=== PATIENT | female | born 1950 | race Caucasian/White ===

== ENCOUNTER 2018-08-22 08:05 | Day surgery (SDC) | payer OTHER, BC ==
--- OUTSIDE RECORDS SUMMARY | 2018-08-22 08:09 | XMS REPORT ---
:1950 Author Organization [facility] Address [address] [place] [address] [address] [place] [address] Care Team Providers Name Role Phone REAL BEJARANO ARMANDOCINTHIAEUGENE Unavailable Unavailable JOHNIE CLARK Unavailable Unavailable Problems This patient has no known problems. Allergies, Adverse Reactions, Alerts This patient has no known allergies or adverse reactions. Medications This patient has no known medications. Results Test Description Test Time Test Comments Text Results Atomic Results Result Comments BASIC METABOLIC PANEL 2017-07-30 05:01:00 Test Item Value Reference Range Comments SODIUM (BEAKER) (test 143 meq/L 135-148 zhrl=725) POTASSIUM (BEAKER) (test 3.2 meq/L 3.6-5.5 lroz=466) CHLORIDE (BEAKER) (test 103 meq/L 98-106 lwwv=888) CO2 (BEAKER) (test jabt=965) 28 meq/L 20-29 BLOOD UREA NITROGEN (BEAKER) 26 mg/dL 10-26 (test dfmn=292) CREATININE (BEAKER) (test 1.30 mg/dL 0.50-1.20 omqy=558) GLUCOSE RANDOM (BEAKER) 80 mg/dL 70-110 (test abie=085) CALCIUM (BEAKER) (test 8.1 mg/dL 8.5-10.5 dyso=613) EGFR (BEAKER) (test 41 mL/min/1.73 sq m ESTIMATED GFR IS NOT iegj=7674) ACCURATE CREATININE CLEARANCE IN PREDICTING GLOMERULAR FILTRATION RATE. ESTIMATED GFR IS NOT APPLICABLE FOR DIALYSIS PATIENTS. CBC W/PLT COUNT & AUTO [id number] 04:46:00 Test Item Value Reference Range Comments WHITE BLOOD CELL COUNT (BEAKER) (test hiuy=285) 12.8 K/ L 4.0-10.0 RED BLOOD CELL COUNT (BEAKER) (test kqhu=063) 3.07 M/ L 4.00-5.00 HEMOGLOBIN (BEAKER) (test rczg=328) 9.5 GM/DL 12.0-15.0 HEMATOCRIT (BEAKER) (test spdw=571) 28.7 % 36.0-45.0 MEAN CORPUSCULAR VOLUME (BEAKER) (test arce=288) 93.5 fL 82.0-99.0 MEAN CORPUSCULAR HEMOGLOBIN (BEAKER) (test 30.9 pg 27.0-33.0 hunj=077) MEAN CORPUSCULAR HEMOGLOBIN CONC (BEAKER) (test 33.1 GM/DL 32.0-36.0 viql=732) RED CELL DISTRIBUTION WIDTH (BEAKER) (test 14.6 % 10.3-14.2 ckpp=403) PLATELET COUNT (BEAKER) (test nvdm=533) 305 K/CU MM 150-430 MEAN PLATELET VOLUME (BEAKER) (test epko=530) 8.4 fL 6.5-10.5 NUCLEATED RED BLOOD CELLS (BEAKER) (test 0 /100 WBC 0-0 ybmt=625) NEUTROPHILS RELATIVE PERCENT (BEAKER) (test 79 % tvsd=589) LYMPHOCYTES RELATIVE PERCENT (BEAKER) (test 13 % ayky=172) MONOCYTES RELATIVE PERCENT (BEAKER) (test 7 % hlij=684) EOSINOPHILS RELATIVE PERCENT (BEAKER) (test 1 % kiqe=649) BASOPHILS RELATIVE PERCENT (BEAKER) (test 0 % ejdk=215) NEUTROPHILS ABSOLUTE COUNT (BEAKER) (test 10.10 K/ L 1.80-8.00 jgjt=288) LYMPHOCYTES ABSOLUTE COUNT (BEAKER) (test 1.60 K/ L 1.48-4.50 hlpe=154) MONOCYTES ABSOLUTE COUNT (BEAKER) (test 0.90 K/ L 0.00-1.30 vzoe=313) EOSINOPHILS ABSOLUTE COUNT (BEAKER) (test 0.10 K/ L 0.00-0.50 kjks=599) BASOPHILS ABSOLUTE COUNT (BEAKER) (test 0.00 K/ L 0.00-0.20 yqpc=277) TISSUE [id number] 10:51:00Surgical Pathology Report Case: [id number] Authorizing Provider: Real Bejarano, Collected: 07/27/2017 Jitendra GUZMAN OrderingLocation: [facility] PERIOPERATIVE Received: 2016 1207 SERVICES Pathologist: Priyanka Lynne MD Specimens: A) - Disc L3-4, L3-L4 B) - Disc L4-5, L4-L5 A. LUMBAR DISC, L3-L4, DISCECTOMY: - FIBROCARTILAGENOUS TISSUE WITH CALCIFICATION, CRYSTAL DEPOSITION AND DEGENERATIVE CHANGESB. LUMBAR DISC, L4-L5, DISCECTOMY: - FIBROCARTILAGENOUS TISSUE WITH CALCIFICATION AND DEGENERATIVECHANGESElectronically signed by Priyanka Lynne MD on at 10:51 [id number] A. Lumbar L3-L4; B. Lumbar L4- [id number] A is received in fixative and designated as "L3-4" consists of multiple white-ace tissue fragments measuring 2.5 x 1.5 x 0.5 cm in aggregate. The specimen is entirely submitted into A1. Specimen B is received in fixative and designated as "L4-5" consists of multiple pink-ace tissue fragments measuring 3.0 x 2.5 x 0.5 cm in aggregate. The specimen isentirely submitted into B1. MG/pl A-B: Performed [facility], Department of Pathology, [address] [place] [address], Tel [facility], Department of Pathology, [address] [place] [address], [facility], [address] [place] [address], EDA W/PLT COUNT & AUTO [id number] 05:42:00 Test Item Value Reference Range Comments WHITE BLOOD CELL COUNT (BEAKER) (test brcx=597) 14.2 K/ L 4.0-10.0 RED BLOOD CELL COUNT (BEAKER) (test ikhe=688) 3.16 M/ L 4.00-5.00 HEMOGLOBIN (BEAKER) (test njmh=274) 9.7 GM/DL 12.0-15.0 HEMATOCRIT (BEAKER) (test uyfb=370) 29.5 % 36.0-45.0 MEAN CORPUSCULAR VOLUME (BEAKER) (test oubz=317) 93.2 fL 82.0-99.0 MEAN CORPUSCULAR HEMOGLOBIN (BEAKER) (test 30.7 pg 27.0-33.0 ultz=337) MEAN CORPUSCULAR HEMOGLOBIN CONC (BEAKER) (test 32.9 GM/DL 32.0-36.0 hbbq=452) RED CELL DISTRIBUTION WIDTH (BEAKER) (test 14.9 % 10.3-14.2 qivp=107) PLATELET COUNT (BEAKER) (test cfhd=995) 280 K/CU MM 150-430 MEAN PLATELET VOLUME (BEAKER) (test jkcj=143) 8.0 fL 6.5-10.5 NUCLEATED RED BLOOD CELLS (BEAKER) (test 0 /100 WBC 0-0 ccto=187) NEUTROPHILS RELATIVE PERCENT (BEAKER) (test 86 % okyi=916) LYMPHOCYTES RELATIVE PERCENT (BEAKER) (test 9 % wmmn=619) MONOCYTES RELATIVE PERCENT (BEAKER) (test 5 % fsqw=519) EOSINOPHILS RELATIVE PERCENT (BEAKER) (test 0 % jnvh=156) BASOPHILS RELATIVE PERCENT (BEAKER) (test 0 % uexr=810) NEUTROPHILS ABSOLUTE COUNT (BEAKER) (test 12.20 K/ L 1.80-8.00 bmdx=806) LYMPHOCYTES ABSOLUTE COUNT (BEAKER) (test 1.20 K/ L 1.48-4.50 sxdh=787) MONOCYTES ABSOLUTE COUNT (BEAKER) (test 0.70 K/ L 0.00-1.30 pjwo=735) EOSINOPHILS ABSOLUTE COUNT (BEAKER) (test 0.10 K/ L 0.00-0.50 ubix=781) BASOPHILS ABSOLUTE COUNT (BEAKER) (test 0.00 K/ L 0.00-0.20 bcsw=797) BASIC METABOLIC [id number] 05:40:00 Test Item Value Reference Range Comments SODIUM (BEAKER) (test 143 meq/L 135-148 iifo=142) POTASSIUM (BEAKER) (test 3.8 meq/L 3.6-5.5 pjba=361) CHLORIDE (BEAKER) (test 107 meq/L 98-106 cxcb=977) CO2 (BEAKER) (test 26 meq/L 20-29 zpgx=043) BLOOD UREA NITROGEN 22 mg/dL 10-26 (BEAKER) (test mpyp=198) CREATININE (BEAKER) (test 1.20 mg/dL 0.50-1.20 uhgo=814) GLUCOSE RANDOM (BEAKER) 96 mg/dL 70-110 (test gpcy=954) CALCIUM (BEAKER) (test 8.3 mg/dL 8.5-10.5 uips=500) EGFR (BEAKER) (test 45 mL/min/1.73 sq m ESTIMATED GFR IS NOT hkns=8481) ACCURATE CREATININE CLEARANCE IN PREDICTING GLOMERULAR FILTRATION RATE. ESTIMATED GFR IS NOT APPLICABLE FOR DIALYSIS PATIENTS. CBC W/PLT COUNT & AUTO [id number] 05:15:00 Test Item Value Reference Range Comments WHITE BLOOD CELL COUNT (BEAKER) (test kasz=129) 9.4 K/ L 4.0-10.0 RED BLOOD CELL COUNT (BEAKER) (test wfzu=000) 3.64 M/ L 4.00-5.00 HEMOGLOBIN (BEAKER) (test kjuj=613) 11.3 GM/DL 12.0-15.0 HEMATOCRIT (BEAKER) (test nywp=061) 33.9 % 36.0-45.0 MEAN CORPUSCULAR VOLUME (BEAKER) (test yizy=011) 93.2 fL 82.0-99.0 MEAN CORPUSCULAR HEMOGLOBIN (BEAKER) (test 31.1 pg 27.0-33.0 dshh=944) MEAN CORPUSCULAR HEMOGLOBIN CONC (BEAKER) (test 33.3 GM/DL 32.0-36.0 igir=171) RED CELL DISTRIBUTION WIDTH (BEAKER) (test 14.5 % 10.3-14.2 cuxm=999) PLATELET COUNT (BEAKER) (test orjt=060) 265 K/CU MM 150-430 MEAN PLATELET VOLUME (BEAKER) (test zgdx=312) 8.4 fL 6.5-10.5 NUCLEATED RED BLOOD CELLS (BEAKER) (test 0 /100 WBC 0-0 feil=006) NEUTROPHILS RELATIVE PERCENT (BEAKER) (test 97 % ykgr=938) LYMPHOCYTES RELATIVE PERCENT (BEAKER) (test 3 % dirp=333) MONOCYTES RELATIVE PERCENT (BEAKER) (test 1 % ytme=037) EOSINOPHILS RELATIVE PERCENT (BEAKER) (test 0 % lenw=467) BASOPHILS RELATIVE PERCENT (BEAKER) (test 0 % rxkw=160) NEUTROPHILS ABSOLUTE COUNT (BEAKER) (test 9.10 K/ L 1.80-8.00 mfss=944) LYMPHOCYTES ABSOLUTE COUNT (BEAKER) (test 0.20 K/ L 1.48-4.50 gwzj=553) MONOCYTES ABSOLUTE COUNT (BEAKER) (test 0.10 K/ L 0.00-1.30 dgzj=002) EOSINOPHILS ABSOLUTE COUNT (BEAKER) (test 0.00 K/ L 0.00-0.50 iejh=658) BASOPHILS ABSOLUTE COUNT (BEAKER) (test 0.00 K/ L 0.00-0.20 rqne=052) BASIC METABOLIC [id number] 05:05:00 Test Item Value Reference Range Comments SODIUM (BEAKER) (test 142 meq/L 135-148 tpfl=351) POTASSIUM (BEAKER) (test 4.2 meq/L 3.6-5.5 hrzx=591) CHLORIDE (BEAKER) (test 111 meq/L 98-106 jllg=153) CO2 (BEAKER) (test 17 meq/L 20-29 mzlh=091) BLOOD UREA NITROGEN 15 mg/dL 10-26 (BEAKER) (test ojro=506) CREATININE (BEAKER) (test 0.80 mg/dL 0.50-1.20 huag=234) GLUCOSE RANDOM (BEAKER) 211 mg/dL 70-110 (test zzmv=466) CALCIUM (BEAKER) (test 8.3 mg/dL 8.5-10.5 hkbx=940) EGFR (BEAKER) (test 71 mL/min/1.73 sq m ESTIMATED GFR IS NOT msts=0924) ACCURATE CREATININE CLEARANCE IN PREDICTING GLOMERULAR FILTRATION RATE. ESTIMATED GFR IS NOT APPLICABLE FOR DIALYSIS PATIENTS. [place], [facility] IN OR/30 MINUTE [id number] 20:23:00Reason for exam:-> intra opFINAL REPORT Examination: Intraoperative evaluation 9 fluoroscopic spot views were obtained during the procedure by the ordering service. Images are nondiagnostic as no radiologist was present at the time of imaging. Fluoroscopic time was 145.5 seconds. Please see the procedure report for details. Signed: Mg Aranda MDReport Verified Date/Time : 07/27/2017 20:23:41 Reading Location: [address] Reading Room Electronically signed by: MG ARANDA M.D.on 07/27/2017 08:23 PMHEMOGLOBIN AND [id number] 17:50:00 Test Item Value Reference Range Comments HEMOGLOBIN (BEAKER) (test gkkr=686) 12.6 GM/DL 12.0-15.0 HEMATOCRIT (BEAKER) (test btgt=716) 38.4 % 36.0-45.0 RAD, CHEST, 2 [id number] 13:59:00Reason for exam:->preopFINAL REPORT INDICATION: preop COMPARISON: None. TECHNIQUE: Chest radiograph,two views, PA and lateral. FINDINGS / IMPRESSION:There is no evidence of pneumonia or pulmonary edema. 1 cm calcified granuloma in the right lower lobe represents prior granulomatous infection. Cardiacand mediastinal contours are normal. There is no pneumothorax or pleural effusion. Osseous structures are unremarkable. In summary, no acute pulmonary or cardiac abnormality. Signed: Arabella Ballard MDReport Verified Date/Time: 07/12/2017 13:59:12 Reading Location: [facility] Diagnostic Imaging Reading Room - [place] [address] COMPREHENSIVE METABOLIC [id number] 13:14:00 Test Item Value Reference Range Comments TOTAL PROTEIN (BEAKER) 6.6 gm/dL 6.0-8.5 (test bphr=183) ALBUMIN (BEAKER) (test 4.1 g/dL 3.5-5.0 vjel=6770) ALKALINE PHOSPHATASE 122 U/L 30-115 (BEAKER) (test qfiy=915) BILIRUBIN TOTAL (BEAKER) 0.5 mg/dL 0.1-1.2 (test kofd=903) SODIUM (BEAKER) (test 145 meq/L 135-148 gdgm=506) POTASSIUM (BEAKER) (test 4.1 meq/L 3.6-5.5 dmbw=209) CHLORIDE (BEAKER) (test 109 meq/L 98-106 sela=769) CO2 (BEAKER) (test 25 meq/L 20-29 vkpp=534) BLOOD UREA NITROGEN 21 mg/dL 10-26 (BEAKER) (test tcmi=977) CREATININE (BEAKER) (test 0.80 mg/dL 0.50-1.20 jcdt=614) GLUCOSE RANDOM (BEAKER) 95 mg/dL 70-110 (test qgow=756) CALCIUM (BEAKER) (test 9.4 mg/dL 8.5-10.5 cskf=776) AST (SGOT) (BEAKER) (test 32 U/L 5-40 qino=400) ALT (SGPT) (BEAKER) (test 40 U/L 5-50 lmzy=399) EGFR (BEAKER) (test 71 mL/min/1.73 sq m ESTIMATED GFR IS NOT tsyt=3214) ACCURATE CREATININE CLEARANCE IN PREDICTING GLOMERULAR FILTRATION RATE. ESTIMATED GFR IS NOT APPLICABLE FOR DIALYSIS PATIENTS. [id number] 13:01:00 Test Item Value Reference Range Comments PROTIME (BEAKER) (test exok=719) 10.7 seconds 9.3-12.0 INR (BEAKER) (test ulsf=368) 1.0 <=5.9 PARTIAL THROMBOPLASTIN TIME (BEAKER) (test 23.5 seconds 23.0-35.0 lppd=278) RECOMMENDED COUMADIN/WARFARIN INR THERAPY RANGESSTANDARD DOSE: 2.0 - 3.0 Includes: PROPHYLAXIS forvenous thrombosis, systemic embolization; TREATMENT for venous thrombosis and/or pulmonary embolus.HIGH RISK: Target INR is 2.5-3.5 for patients with mechanical heart valves.CBC W/PLT COUNT & AUTO [id number] 12:51:00 Test Item Value Reference Range Comments WHITE BLOOD CELL COUNT (BEAKER) (test jkpb=432) 15.5 K/ L 4.0-10.0 RED BLOOD CELL COUNT (BEAKER) (test lose=127) 4.25 M/ L 4.00-5.00 HEMOGLOBIN (BEAKER) (test zamh=693) 13.3 GM/DL 12.0-15.0 HEMATOCRIT (BEAKER) (test lvwr=566) 40.3 % 36.0-45.0 MEAN CORPUSCULAR VOLUME (BEAKER) (test ksvl=839) 94.9 fL 82.0-99.0 MEAN CORPUSCULAR HEMOGLOBIN (BEAKER) (test 31.2 pg 27.0-33.0 rxlh=691) MEAN CORPUSCULAR HEMOGLOBIN CONC (BEAKER) (test 32.9 GM/DL 32.0-36.0 wzjm=253) RED CELL DISTRIBUTION WIDTH (BEAKER) (test 15.5 % 10.3-14.2 cywj=763) PLATELET COUNT (BEAKER) (test gbmt=072) 294 K/CU MM 150-430 MEAN PLATELET VOLUME (BEAKER) (test siko=123) 8.9 fL 6.5-10.5 NUCLEATED RED BLOOD CELLS (BEAKER) (test 0 /100 WBC 0-0 inhd=358) NEUTROPHILS RELATIVE PERCENT (BEAKER) (test 93 % bbmb=705) LYMPHOCYTES RELATIVE PERCENT (BEAKER) (test 4 % wvra=590) MONOCYTES RELATIVE PERCENT (BEAKER) (test 3 % whhl=703) EOSINOPHILS RELATIVE PERCENT (BEAKER) (test 0 % auwq=411) BASOPHILS RELATIVE PERCENT (BEAKER) (test 0 % bsxd=915) NEUTROPHILS ABSOLUTE COUNT (BEAKER) (test 14.40 K/ L 1.80-8.00 zhwi=727) LYMPHOCYTES ABSOLUTE COUNT (BEAKER) (test 0.60 K/ L 1.48-4.50 kyet=117) MONOCYTES ABSOLUTE COUNT (BEAKER) (test 0.50 K/ L 0.00-1.30 ixdq=624) EOSINOPHILS ABSOLUTE COUNT (BEAKER) (test 0.00 K/ L 0.00-0.50 qyzd=556) BASOPHILS ABSOLUTE COUNT (BEAKER) (test 0.00 K/ L 0.00-0.20 ubvn=650) URINALYSIS W/ [id number] 12:12:00 Test Item Value Reference Range Comments COLOR (BEAKER) (test gmsf=386) Yellow CLARITY (BEAKER) (test zxdy=231) Slightly Cloudy SPECIFIC GRAVITY UA (BEAKER) (test vcpu=935) 1.020 1.001-1.035 PH UA (BEAKER) (test yqrm=098) 6.5 5.0-8.0 PROTEIN UA (BEAKER) (test aqow=283) Negative Negative GLUCOSE UA (BEAKER) (test iono=968) Negative Negative KETONES UA (BEAKER) (test fvix=694) Trace Negative BILIRUBIN UA (BEAKER) (test vfjv=969) Negative Negative BLOOD UA (BEAKER) (test sccg=172) Negative Negative NITRITE UA (BEAKER) (test gmbl=473) Negative Negative LEUKOCYTE ESTERASE UA (BEAKER) (test Small Negative lbll=008) UROBILINOGEN UA (BEAKER) (test tzsv=934) 4.0 mg/dL 0.2-1.0 BACTERIA (BEAKER) (test zxib=404) Moderate RBC UA-MANUAL (BEAKER) (test dcvb=7776) 5-10 /HPF WBC UA-MANUAL (BEAKER) (test tckj=1590) 10-20 /HPF SQUAMOUS EPITHELIAL MANUAL (BEAKER) (test 10-20 /HPF kgdq=3317) SOURCE(BEAKER) (test hubo=6223) BASIC METABOLIC [id number] 00:55:00 Test Item Value Reference Range Comments SODIUM (BEAKER) (test 145 meq/L 135-148 pxxf=663) POTASSIUM (BEAKER) (test 3.3 meq/L 3.6-5.5 ngpe=926) CHLORIDE (BEAKER) (test 112 meq/L 98-106 vdqm=298) CO2 (BEAKER) (test 18 meq/L 20-29 vrei=334) BLOOD UREA NITROGEN 21 mg/dL 10-26 (BEAKER) (test hawx=961) CREATININE (BEAKER) (test 1.10 mg/dL 0.50-1.20 ukss=553) GLUCOSE RANDOM (BEAKER) 80 mg/dL 70-110 (test sgau=365) CALCIUM (BEAKER) (test 9.2 mg/dL 8.5-10.5 mtix=073) EGFR (BEAKER) (test 50 mL/min/1.73 sq m ESTIMATED GFR IS NOT myqa=1793) ACCURATE CREATININE CLEARANCE IN PREDICTING GLOMERULAR FILTRATION RATE. ESTIMATED GFR IS NOT APPLICABLE FOR DIALYSIS PATIENTS. [id number] 00:49:00 Test Item Value Reference Range Comments PHOSPHORUS (BEAKER) (test ymek=126) 3.6 mg/dL 2.5-4.5 CBC W/PLT COUNT & AUTO [id number] 00:46:00 Test Item Value Reference Range Comments WHITE BLOOD CELL COUNT (BEAKER) (test pzdo=561) 8.5 K/ L 4.0-10.0 RED BLOOD CELL COUNT (BEAKER) (test tuzb=765) 3.97 M/ L 4.00-5.00 HEMOGLOBIN (BEAKER) (test onhe=786) 11.2 GM/DL 12.0-15.0 HEMATOCRIT (BEAKER) (test ipgi=646) 35.6 % 36.0-45.0 MEAN CORPUSCULAR VOLUME (BEAKER) (test eihx=621) 89.5 fL 82.0-99.0 MEAN CORPUSCULAR HEMOGLOBIN (BEAKER) (test 28.3 pg 27.0-33.0 jscm=505) MEAN CORPUSCULAR HEMOGLOBIN CONC (BEAKER) (test 31.6 GM/DL 32.0-36.0 gpem=478) RED CELL DISTRIBUTION WIDTH (BEAKER) (test 16.0 % 10.3-14.2 gyyf=795) PLATELET COUNT (BEAKER) (test cfjc=637) 258 K/CU MM 150-430 MEAN PLATELET VOLUME (BEAKER) (test sjvp=937) 9.4 fL 6.5-10.5 NUCLEATED RED BLOOD CELLS (BEAKER) (test 0 /100 WBC 0-0 qres=864) NEUTROPHILS RELATIVE PERCENT (BEAKER) (test 84 % lzvm=717) LYMPHOCYTES RELATIVE PERCENT (BEAKER) (test 10 % mmbr=634) MONOCYTES RELATIVE PERCENT (BEAKER) (test 5 % nvuq=254) EOSINOPHILS RELATIVE PERCENT (BEAKER) (test 1 % wslo=491) BASOPHILS RELATIVE PERCENT (BEAKER) (test 0 % gvlz=446) NEUTROPHILS ABSOLUTE COUNT (BEAKER) (test 7.10 K/ L 1.80-8.00 qkke=169) LYMPHOCYTES ABSOLUTE COUNT (BEAKER) (test 0.80 K/ L 1.48-4.50 uloe=460) MONOCYTES ABSOLUTE COUNT (BEAKER) (test 0.40 K/ L 0.00-1.30 zlqc=628) EOSINOPHILS ABSOLUTE COUNT (BEAKER) (test 0.10 K/ L 0.00-0.50 sbuh=254) BASOPHILS ABSOLUTE COUNT (BEAKER) (test 0.00 K/ L 0.00-0.20 fdrq=258) [id number] 00:44:00 Test Item Value Reference Range Comments MAGNESIUM (BEAKER) (test aflo=374) 2.0 mg/dL 1.5-3.0 PROTHROMBIN [id number] 00:44:00 Test Item Value Reference Range Comments PROTIME (BEAKER) (test cazu=638) 10.6 seconds 9.3-12.0 INR (BEAKER) (test zpmu=989) 1.0 <=5.9 RECOMMENDED COUMADIN/WARFARIN INR THERAPY RANGESSTANDARD DOSE: 2.0 - 3.0 Includes: PROPHYLAXIS forvenous thrombosis, systemic embolization; TREATMENT for venous thrombosis and/or pulmonary embolus.HIGH RISK: Target INR is 2.5-3.5 for patients with mechanical heart valves.
--- OUTSIDE RECORDS SUMMARY | 2018-08-22 08:09 | XMS REPORT | Clinical Summary ---
:1950 Author Organization [facility] Address [address] [place] [address] Care Team Providers Name Role Phone Unavailable Primary Care Provider Unavailable Allergies Active Allergy Reactions Severity Noted Date Comments Torres Swelling 11/18/2016 Warfarin Rash High 11/18/2016 Morphine Sulfate 11/18/2016 Makes me vomit Medications Medication Sig Dispensed Refills Start Date End Date Status omeprazole (PRILOSEC) Take 20 mg by 0 Active 20 MG capsule mouth 3 (three) times daily. hydrocortisone (CORTEF) Take 30 mg by 0 Active 20 MG tablet mouth daily . famciclovir (FAMVIR) Take 500 mg 0 Active 500 MG tablet by mouth as needed . hydroxychloroquine Take 200 mg 0 Active (PLAQUENIL) 200 mg by mouth 2 tablet (two) times daily. pregabalin (LYRICA) 150 Take 150 mg 0 Active MG capsule by mouth 2 (two) times daily . topiramate (TOPAMAX) Take 100 mg 0 Active 100 MG tablet by mouth once at bedtime. zolpidem (AMBIEN) 10 mg Take 5 mg by 0 Active tablet mouth every night as needed for Insomnia . cycloSPORINE (RESTASIS) Place 1 drop 0 Active 0.05 % ophthalmic into the emulsion right eye 2 (two) times daily. calcium carbonate Take 600 mg 0 Active (OS-LUIS CARLOS) 600 mg (1,500 by mouth mg) Tab daily. ibuprofen Take 800 mg 0 Active (ADVIL,MOTRIN) 800 MG by mouth 4 tablet (four) times daily as needed for Pain. triamterene-hydroCHLORO Take 1 tablet 0 Active thiazide (MAXZIDE-25) by mouth 37.5-25 mg per tablet daily. fludrocortisone Take 0.1 mg 0 Active (FLORINEF) 0.1 mg by mouth tablet every other day . B-complex with vitamin Take 1 tablet 0 Active C tablet by mouth daily. linaclotide (LINZESS) Take 145 mcg 0 Active 145 mcg Cap by mouth every other day as needed. GLUCOSAMINE/D3/BOSWELLI Take by mouth 0 Active A CLEMENTINA (OSTEO BI-FLEX, daily. 5-LOXIN, ORAL) azaTHIOprine (IMURAN) Take 150 mg 0 Active 50 mg tablet by mouth daily. torsemide (DEMADEX) 20 Take 40 mg by 0 Active MG tablet mouth daily. potassium chloride Take 10 mEq 0 Active (KLOR-CON) 10 MEQ CR by mouth tablet daily. bromfenac 0.07 % Drop Apply 1 drop 0 Active to eye(s) daily On both eyes . amLODIPine (NORVASC) 5 Take 5 mg by 0 07/19/20 Discontinued MG tablet mouth daily. 18 olmesartan (BENICAR) 20 Take 20 mg by 0 07/19/20 Discontinued MG tablet mouth daily. 18 ferrous sulfate 325 (65 Take 1 tablet 90 tablet 0 07/30/2017 08/29/19 FE) MG tablet (325 mg 18 total) by mouth 3 (three) times daily with meals for 30 days. polyethylene glycol Take 17 g by 510 g 0 07/30/2017 08/29/19 (GLYCOLAX) 17 gram mouth daily 18 packet for 30 days. senna-docusate (SENOKOT Take 1 tablet 60 tablet 0 07/30/2017 08/29/19 S) 8.6-50 mg per tablet by mouth 2 18 (two) times daily for 30 days. Active Problems Problem Noted Date Lumbago 07/27/2017 Lumbar spinal stenosis 07/27/2017 Radiculopathy of lumbar region 07/27/2017 Closed left hip fracture 11/18/2016 Family History Medical History Relation Name Comments Cancer Father Vision loss Father Heart disease Maternal Grandfather Alcohol abuse Maternal Uncle Asthma Mother Vision loss Mother Diabetes Paternal Grandmother Depression Son Relation Name Status Comments Father Maternal Grandfather Maternal Uncle Mother Paternal Grandmother Son Social History Tobacco Use Types Packs/Day Years Used Date Never Smoker Smokeless Tobacco: Never Used Alcohol Use Drinks/Week oz/Week Comments No Sex Assigned at Date Recorded Not on file Job Start Date Occupation Industry Not on file Not on file Not on file Travel History Travel Start Travel End No recent travel history available. Last Filed Vital Signs Not on file Plan of Treatment Not on file Implants Implanted Type [employer] Testing Device Shelf Model / Serial Identifier Expiration / Lot Date Amniofix 4x4cm Aps-5440 - [id number] Cement/F N/A: [employer] 05/01/2022 APS-5440 / Implanted: Qty: 1 on 07/27/2017 by Real Bejarano MD iller/[employer] [id number] / hesive Scr Set X6 - [id number] Spine N/A: ORTHOFIX / Implanted: Qty: 6 on 07/27/2017 by Real Bejarano MD Back INTL: ORTHOFIX / Elpidio Pre Lordosed Ti 5.5x60mm 52-6060 - [id number] Spine N/A: ORTHOFIX 52-6060 / Implanted: Qty: 2 on 07/27/2017 by Real Bejarano MD Back INTL: ORTHOFIX / Scr Multi-Axial St 5.5x45mm - [id number] Spine N/A: ORTHOFIX 44-3545 / Implanted: Qty: 4 on 07/27/2017 by Real Bejarano MD Back INTL: ORTHOFIX / Scr Multi-Axial St 5.5x40mm - [id number] Spine N/A: ORTHOFIX 44-3540 / Implanted: Qty: 2 on 07/27/2017 by Real Bejarano MD Back INTL: ORTHOFIX / Forza Spacer System 9mm W X 23mm L X 8mm H, 8degree Straight Implant N/A: [employer] 05/24/2021 [id number] / Implanted: Qty: 2 on 07/27/2017 by Real Bejarano MD Back / R01C Actifuse Shape Bone Graft Substitute 15.8ml N/A: [employer] 09/28/2021 [id number] / Implanted: Qty: 1 on 07/27/2017 by Real Bejarano MD Back / [id number] Results Not on fileafter 08/21/2017 Insurance Payer Benefit Plan / Subscriber ID Type Phone Address Group MEDICARE MEDICARE A B xxxxxxxxxx Medicare BLUE CROSS/BLUE [place]MN[place] x[place]xxx PPO [phone] [address] [facility] [place] [address] Advance Directives For more information, please contact:[address] [phone] Code Status Date Activated Date Inactivated Comments Full Code 07/27/2017 7:12 PM 07/30/2017 7:19 PM This code status was determined by: Patient
--- OUTSIDE RECORDS SUMMARY | 2018-08-22 08:09 | XMS REPORT | Clinical Summary ---
:1950 Author Organization [facility] Address [address] [place] [address] Care Team Providers Name Role Phone Rainer Malhotra MD Primary Care Provider Allergies Active Allergy Reactions Severity Noted Date Comments Warfarin 05/05/2016 Morphine (Pf) Anaphylaxis High 05/05/2016 Medications Medication Sig Dispensed Refills Start End Status Date Date famciclovir (FAMVIR) 0 Active 500 MG tablet 6 fludrocortisone 0.1 mg Take 0.1 mg by 0 Active tablet mouth daily. 6 hydrocortisone Take 30 mg by 0 Active (CORTEF) 10 MG tablet mouth daily. 6 lidocaine (LIDODERM) 5 0 Active % 6 omeprazole (PriLOSEC) Take 40 mg by 0 Active 20 MG capsule mouth daily. 6 topiramate (TOPAMAX) Take 100 mg by 0 Active 100 MG tablet mouth daily. 6 zolpidem (AMBIEN) 10 Take 5 mg by 0 Active mg tablet mouth nightly 6 as needed. cycloSPORINE Administer 1 0 Active (RESTASIS) 0.05 % drop to both ophthalmic emulsion eyes 2 (two) times a day. multivitamin with Take 1 tablet 0 Active minerals tablet by mouth daily. mv [id number] Take 162 mg by 0 Active fum-iron ps-FA (TANDEM mouth daily. PLUS) 162-115.2-1 mg capsule Ca carb-D3-mag Take by mouth 0 Active [id number] daily. (CALTRATE + D3 PLUS MINERALS) 300 mg-800 unit -25 mg-0.5 mg tablet torsemide (DEMADEX) 20 Take 20 mg by 0 Active MG tablet mouth daily. PAZEO 0.7 % drops 0 Active 7 tiZANidine (ZANAFLEX) Take 2 mg by 0 Active 2 MG tablet mouth every 6 7 (six) hours as needed. potassium chloride 0 Active (K-DUR,KLOR-CON) 10 8 MEQ CR tablet folic acid (FOLVITE) 1 TAKE 1 TABLET 90 tablet 3 Active MG tablet DAILY 8 cholecalciferol, Take 10,000 0 Active vitamin D3, 10,000 Units by mouth unit tablet every 7 days. methotrexate 2.5 MG Take 8 tablets 96 tablet 1 Active tablet (20 mg total) 8 019 by mouth once a week. predniSONE (DELTASONE) Take 1 tablet 90 tablet 0 Active 5 mg tablet (5 mg total) 8 019 by mouth daily. traMADol (ULTRAM) 50 Take 2 tablets 240 tablet 3 Active mg tablet (100 mg total) 8 019 by mouth every 6 (six) hours as needed for moderate pain for up to 180 days. cyanocobalamin 1,000 Inject 1,000 0 Active mcg/mL injection mcg into the shoulder, thigh, or buttocks every 30 (thirty) days. traMADol (ULTRAM) 50 Take 1 tablet 180 tablet 1 Active mg tablet (50 mg total) 8 019 by mouth every 6 (six) hours as needed for moderate pain. pregabalin (LYRICA) Take 1 capsule 270 capsule 1 Active 150 MG capsule (150 mg total) 8 019 by mouth 3 (three) times a day. predniSONE (DELTASONE) TAKE 1 TABLET 90 tablet 0 Active 5 mg tablet DAILY 8 019 hydroxychloroquine TAKE 1 TABLET 180 tablet 1 Active (PLAQUENIL) 200 mg TWICE A DAY 9 020 tablet cholecalciferol, Take 5,000 0 Discontinued vitamin D3, (VITAMIN Units by mouth 018 D3) 5,000 unit capsule daily. cyanocobalamin 1000 Take 1,000 mcg 0 Discontinued MCG tablet by mouth 018 daily. ketoconazole (NIZORAL) ARMANDO AA ON FEET 1 Discontinued 2 % cream BID 6 018 triamterene-hydrochlor Take 1 tablet 0 Discontinued othiazid (MAXZIDE-25) by mouth 018 37.5-25 mg per tablet daily. amLODIPine (NORVASC) 5 Take 5 mg by 0 Discontinued mg tablet mouth daily. 7 018 olmesartan (BENICAR) TK 1 T PO QD 0 Discontinued 20 MG tablet 7 018 hydroxychloroquine Take 1 tablet 180 tablet 1 Discontinued (PLAQUENIL) 200 mg (200 mg total) 7 018 tablet by mouth 2 (two) times a day. spironolactone TK ONE T PO 11 Discontinued (ALDACTONE) 50 MG QAM. 7 018 tablet folic acid (FOLVITE) 1 Take 1 tablet 90 tablet 3 Discontinued MG tablet (1 mg total) 7 018 by mouth daily. methotrexate 2.5 MG Take 6 tablets 24 tablet 0 Discontinued tablet (15 mg total) 7 018 by mouth once a week. pregabalin (LYRICA) Take 1 capsule 270 capsule 1 Discontinued 150 MG capsule (150 mg total) 7 018 by mouth 3 (three) times a day. ibuprofen TAKE 1 TABLET 180 tablet 0 Discontinued (ADVIL,MOTRIN) 800 MG EVERY 6 HOURS 7 018 tablet NEEDED FOR MILD PAIN FOR UP TO 30 DAYS traMADol (ULTRAM) 50 1-2 tablets 60 tablet 3 Discontinued mg tablet every six 7 018 hours as needed for pain hydroxychloroquine Take 1 tablet 180 tablet 1 Discontinued (PLAQUENIL) 200 mg (200 mg total) 8 018 tablet by mouth 2 (two) times a day. ibuprofen TAKE 1 TABLET 180 tablet 1 01/29/201 05/21/2 Discontinued (ADVIL,MOTRIN) 800 MG EVERY 6 HOURS 8 018 tablet NEEDED FOR MILD PAIN FOR UP TO 30 DAYS methotrexate 2.5 MG TAKE 6 TABLETS 72 tablet 0 Discontinued tablet ONCE A WEEK 8 018 predniSONE (DELTASONE) TK 2 TS PO D 1 Discontinued 20 mg tablet FOR ARTHRITIS 8 018 traMADol (ULTRAM) 50 Take 1 tablet 120 tablet 3 Discontinued mg tablet (50 mg total) 8 018 by mouth every 6 (six) hours as needed for moderate pain. 1-2 tablets every six hours as needed for pain traMADol (ULTRAM) 50 Take 1 tablet 120 tablet 3 Discontinued mg tablet (50 mg total) 8 018 by mouth every 6 (six) hours as needed for moderate pain. IBU 800 mg tablet TAKE 1 TABLET 180 tablet 1 Discontinued EVERY 6 HOURS 8 018 NEEDED FOR MILD PAIN methotrexate 2.5 MG TAKE 6 TABLETS 72 tablet 0 Discontinued tablet ONCE A WEEK 8 018 methotrexate 2.5 MG TAKE 6 TABLETS 72 tablet 0 Discontinued tablet ONCE A WEEK 8 018 pregabalin (LYRICA) Take 1 capsule 270 capsule 1 Discontinued 150 MG capsule (150 mg total) 8 018 by mouth 3 (three) times a day. hydroxychloroquine TAKE 1 TABLET 180 tablet 1 Discontinued (PLAQUENIL) 200 mg TWICE A DAY 8 019 tablet IBU 800 mg tablet TAKE 1 TABLET 180 tablet 0 Discontinued EVERY 6 HOURS 8 018 NEEDED FOR MILD PAIN traMADol (ULTRAM) 50 Take 1 tablet 120 tablet 1 Discontinued mg tablet (50 mg total) 8 018 by mouth every 6 (six) hours as needed for moderate pain. traMADol (ULTRAM) 50 Take 1 tablet 180 tablet 3 Discontinued mg tablet (50 mg total) 8 018 by mouth every 6 (six) hours as needed for moderate pain. predniSONE (DELTASONE) Take 1 tablet 30 tablet 1 Discontinued 5 mg tablet (5 mg total) 8 018 by mouth daily. predniSONE (DELTASONE) Take 1 tablet 30 tablet 1 Discontinued 5 mg tablet (5 mg total) 8 018 by mouth daily. methotrexate 2.5 MG Take 8 tablets 96 tablet 1 Discontinued tablet (20 mg total) 8 018 by mouth once a week. traMADol (ULTRAM) 50 Take 1 tablet 180 tablet 1 Discontinued mg tablet (50 mg total) 8 018 by mouth every 6 (six) hours as needed for moderate pain. methotrexate 2.5 MG Take 8 tablets 96 tablet 1 Discontinued tablet (20 mg total) 8 018 by mouth once a week. predniSONE (DELTASONE) Take 1 tablet 90 tablet 0 Discontinued 5 mg tablet (5 mg total) 8 018 by mouth daily. traMADol (ULTRAM) 50 Take 2 tablets 240 tablet 3 Discontinued mg tablet (100 mg total) 8 018 by mouth every 6 (six) hours as needed for moderate pain for up to 180 days. Active Problems Problem Noted Date Chronic midline low back pain without sciatica 05/04/2018 Chronic pain of right knee 11/02/2017 Chronic midline thoracic back pain 02/16/2017 Cervicalgia 02/16/2017 Arthritis 05/05/2016 Autoimmune disease 05/05/2016 Blistering rash 05/05/2016 Essential hypertension 05/04/2016 Fuchs' corneal dystrophy 05/04/2016 Vigo disease 05/04/2016 Glaucoma 05/04/2016 GERD (gastroesophageal reflux disease) 05/04/2016 Fibromyalgia syndrome 05/04/2016 Oral herpes 05/04/2016 Resolved Problems Problem Noted Date Resolved Date Lumbar radicular pain 07/05/2017 11/02/2017 Encounters Date Type Specialty Care Team Description 08/01/2018 Refill Rheumatology Amanda Suero MD 07/31/2018 Refill Rheumatology Amanda Suero MD 07/11/2018 Transcribe Orders Radiology Real Bejarano Spondylolisthesis, MD unspecified spinal region (Primary Dx) 07/11/2018 Transcribe Orders Radiology Real Bejarano Spondylolisthesis, MD unspecified spinal region (Primary Dx) 07/03/2018 Refill Rheumatology Patricia Hawk MA 05/30/2018 Hospital Encounter Radiology Real Jesus Spondylolisthesis, MD unspecified spinal region 05/30/2018 Hospital Encounter Radiology Real Jesus Spondylolisthesis, MD unspecified spinal region 05/23/2018 Transcribe Orders Radiology Real Bejarano, MD Ancelmo unspecified spinal region (Primary Dx) 05/23/2018 Transcribe Orders Radiology Real Bejarano, MD Ancelmo unspecified spinal region (Primary Dx) 05/11/2018 Refill Rheumatology Amanda Suero MD 05/09/2018 Orders Only Rheumatology Amanda Suero MD MGUS (monoclonal gammopathy of unknown significance) (Primary Dx) 05/08/2018 Orders Only Rheumatology Amanda Suero MD 05/08/2018 Refill Rheumatology Amanda Suero MD 05/08/2018 Refill Rheumatology Amanda Suero MD 05/08/2018 Refill Rheumatology Amanda Suero MD 05/04/2018 Office Visit Rheumatology Amanda Suero MD Arthritis (Primary Dx); Chronic midline low back pain without sciatica; High risk medication use; Weight loss, abnormal 04/12/2018 Refill Rheumatology Amanda Suero MD 03/06/2018 Orders Only Rheumatology Amanda Suero MD 03/06/2018 Orders Only Amanda Lugo MD 03/01/2018 Refill Rheumatology Shivam Hernandez MA 02/28/2018 Refill Rheumatology Amanda Suero MD 02/19/2018 Refill Rheumatology Amanda Suero MD 01/17/2018 Orders Only Rheumatology Amanda Suero MD 12/26/2017 Refill Rheumatology Amanda Suero MD 12/19/2017 Refill Rheumatology Amanda Suero MD 11/10/2017 Refill Rheumatology Chelle Amador MA 11/07/2017 Refill Rheumatology Chelle Amador MA 11/04/2017 Orders Only Rheumatology Amanda Suero MD Pyuria (Primary Dx) 11/02/2017 Office Visit Rheumatology Amanda Suero MD Autoimmune disease (Primary Dx); Arthritis; Chronic pain of right knee; High risk medication use 11/02/2017 Refill Rheumatology Chelle Amador MA 10/24/2017 Refill Rheumatology Amanda Suero MD 08/29/2017 Refill Rheumatology Patricia Hawk MA 08/27/2017 Refill Rheumatology Amanda Suero MD after 08/21/2017 Family History Relation Name Status Comments Father bladder cancer Mother RA, OA Other Multiuple Alive Lupus Social History Tobacco Use Types Packs/Day Years Used Date Never Smoker Smokeless Tobacco: Never Used Alcohol Use Drinks/Week oz/Week Comments No Sex Assigned at Date Recorded Not on file Job Start Date Occupation Industry Not on file Not on file Not on file Travel History Travel Start Travel End No recent travel history available. Last Filed Vital Signs Vital Sign Reading Time Taken Blood Pressure 130/71 05/30/2018 11:30 AM CDT Pulse 69 05/30/2018 11:30 AM CDT Temperature 36.6 C (97.9 F) 05/30/2018 9:00 AM CDT Respiratory Rate - - Oxygen Saturation 98% 05/30/2018 11:30 AM CDT Inhaled Oxygen Concentration - - Weight 65.8 kg (145 lb) 05/30/2018 9:11 AM CDT Height 162.6 cm (5' 4") 05/30/2018 9:11 AM CDT Body Mass Index 24.89 05/30/2018 9:11 AM CDT Plan of Treatment Date Type Specialty Care Team Description 11/02/2018 [place] [address] [address] [phone] Health Maintenance Due Date Last Done Comments BREAST CANCER SCREENING 1999 COLON CANCER SCREENING 1999 SHINGLES VACCINES (1 of 2) 1999 PNEUMOCOCCAL POLYSACCHARIDE VACCINE AGE 65 AND OVER 2014 PNEUMOCOCCAL-13 2014 INFLUENZA VACCINE 03/01/2018 Procedures Procedure Name Priority Date/Time Associated Comments Diagnosis CT POST MYELOGRAM Routine 05/30/2018 10:31 Spondylolisthesis, Results for this LUMBAR AM CDT unspecified spinal procedure are in region the results section. IR MYELOGRAM LUMB INCL Routine 05/30/2018 10:19 Spondylolisthesis, Results for this INJ W S&I AM CDT unspecified spinal procedure are in region the results section. IGG SUBCLASSES Routine 05/22/2018 11:09 MGUS (monoclonal Results for this AM CDT gammopathy of procedure are in unknown the results significance) section. BETA-2 MICROGLOBULIN Routine 05/22/2018 11:09 MGUS (monoclonal Results for this AM CDT gammopathy of procedure are in unknown the results significance) section. KAPPA LAMBDA FREE Routine 05/22/2018 11:09 MGUS (monoclonal Results for this LIGHT CHAIN WITH RATIO AM CDT gammopathy of procedure are in unknown the results significance) section. IMMUNOFIXATION, SERUM Routine 05/04/2018 12:13 Chronic midline low Results for this PM CDT back pain without procedure are in sciatica the results High risk section. medication use C-REACTIVE PROTEIN Routine 05/04/2018 12:13 Arthritis Results for this PM CDT procedure are in the results section. SEDIMENTATION RATE Routine 05/04/2018 12:13 Arthritis Results for this PM CDT procedure are in the results section. COMPREHENSIVE Routine 05/04/2018 12:13 Arthritis Results for this METABOLIC PANEL PM CDT procedure are in the results section. CBC WITH PLATELET AND Routine 05/04/2018 12:13 Arthritis Results for this DIFFERENTIAL PM CDT procedure are in the results section. MICROSCOPIC Routine 11/02/2017 11:14 Results for this EXAMINATION AM CDT procedure are in the results section. URINALYSIS, AUTOMATED Routine 11/02/2017 11:14 Autoimmune disease Results for this WITH MICROSCOPY AM CDT procedure are in the results section. C-REACTIVE PROTEIN Routine 11/02/2017 11:14 Autoimmune disease Results for this AM CDT procedure are in the results section. SEDIMENTATION RATE Routine 11/02/2017 11:14 Autoimmune disease Results for this AM CDT procedure are in the results section. COMPREHENSIVE Routine 11/02/2017 11:14 Autoimmune disease Results for this METABOLIC PANEL AM CDT procedure are in the results section. CBC WITH PLATELET AND Routine 11/02/2017 11:14 Autoimmune disease Results for this DIFFERENTIAL AM CDT procedure are in the results section. after 08/21/[address] Post Myelogram Lumbar (05/30/2018 10:31 AM CDT) Narrative Performed At EXAMINATION: CT POST MYELOGRAM LUMBAR [facility] CLINICAL HISTORY: M43.10 Spondylolisthesissite unspecified, m43.10 COMPARISON:MRI lumbar spine dated February 28, 2017 TECHNIQUE: Axial postintrathecal contrast enhanced images of the spine were obtained with coronal and sagittal MIP reconstructed imaging. CT imaging was performed with iterative reconstruction technique and/or automated exposure control to reduce radiation dose. FINDINGS: The patient has variant anatomy. T12 is lumbarized. L5 is partially sacralized on the left. This is in keeping with prior lumbar spine MRI numbering. New from the prior MRI, the patient has laminectomy changes at L3-L5 with anterior posterior fusion changes at these levels. There is no acute fracture. There is some fixed anterolisthesis of L3 and L4 at the level of the fusions. There are some rightward scoliosis centered at L3. The left L3 pedicle screw is slightly superior in location and extends to the endplate/disc space with some lucency around the screw suggesting mild loosening. The right-sided pedicle screw is unremarkable. The other pedicle screws at L4 and L5 are unremarkable. The aorta shows calcification and some ectasia. There are some mild fat stranding around the kidneys. There is no acute soft tissue abnormality. At L1-L2 there is mild disc bulge and facet disease. There is minimal effacement of the canal without significant stenosis. Disc osteophyte complex and facet hypertrophy results in mild to moderate right and minimal inferior left foraminal narrowing. Findings appear less prominent than prior preoperative MRI. There is vacuum disc changes at this level with anterior osteophytes. At L2-L3 there is vacuum phenomenon with disc bulge and facet hypertrophy. There is interval development of disc bulge with a posterior protrusion and facet hypertrophy which has progressed. There is now moderate left and mild right lateral recess narrowing. There is mild narrowing of the canal. There is some posterior central disc protrusion with mild superior extrusion which is new. Disc osteophyte complex with foraminal protrusions and facet disease are present with new left-sided foraminal narrowing which appears moderate severe correlate for a left L2 radiculopathy. There is mild to moderate right foraminal narrowing. At L3-L4 there is posterior laminectomy changes noted with no significant canal or lateral recess narrowing. The previous visualize canal narrowing and lateral recess narrowing is resolved. Disc osteophyte complex with foraminal protrusion and facet disease are present with moderate left and mild right foraminal narrowing. At L4-L5 decompressive changes are noted with a now widely patent canal and lateral recesses. Disc osteophyte complex and facet spurring is present with mild right and minimal left foraminal narrowing. At L5-S1 there is a stable rudimentary disc at this level with sacralization of L5 on the left. There is no canal or lateral recess narrowing. There are stable mild right foraminal narrowing. Left foramen is patent. IMPRESSION: 1.Overall findings show laminectomy decompression changes from L3 to L5. There is progressive disc disease above the fusion at L2-3 with at least moderate left lateral recess narrowing and more prominent moderate severe left foraminal narrowing at L2-3. Correlate for a left L2 and left L3 radiculopathy to determine significance. 2.The heart appears in good position without loosening except for the left L3 pedicle screw which is slightly superiorly directed entering into the superior endplate with some lucency around the distal screw. 3.There is decompression of the lower lumbar spine with resolution of the canal and lateral recess narrowing. [id number] Performing Organization Address City/State/Zipcode Phone Number [facility] [address] [place] [address] IR Myelogram Lumb Incl Inj W S&I (05/30/2018 10:19 AM CDT) Narrative Performed At EXAMINATION:IR MYELOGRAM LUMB INCL INJ W S&I [facility] CLINICAL HISTORY:M43.10 Spondylolisthesissite unspecified, m43.10 COMPARISON:CT myelogram dated May 30, 2018 TECHNIQUE: After informed consent was obtained, the patient was placed prone on the fluoroscopy table. The back was prepped and draped in sterile manner.1% buffered lidocaine was used for local anesthesia. Under fluoroscopic guidance, a 27-gauge needle was advanced percutaneously into the spinal subarachnoid space via interlaminar approach at L3 until free-flowing CSF returned from the hub. Subsequently, 10-mL of iohexol 240was instilled into the thecal sac. The needle was removed. Multiple myelographic projections of the lumbarspine were obtained. The patient tolerated procedure well with no immediate complication. Total fluoroscopy time was 0.3 minutes.Total radiation dose is 58 mGy=Ka,r FINDINGS: The patient was noted to have fusion changes in the lumbar spine just below the level of contrast injection. There is multifactorial thecal sac narrowing above the fusion at L2-3 is also effacement of ventral thecal sac at L3-L4. The exact amount canal, lateral recess and foraminal narrowing as discussed on CT myelogram. Please see that report for full details. The hardware appears without loosening other than the slight superior location of the left L3 pedicle screw discussed on CT. IMPRESSION: Uncomplicated fluoroscopic myelogram exam with multilevel spondylosis. The exact amount of stenosis is better assessed on corresponding mammogram [facility]-[id number] Procedure Note Hm Interface, Radiology Results Incoming - 06/01/2018 5:12 PM CDT EXAMINATION: IR MYELOGRAM LUMB INCL INJ W S&I CLINICAL HISTORY: M43.10 Spondylolisthesis site unspecified, m43.10 COMPARISON: CT myelogram dated May 30, 2018 TECHNIQUE: After informed consent was obtained, the patient was placed prone on the fluoroscopy table. The back was prepped and draped in sterile manner. 1% buffered lidocaine was used for local anesthesia. Under fluoroscopic guidance, a 27 -gauge needle was advanced percutaneously into the spinal subarachnoid space via interlaminar approach at L3 until free-flowing CSF returned from the hub. Subsequently, 10 - mL of iohexol 240 was instilled into the thecal sac. The needle was removed. Multiple myelographic projections of the lumbar spine were obtained. The patient tolerated procedure well with no immediate complication. Total fluoroscopy time was 0.3 minutes. Total radiation dose is 58 mGy=Ka,r FINDINGS: The patient was noted to have fusion changes in the lumbar spine just below the level of contrast injection. There is multifactorial thecal sac narrowing above the fusion at L2-3 is also effacement of ventral thecal sac at L3-L4. The exact amount canal, lateral recess and foraminal narrowing as discussed on CT myelogram. Please see that report for full details. The hardware appears without loosening other than the slight superior location of the left L3 pedicle screw discussed on CT. IMPRESSION: Uncomplicated fluoroscopic myelogram exam with multilevel spondylosis. The exact amount of stenosis is better assessed on corresponding mammogram [facility]. [facility]-[id number] Performing Organization Address City/State/Zipcode Phone Number [facility] [address] [place] [address] [place] lambda free light chain with ratio (05/22/2018 11:09 AM CDT) Ig [place] Free Light Chain 19.4 3.3 - 19.4 mg/L [facility] Lambda light chain 20.6 5.7 - 26.3 mg/L [facility] [place] lambda ratio 0.94 0.26 - 1.65 [facility] Specimen Blood Narrative Performed At Performed at: [facility] [address] [facility] [address], [place], [id number] Marketing Operations Coordinator: KEHINDE Frank MD, Phone:[phone] Performing Organization Address [facility] [place] Phone Number [facility] IgG subclasses (05/22/2018 11:09 AM CDT) IgG 413 (L) 700 - 1,600 mg/dL [facility] Immunoglobulin G subclass 1 247 (L) 248 - 810 mg/dL [facility] 02 Immunoglobulin G subclass 2 113 (L) 130 - 555 mg/dL [facility] 02 Immunoglobulin G subclass 3 22 15 - 102 mg/dL [facility] 02 Immunoglobulin G subclass 4 18 2 - 96 mg/dL [facility] 02 Specimen Blood Narrative Performed At Performed at: [facility] [address] [place], [id number] Marketing Operations Coordinator: Anson Land MD, Phone:[phone] Performed at: [place] [id number] Marketing Operations Coordinator: Santana Read MD, Phone:[phone] Performing Organization Address [facility] [place] Phone Number [facility] 02 Beta-2 microglobulin (05/22/2018 11:09 AM CDT) Beta-2 microglobulin 2.7 (H)Comment: Siemens Immulite 0.6 - 2.4 mg/L [facility] 2000 Immunochemiluminometric assay (ICMA) Specimen Blood Narrative Performed At Performed at: [place] [id number] Marketing Operations Coordinator: Santana Read MD, Phone:[phone] Performing Organization Address [facility] [place] Phone Number [facility] Sedimentation rate (05/04/2018 12:13 PM CDT)Only the most recent of2 resultswithin the time period is included. Sedimentation rate 2 0 - 40 mm/hr [facility] Specimen Blood Narrative Performed At [facility]formed at: [facility] [address] [place], [id number] Marketing Operations Coordinator: Anson Ladn MD, Phone:[phone] Performing Organization Address [facility] [place] Phone Number [facility] CBC with platelet and differential (05/04/2018 12:13 PM CDT)Only the most recent of2 resultswithin the time period is included. WBC 7.4 3.4 - 10.8 x10E3/uL [facility] RBC 3.87 3.77 - 5.28 x10E6/uL [facility] HGB 12.0 11.1 - 15.9 g/dL [facility] HCT 37.2 34.0 - 46.6 % [facility] MCV 96 79 - 97 fL [facility] MCH 31.0 26.6 - 33.0 pg [facility] MCHC 32.3 31.5 - 35.7 g/dL [facility] RDW 13.7 12.3 - 15.4 % [facility] Platelet count 241 150 - 379 x10E3/uL [facility] Neutrophils 88 Not Estab. % [facility] Lymphocytes 8 Not Estab. % [facility] Monocytes 3 Not Estab. % [facility] Eosinophils 1 Not Estab. % [facility] Basophils 0 Not Estab. % [facility] Neutrophils, absolute 6.5 1.4 - 7.0 x10E3/uL [facility] Lymphocytes, absolute 0.6 (L) 0.7 - 3.1 x10E3/uL [facility] Monocytes, absolute 0.2 0.1 - 0.9 x10E3/uL [facility] Eosinophils, absolute 0.0 0.0 - 0.4 x10E3/uL [facility] Basophils, absolute 0.0 0.0 - 0.2 x10E3/uL [facility] Immature granulocytes 0 Not Estab. % [facility] Immature grans (abs) 0.0 0.0 - 0.1 x10E3/uL [facility] Specimen Blood Narrative Performed At Performed at:01 - [facility] [place], [id number] Marketing Operations Coordinator: Anson Land MD, Phone:[phone] Performing Organization Address [facility] [facility] [place] Phone Number [facility] Immunofixation, serum (05/04/2018 12:13 PM CDT) Immunofixation, serum Comment [facility] Comment: Immunofixation shows IgG monoclonal protein with kappa light chain specificity. IgG 384 (L) 700 - 1,600 mg/dL [facility] 02 IgA 132 87 - 352 mg/dL [facility] 02 IgM 78 26 - 217 mg/dL [facility] 02 Specimen Blood Narrative Performed At Performed at:01 - [facility] [address], [place], [id number] Marketing Operations Coordinator: KEHINDE Frank MD, Phone:[phone] Performed at:02 - Lab[id number] Marketing Operations Coordinator: Anson Land MD, Phone:[phone] Performing Organization Address [facility] [place] Phone Number [facility] 02 C-reactive protein (05/04/2018 12:13 PM CDT)Only the most recent of2 resultswithin the time period is included. CRP 0.4 0.0 - 4.9 mg/L [facility] Specimen Blood Narrative Performed At Performed at: - [facility] LAB[id number] Marketing Operations Coordinator: Anson Land MD, Phone:[phone] Performing Organization Address [facility] [place] Phone Number [facility] Comprehensive metabolic panel (05/04/2018 12:13 PM CDT)Only the most recent of2 resultswithin the time period is included. Glucose 193 (H) 65 - 99 mg/dL [facility] BUN, whole blood 19 8 - 27 mg/dL [facility] Creatinine 0.95 0.57 - 1.00 mg/dL [facility] EGFR Non-Afr. Finnish 61 >59 mL/min/1.73 [facility] EGFR 71 >59 mL/min/1.73 [facility] BUN/creatinine ratio 20 12 - 28 [facility] Sodium 145 (H) 134 - 144 mmol/L [facility] Potassium 4.2 3.5 - 5.2 mmol/L [facility] Chloride 106 96 - 106 mmol/L [facility] CO2 23 20 - 29 mmol/L [facility] Calcium 9.0 8.7 - 10.3 mg/dL [facility] Protein 5.9 (L) 6.0 - 8.5 g/dL [facility] Albumin, S 4.1 3.6 - 4.8 g/dL [facility] Globulin, total 1.8 1.5 - 4.5 g/dL [facility] Albumin/globulin ratio 2.3 (H) 1.2 - 2.2 [facility] Total bilirubin 0.2 0.0 - 1.2 mg/dL [facility] Alkaline phosphatase 109 39 - 117 IU/L [facility] AST 27 0 - 40 IU/L [facility] ALT 21 0 - 32 IU/L [facility] Specimen Blood Narrative Performed At Performed at:01 [facility] [address] [place], [place] [id number] Marketing Operations Coordinator: Anson Land MD, Phone:[phone] Performing Organization Address [facility] [place] Phone Number [facility] Microscopic Examination (11/02/2017 11:14 AM CDT) WBC, UA 6-10 (A) 0 - 5 /hpf [facility] RBC, UA 0-2 0 - 2 /hpf [facility] Epithelial cells (non renal) 0-10 0 - 10 /hpf [facility] Casts Present (A) None seen /lpf [facility] Cast type Hyaline casts N/A [facility] Mucus, UA Present Not Estab. [facility] Bacteria, UA Few None seen/Few [facility] Fasting status N [facility] Narrative Performed At Performed at: - [facility] [address] [place], [place] [id number] Marketing Operations Coordinator: Anson Land MD, Phone:[phone] Performing Organization Address [facility] [place] Phone Number [facility] Urinalysis, automated with microscopy (11/02/2017 11:14 AM CDT) Specific gravity, urine 1.021 1.005 - 1.030 [facility] pH, urine 5.5 5.0 - 7.5 [facility] Color, UA Yellow Yellow [facility] Appearance Clear Clear [facility] WBC esterase, urine 2+ (A) Negative [facility] Protein, UA 1+ (A) Negative/Trace [facility] Glucose, urine Negative Negative [facility] Ketones, UA Negative Negative [facility] Occult blood, urine Negative Negative [facility] Bilirubin, UA Negative Negative [facility] Urobilinogen, UA 0.2 0.2 - 1.0 mg/dL [facility] Nitrite, UA Positive (A) Negative [facility] Microscopic examination See below:Comment: Microscopic [facility] was indicated and was performed. Fasting status N [facility] Specimen Urine Narrative Performed At Performed at: - [facility] [address] [place], [id number] Marketing Operations Coordinator: Anson Land MD, Phone:[phone] Performing Organization Address City/State/[facility] Phone Number [facility] after 08/21/2017 Insurance Payer Benefit Plan / Group Subscriber ID Type Phone Address MEDICARE MEDICARE PART A AND B xxxxxxxxxxx Medicare [place], [place] BCBS BCBS OUT OF STATE xxxxxxxxxxxx PPO (Home) [address] [place] [id number] Advance Directives Patient has advance care planning documents on file. For more information, please contact:Leonard Escamilla[address] [place] [address]
[2018-08-22 09:07] LABS: MPV 10.3 fL (7.6-11.3)
[2018-08-22 09:13] LABS: Platelet Estimate ADEQ
[2018-08-22 09:15] LABS: Protime INR 1.13
--- NOTE | 2018-08-22 11:20 | RAD REPORT ---
EXAM DESCRIPTION: CT - Spine Lumbar Wo Con - 08/22/2018 11:01 am CLINICAL HISTORY: Radiculopathy. LUMBAR MYELOGRAM COMPARISON: No comparisons TECHNIQUE: Axial noncontrast CT imaging of the lumbar spine was performed with coronal and sagittal re-formatted images. All CT scans are performed using dose optimization technique as appropriate and may include automated exposure control or mA/KV adjustment according to patient size. FINDINGS: Intrathecal contrast injection is separately reported. Posterior fusion hardware is present spanning L1-L5. There is no evidence of hardware loosening or in fection. Laminectomy changes are present at L2, L3, L4. T12- L1: No significant canal or foraminal stenosis. L1-L2: Mild posterior disc bulge is present asymmetric to the left. Mild central canal narrowing is s een. Mild narrowing of both exit foramina. L2-3: Posterior disc bulge is present asymmetric to the left foraminal region. No significant central canal stenosis. Disc material is seen to moderately narrowing the anterior inferior aspects of both exit foramina. L3-4: Posterior disc bulge is present with small endplate osteophytes. Mild central canal narrowing i s seen. Moderate narrowing of the left exit foramina is seen a result of disc material and endplate o steophytes. L4-5: Mild posterior disc bulge without significant canal or foraminal stenosis. L5-S1: No significant abnormality. No nerve root clumping or other finding to suggest arachnoiditis. IMPRESSION: Extensive postsurgical hardware is in place spanning L1-5 with multilevel laminectomy. Multilevel posterior disc bulges are present with small endplate osteophyte. No high-grade canal sten osis seen at any level. Disc material and facet osteophytes narrow the exit foramina moderately at mu ltiple levels as described above.
--- NOTE | 2018-08-22 11:23 | RAD REPORT ---
EXAM DESCRIPTION: RAD - Myelography Lumbar - 08/22/2018 11:09 am CLINICAL HISTORY: M43.10,M51.26, M48.062,M48.07,M54.16,M54.5 COMPARISON: No comparisons TECHNIQUE: The procedure, risks and alternatives to the procedure were discussed with the patient in detail. After answering all questions, both oral and written consent were obtained. Time-out procedu re was performed. The patient was placed in an oblique prone position on the fluoroscopic table. The skin of the lower back was prepped and draped in the usual sterile fashion. After anesthetizing the skin and deeper sof t tissues with 1% lidocaine, a 22 gauge needle was advanced into the thecal sac at the L3 level. After confirmation of intrathecal placement of the needle, 10 cc Isovue 200 was injected into the the deb space. At the conclusion of the procedure the needle was withdrawn and a sterile bandage placed over the pun cture site. The patient tolerated the procedure well without immediate complications and was transfer red to the CT scanner for further imaging. Total fluoro time: 1.1 minutes Images obtained: 4 IMPRESSION: Successful fluoroscopic guided lumbar puncture for CT lumbar myelogram. CT lumbar myelog reshma findings are separately reported.
[2018-08-22] MEDS ORDERED: HYDROCODONE/APAP 7.5/325 MG TAB ONE (11:41)
== END 2018-08-22 14:00 | disposition home or self-care (01) ==
LOC: DS 08:05
PROVIDERS: ATTEND Orthopaedic Surgery Orthopaedic Surgery of the Spine
DX: M54.17 Radiculopathy, lumbosacral region (principal); M54.5 Low back pain; M43.10 Spondylolisthesis, site unspecified; M51.26 Other intervertebral disc displacement, lumbar region; M48.062 Spinal stenosis, lumbar region with neurogenic claudication; M48.07 Spinal stenosis, lumbosacral region; M41.9 Scoliosis, unspecified
CPT/HCPCS: 36415; 62304; 72131; 85049; 85610; 85730

== ENCOUNTER 2018-11-28 16:54 | Emergency (ER) | payer OTHER, BC ==
--- OUTSIDE RECORDS SUMMARY | 2018-11-28 16:57 | XMS REPORT | Clinical Summary ---
:1950 Author Organization [facility] Address [address] [place] [address] Care Team Providers Name Role Phone Rainer Malhotra MD Primary Care Provider Allergies Active Allergy Reactions Severity Noted Date Comments Warfarin 05/05/2016 Morphine (Pf) Anaphylaxis High 05/05/2016 Medications Medication Sig Dispensed Refills Start End Status Date Date famciclovir (FAMVIR) 0 Active 500 MG tablet 6 fludrocortisone 0.1 mg Take 0.1 mg by 0 Active tablet mouth every 6 other day. hydrocortisone Take 30 mg by 0 Active [...] Active minerals tablet by mouth daily. mv [id number] Take 162 mg by 0 Active fum-iron ps-FA (TANDEM mouth daily. PLUS) 162-115.2-1 mg capsule Ca carb-D3-mag Take by mouth 0 Active bi-kmc-lerg-Zn daily. (CALTRATE + D3 PLUS MINERALS) 300 mg-800 unit -25 mg-0.5 mg tablet torsemide (DEMADEX) 20 Take 20 mg by 0 Active MG tablet mouth daily. PAZEO 0.7 % drops 0 Active 7 tiZANidine (ZANAFLEX) Take 4 mg by 0 Active 2 MG tablet mouth 3 7 (three) times a day. potassium chloride 0 Active (K-DUR,KLOR-CON) 10 8 MEQ CR tablet folic acid (FOLVITE) 1 TAKE 1 TABLET 90 tablet 3 Active MG tablet DAILY 8 cholecalciferol, Take 10,000 0 Active vitamin D3, 10,000 Units by mouth unit tablet every 7 days. cyanocobalamin 1,000 Inject 1,000 0 Active mcg/mL injection mcg into the shoulder, thigh, or buttocks every 30 (thirty) days. pregabalin (LYRICA) Take 1 capsule 270 capsule 1 Active 150 MG capsule (150 mg total) 8 019 by mouth 3 (three) times a day. predniSONE (DELTASONE) TAKE 1 TABLET 90 tablet 0 Active 5 mg tablet DAILY 8 019 hydroxychloroquine TAKE 1 TABLET 180 tablet 1 Active (PLAQUENIL) 200 mg TWICE A DAY 9 020 tablet predniSONE (DELTASONE) TAKE 1 90 tablet 1 Active 5 mg tablet TABLET(5 MG) 9 020 BY MOUTH DAILY traMADol (ULTRAM) 50 Take 1 tablet 180 tablet 1 Active mg tablet (50 mg total) 9 020 by mouth every 6 (six) hours as needed for moderate pain. methotrexate 2.5 MG Take 8 tablets 16 tablet 0 Active tablet (20 mg total) 9 020 by mouth once a week. traMADol (ULTRAM) 50 Take 2 tablets 240 tablet 0 Active mg tablet (100 mg total) 9 019 by mouth every 6 (six) hours as needed for moderate pain for up to 180 days. cyanocobalamin 1000 Take 1,000 mcg 0 Discontinued MCG tablet by mouth 018 daily. folic acid (FOLVITE) 1 Take 1 tablet 90 tablet 3 08/07/201 09/12/2 Discontinued MG tablet (1 mg total) 7 018 by mouth daily. pregabalin (LYRICA) Take 1 capsule 270 capsule 1 Discontinued 150 MG capsule (150 mg total) 7 018 by mouth 3 (three) times a day. hydroxychloroquine Take 1 tablet 180 tablet 1 Discontinued (PLAQUENIL) 200 mg (200 mg total) 8 018 tablet by mouth 2 (two) times a day. ibuprofen TAKE 1 TABLET 180 tablet 1 Discontinued (ADVIL,MOTRIN) 800 MG EVERY 6 HOURS [...] moderate pain for up to 180 days. methotrexate 2.5 MG Take 8 tablets 96 tablet 1 Discontinued tablet (20 mg total) 8 019 by mouth once a week. predniSONE (DELTASONE) Take 1 tablet 90 tablet 0 Discontinued 5 mg tablet (5 mg total) 8 019 by mouth daily. traMADol (ULTRAM) 50 Take 2 tablets 240 tablet 3 Discontinued mg tablet (100 mg total) 8 019 by mouth every 6 (six) hours as needed for moderate pain for up to 180 days. traMADol (ULTRAM) 50 Take 1 tablet 180 tablet 1 Discontinued mg tablet (50 mg total) 8 019 by mouth every 6 (six) hours as needed for moderate pain. IBU 800 mg tablet TAKE 1 TABLET 180 tablet 0 Discontinued EVERY 6 HOURS 9 019 NEEDED FOR MILD PAIN methotrexate 2.5 MG Take 8 tablets 96 tablet 1 Discontinued tablet (20 mg total) 9 019 by mouth once a week. 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 Glaucoma 05/04/2016 GERD (gastroesophageal reflux disease) 05/04/2016 Fibromyalgia syndrome 05/04/2016 Oral herpes 05/04/2016 Encounters Date Type Specialty Care Team Description 11/15/2018 Refill Rheumatology Amanda Suero MD 11/02/2018 Office Visit Rheumatology Amanda Suero MD Arthritis (Primary Dx); Autoimmune disease (HCC); Chronic midline thoracic back pain; High risk medication use; Osteopenia of multiple sites 10/06/2018 Telephone Rheumatology Santana Herron MA 10/05/2018 Refill Rheumatology Chelle Amador MA 10/05/2018 Refill Rheumatology Shivam Hernandez MA 10/05/2018 Refill Rheumatology Amanda Suero MD 08/25/2018 Refill Rheumatology Amanda Suero MD 08/01/2018 Refill Rheumatology Amanda Suero MD 07/31/2018 [...] spinal region 05/23/2018 Transcribe Orders Radiology Real Bejarano Spondylolisthesis, MD unspecified spinal region (Primary Dx) 05/23/2018 Transcribe Orders Radiology Real Bejarano Spondylolisthesis, MD unspecified spinal region (Primary Dx) 05/11/2018 Refill [...] 03/06/2018 Orders Only Rheumatology Amanda Suero MD 03/01/2018 Refill Rheumatology Shivam Hernandez MA 02/28/2018 Refill Rheumatology Amanda Suero MD 02/19/2018 Refill Rheumatology Amanda Suero MD 01/17/2018 Orders Only Amanda Lugo MD 12/26/2017 Refill Rheumatology Amanda Suero MD 12/19/2017 Refill Rheumatology Amanda Suero MD after 11/27/2017 Family History Relation Name Status Comments Father [...] Vital Sign Reading Time Taken Blood Pressure 144/81 11/02/2018 10:36 AM CDT Pulse 69 05/30/2018 11:30 AM CDT Temperature 36.6 C (97.9 F) 05/30/2018 9:00 AM CDT Respiratory Rate - - Oxygen Saturation 98% 05/30/2018 11:30 AM CDT Inhaled Oxygen Concentration - - Weight 63 kg (139 lb) 11/02/2018 10:36 AM CDT Height 154.9 cm (5' 1") 11/02/2018 10:36 AM CDT Body Mass Index 26.26 11/02/2018 10:36 AM CDT Plan of Treatment Date Type Specialty Care Team Description 12/27/2018 Office Visit Orthopedic Surgery Charan Acuña MD [address] [facility] [address] [place] [address] 03/08/2019 [place] [address] [facility] [address] [place] [address] Health Maintenance Due Date Last Done Comments BREAST CANCER SCREENING 1999 COLON CANCER SCREENING 1999 SHINGLES VACCINES (#1) 1999 65+ PNEUMOCOCCAL VACCINE (1 of 2 - PCV13) 2014 PNEUMOCOCCAL POLYSACCHARIDE VACCINE AGE 65 AND OVER 2014 INFLUENZA VACCINE 03/01/2019 Procedures Procedure Name Priority Date/Time Associated Comments [...] procedure are in the results section. after 11/27/[address] Post Myelogram Lumbar (05/30/2018 10:31 [...] of the canal and lateral recess narrowing. [id number] Performing Organization Address City/State/Zipcode Phone Number [facility] [address] [place] [address] IR Myelogram Lumb Incl Inj W S&I [...] is better assessed on corresponding mammogram [facility]. [facility]-[id number] Procedure Note Hm Interface, Radiology Results Incoming [...] is better assessed on corresponding [id number] Performing Organization Address City/[facility] Phone Number [facility] [address] [place] [address] Lutsen lambda free light chain with ratio (05/22/2018 11:09 AM CDT) Ig [place] Free Light Chain 19.4 3.3 - 19.4 mg/L [facility] Lambda light chain 20.6 5.7 - 26.3 mg/L [facility] L[place]sen lambda ratio 0.94 0.26 - 1.65 [facility] Specimen Blood Narrative Performed At Performed at: - [facility] [place] [facility] [address] [facility] [address] [place], [place] [id number] Emergency Technician: KEHINDE Frank MD, Phone:[phone] Performing Organization Address [facility] Phone Number [facility] IgG subclasses (05/22/2018 11:09 AM CDT) IgG 413 (L) 700 - 1,600 mg/dL [facility] Immunoglobulin G subclass 1 247 (L) 248 - 810 mg/dL [facility] 02 Immunoglobulin G subclass 2 113 (L) 130 - 555 mg/dL [facility] 02 Immunoglobulin G subclass 3 22 15 - 102 mg/dL [facility] 02 Immunoglobulin G subclass 4 18 2 - 96 mg/dL [facility] 02 Specimen Blood Narrative Performed At Performed at: - [facility] [address] [place], [id number] Emergency Technician: Anson Land MD, Phone:[phone] Performed at: - [facility] [address] [place], [id number] Emergency Technician: Santana Read MD, Phone:[phone] Performing Organization Address [facility] Phone Number [facility] 02 Beta-2 microglobulin (05/22/2018 11:09 AM CDT) Beta-2 microglobulin 2.7 (H)Comment: Siemens Immulite 0.6 - 2.4 mg/L [facility] 2000 Immunochemiluminometric assay (ICMA) Specimen Blood Narrative Performed At Performed at:01 - [facility] [address] [place], [id number] Emergency Technician: Santana Read MD, Phone:[phone] Performing Organization Address City/[facility] Phone Number [facility] Sedimentation rate (05/04/2018 12:13 PM CDT) Sedimentation rate 2 0 - 40 mm/hr [facility] Specimen Blood Narrative Performed At Performed at: - [facility] [address] [place], [id number] Emergency Technician: Anson Land MD, Phone:[phone] Performing Organization Address [facility] Phone Number [facility] CBC with platelet and differential (05/04/2018 12:13 PM CDT) WBC 7.4 3.4 - 10.8 x10E3/uL [facility] [...] Blood Narrative Performed At Performed at: - [id number] Emergency Technician: Anson Land MD, Phone:[phone] Performing Organization Address [facility] Phone Number [facility] Immunofixation, serum (05/04/2018 12:13 PM CDT) Immunofixation, serum Comment [facility] Comment: Immunofixation shows IgG monoclonal protein with kappa light chain specificity. IgG 384 (L) 700 - 1,600 mg/dL [facility] 02 IgA 132 87 - 352 mg/dL [facility] 02 IgM 78 26 - 217 mg/dL [facility] 02 Specimen Blood Narrative Performed At Performed at: [facility] [address] [place] [address] [address], [place], [id number] Emergency Technician: KEHINDE Frank MD, Phone:[phone] Performed at: [id number] Emergency Technician: Anson Land MD, Phone:[phone] Performing Organization Address [facility] Phone Number [facility] 02 C-reactive protein (05/04/2018 12:13 PM CDT) CRP 0.4 0.0 - 4.9 mg/L [facility] Specimen Blood Narrative Performed At Performed at: [id number] Emergency Technician: Anson Land MD, Phone:[phone] Performing Organization Address [facility] Phone Number [facility] Comprehensive metabolic panel (05/04/2018 12:13 PM CDT) Glucose 193 (H) 65 - 99 mg/dL [facility] BUN, whole blood 19 8 - 27 mg/dL [facility] Creatinine 0.95 0.57 - 1.00 mg/dL [facility] EGFR Non-Afr. Moldovan 61 >59 mL/min/1.73 [facility] EGFR 71 >59 [...] Narrative Performed At Performed at:01 - [facility] [address] [place], [id number] Emergency Technician: Anson Land MD, Phone:[phone] Performing Organization Address City/State/[facility] Phone Number [facility] after 11/27/2017 Insurance Payer Benefit Plan / Group Subscriber ID Type Phone Address MEDICARE MEDICARE PART A AND B xxxxxxxxxxx Medicare [place], [place] BCBS BCBS OUT OF STATE xxxxxxxxxxxx PPO (Home) [address] [place] [address] Advance Directives Patient has advance care planning documents on file. For more information, please contact:[place] [address]
--- OUTSIDE RECORDS SUMMARY | 2018-11-28 16:58 | XMS REPORT ---
:1950 [facility] Address [address] [place] [address] [address] [place] [address] Care Team Providers Name Role Phone REAL [...] Comments SODIUM (BEAKER) (test 143 meq/L 135-148 ovgu=929) POTASSIUM (BEAKER) (test 3.2 meq/L 3.6-5.5 urrz=749) CHLORIDE (BEAKER) (test 103 meq/L 98-106 iesh=676) CO2 (BEAKER) (test dbyc=851) 28 meq/L 20-29 BLOOD UREA NITROGEN (BEAKER) 26 mg/dL 10-26 (test zznf=610) CREATININE (BEAKER) (test 1.30 mg/dL 0.50-1.20 pmlq=371) GLUCOSE RANDOM (BEAKER) 80 mg/dL 70-110 (test vode=553) CALCIUM (BEAKER) (test 8.1 mg/dL 8.5-10.5 lnqc=882) EGFR (BEAKER) (test 41 mL/min/1.73 sq m ESTIMATED GFR IS NOT uosn=2277) ACCURATE CREATININE CLEARANCE IN PREDICTING GLOMERULAR FILTRATION RATE. ESTIMATED GFR IS NOT APPLICABLE FOR DIALYSIS PATIENTS. CBC W/PLT COUNT & AUTO [id number] 04:46:00 Test Item Value Reference Range Comments WHITE BLOOD CELL COUNT (BEAKER) (test gqhs=635) 12.8 K/ L 4.0-10.0 RED BLOOD CELL COUNT (BEAKER) (test euuv=751) 3.07 M/ L 4.00-5.00 HEMOGLOBIN (BEAKER) (test oega=703) 9.5 GM/DL 12.0-15.0 HEMATOCRIT (BEAKER) (test cimc=653) 28.7 % 36.0-45.0 MEAN CORPUSCULAR VOLUME (BEAKER) (test nhog=967) 93.5 fL 82.0-99.0 MEAN CORPUSCULAR HEMOGLOBIN (BEAKER) (test 30.9 pg 27.0-33.0 hczi=325) MEAN CORPUSCULAR HEMOGLOBIN CONC (BEAKER) (test 33.1 GM/DL 32.0-36.0 ctbi=260) RED CELL DISTRIBUTION WIDTH (BEAKER) (test 14.6 % 10.3-14.2 ldvm=798) PLATELET COUNT (BEAKER) (test zgny=036) 305 K/CU MM 150-430 MEAN PLATELET VOLUME (BEAKER) (test nnwh=558) 8.4 fL 6.5-10.5 NUCLEATED RED BLOOD CELLS (BEAKER) (test 0 /100 WBC 0-0 hngn=597) NEUTROPHILS RELATIVE PERCENT (BEAKER) (test 79 % gzas=319) LYMPHOCYTES RELATIVE PERCENT (BEAKER) (test 13 % ybdo=881) MONOCYTES RELATIVE PERCENT (BEAKER) (test 7 % mduv=140) EOSINOPHILS RELATIVE PERCENT (BEAKER) (test 1 % euzk=739) BASOPHILS RELATIVE PERCENT (BEAKER) (test 0 % epzg=780) NEUTROPHILS ABSOLUTE COUNT (BEAKER) (test 10.10 K/ L 1.80-8.00 xsji=434) LYMPHOCYTES ABSOLUTE COUNT (BEAKER) (test 1.60 K/ L 1.48-4.50 wfgq=234) MONOCYTES ABSOLUTE COUNT (BEAKER) (test 0.90 K/ L 0.00-1.30 vwru=429) EOSINOPHILS ABSOLUTE COUNT (BEAKER) (test 0.10 K/ L 0.00-0.50 elqp=861) BASOPHILS ABSOLUTE COUNT (BEAKER) (test 0.00 K/ L 0.00-0.20 twrs=546) TISSUE [id number] 10:51:00Surgical Pathology Report Case: [id number] Authorizing Provider: Real Bejarano, Collected: 07/27/2017 Jitendra [...] by Priyanka Lynne MD on at 10:51 [id number] A. Lumbar L3-L4; B. Lumbar L4- X1Zsblrwrj A is received in fixative and designated [...] isentirely submitted into B1. MG/pl A-B: Performed [facility], Department of Pathology, [address] [place] [address], Tel [facility], Department of Pathology, [address] [place] [address], [facility], [address] [place] [address], BVP W/PLT COUNT & AUTO [id number] 05:42:00 Test Item Value Reference Range Comments WHITE BLOOD CELL COUNT (BEAKER) (test asiy=979) 14.2 K/ L 4.0-10.0 RED BLOOD CELL COUNT (BEAKER) (test ssmk=742) 3.16 M/ L 4.00-5.00 HEMOGLOBIN (BEAKER) (test riyh=554) 9.7 GM/DL 12.0-15.0 HEMATOCRIT (BEAKER) (test dxzb=431) 29.5 % 36.0-45.0 MEAN CORPUSCULAR VOLUME (BEAKER) (test ffeo=712) 93.2 fL 82.0-99.0 MEAN CORPUSCULAR HEMOGLOBIN (BEAKER) (test 30.7 pg 27.0-33.0 dgyu=958) MEAN CORPUSCULAR HEMOGLOBIN CONC (BEAKER) (test 32.9 GM/DL 32.0-36.0 azqq=429) RED CELL DISTRIBUTION WIDTH (BEAKER) (test 14.9 % 10.3-14.2 kkuk=387) PLATELET COUNT (BEAKER) (test omcv=612) 280 K/CU MM 150-430 MEAN PLATELET VOLUME (BEAKER) (test iuug=679) 8.0 fL 6.5-10.5 NUCLEATED RED BLOOD CELLS (BEAKER) (test 0 /100 WBC 0-0 hxen=160) NEUTROPHILS RELATIVE PERCENT (BEAKER) (test 86 % pdus=199) LYMPHOCYTES RELATIVE PERCENT (BEAKER) (test 9 % cuof=584) MONOCYTES RELATIVE PERCENT (BEAKER) (test 5 % nfhl=323) EOSINOPHILS RELATIVE PERCENT (BEAKER) (test 0 % pcaf=874) BASOPHILS RELATIVE PERCENT (BEAKER) (test 0 % xiwh=554) NEUTROPHILS ABSOLUTE COUNT (BEAKER) (test 12.20 K/ L 1.80-8.00 iltv=468) LYMPHOCYTES ABSOLUTE COUNT (BEAKER) (test 1.20 K/ L 1.48-4.50 eelh=800) MONOCYTES ABSOLUTE COUNT (BEAKER) (test 0.70 K/ L 0.00-1.30 tbaj=476) EOSINOPHILS ABSOLUTE COUNT (BEAKER) (test 0.10 K/ L 0.00-0.50 dwxq=972) BASOPHILS ABSOLUTE COUNT (BEAKER) (test 0.00 K/ L 0.00-0.20 qfym=166) BASIC METABOLIC [id number] 05:40:00 Test Item Value Reference Range Comments SODIUM (BEAKER) (test 143 meq/L 135-148 wlmw=239) POTASSIUM (BEAKER) (test 3.8 meq/L 3.6-5.5 dosz=663) CHLORIDE (BEAKER) (test 107 meq/L 98-106 enkz=473) CO2 (BEAKER) (test 26 meq/L 20-29 ehub=484) BLOOD UREA NITROGEN 22 mg/dL 10-26 (BEAKER) (test carr=117) CREATININE (BEAKER) (test 1.20 mg/dL 0.50-1.20 vkmo=206) GLUCOSE RANDOM (BEAKER) 96 mg/dL 70-110 (test loru=038) CALCIUM (BEAKER) (test 8.3 mg/dL 8.5-10.5 rfeb=715) EGFR (BEAKER) (test 45 mL/min/1.73 sq m ESTIMATED GFR IS NOT aqhe=0777) ACCURATE CREATININE CLEARANCE IN PREDICTING GLOMERULAR FILTRATION RATE. ESTIMATED GFR IS NOT APPLICABLE FOR DIALYSIS PATIENTS. CBC W/PLT COUNT & AUTO [id number] 05:15:00 Test Item Value Reference Range Comments WHITE BLOOD CELL COUNT (BEAKER) (test ssxu=377) 9.4 K/ L 4.0-10.0 RED BLOOD CELL COUNT (BEAKER) (test tqac=789) 3.64 M/ L 4.00-5.00 HEMOGLOBIN (BEAKER) (test enfh=113) 11.3 GM/DL 12.0-15.0 HEMATOCRIT (BEAKER) (test fchf=472) 33.9 % 36.0-45.0 MEAN CORPUSCULAR VOLUME (BEAKER) (test uoqa=113) 93.2 fL 82.0-99.0 MEAN CORPUSCULAR HEMOGLOBIN (BEAKER) (test 31.1 pg 27.0-33.0 fepw=360) MEAN CORPUSCULAR HEMOGLOBIN CONC (BEAKER) (test 33.3 GM/DL 32.0-36.0 tovz=109) RED CELL DISTRIBUTION WIDTH (BEAKER) (test 14.5 % 10.3-14.2 woqo=536) PLATELET COUNT (BEAKER) (test sifz=446) 265 K/CU MM 150-430 MEAN PLATELET VOLUME (BEAKER) (test exfo=215) 8.4 fL 6.5-10.5 NUCLEATED RED BLOOD CELLS (BEAKER) (test 0 /100 WBC 0-0 ieer=022) NEUTROPHILS RELATIVE PERCENT (BEAKER) (test 97 % afhf=939) LYMPHOCYTES RELATIVE PERCENT (BEAKER) (test 3 % bsmo=127) MONOCYTES RELATIVE PERCENT (BEAKER) (test 1 % txdh=874) EOSINOPHILS RELATIVE PERCENT (BEAKER) (test 0 % vafr=149) BASOPHILS RELATIVE PERCENT (BEAKER) (test 0 % zmep=987) NEUTROPHILS ABSOLUTE COUNT (BEAKER) (test 9.10 K/ L 1.80-8.00 oepr=427) LYMPHOCYTES ABSOLUTE COUNT (BEAKER) (test 0.20 K/ L 1.48-4.50 dsxf=960) MONOCYTES ABSOLUTE COUNT (BEAKER) (test 0.10 K/ L 0.00-1.30 czzg=585) EOSINOPHILS ABSOLUTE COUNT (BEAKER) (test 0.00 K/ L 0.00-0.50 loeu=898) BASOPHILS ABSOLUTE COUNT (BEAKER) (test 0.00 K/ L 0.00-0.20 yppv=264) BASIC METABOLIC [id number] 05:05:00 Test Item Value Reference Range Comments SODIUM (BEAKER) (test 142 meq/L 135-148 wcjh=514) POTASSIUM (BEAKER) (test 4.2 meq/L 3.6-5.5 kxpe=547) CHLORIDE (BEAKER) (test 111 meq/L 98-106 sqie=253) CO2 (BEAKER) (test 17 meq/L 20-29 gels=631) BLOOD UREA NITROGEN 15 mg/dL 10-26 (BEAKER) (test shfo=027) CREATININE (BEAKER) (test 0.80 mg/dL 0.50-1.20 tcqc=428) GLUCOSE RANDOM (BEAKER) 211 mg/dL 70-110 (test nkzx=998) CALCIUM (BEAKER) (test 8.3 mg/dL 8.5-10.5 hodx=235) EGFR (BEAKER) (test 71 mL/min/1.73 sq m ESTIMATED GFR IS NOT yrpg=2149) ACCURATE CREATININE CLEARANCE IN PREDICTING GLOMERULAR FILTRATION RATE. ESTIMATED GFR IS NOT APPLICABLE FOR DIALYSIS PATIENTS. MO, Deenty IN OR/30 MINUTE [id number] 20:23:00Reason for exam:-> intra opFINAL REPORT Examination: Intraoperative evaluation 9 fluoroscopic spot views were obtained during the procedure by the ordering service. Images are nondiagnostic as no radiologist was present at the time of imaging. Fluoroscopic time was 145.5 seconds. Please see the procedure report for details. Signed: Mg Aranda MDReport Verified Date/Time : 07/27/2017 20:23:41 Reading Location: [address] Reading Room Electronically signed by: MG ARANDA M.D.on 07/27/2017 08:23 PMHEMOGLOBIN AND [id number] 17:50:00 Test Item Value Reference Range Comments HEMOGLOBIN (BEAKER) (test cseh=779) 12.6 GM/DL 12.0-15.0 HEMATOCRIT (BEAKER) (test vyaf=449) 38.4 % 36.0-45.0 RAD, CHEST, 2 [id number] 13:59:00Reason for exam:->preopFINAL REPORT INDICATION: preop COMPARISON: [...] MDReport Verified Date/Time: 07/12/2017 13:59:12 Reading Location: [facility] Diagnostic Imaging Reading Room - [place] [address] COMPREHENSIVE METABOLIC [id number] 13:14:00 Test Item Value Reference Range Comments TOTAL PROTEIN (BEAKER) 6.6 gm/dL 6.0-8.5 (test mpzv=837) ALBUMIN (BEAKER) (test 4.1 g/dL 3.5-5.0 ydpl=6958) ALKALINE PHOSPHATASE 122 U/L 30-115 (BEAKER) (test tlcg=816) BILIRUBIN TOTAL (BEAKER) 0.5 mg/dL 0.1-1.2 (test eboz=269) SODIUM (BEAKER) (test 145 meq/L 135-148 pnsj=981) POTASSIUM (BEAKER) (test 4.1 meq/L 3.6-5.5 zqbr=963) CHLORIDE (BEAKER) (test 109 meq/L 98-106 ppfi=346) CO2 (BEAKER) (test 25 meq/L 20-29 qywk=196) BLOOD UREA NITROGEN 21 mg/dL 10-26 (BEAKER) (test rifs=382) CREATININE (BEAKER) (test 0.80 mg/dL 0.50-1.20 tvqa=657) GLUCOSE RANDOM (BEAKER) 95 mg/dL 70-110 (test mrur=135) CALCIUM (BEAKER) (test 9.4 mg/dL 8.5-10.5 ophe=931) AST (SGOT) (BEAKER) (test 32 U/L 5-40 otea=050) ALT (SGPT) (BEAKER) (test 40 U/L 5-50 kgfc=820) EGFR (BEAKER) (test 71 mL/min/1.73 sq m ESTIMATED GFR IS NOT qbke=3035) ACCURATE CREATININE CLEARANCE IN PREDICTING GLOMERULAR FILTRATION RATE. ESTIMATED GFR IS NOT APPLICABLE FOR DIALYSIS PATIENTS. [id number] 13:01:00 Test Item Value Reference Range Comments PROTIME (BEAKER) (test inbx=313) 10.7 seconds 9.3-12.0 INR (BEAKER) (test ytsp=826) 1.0 <=5.9 PARTIAL THROMBOPLASTIN TIME (BEAKER) (test 23.5 seconds 23.0-35.0 hgoj=359) RECOMMENDED COUMADIN/WARFARIN INR THERAPY RANGESSTANDARD DOSE: 2.0 - 3.0 Includes: PROPHYLAXIS forvenous thrombosis, systemic embolization; TREATMENT for venous thrombosis and/or pulmonary embolus.HIGH RISK: Target INR is 2.5-3.5 for patients with mechanical heart valves.CBC W/PLT COUNT & AUTO [id number] 12:51:00 Test Item Value Reference Range Comments WHITE BLOOD CELL COUNT (BEAKER) (test ktws=499) 15.5 K/ L 4.0-10.0 RED BLOOD CELL COUNT (BEAKER) (test neei=968) 4.25 M/ L 4.00-5.00 HEMOGLOBIN (BEAKER) (test csgt=911) 13.3 GM/DL 12.0-15.0 HEMATOCRIT (BEAKER) (test eogd=166) 40.3 % 36.0-45.0 MEAN CORPUSCULAR VOLUME (BEAKER) (test rxpk=023) 94.9 fL 82.0-99.0 MEAN CORPUSCULAR HEMOGLOBIN (BEAKER) (test 31.2 pg 27.0-33.0 jhjt=112) MEAN CORPUSCULAR HEMOGLOBIN CONC (BEAKER) (test 32.9 GM/DL 32.0-36.0 nehv=324) RED CELL DISTRIBUTION WIDTH (BEAKER) (test 15.5 % 10.3-14.2 limr=546) PLATELET COUNT (BEAKER) (test ccwx=656) 294 K/CU MM 150-430 MEAN PLATELET VOLUME (BEAKER) (test ivxs=468) 8.9 fL 6.5-10.5 NUCLEATED RED BLOOD CELLS (BEAKER) (test 0 /100 WBC 0-0 jxcv=614) NEUTROPHILS RELATIVE PERCENT (BEAKER) (test 93 % opsv=240) LYMPHOCYTES RELATIVE PERCENT (BEAKER) (test 4 % xhye=756) MONOCYTES RELATIVE PERCENT (BEAKER) (test 3 % ylxd=490) EOSINOPHILS RELATIVE PERCENT (BEAKER) (test 0 % flox=732) BASOPHILS RELATIVE PERCENT (BEAKER) (test 0 % vakn=709) NEUTROPHILS ABSOLUTE COUNT (BEAKER) (test 14.40 K/ L 1.80-8.00 mxsb=971) LYMPHOCYTES ABSOLUTE COUNT (BEAKER) (test 0.60 K/ L 1.48-4.50 dmmb=374) MONOCYTES ABSOLUTE COUNT (BEAKER) (test 0.50 K/ L 0.00-1.30 dnvg=550) EOSINOPHILS ABSOLUTE COUNT (BEAKER) (test 0.00 K/ L 0.00-0.50 bjfo=294) BASOPHILS ABSOLUTE COUNT (BEAKER) (test 0.00 K/ L 0.00-0.20 noui=028) URINALYSIS W/ [id number] 12:12:00 Test Item Value Reference Range Comments COLOR (BEAKER) (test kqjt=181) Yellow CLARITY (BEAKER) (test deym=150) Slightly Cloudy SPECIFIC GRAVITY UA (BEAKER) (test ggwx=449) 1.020 1.001-1.035 PH UA (BEAKER) (test ovpa=838) 6.5 5.0-8.0 PROTEIN UA (BEAKER) (test ujsb=964) Negative Negative GLUCOSE UA (BEAKER) (test vgnn=490) Negative Negative KETONES UA (BEAKER) (test qscg=188) Trace Negative BILIRUBIN UA (BEAKER) (test yfqy=188) Negative Negative BLOOD UA (BEAKER) (test qnux=527) Negative Negative NITRITE UA (BEAKER) (test cdvv=574) Negative Negative LEUKOCYTE ESTERASE UA (BEAKER) (test Small Negative ewrz=858) UROBILINOGEN UA (BEAKER) (test roup=310) 4.0 mg/dL 0.2-1.0 BACTERIA (BEAKER) (test vyxq=704) Moderate RBC UA-MANUAL (BEAKER) (test ewca=4660) 5-10 /HPF WBC UA-MANUAL (BEAKER) (test ofau=3658) 10-20 /HPF SQUAMOUS EPITHELIAL MANUAL (BEAKER) (test 10-20 /HPF hwtd=1289) SOURCE(BEAKER) (test mbxb=0831) BASIC METABOLIC [id number] 00:55:00 Test Item Value Reference Range Comments SODIUM (BEAKER) (test 145 meq/L 135-148 qzis=169) POTASSIUM (BEAKER) (test 3.3 meq/L 3.6-5.5 wiuz=419) CHLORIDE (BEAKER) (test 112 meq/L 98-106 gtow=589) CO2 (BEAKER) (test 18 meq/L 20-29 plcl=196) BLOOD UREA NITROGEN 21 mg/dL 10-26 (BEAKER) (test ngce=828) CREATININE (BEAKER) (test 1.10 mg/dL 0.50-1.20 njzv=720) GLUCOSE RANDOM (BEAKER) 80 mg/dL 70-110 (test geon=816) CALCIUM (BEAKER) (test 9.2 mg/dL 8.5-10.5 hnpq=991) EGFR (BEAKER) (test 50 mL/min/1.73 sq m ESTIMATED GFR IS NOT fqyg=5978) ACCURATE CREATININE CLEARANCE IN PREDICTING GLOMERULAR FILTRATION RATE. ESTIMATED GFR IS NOT APPLICABLE FOR DIALYSIS PATIENTS. [id number] 00:49:00 Test Item Value Reference Range Comments PHOSPHORUS (BEAKER) (test mnjx=852) 3.6 mg/dL 2.5-4.5 CBC W/PLT COUNT & AUTO [id number] 00:46:00 Test Item Value Reference Range Comments WHITE BLOOD CELL COUNT (BEAKER) (test rkhm=378) 8.5 K/ L 4.0-10.0 RED BLOOD CELL COUNT (BEAKER) (test mcsg=233) 3.97 M/ L 4.00-5.00 HEMOGLOBIN (BEAKER) (test yshs=050) 11.2 GM/DL 12.0-15.0 HEMATOCRIT (BEAKER) (test ehwn=478) 35.6 % 36.0-45.0 MEAN CORPUSCULAR VOLUME (BEAKER) (test rhkz=498) 89.5 fL 82.0-99.0 MEAN CORPUSCULAR HEMOGLOBIN (BEAKER) (test 28.3 pg 27.0-33.0 kddl=441) MEAN CORPUSCULAR HEMOGLOBIN CONC (BEAKER) (test 31.6 GM/DL 32.0-36.0 bmys=947) RED CELL DISTRIBUTION WIDTH (BEAKER) (test 16.0 % 10.3-14.2 pmto=444) PLATELET COUNT (BEAKER) (test kpxa=857) 258 K/CU MM 150-430 MEAN PLATELET VOLUME (BEAKER) (test mafv=411) 9.4 fL 6.5-10.5 NUCLEATED RED BLOOD CELLS (BEAKER) (test 0 /100 WBC 0-0 dfjs=637) NEUTROPHILS RELATIVE PERCENT (BEAKER) (test 84 % pjbk=180) LYMPHOCYTES RELATIVE PERCENT (BEAKER) (test 10 % hpfz=636) MONOCYTES RELATIVE PERCENT (BEAKER) (test 5 % zuun=607) EOSINOPHILS RELATIVE PERCENT (BEAKER) (test 1 % vbge=815) BASOPHILS RELATIVE PERCENT (BEAKER) (test 0 % poqw=737) NEUTROPHILS ABSOLUTE COUNT (BEAKER) (test 7.10 K/ L 1.80-8.00 djia=903) LYMPHOCYTES ABSOLUTE COUNT (BEAKER) (test 0.80 K/ L 1.48-4.50 dgrp=597) MONOCYTES ABSOLUTE COUNT (BEAKER) (test 0.40 K/ L 0.00-1.30 qixf=990) EOSINOPHILS ABSOLUTE COUNT (BEAKER) (test 0.10 K/ L 0.00-0.50 wjgn=882) BASOPHILS ABSOLUTE COUNT (BEAKER) (test 0.00 K/ L 0.00-0.20 dbgv=178) [id number] 00:44:00 Test Item Value Reference Range Comments MAGNESIUM (BEAKER) (test zwwd=333) 2.0 mg/dL 1.5-3.0 PROTHROMBIN [id number] 00:44:00 Test Item Value Reference Range Comments PROTIME (BEAKER) (test fkpb=948) 10.6 seconds 9.3-12.0 INR (BEAKER) (test nvav=859) 1.0 <=5.9 RECOMMENDED COUMADIN/WARFARIN INR THERAPY RANGESSTANDARD DOSE: 2.0 - 3.0 Includes: PROPHYLAXIS forvenous thrombosis, systemic embolization; TREATMENT for venous thrombosis and/or pulmonary embolus.HIGH RISK: Target INR is 2.5-3.5 for patients with mechanical heart valves.
--- OUTSIDE RECORDS SUMMARY | 2018-11-28 16:58 | XMS REPORT | Clinical Summary ---
:1950 Author Organization [facility] Address [address] [place] [address] Care Team Providers Name Role Phone Unavailable [...] 07/19/20 Discontinued MG tablet mouth daily. 18 Active Problems Problem Noted Date Lumbago 07/27/2017 [...] Not on file Implants Implanted Type Area Manager Heavy Equipment Device Shelf Model / Serial Identifier Expiration / Lot Date Amniofix 4x4cm Aps-5440 - [id number] Cement/F N/A: [employer] 05/01/2022 APS-[id number] / Implanted: Qty: 1 on 07/27/2017 by Real Bejarano MD iller/[employer] [id number] / hesive Scr Set X6 - [id number] Spine N/A: ORTHOFIX / Implanted: Qty: 6 on 07/27/2017 by Real Bejarano MD Back INTL: ORTHOFIX / Elpidio Pre Lordosed Ti 5.5x60mm 52-6060 - [id number] Spine N/A: ORTHOFIX 52-6060 / Implanted: Qty: 2 on 07/27/2017 by Real Bejarano MD Back INTL: ORTHOFIX / Scr Multi-Axial St 5.5x45mm - [id number] Spine N/A: ORTHOFIX 44-3545 / Implanted: Qty: 4 on 07/27/2017 by Real Bejarano MD Back INTL: ORTHOFIX / Scr Multi-Axial St 5.5x40mm - [id number] Spine N/A: ORTHOFIX 44-3540 / Implanted: Qty: 2 on 07/27/2017 by Real Bejarano MD Back INTL: ORTHOFIX / Forza Spacer System 9mm W X 23mm L X 8mm H, 8degree Straight Implant N/A: ORTHOFIX INC 05/24/2021 [id number] / Implanted: Qty: 2 on 07/27/2017 by Real Bejarano MD Back / [id number] Actifuse Shape Bone Graft Substitute 15.8ml N/A: [employer] 09/28/2021 [id number] / Implanted: Qty: 1 on 07/27/2017 by Real Bejarano MD Back / [id number] Results Not on fileafter 11/27/2017 Insurance Payer Benefit Plan / Subscriber ID Type Phone Address Group MEDICARE MEDICARE A B xxxxxxxxxx Medicare BLUE CROSS/BLUE BCBS INDEMNITY [place] xxxxxxxxxxxx PPO [phone] [address] [place] [address] Advance Directives For more information, please contact:[address] [phone] Code Status Date Activated Date Inactivated Comments Full Code 07/27/2017 7:12 PM 07/30/2017 7:19 PM This code status was determined by: Patient
--- NOTE | 2018-11-28 19:01 | RAD REPORT ---
EXAM DESCRIPTION: MRI - C Spine Wo Cont - 11/28/2018 6:31 pm CLINICAL HISTORY: Right arm numbness COMPARISON: None TECHNIQUE: Magnetic resonance imaging of the cervical spine was obtained with coronal and sagittal r econstruction FINDINGS: Disc bulged C2-3 mildly encroach upon the thecal sac Disc bulge and osteophytes C3-4 narrow the thecal sac and 9 millimeters. Neural foramina are patent A tiny central disc protrusion C4-5. Thecal sac measures 9.5 millimeters. Neural foramina are patent Mild spondylosis C5-6 Small left paracentral disc herniation C6-7 C7-T1 unremarkable The spinal cord is normal signal. No abnormal signal within the bones is noted. IMPRESSION: Small left paracentral disc herniation C6-7 Spondylosis C3-4 and C4-5 resulting in mild central spinal stenosis
--- NOTE | 2018-11-28 19:14 | ER ---
Nurse's Notes [facility] Name: Deborah Garcia Age: 68 yrs Sex: Female : 1950 Arrival Date: 11/28/2018 Time: 16:56 Bed 20 Private MD: Diagnosis: Brachial plexus disorders Presentation: 11/28 16:59 Presenting complaint: Patient states: i woke up with pain and i was sitting up on the tw2 side of the bed holding my right arm, i had this sling at home so i put it on because it felt heavy adn this helps, i have chronic back pain. Transition of care: patient was not received from another setting of care. Onset of symptoms was November 28, 2018. Risk Assessment: Do you want to hurt yourself or someone else? Patient reports no desire to harm self or others. Initial Sepsis Screen: Does the patient meet any 2 criteria? No. Patient's initial sepsis screen is negative. Does the patient have a suspected source of infection? No. Patient's initial sepsis screen is negative. Care prior to arrival: None. 16:59 Method Of Arrival: Ambulatory tw2 16:59 Acuity: DANNY 3 tw2 Triage Assessment: 17:01 General: Appears in no apparent distress. Behavior is cooperative, appropriate for age. tw2 Pain: Complains of pain in back. Musculoskeletal: Reports weakness in right arm "my right arm just feels like weight". Historical: - Allergies: 17:02 Coumadin; tw2 - PMHx: 17:02 [place]'s; Lupus; tw2 - PSHx: 17:02 Knee surgery; shoulder sx; corneal transplant; tw2 - Immunization history:: Adult Immunizations. - Social history:: Smoking status: . - Ebola Screening: : Patient denies travel to an Ebola-affected area in the 21 days before illness onset. Screenin:05 Abuse screen: Denies threats or abuse. Denies injuries from another. Nutritional bp screening: No deficits noted. Tuberculosis screening: No symptoms or risk factors identified. Fall Risk None identified. Assessment: 17:05 General: SEE TRIAGE NOTE. bp 19:15 Reassessment: Patient appears in no apparent distress at this time. Patient is alert, lp1 oriented x 3, equal unlabored respirations, skin warm/dry/pink. Aware of waiting for imaging results; Right arm in sling. Vital Signs: 17:00 BP 161 / 90; Pulse 80; Resp 17; Temp 98(TE); Pulse Ox 100% on R/A; Weight 58.97 kg (R); tw2 Height 5 ft. 2 in. (157.48 cm) (R); Pain 7/10; 17:00 Body Mass Index 23.78 (58.97 kg, 157.48 cm) tw2 17:00 my back is a 7, my arm just feels numb tw2 ED Course: 16:56 Patient arrived in ED. mr 17:00 Triage completed. tw2 17:00 Arm band placed on. tw2 17:03 Reji Bedoya, RN is Primary Nurse. bp 17:05 Patient has correct armband on for positive identification. Bed in low position. Call bp light in reach. Side rails up X2. Adult w/ patient. 17:09 Johnnie Mcwilliams MD is Attending Physician. gs 18:31 C Spine Wo Cont In Process Unspecified. EDMS 19:13 Jeff Desouza MD is Referral Physician. gs 19:59 No provider procedures requiring assistance completed. Patient did not have IV access lp1 during this emergency room visit. Administered Medications: No medications were administered Outcome: 19:13 Discharge ordered by . 20:00 Discharged to home ambulatory, with significant other. lp1 20:00 Condition: good 20:00 Discharge instructions given to patient, Instructed on discharge instructions, follow up and referral plans. Demonstrated understanding of instructions, follow-up care. 20:01 Patient left the ED. lp1 Signatures: Dispatcher [employer] ABDIELNH Hailey Hopkins Ella Young RN RN lp1 Amelie Jenkins RN RN tw2 Johnnie Mcwilliams MD MD Reji Bedoya, RN RN bp Corrections: (The following items were deleted from the chart) 20:00 20:00 Reassessment: Patient appears in no apparent distress at this time. Patient is lp1 alert, oriented x 3, equal unlabored respirations, skin warm/dry/pink. Aware of waiting for imaging results; Right arm in sling lp1
--- NOTE | 2018-11-28 19:14 | EDPHYS ---
Physician Documentation [facility] Name: Deborah Garcia Age: 68 yrs Sex: Female : 1950 Arrival Date: 11/28/2018 Time: 16:56 Bed 20 Private MD: ED Physician Johnnie Mcwilliams HPI: 11/28 19:07 This 68 yrs old Female presents to ER via Ambulatory with complaints of Arm gs Problem. 19:07 The patient presents to the emergency department with weakness of the right upper gs extremity, that is severe. Onset: The symptoms/episode began/occurred this morning, at 07:30. Associated signs and symptoms: Pertinent positives: paresthesias, Pertinent negatives: altered mental status, syncope, double vision. Severity of symptoms: At their worst the symptoms were severe. Current symptoms: paralysis or paresis, that is severe. The patient has not experienced similar symptoms in the past. 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 - Social history:: Smoking status: . - Ebola Screening: : Patient denies travel to an Ebola-affected area in the 21 days before illness onset. ROS: 19:07 All other systems are negative. gs Exam: 19:07 Head/Face: Normocephalic, atraumatic. Eyes: Pupils equal round and reactive to light, gs extra-ocular motions intact. Lids and lashes normal. Conjunctiva and sclera are non-icteric and not injected. Cornea within normal limits. Periorbital areas with no swelling, redness, or edema. ENT: Nares patent. No nasal discharge, no septal abnormalities noted. Tympanic membranes are normal and external auditory canals are clear. Oropharynx with no redness, swelling, or masses, exudates, or evidence of obstruction, uvula midline. Mucous membranes moist. Neck: Trachea midline, no thyromegaly or masses palpated, and no cervical lymphadenopathy. Supple, full range of motion without nuchal rigidity, or vertebral point tenderness. No Meningismus. Chest/axilla: Normal chest wall appearance and motion. Nontender with no deformity. No lesions are appreciated. Cardiovascular: Regular rate and rhythm with a normal S1 and S2. No gallops, murmurs, or rubs. Normal PMI, no JVD. No pulse deficits. Respiratory: Lungs have equal breath sounds bilaterally, clear to auscultation and percussion. No rales, rhonchi or wheezes noted. No increased work of breathing, no retractions or nasal flaring. Abdomen/GI: Soft, non-tender, with normal bowel sounds. No distension or tympany. No guarding or rebound. No evidence of tenderness throughout. Back: No spinal tenderness. No costovertebral tenderness. Full range of motion. Skin: Warm, dry with normal turgor. Normal color with no rashes, no lesions, and no evidence of cellulitis. 19:07 Constitutional: The patient appears alert, awake. 19:07 Musculoskeletal/extremity: Pulses: are normal with no appreciated deficits, Edema, is not appreciated. 19:07 Neuro: Orientation: is normal, to person, place, time \T\ situation. Mentation: is normal, appropriate for stated age, no acute changes, Memory: no acute changes, Cranial nerves: CN II- XII are normal as tested, Cerebellar function: is grossly normal, Motor: Strength is 1/5 in the right arm, Sensation: pin prick is decreased in the right arm. Vital Signs: 17:00 BP 161 / 90; Pulse 80; Resp 17; Temp 98(TE); Pulse Ox 100% on R/A; Weight 58.97 kg (R); tw2 Height 5 ft. 2 in. (157.48 cm) (R); Pain 7/10; 17:00 Body Mass Index 23.78 (58.97 kg, 157.48 cm) tw2 17:00 my back is a 7, my arm just feels numb tw2 MDM: 17:46 Patient medically screened. gs 19:07 Data reviewed: vital signs, nurses notes. Response to treatment: the patient's symptoms gs have mildly improved after treatment, and as a result, I will discharge patient. Physician consultation: Jeff Desouza MD regarding patient's condition, and will see patient in office. ED course: CERVICAL RADICULOPATHY PLEXOPATHY. 11/28 17:54 Order name: C Spine Wo Cont; Complete Time: 19:14 EDMS Administered Medications: No medications were administered Disposition: 11/28/18 19:13 Discharged to Home. Impression: Brachial plexus disorders. - Condition is Stable. - Discharge Instructions: Neuropathic Pain. - Medication Reconciliation Form, Thank You Letter, Antibiotic Education, Prescription Opioid Use form. - Follow up: Jeff Desouza MD; When: 1 - 2 days; Reason: Re-evaluation by your physician. Signatures: Dispatcher [employer] EDMS Ella Young RN RN lp1 Amelie Jenkins RN RN tw2 Johnnie Mcwilliams MD MD gs Corrections: (The following items were deleted from the chart) 20:01 19:13 11/28/2018 19:13 Discharged to Home. Impression: Brachial plexus disorders. lp1 Condition is Stable. Forms are Medication Reconciliation Form, Thank You Letter, Antibiotic Education, Prescription Opioid Use. Follow up: Jeff Desouza; When: 1 - 2 days; Reason: Re-evaluation by your physician. gs
== END 2018-11-28 20:01 | disposition home or self-care (01) ==
LOC: ER 16:54
DX: G54.0 Brachial plexus disorders (principal); E27.1 Primary adrenocortical insufficiency; Z88.8 Allergy status to other drugs, medicaments and biological substances
CPT/HCPCS: 72141

== ENCOUNTER 2020-08-11 18:22 | Inpatient (IN) | payer OTHER, BC ==
--- OUTSIDE RECORDS SUMMARY | 2020-08-11 18:27 | XMS REPORT | Clinical Summary ---
:1950 Author Organization [facility] Address [address] [place] [address] Care Team Providers Name Role Phone Louie Malhotra MD Primary Care Provider Allergies Active Allergy Reactions Severity Noted Date Comments Torres Other (See Comments) High 08/03/2019 marachi no cherries- anaphylaxis Warfarin Other (See Comments) 05/05/2016 'look l gayle I have chicken pox' Medications Medication Sig Dispensed Refills Start End Date Status Date famciclovir Take 500 mg by 0 Act radha (FAMVIR) 500 MG mouth every 6 tablet morning. PRN for lupus blisters fludrocortisone 0.1 Take 0.1 mg by 0 Active mg tablet mouth every 6 other day. hydrocortisone Take 10 mg by 0 A ctive (CORTEF) 10 MG mouth 2 (two) 6 tablet times a day. 20mg in AM; 10 mg in afternoon lidocaine Place on the 0 Active (LIDODERM) 5 % skin as 6 needed. omeprazole Take 40 mg by 0 Activ e (PriLOSEC) 20 MG mouth nightly. 6 capsule cycloSPORINE Administer 1 0 Acti ve (RESTASIS) 0.05 % drop to both ophthalmic emulsion eyes as needed. multivitamin with Take 1 tablet 0 Active minerals tablet by mouth daily. cholecalciferol, Take 10,000 0 A ctive vitamin D3, 10,000 Units by mouth unit tablet every 7 days. cyanocobalamin Inject 1,000 0 Ac tive 1,000 mcg/mL mcg into the injection shoulder, thigh, or buttocks every 30 (thirty) days. triamterene-hydroch Take 1 tablet 0 Active lorothiazid by mouth every 9 (MAXZIDE-25) morning. 37.5-25 mg per tablet pen needle, Use new needle 100 each 1 Act radha diabetic (UNIFINE with Forteo 9 PENTIPS) 31 gauge x injection. 10/14" needle calcium Take 1 tablet 0 Active carbonate/vitamin by mouth D3 (CALCIUM 500 daily. MD WITH D ORAL) prescribed B complex-vitamin Take 1 tablet 0 Active C-folic acid by mouth (FOLBEE PLUS 5 MG) daily. MD 5 mg tablet per prescribed tablet iron fm,ps Take by mouth 0 Activ e no.1/folic/mv no.18 daily. (TANDEM PLUS ORAL) linaCLOtide Take 145 mcg 0 Activ e (LINZESS) 145 mcg by mouth as capsule needed. teriparatide Inject 0.08 mL 2.4 mL 11 01/28/20 Ac tive (FORTEO) 20 (20 mcg total) 0 21 mcg/dose - 600 under the skin mcg/2.4 mL daily. injectionIndication s: Senile osteoporosis eszopiclone Take 2 mg by 0 Activ e (LUNESTA) 2 MG mouth nightly tablet as needed for sleep. naloxone 4 1 spray into 2 each 0 Active mg/actuation each nostril 0 spray,non-aerosol once as needed (less than 8 breaths per minute or inability to arouse) for up to 2 doses. adalimumab 40 Inject 40 mg 2 kit 2 Act radha mg/0.4 mL pen under the skin 0 injector every 14 kitIndications: (fourteen) Ankylosing days. spondylitis of multiple sites in spine (HCC) topiramate Take 1 tablet 90 tablet 1 Activ e (TOPAMAX) 100 MG (100 mg total) 0 tablet by mouth nightly. methocarbamoL Take 1 tablet 40 tablet 0 Ac tive (ROBAXIN) 500 MG (500 mg total) 0 tablet by mouth 3 (three) times a day. traMADoL (ULTRAM) Take 2 tablets 240 tablet 1 11/23/202 11/23/ 20 Active 50 mg (100 mg total) 0 21 tabletIndications: by mouth every chronic pain 6 (six) hours as needed for moderate pain .chronic pain. azithromycin Take 1 tablet 6 tablet 0 Act radha (Zithromax Z-Aren) (250 mg total) 1 250 MG tablet by mouth daily. Take 2 tablets the first day, then 1 tablet daily for 4 days. albuterol (PROAIR Inhale 1-2 1 each 0 09/05/19 A ctive HFA) 90 puffs every 6 1 21 mcg/actuation (six) hours as inhaler needed for wheezing or shortness of breath for up to 30 days. topiramate Take 100 mg by 0 10/15/19 Disc ontinued (TOPAMAX) 100 MG mouth nightly. 6 20 (Reorder) tablet zolpidem (AMBIEN) Take 10 mg by 0 04/03/20 Discontinued 10 mg tablet mouth nightly 6 20 (Al ternate as needed. therapy) teriparatide Inject 0.08 mL 2.4 mL 11 01/15/20 Ex pired (FORTEO) 20 (20 mcg total) 9 20 mcg/dose - 600 under the skin mcg/2.4 mL daily. injection Additional Information Patient taking differently: 20 mcg subcutaneous nightly, Informant: Self, Reported on 10/17/2019 predniSONE (DELTASONE) TAKE 1 90 tablet 0 02/19/20192019 Discontinued 5 mg tablet TABLET DAILY tiZANidine (ZANAFLEX) 2 Take 2 90 tablet 2 02/28/201901/27 Discontinued MG tablet tablets (4 mg total) by mouth 3 (three) times a day. adalimumab (HUMIRA,CF, Inject 40 mg 2 kit 2 03/16/201910/2019 Discontinued PEN) 40 mg/0.4 mL pen under the injector skin every kitIndications: 14 Ankylosing spondylitis (fourteen) of multiple sites in days. spine (HCC) hydroxychloroquine Take 1.5 135 tablet 1 03/16/2019 0 Discontinued (PLAQUENIL) 200 mg tablets (300 (Reorder) tablet mg total) by mouth daily. traMADol (ULTRAM) 50 mg TAKE 2 TABS 240 tablet 0 07/03/2019 Discontinued tablet BY MOUTH (Reorder) EVERY 6 HOURS NEEDED FOR PAIN pregabalin (LYRICA) 150 Take by 0 2019 Discontinued MG capsule mouth 2 (Stop Adrian ing at (two) times Discharg e) a day. Per pt takes 1 tab AM; 2 tabs PM glucosamine/chondr lopez A Take by 0 2019 Discontinued sod (OSTEO BI-FLEX mouth daily. ORAL) traMADol (ULTRAM) 50 mg chronic 240 tablet 0 08/15/201901/2020 Discontinued tabletIndications: pain. TAKE 2 chronic pain TABS BY MOUTH EVERY 6 HOURS NEEDED FOR PAIN adalimumab 40 mg/0.4 mL INJECT 40 MG 2 kit 2 09/04/2019 Discontinued pen injector (0.4 ML) (Shara hook) kitIndications: UNDER THE Ankylosing spondylitis SKIN EVERY of multiple sites in 14 DAYS spine ([facility]) traMADol (ULTRAM) 50 mg chronic 240 tablet 0 09/07/201910/2019 Discontinued tabletIndications: pain. TAKE 2 (Reorder) chronic pain TABLETS BY MOUTH EVERY 6 HOURS NEEDED FOR PAIN traMADoL (ULTRAM) 50 mg chronic 240 tablet 5 10/03/201908/2019 Discontinued tabletIndications: pain. TAKE 2 (Reorder) chronic pain TABLETS BY MOUTH EVERY 6 HOURS NEEDED FOR PAIN hydroxychloroquine Take 2 180 tablet 1 10/15/2019 0 (PLAQUENIL) 200 mg tablets (400 tablet mg total) by mouth daily for 90 days. Additional Information Patient taking differently: 200 mg oral every morning, Informant: Self, Reported on 10/17/2019 topiramate Take 1 tablet 90 tablet 1 10/15/2019 04/27/2020 Dis continued (TOPAMAX) 100 MG (100 mg total) (Reorder) tablet by mouth nightly. TiZANidine Take 1 capsule 90 capsule 0 11/29/2019 04/14/2020 D iscontinued (Zanaflex) 2 MG (2 mg total) by (Stop Taking at capsule mouth 3 (three) Disc harge) times a day. traMADoL (ULTRAM) chronic pain. 240 tablet 5 04/01/20202019 Discontinued 50 mg TAKE 2 TABLETS (Reor li) tabletIndications: BY MOUTH EVERY 6 chronic pain HOURS NEEDED FOR PAIN traMADoL (ULTRAM) chronic pain. 240 tablet 0 04/01/20202019 Discontinued 50 mg TAKE 2 TABLETS (Reor li) tabletIndications: BY MOUTH EVERY 6 chronic pain HOURS NEEDED FOR PAIN bisacodyL Take 1 tablet (5 30 tablet 0 04/14/2020 05/14/2020 E xpired (DULCOLAX) 5 mg EC mg total) by tablet mouth daily as needed for constipation for up to 30 days. gabapentin Take 1 capsule 90 capsule 0 04/14/2020 05/14/2020 E xpired (NEURONTIN) 300 mg (300 mg total) capsule by mouth 3 (three) times a day for 30 days. methocarbamoL Take 1 tablet 90 tablet 0 04/14/2020 05/12/2020 Discontinued (ROBAXIN) 500 MG (500 mg total) (Reorder) tablet by mouth every 8 (eight) hours for 30 days. HYDROcodone-acetam Take 1 tablet by 12 tablet 0 04/14/2020 inophen ([place]) mouth 3 (three) 10-325 mg per times a day as tabletIndications: needed for acute pain severe pain for up to 4 days .acute pain. Max Daily Amount: 3 tablets acetaminophen-code Take 1 tablet by 40 tablet 0 04/21/202008/2019 ine (TYLENOL WITH mouth every 6 CODEINE #3) 300-30 (six) hours as mg per needed for tabletIndications: moderate pain acute pain, for up to 10 chronic pain days .acute pain, chronic pain. traMADoL (ULTRAM) chronic pain. 240 tablet 0 04/22/20202019 Discontinued 50 mg TAKE 2 TABLETS (Reor li) tabletIndications: BY MOUTH EVERY 6 chronic pain HOURS NEEDED FOR PAIN traMADoL (ULTRAM) chronic pain. 240 tablet 0 05/14/20202019 Discontinued 50 mg TAKE 2 TABLETS tabletIndications: BY MOUTH EVERY 6 chronic pain HOURS NEEDED FOR PAIN traMADoL (ULTRAM) TAKE 2 TABLETS 240 tablet 4 05/27/202006/23 Discontinued 50 mg tablet BY MOUTH EVERY 6 HOURS NEEDED FOR PAIN traMADoL (ULTRAM) TAKE 2 TABLETS 240 tablet 1 06/23/202006/23 Discontinued 50 mg tablet BY MOUTH EVERY 6 (Reorder) HOURS NEEDED FOR PAIN Active Problems Problem Noted Date Impaired gait and mobility 05/11/2020 Debility 05/11/2020 Neuropathic pain 05/11/2020 Acute pain 04/09/2020 Delirium 04/09/2020 Acute blood loss anemia 04/09/2020 Sagittal plane imbalance 09/07/2019 Overview: Added automatically from request for bob yohana [id number] Unspecified kyphosis, site unspecified 09/07/2019 Overview: Added automatically from request for bob yohana [id number] DISH (diffuse idiopathic skeletal hyperostosis) 2018 Osteopenia of multiple sites 11/02/2018 Chronic midline low back pain without sciatica 018 Chronic pain of right knee 11/02/2017 Chronic midline thoracic back pain 02/16/2017 Cervicalgia 02/16/2017 Arthritis 05/05/2016 Autoimmune disease 05/05/2016 Blistering rash 05/05/2016 Essential hypertension 05/04/2016 Fuchs' corneal dystrophy 05/04/2016 [place] disease 05/04/2016 Glaucoma 05/04/2016 GERD (gastroesophageal reflux disease) 05/04/2016 Fibromyalgia syndrome 05/04/2016 Oral herpes 05/04/2016 Encounters Date Type Specialty Care Team Description 08/07/2020 Documentation Medical Records Provider, Unknown 08/06/2020 Emergency Emergency Medicine Valeo, COVID-19 virus infection (Primary Dx); Rui Mccabe MD Pneumonia due t o infectious organism, unspecified laterality, unspecified part of lung 08/06/2020 Documentation Medical Records Provider, Unknown 08/06/2020 Documentation Medical Records Provider, Unknown 08/06/2020 Travel 08/06/2020 Documentation Medical Records Provider, Unknown 07/18/2020 Documentation Medical Records Provider, Unknown 07/15/2020 Refill Rheumatology Amanda Suero MD 06/23/2020 Refill Rheumatology Amanda Suero MD 06/19/2020 Refill Rheumatology Amanda Suero MD 06/09/2020 Office Visit Orthopedic Surgery Carolina Crawford plane Enrique Garcia imbalance (Prim mukesh Dx) 06/09/2020 Travel 06/06/2020 Travel 06/05/2020 Telemedicine Physical Medicine Kristan Alex Impaired gait and mobility (Primary Dx); and Helder Blackwell MD Debility; Neuropathic tico n 06/05/2020 Travel 06/03/2020 Documentation General Surgery Provider, Unknown 05/30/2020 Telephone Rheumatology Chelle Amador MA 05/27/2020 Refill Rheumatology Amanda Suero MD 05/21/2020 Office Visit Orthopedic Surgery [place]lysses, Senile os teoporosis Irasema (Primary Dx) EMILY Cody 05/21/2020 Hospital Encounter Radiology [place], Senile os teoporosis Irasema EMILY Cody 05/21/2020 Travel 05/15/2020 Travel 05/14/2020 Orders Only Rheumatology Amanda Suero MD 05/13/2020 Telemedicine Rheumatology Pio, Chronic midline low back pain without sciatica (Primary Dx); MD Amanda Chronic midline thoracic back pain; Fibromyalgia sy ndrome 05/12/2020 Orders Only Orthopedic Surgery Axel Fallon MA 05/12/2020 Orders Only Orthopedic Surgery Axel Fallon MA 05/12/2020 Travel 05/12/2020 Orders Only Orthopedic Surgery Clarke Artile os teopoaaron Do MA (Primary Dx) 05/12/2020 Refill Rheumatology Pio, Chronic pain sy ayesha Patel MD (Primary Dx) 05/08/2020 Office Visit Orthopedic Surgery Carolina Crawford imbalance (Prim mukesh Dx) 05/08/2020 Telemedicine Physical Medicine Kristan Alex Impaired gait and mobility (Primary Dx); and Helder Blackwell MD Debility; Neuropathic tico n 05/08/2020 Travel 05/07/2020 Telephone Rheumatology Amanda Suero MD 05/05/2020 Travel 05/01/2020 Travel 04/29/2020 Documentation General Surgery Provider, Unknown 04/28/2020 Office Visit Orthopedic Surgery Carolina Crawford imbalance (Prim mukesh Dx) 04/28/2020 Travel 04/28/2020 Documentation General Surgery Provider, Unknown 04/27/2020 Refill Orthopedic Surgery [place], Senile os teoporosis Irasemaedu Cody PA-C 04/27/2020 Refill Rheumatology Pio Ankylosing MD Amanda spondylitis of multiple sites in spine (HCC) 04/27/2020 Refill Orthopedic Surgery Enrique Crawford 04/27/2020 Documentation General Surgery Provider, Unknown 04/23/2020 Documentation General Surgery Provider, Unknown 04/22/2020 Refill Rheumatology Chelle Amador MA 04/21/2020 Orders Only Orthopedic Surgery Axel Fallon, BHAVESH 04/21/2020 Travel 04/19/2020 Documentation General Surgery Provider, Unknown 04/17/2020 Documentation General Surgery Provider, Unknown 04/16/2020 Documentation General Surgery Provider, Unknown 04/16/2020 Documentation General Surgery Provider, Unknown 04/16/2020 Documentation General Surgery Provider, Unknown 04/15/2020 Patient Outreach Quality Haley Lau RN 04/08/2020 Anesthesia Event General Surgery Lauren Abbasi MD Koshy, Nikhil 04/08/2020 Surgery General Surgery Ty, STAGE 2:COMP LETION OF Enrique S. T3-SACRUM W/ PE LVIS POSTERIOR SPINA L INSTRUMENTATION AND FUSION, POSSIB LE LUMBAR PEDICLE SUBTRACTION OST EOTOMY W/ SSEP W/ MIRIAN RS 04/05/2020 Documentation General Surgery Provider, Unknown 04/03/2020 Anesthesia Event General Surgery Joanne Harvey MD Robles Garcia, Elsa, NP 04/03/2020 Surgery General Surgery Ty, STAGE 1: REM OVAL OF Enrique S. EXISTING HAND CANDLE DIPPER IOR SPINAL INSTRUMENTAITON , L2-S1 04/03/2020 Hospital Encounter Orthopedic Surgery Ty, Oumar pecified kyphosis, - Enrique S. site unspecifie d 04/14/2020 04/01/2020 Refill Rheumatology Chelle Amador MA 04/01/2020 Refill Rheumatology Chelle Amador MA 03/31/2020 Pre-Admit Testing Pre-Admission Ty Preoperat radha testing Appointment Testing Enrique SFady (Primary Dx) 03/31/2020 Office Visit Orthopedic Surgery Ty, Sagittal plane imbalance (Primary Dx); Enrique SFady Fusion of lumbar spine; Alejandra, Other secondary kyphosis, thoracolumbar region Gloria, PA-C 03/31/2020 Orders Only Orthopedic Surgery Alejandra, Sagittal plane Gloria, PA-C imbalance (Prim mueksh Dx) 03/31/2020 Travel 03/06/2020 Travel 03/01/2020 Refill Orthopedic Surgery Irasema Arora PA-C 02/13/2020 Travel 02/06/2020 Pre-Admit Testing Pre-Admission Ca Crawford cameron ting (Primary Dx); Appointment Testing Enrique S. Sagittal plane imbalance 02/06/2020 Travel 01/28/2020 Pre-Admit Testing Pre-Admission Ty, Appointment Testing Enrique S. 01/28/2020 Office Visit Orthopedic Surgery Ty, Sagittal plane imbalance (Primary Dx); Enrique SFady Fusion of lumbar spine; Alejandra, Compression fra cture of T12 vertebra with delayed healing, subsequent encounter; EMILY Castro Other secondary kyphosis, thoracolumbar region 01/28/2020 Orders Only Orthopedic Surgery Rubens, Senile os teoporosis BHAVESH Do (Primary Dx) 01/28/2020 Orders Only Orthopedic Surgery Alejandra, Sagittal plane EMILY Castro imbalance (Prim mukesh Dx) 01/28/2020 Travel 01/26/2020 Refill Orthopedic Surgery Irasema Arora PA-C 01/16/2020 Refill Orthopedic Surgery Charan Acuña MD 01/02/2020 Travel 12/10/2019 Office Visit Orthopedic Surgery Ty Sagittal plane Enrique Garcia imbalance (Prim mukesh Dx) 12/10/2019 Travel 11/29/2019 Orders Only Orthopedic Surgery Axel Fallon MA 11/01/2019 Transcribe Orders Access McMenemy, Unspecifie d intracranial injury with loss of consciousness of unspecified duration, initial encounter ([facility]) (Primary Dx); Rainer Antonio, Unspecified vis danny maxwell MD 10/22/2019 Pre-Admit Testing Pre-Admission Crawford, No Show Appointment Testing Enrique Garcia 10/17/2019 Travel 10/15/2019 Refill Rheumatology Chelle Amador MA 10/08/2019 Documentation Medical Records Provider, Unknown 10/06/2019 Refill Rheumatology Amanda Suero MD 10/03/2019 Office Visit Rheumatology Pio, Arthritis (Prim mukesh Dx); MD Amanda Fibromyalgia sy ndrome; Controlled subs tance agreement signed 09/11/2019 Orders Only Orthopedic Surgery Andres, Sagittal plane Angeli, MA imbalance (Prim mukesh Dx) 09/11/2019 Orders Only Orthopedic Surgery Andres, Sagittal plane Angeli, MA imbalance (Prim mukesh Dx) 09/07/2019 Orders Only Orthopedic Surgery Nito Fallonro, Sagittal plane MA imbalance (Prim mukesh Dx) 09/07/2019 Orders Only Orthopedic Surgery Axel Fallon, Sagittal plane MA imbalance (Prim mukesh Dx) 09/07/2019 Refill Rheumatology Amanda Suero MD 09/04/2019 Refill Rheumatology Dana Suero MD spondylitis of multiple sites in spine ([facility]) 08/15/2019 Refill Rheumatology Shivam Hernandez MA after 08/11/2019 Surgical History Surgery Date Site/Laterality Comments GASTRIC BYPASS 08/01/2003 - 07/31/2004 REPLACEMENT TOTAL KNEE 08/01/2002 - Right 07/31/2003 CARPAL TUNNEL RELEASE 1990s Bilateral ARTHROSCOPY, SHOULDER Right 2011 WITH REPAIR, ROTATOR CUFF, OPEN CORNEAL TRANSPLANT ~2007;2013 Bilateral LUMBAR FUSION ~2015; 2017 x2- by Dr Real Bejarano APPENDECTOMY age 14 REDUCTION MAMMAPLASTY age 40 CHOLECYSTECTOMY 'dont remember' when' HERNIA REPAIR 2004;2005 bilateral inguin al, umbilical TOTAL ABDOMINAL age 24 HYSTERECTOMY REMOVAL POSTERIOR 04/03/2020 Spine Lumbar/Posterior Procedu re: STAGE 1: SEGMENTAL REMOVAL OF EXIST ING INSTRUMENTATION POSTERIOR SPINAL INSTRUMENTAITON, L2-S1; Surgeon: Enrique Crawford; Location: [facility] OR; Service: Orthopedics; Laterality: Post erior; Medical devices from this surgery are in the Implants section . FUSION, SPINE, THORACIC, 04/03/2020 Spine Thoracic/Posterio r Procedure: W/ REVISION USING POSTERIOR AND EXTENSION PO STERIOR TECHNIQUE SPINAL INSTRUMEN TATION AND FUSION , T3- SACRUM AND PELVIS W/ SS EP W/ MOTORS; Surgeon : Enrique Crawford; Location: [facility] OR; Service: Orthope dics; Laterality: Post erior; Medical devices from this surgery are in the Implants section . FUSION, SPINE, THORACIC, 04/08/2020 Spine Thoracic/Posterio r Procedure: STAGE USING POSTERIOR 2:COMPLETION OF TECHNIQUE T3-SACRUM W/ PEL VIS POSTERIOR SPINAL INSTRUMENTATION AND FUSION, POSSIBL E LUMBAR PEDICLE SUBTRACT ION OSTEOTOMY W/ SSE P W/ MOTORS; Surgeon : Enrique Crawford; Location: [facility] OR; Service: Orthope dics; Laterality: Post erior; Medical devices from this surgery are in the Implants section . Medical History Medical History Date Comments Rheumatic fever childhood Whooping cough age 6. severe. 4 w [facility]. Lungs scarring remaining. Lupus ([facility]) on hydrocortisone Mike disease ([facility]) sees Dr Mike george- sees annually- last seen 04/2019 Fibromyalgia Migraines very seldom Uses walker Chronic lower back pain Ankylosing spondylitis of site in spine (HCC) GERD (gastroesophageal reflux disease) r esolved since gastric bypass 14 yrs ago Polio 2-3 years of age. S hort leg. 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 Swelling of legs once in a wh ile Wears glasses Does not exercise Chronic, continuous use of opioids Family History Medical History Relation Name Comments Bone cancer Father Cancer Father Lung cancer Father Diabetes Mother Thyroid disease Mother Relation Name Status Comments Father Mother RA, OA Other Multiuple Alive Lupus Social History Tobacco Use Types Packs/Day Years Used Date Never Smoker Smokeless Tobacco: Never Used Alcohol Use Drinks/Week oz/Week Comments No Sex Assigned at Date Recorded Not on file Job Start Date Occupation Industry Not on file Not on file Not on file COVID-19 Exposure Response Date Recorded In the last month, have you been in contact with No / Unsure 08/06/2020 3:59 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 Last Filed Vital Signs Vital Sign Reading Time Taken Comments Blood Pressure 124/63 08/06/2020 6:32 PM OPERATOR ASSISTANT [employer] CEMENTING Pulse 69 08/06/2020 6:32 PM OPERATOR ASSISTANT [employer] CEMENTING Temperature 36.8 C (98.2 F) 08/06/2020 6:32 PM OPERATOR ASSISTANT I CEMENTING Respiratory Rate 18 08/06/2020 6:32 PM OPERATOR ASSISTANT I CEMENTING Oxygen Saturation 94% 08/06/2020 6:32 PM OPERATOR ASSISTANT I CEMENTING Inhaled Oxygen Concentration - - Weight 54.4 kg (120 lb) 08/06/2020 2:25 PM OPERATOR ASSISTANT [employer] CEMENTING Height 165.1 cm (5' 5") 08/06/2020 2:25 PM OPERATOR ASSISTANT I CEMENTING Body Mass Index 19.97 08/06/2020 2:25 PM OPERATOR ASSISTANT I CEMENTING Plan of Treatment Health Maintenance Due Date Last Done Comments COVID-19 VACCINE (#1) 1965 BREAST CANCER SCREENING 1999 COLONOSCOPY SCREENING 1999 SHINGLES VACCINES (#1) 1999 65+ PNEUMOCOCCAL VACCINE (1 of 1 - PPSV23) 2014 INFLUENZA VACCINE 03/01/2020 Implants Implanted Type Area Cyber Intel Planner Device Shelf Model / Identifier Expiration Serial / Lot Date Bone Cancellous Cube 6-10mm 30ml - [id number] - [id number] Torri n Tissue N/A: [employer] 11/20/2023 [id number] / Implanted: Qty: 1 on 04/08/2020 by Enrique Crawford at [facility] Implants N/A INC. [id number] / [id number] Bone Cancellous Cube 6-10mm 30ml - [id number] - [id number] Torri n Tissue N/A: [employer] 11/11/2023 [id number] / Implanted: Qty: 1 on 04/08/2020 by Enrique Crawford at [facility] Implants [employer] [id number] / [id number] Kit Bone Graft Infuse Large Ii - [id number] Human Tissue N/A: M EDTRONIC 03/01/2021 [id number] / Implanted: Qty: 1 on 04/08/2020 by Enrique Crawford at [facility] Implants N/A SPINAL AND / BIOLOGICS [id number] Screw [id number] Bs Cnmas 8.5x80 T/C - [id number] IPM IMPLANT N/A: MEDTRONIC [id number] / Implanted: 04/03/2020 at [facility] (Quantity not on file) DEV ICES N/A SOFAMOR DANEK / Elpidio [id number] - [id number] IPM IMPLAN T N/A: MEDTR[employer]IC [id number] / Implanted: 04/03/2020 at [facility] (Quantity not on file) DEV ICES N/A SOFAMOR DANEK / Screw [id number] 5.5 Mas 5.5x35 Cc - [id number] IPM IMPLANT N/A: MEDTR[employer]IC [id number] / Implanted: 04/03/2020 at [facility] (Quantity not on file) DEV ICES N/A SOFAMOR DANEK / Screw [id number] 5.5 Mas 5.5x40 Cc - [id number] IPM IMPLANT N/A: MEDTR[employer]IC [id number] / Implanted: 04/03/2020 at [facility] (Quantity not on file) DEV ICES N/A SOFAMOR DANEK / Screw [id number] 5.5 Mas 6.5x30 Cc - [id number] IPM IMPLANT N/A: MEDTRONIC [id number] / Implanted: 04/03/2020 at [facility] (Quantity not on file) DEV ICES N/A SOFAMOR DANEK / Screw [id number] 5.5 Mas 6.5x40 Cc - [id number] IPM IMPLANT N/A: MEDTR[employer]IC [id number] / Implanted: 04/03/2020 at [facility] (Quantity not on file) DEV ICES N/A SOFAMOR DANEK / Screw [id number] 5.5 Mas 7.5x40 Cc - [id number] IPM IMPLANT N/A: [employer]IC [id number] / Implanted: 04/03/2020 at [facility] (Quantity not on file) DEV ICES N/A SOFAMOR DANEK / Screw [id number] 5.5 Mas 7.5x45 Cc - [id number] IPM IMPLANT N/A: [employer]IC [id number] / Implanted: 04/03/2020 at [facility] (Quantity not on file) DEV ICES N/A SOFAMOR DANEK / Screw [id number] Bs Cnmas 8.5x70 T/C - [id number] IPM IMPLANT N/A: MEDTR[employer]IC 04/03/2021 [id number] / Implanted: 04/03/2020 at [facility] (Quantity not on file) DEV ICES N/A SOFAMOR DANEK / [id number] Elpidio [id number] 5.[address] 600mm - [id number] IPM IMPLAN T N/A: [employer]IC [id number] / Implanted: 04/08/2020 at [facility] (Quantity not on file) DEV ICES N/A SOFAMOR DANEK / Set Screw [id number] 5.5 Ti Ns Brk Off - [id number] Orthopedic N/A: [employer]IC [id number] / Implanted: 04/03/2020 at [facility] (Quantity not on file) Tra renetta N/A SPINAL AND / Implants BIOLOGICS Set Screw [id number] 5.5 Ti Ns Brk Off - [id number] Orthopedic N/A: [employer]IC [id number] / Implanted: 04/08/2020 at [facility] (Quantity not on file) Tra renetta N/A SPINAL AND / Implants BIOLOGICS Connector Elpidio Spinal Ti 5.5x5.5mm Strl - [id number] Spinal N/A: [employer] [id number] / Implanted: 04/08/2020 at [facility] (Quantity not on file) Imp lants N/A SPINAL AND / BIOLOGICS Screw Set Std Ti 1/4in 32mm - [id number] Spinal N/A: MEDTR[employer]IC [id number] / Implanted: 04/08/2020 at [facility] (Quantity not on file) Imp lants N/A SPINAL AND / BIOLOGICS Procedures Procedure Name Priority Date/Time Associated Diagnosis Comme nts XR CHEST 1 VW PORTABLE STAT 08/06/2020 4:44 R esults for this PM OPERATOR ASSISTANT I CEMENTING procedure are i n the results section. ESTIMATED GFR STAT 08/06/2020 4:17 Results fo r this PM OPERATOR ASSISTANT I CEMENTING procedure are i n the results section. B NATRIURETIC PEPTIDE STAT 08/06/2020 4:17 Re sults for this PM OPERATOR ASSISTANT I CEMENTING procedure are i n the results section. LIPASE LEVEL STAT 08/06/2020 4:17 Results for this PM OPERATOR ASSISTANT I CEMENTING procedure are i n the results section. TROPONIN STAT 08/06/2020 4:17 Results for this PM OPERATOR ASSISTANT I CEMENTING procedure are i n the results section. COMPREHENSIVE STAT 08/06/2020 4:17 Results fo r this METABOLIC PANEL PM OPERATOR ASSISTANT I CEMENTING procedure ar e in the results section. HC COMPLETE BLD COUNT STAT 08/06/2020 4:17 Re sults for this W/AUTO DIFF PM OPERATOR ASSISTANT I CEMENTING procedure are i n the results section. COVID-19 QUALITATIVE STAT 08/06/2020 4:17 Res ults for this PCR PM OPERATOR ASSISTANT I CEMENTING procedure are i n the results section. ECG 12-LEAD STAT 08/06/2020 3:45 Results for this PM OPERATOR ASSISTANT I CEMENTING procedure are i n the results section. ECG ED PRELIMINARY Routine 08/06/2020 3:05 Resul ts for this INTERPRETATION PM OPERATOR ASSISTANT I CEMENTING procedure are in the results section. XR SPINE SCOLIOSIS 2-3 Routine 06/09/2020 1:36 Sagittal plane Results for this VIEWS PM OPERATOR ASSISTANT I CEMENTING imbalance procedure are i n the results section. VITAMIN D 25 HYDROXY Routine 05/21/2020 1:25 Senile osteoporo sis Results for this LEVEL PM CDT procedure are i n the results section. PARATHYROID HORMONE Routine 05/21/2020 1:25 Senile osteoporos is Results for this PM CDT procedure are i n the results section. BONE DENSITY Routine 05/21/2020 11:06 Senile osteoporosis Resu lts for this PERIPHERAL AM CDT procedure are i n the results section. BONE DENSITY Routine 05/21/2020 11:06 Senile osteoporosis Resu lts for this AM CDT procedure are i n the results section. XR SPINE SCOLIOSIS 2-3 Routine 04/28/2020 12:47 Sagittal plane Results for this VIEWS PM CDT imbalance procedure are i n the results section. ESTIMATED GFR Routine 04/14/2020 4:32 Results fo r this AM CDT procedure are i n the results section. BASIC METABOLIC PANEL Routine 04/14/2020 4:32 Re sults for this AM CDT procedure are i n the results section. HC COMPLETE BLD COUNT Routine 04/14/2020 4:32 Re sults for this W/AUTO DIFF AM CDT procedure are i n the results section. XR ABDOMEN 1 VW Routine 04/13/2020 1:14 Results for this PORTABLE PM CDT procedure are i n the results section. ESTIMATED GFR Routine 04/13/2020 4:15 Results fo r this AM CDT procedure are i n the results section. MAGNESIUM LEVEL Routine 04/13/2020 4:15 Results for this AM CDT procedure are i n the results section. BASIC METABOLIC PANEL Routine 04/13/2020 4:15 Re sults for this AM CDT procedure are i n the results section. HC COMPLETE BLD COUNT Routine 04/13/2020 4:15 Re sults for this W/AUTO DIFF AM CDT procedure are i n the results section. HC COMPLETE BLD COUNT Routine 04/12/2020 6:30 Re sults for this W/AUTO DIFF AM CDT procedure are i n the results section. ESTIMATED GFR Routine 04/12/2020 4:00 Results fo r this AM CDT procedure are i n the results section. MAGNESIUM LEVEL Routine 04/12/2020 4:00 Results for this AM CDT procedure are i n the results section. BASIC METABOLIC PANEL Routine 04/12/2020 4:00 Re sults for this AM CDT procedure are i n the results section. B NATRIURETIC PEPTIDE Routine 04/11/2020 6:00 Re sults for this AM CDT procedure are i n the results section. HC COMPLETE BLD COUNT Routine 04/11/2020 6:00 Re sults for this W/AUTO DIFF AM CDT procedure are i n the results section. ESTIMATED GFR Routine 04/11/2020 4:00 Results fo r this AM CDT procedure are i n the results section. PHOSPHORUS LEVEL Routine 04/11/2020 4:00 Results for this AM CDT procedure are i n the results section. MAGNESIUM LEVEL Routine 04/11/2020 4:00 Results for this AM CDT procedure are i n the results section. BASIC METABOLIC PANEL Routine 04/11/2020 4:00 Re sults for this AM CDT procedure are i n the results section. CBC HEMOGRAM Routine 04/10/2020 4:45 Results for this AM CDT procedure are i n the results section. HEPATIC FUNCTION PANEL Routine 04/10/2020 4:00 R esults for this AM CDT procedure are i n the results section. POC GLUCOSE Routine 04/09/2020 1:15 Results for this PM CDT procedure are i n the results section. POC GLUCOSE Routine 04/09/2020 9:08 Results for this AM CDT procedure are i n the results section. POC GLUCOSE Routine 04/09/2020 4:49 Results for this AM CDT procedure are i n the results section. POC GLUCOSE Routine 04/09/2020 12:30 Results for this AM CDT procedure are i n the results section. TYPE AND SCREEN Routine 04/09/2020 12:00 Results for this AM CDT procedure are i n the results section. IONIZED CALCIUM, Routine 04/09/2020 12:00 Results for this ARTERIAL AM CDT procedure are i n the results section. ESTIMATED GFR Routine 04/09/2020 12:00 Results fo r this AM CDT procedure are i n the results section. LACTIC ACID LEVEL Routine 04/09/2020 12:00 Result s for this AM CDT procedure are i n the results section. BASIC METABOLIC PANEL Routine 04/09/2020 12:00 Re sults for this AM CDT procedure are i n the results section. PROTHROMBIN TIME WITH Routine 04/09/2020 12:00 Re sults for this INR AM CDT procedure are i n the results section. MAGNESIUM LEVEL Routine 04/09/2020 12:00 Results for this AM CDT procedure are i n the results section. PHOSPHORUS LEVEL Routine 04/09/2020 12:00 Results for this AM CDT procedure are i n the results section. PARTIAL THROMBOPLASTIN Routine 04/09/2020 12:00 R esults for this TIME (PTT) AM CDT procedure are i n the results section. ARTERIAL BLOOD GAS Routine 04/09/2020 12:00 Resul ts for this AM CDT procedure are i n the results section. CBC HEMOGRAM Routine 04/09/2020 12:00 Results for this AM CDT procedure are i n the results section. XR ABDOMEN 1 VW STAT 04/08/2020 9:42 Results for this PORTABLE PM CDT procedure are i n the results section. POC GLUCOSE Routine 04/08/2020 8:45 Results for this PM CDT procedure are i n the results section. HC COMPLETE BLD COUNT Routine 04/08/2020 5:41 Re sults for this W/AUTO DIFF PM CDT procedure are i n the results section. URINE CULTURE Routine 04/08/2020 5:39 Results fo r this PM CDT procedure are i n the results section. URINALYSIS SCREEN AND Routine 04/08/2020 4:50 Re sults for this MICROSCOPY, WITH PM CDT procedure a re in REFLEX TO CULTURE the result s section. POC GLUCOSE Routine 04/08/2020 4:25 Results for this PM CDT procedure are i n the results section. IONIZED CALCIUM, Routine 04/08/2020 4:20 Results for this ARTERIAL PM CDT procedure are i n the results section. ARTERIAL BLOOD GAS Routine 04/08/2020 4:20 Resul ts for this PM CDT procedure are i n the results section. PARTIAL THROMBOPLASTIN Routine 04/08/2020 4:20 R esults for this TIME (PTT) PM CDT procedure are i n the results section. PROTHROMBIN TIME WITH Routine 04/08/2020 4:20 Re sults for this INR PM CDT procedure are i n the results section. COVID-19 QUALITATIVE Routine 04/08/2020 2:00 Res ults for this PCR PM CDT procedure are i n the results section. INTRAOPERATIVE Routine 04/08/2020 12:50 Results f or this MONITORING PM CDT procedure are i n the results section. OR FL > 1 HOUR Routine 04/08/2020 12:00 Results f or this PM CDT procedure are i n the results section. XR LUMBAR SPINE 2 OR 3 Routine 04/08/2020 11:39 R esults for this VW AM CDT procedure are i n the results section. IONIZED CALCIUM, STAT 04/08/2020 11:10 Results for this ARTERIAL AM CDT procedure are i n the results section. GLUCOSE LEVEL, SYRINGE STAT 04/08/2020 11:10 R esults for this AM CDT procedure are i n the results section. HEMOGLOBIN, SYRINGE STAT 04/08/2020 11:10 Resu lts for this AM CDT procedure are i n the results section. POTASSIUM, SYRINGE STAT 04/08/2020 11:10 Resul ts for this AM CDT procedure are i n the results section. SODIUM LEVEL, SYRINGE STAT 04/08/2020 11:10 Re sults for this AM CDT procedure are i n the results section. ARTERIAL BLOOD GAS, STAT 04/08/2020 11:10 Resu lts for this CORRECTED AM CDT procedure are i n the results section. ARTERIAL LINE Routine 04/08/2020 10:08 Results fo r this AM CDT procedure are i n the results section. HEMATOCRIT STAT 04/08/2020 9:20 Results for this AM CDT procedure are i n the results section. LACTIC ACID, SYRINGE STAT 04/08/2020 9:20 Res ults for this AM CDT procedure are i n the results section. IONIZED CALCIUM, STAT 04/08/2020 9:20 Results for this ARTERIAL AM CDT procedure are i n the results section. GLUCOSE LEVEL, SYRINGE STAT 04/08/2020 9:20 R esults for this AM CDT procedure are i n the results section. PLATELET COUNT STAT 04/08/2020 9:20 Results f or this AM CDT procedure are i n the results section. HEMOGLOBIN, SYRINGE STAT 04/08/2020 9:20 Resu lts for this AM CDT procedure are i n the results section. POTASSIUM, SYRINGE STAT 04/08/2020 9:20 Resul ts for this AM CDT procedure are i n the results section. SODIUM LEVEL, SYRINGE STAT 04/08/2020 9:20 Re sults for this AM CDT procedure are i n the results section. ARTERIAL BLOOD GAS, STAT 04/08/2020 9:20 Resu lts for this CORRECTED AM CDT procedure are i n the results section. AR AN ELECTIVE Routine 04/08/2020 8:44 Results f or this ENDOTRACHEAL AIRWAY AM CDT procedur e are in the results section. FUSION, SPINE, 04/08/2020 7:34 Unspecified THORACIC, USING AM CDT kyphosis, site POSTERIOR TECHNIQUE unspecified Case Notes DR TRAVIS TO ASSIST, O-ARM, S7, NAVIGATED DRILL, SSEP W/ MOTORS, CELL SAVER, TRICIA, MED HEMOVAC, [place] PRO AXI S TABLE, 60CC ALLOGRAFT CANCELLOUS GRANULES, BMP, MEDTRONIC SOLERA 5.5 + SUGAR+ BONE SCALPEL, @ 112 VIA EMAIL/PACHECO R/S FROM 02/18 TO 04/08-02/12/20TW Special Needs EST 6 HRS, DR TRAVIS TO [facility] ST, O-ARM, S7, NAVIGATED DRILL, SSEP W/ MOTORS, CELL SAVER, TRICIA, MED HEMOVAC, YOLETTE PERLA PRO AXIS TABLE, 60CC ALLOGRAFT CANCELLOUS GRANULES, BMP, MEDTRONIC OLYA ERA 5.5 + SUGAR+ BONE SCALPEL ESTIMATED GFR Routine 04/08/2020 2:58 Results fo r this AM CDT procedure are i n the results section. PHOSPHORUS LEVEL Routine 04/08/2020 2:58 Results for this AM CDT procedure are i n the results section. MAGNESIUM LEVEL Routine 04/08/2020 2:58 Results for this AM CDT procedure are i n the results section. BASIC METABOLIC PANEL Routine 04/08/2020 2:58 Re sults for this AM CDT procedure are i n the results section. PARTIAL THROMBOPLASTIN Routine 04/08/2020 2:50 R esults for this TIME (PTT) AM CDT procedure are i n the results section. PROTHROMBIN TIME WITH Routine 04/08/2020 2:50 Re sults for this INR AM CDT procedure are i n the results section. HC COMPLETE BLD COUNT Routine 04/08/2020 2:50 Re sults for this W/AUTO DIFF AM CDT procedure are i n the results section. XR SPINE SCOLIOSIS 2-3 Routine 04/07/2020 12:34 R esults for this VIEWS PM CDT procedure are i n the results section. PARTIAL THROMBOPLASTIN STAT 04/07/2020 9:50 R esults for this TIME (PTT) AM CDT procedure are i n the results section. PROTHROMBIN TIME WITH STAT 04/07/2020 9:50 Re sults for this INR AM CDT procedure are i n the results section. ECG 12-LEAD Routine 04/07/2020 8:04 Results for this AM CDT procedure are i n the results section. CBC HEMOGRAM Routine 04/07/2020 4:35 Results for this AM CDT procedure are i n the results section. ESTIMATED GFR Routine 04/07/2020 12:00 Results fo r this AM CDT procedure are i n the results section. PHOSPHORUS LEVEL Routine 04/07/2020 12:00 Results for this AM CDT procedure are i n the results section. IONIZED CALCIUM Routine 04/07/2020 12:00 Results for this AM CDT procedure are i n the results section. MAGNESIUM LEVEL Routine 04/07/2020 12:00 Results for this AM CDT procedure are i n the results section. BASIC METABOLIC PANEL Routine 04/07/2020 12:00 Re sults for this AM CDT procedure are i n the results section. POC GLUCOSE Routine 04/06/2020 11:56 Results for this AM CDT procedure are i n the results section. POC GLUCOSE Routine 04/06/2020 7:53 Results for this AM CDT procedure are i n the results section. XR CHEST 1 VW PORTABLE Routine 04/06/2020 6:31 R esults for this AM CDT procedure are i n the results section. POC GLUCOSE Routine 04/06/2020 5:25 Results for this AM CDT procedure are i n the results section. POC GLUCOSE Routine 04/06/2020 4:13 Results for this AM CDT procedure are i n the results section. ECG 12-LEAD Routine 04/06/2020 3:07 Results for this AM CDT procedure are i n the results section. ESTIMATED GFR Routine 04/06/2020 1:15 Results fo r this AM CDT procedure are i n the results section. PHOSPHORUS LEVEL Routine 04/06/2020 1:15 Results for this AM CDT procedure are i n the results section. MAGNESIUM LEVEL Routine 04/06/2020 1:15 Results for this AM CDT procedure are i n the results section. IONIZED CALCIUM Routine 04/06/2020 1:15 Results for this AM CDT procedure are i n the results section. BASIC METABOLIC PANEL Routine 04/06/2020 1:15 Re sults for this AM CDT procedure are i n the results section. POC GLUCOSE Routine 04/06/2020 12:13 Results for this AM CDT procedure are i n the results section. HC COMPLETE BLD COUNT Routine 04/06/2020 12:10 Re sults for this W/AUTO DIFF AM CDT procedure are i n the results section. PARTIAL THROMBOPLASTIN Routine 04/06/2020 12:10 R esults for this TIME (PTT) AM CDT procedure are i n the results section. PROTHROMBIN TIME WITH Routine 04/06/2020 12:10 Re sults for this INR AM CDT procedure are i n the results section. POC GLUCOSE Routine 04/05/2020 8:01 Results for this PM CDT procedure are i n the results section. POC GLUCOSE Routine 04/05/2020 3:32 Results for this PM CDT procedure are i n the results section. TRANSFUSE RED BLOOD Routine 04/05/2020 1:05 CELLS PM CDT TRANSFUSE RED BLOOD Routine 04/05/2020 11:38 CELLS AM CDT POC GLUCOSE Routine 04/05/2020 11:18 Results for this AM CDT procedure are i n the results section. PARTIAL THROMBOPLASTIN STAT 04/05/2020 9:38 R esults for this TIME (PTT) AM CDT procedure are i n the results section. PROTHROMBIN TIME WITH STAT 04/05/2020 9:38 Re sults for this INR AM CDT procedure are i n the results section. POC GLUCOSE Routine 04/05/2020 7:24 Results for this AM CDT procedure are i n the results section. ECG 12-LEAD Routine 04/05/2020 4:16 Results for this AM CDT procedure are i n the results section. XR CHEST 1 VW PORTABLE Routine 04/05/2020 4:05 R esults for this AM CDT procedure are i n the results section. POC GLUCOSE Routine 04/05/2020 3:38 Results for this AM CDT procedure are i n the results section. PREPARE PLATELET STAT 04/05/2020 12:50 Results for this PHERESIS AM CDT procedure are i n the results section. PREPARE FRESH FROZEN STAT 04/05/2020 12:50 Res ults for this PLASMA AM CDT procedure are i n the results section. PREPARE RBC STAT 04/05/2020 12:50 Results for this AM CDT procedure are i n the results section. PREPARE FRESH FROZEN STAT 04/05/2020 12:50 Res ults for this PLASMA AM CDT procedure are i n the results section. PREPARE RBC STAT 04/05/2020 12:50 Results for this AM CDT procedure are i n the results section. PREPARE FRESH FROZEN STAT 04/05/2020 12:50 Res ults for this PLASMA AM CDT procedure are i n the results section. PREPARE RBC STAT 04/05/2020 12:50 Results for this AM CDT procedure are i n the results section. TYPE AND SCREEN Routine 04/05/2020 12:50 Results for this AM CDT procedure are i n the results section. HEPATIC FUNCTION PANEL Routine 04/05/2020 12:45 R esults for this AM CDT procedure are i n the results section. ESTIMATED GFR Routine 04/05/2020 12:45 Results fo r this AM CDT procedure are i n the results section. PHOSPHORUS LEVEL Routine 04/05/2020 12:45 Results for this AM CDT procedure are i n the results section. MAGNESIUM LEVEL Routine 04/05/2020 12:45 Results for this AM CDT procedure are i n the results section. IONIZED CALCIUM Routine 04/05/2020 12:45 Results for this AM CDT procedure are i n the results section. HC COMPLETE BLD COUNT Routine 04/05/2020 12:45 Re sults for this W/AUTO DIFF AM CDT procedure are i n the results section. BASIC METABOLIC PANEL Routine 04/05/2020 12:45 Re sults for this AM CDT procedure are i n the results section. VITAMIN D 25 HYDROXY Routine 04/05/2020 12:45 Res ults for this LEVEL AM CDT procedure are i n the results section. POC GLUCOSE Routine 04/04/2020 11:46 Results for this PM CDT procedure are i n the results section. POC GLUCOSE Routine 04/04/2020 7:34 Results for this PM CDT procedure are i n the results section. POC GLUCOSE Routine 04/04/2020 3:33 Results for this PM CDT procedure are i n the results section. ARTERIAL BLOOD GAS Routine 04/04/2020 12:30 Resul ts for this PM CDT procedure are i n the results section. POC GLUCOSE Routine 04/04/2020 11:25 Results for this AM CDT procedure are i n the results section. PHOSPHORUS LEVEL Routine 04/04/2020 10:15 Results for this AM CDT procedure are i n the results section. MAGNESIUM LEVEL Routine 04/04/2020 10:15 Results for this AM CDT procedure are i n the results section. IONIZED CALCIUM Routine 04/04/2020 10:15 Results for this AM CDT procedure are i n the results section. POTASSIUM LEVEL Routine 04/04/2020 10:15 Results for this AM CDT procedure are i n the results section. HEMOGLOBIN & HEMATOCRIT Routine 04/04/2020 10:15 Results for this AM CDT procedure are i n the results section. POC GLUCOSE Routine 04/04/2020 7:42 Results for this AM CDT procedure are i n the results section. POC GLUCOSE Routine 04/04/2020 4:02 Results for this AM CDT procedure are i n the results section. XR CHEST 1 VW PORTABLE Routine 04/04/2020 3:42 R esults for this AM CDT procedure are i n the results section. ECG 12-LEAD STAT 04/04/2020 2:47 Results for this AM CDT procedure are i n the results section. FIBRINOGEN Routine 04/04/2020 1:25 Results for this AM CDT procedure are i n the results section. PARTIAL THROMBOPLASTIN Routine 04/04/2020 1:25 R esults for this TIME (PTT) AM CDT procedure are i n the results section. PROTHROMBIN TIME WITH Routine 04/04/2020 1:25 Re sults for this INR AM CDT procedure are i n the results section. IONIZED CALCIUM Routine 04/04/2020 1:25 Results for this AM CDT procedure are i n the results section. PHOSPHORUS LEVEL Routine 04/04/2020 1:25 Results for this AM CDT procedure are i n the results section. MAGNESIUM LEVEL Routine 04/04/2020 1:25 Results for this AM CDT procedure are i n the results section. ESTIMATED GFR Routine 04/04/2020 12:05 Results fo r this AM CDT procedure are i n the results section. HC COMPLETE BLD COUNT Routine 04/04/2020 12:05 Re sults for this W/AUTO DIFF AM CDT procedure are i n the results section. BASIC METABOLIC PANEL Routine 04/04/2020 12:05 Re sults for this AM CDT procedure are i n the results section. POC GLUCOSE Routine 04/03/2020 11:47 Results for this PM CDT procedure are i n the results section. POC GLUCOSE Routine 04/03/2020 9:36 Results for this PM CDT procedure are i n the results section. XR CHEST 1 VW PORTABLE STAT 04/03/2020 3:46 R esults for this PM CDT procedure are i n the results section. OR FL > 1 HOUR Routine 04/03/2020 2:00 Results f or this PM CDT procedure are i n the results section. INTRAOPERATIVE Routine 04/03/2020 1:37 Results f or this MONITORING PM CDT procedure are i n the results section. LACTIC ACID, SYRINGE STAT 04/03/2020 12:40 Res ults for this PM CDT procedure are i n the results section. GLUCOSE LEVEL, SYRINGE STAT 04/03/2020 12:40 R esults for this PM CDT procedure are i n the results section. MAGNESIUM LEVEL STAT 04/03/2020 12:40 Results for this PM CDT procedure are i n the results section. IONIZED CALCIUM, STAT 04/03/2020 12:40 Results for this ARTERIAL PM CDT procedure are i n the results section. HEMOGLOBIN, SYRINGE STAT 04/03/2020 12:40 Resu lts for this PM CDT procedure are i n the results section. SODIUM LEVEL, SYRINGE STAT 04/03/2020 12:40 Re sults for this PM CDT procedure are i n the results section. POTASSIUM, SYRINGE STAT 04/03/2020 12:40 Resul ts for this PM CDT procedure are i n the results section. ARTERIAL BLOOD GAS, STAT 04/03/2020 12:40 Resu lts for this CORRECTED PM CDT procedure are i n the results section. AFB CULTURE Timed 04/03/2020 12:37 Unspecified Results for this PM CDT kyphosis, site procedure are in unspecified the results section. AEROBIC CULTURE Timed 04/03/2020 12:37 Unspecified Results for this PM CDT kyphosis, site procedure are in unspecified the results section. FUNGUS CULTURE Timed 04/03/2020 12:37 Unspecified Results f or this PM CDT kyphosis, site procedure are in unspecified the results section. ANAEROBIC CULTURE Timed 04/03/2020 12:37 Unspecified Result s for this PM CDT kyphosis, site procedure are in unspecified the results section. CENTRAL LINE Routine 04/03/2020 11:19 Results for this AM CDT procedure are i n the results section. ARTERIAL LINE Routine 04/03/2020 11:15 Results fo r this AM CDT procedure are i n the results section. AR AN ELECTIVE Routine 04/03/2020 11:12 Results f or this ENDOTRACHEAL AIRWAY AM CDT procedur e are in the results section. AFB CULTURE Timed 04/03/2020 10:30 Unspecified Results for this AM CDT kyphosis, site procedure are in unspecified the results section. AEROBIC CULTURE Timed 04/03/2020 10:30 Unspecified Results for this AM CDT kyphosis, site procedure are in unspecified the results section. FUNGUS CULTURE Timed 04/03/2020 10:30 Unspecified Results f or this AM CDT kyphosis, site procedure are in unspecified the results section. ANAEROBIC CULTURE Timed 04/03/2020 10:30 Unspecified Result s for this AM CDT kyphosis, site procedure are in unspecified the results section. SURGICAL PATHOLOGY Routine 04/03/2020 8:39 Resul ts for this REQUEST AM CDT procedure are i n the results section. FUSION, SPINE, 04/03/2020 7:42 Unspecified THORACIC, USING AM CDT kyphosis, site POSTERIOR TECHNIQUE unspecified Case Notes EST 7 HRS, PRONE POSITION, S ICU, O-ARM, S7, NAVIGATED DRILL, SSEP W/ MOTORS, CELL SAVER, TRICIA, MED HEMOVAC, JA CKSON PRO AXIS TABLE, NEW INSTRUMETATION: MEDTRONIC SOLERA 5.5 + SUGAR, @ 1127 VIA EMAIL/PACHECO R/S FROM 02/13 TO 04/03-02/12/20TW Special Needs EST 7 HRS, PRONE POSITION, S ICU, O-ARM, S7, NAVIGATED DRILL, SSEP W/ MOTORS, CELL SAVER, TRICIA, MED HEMOVAC, JA CKSON PRO AXIS TABLE, NEW INSTRUMENTATION: MEDTRONIC SOLERA 5.5 + SUGAR REMOVAL POSTERIOR SEGMENTAL 04/03/2020 7:42 AM CDT Un specified kyphosis, site INSTRUMENTATION unspecified Case Notes EST 7 HRS, PRONE POSITION, S ICU, O-ARM, S7, NAVIGATED DRILL, SSEP W/ MOTORS, CELL SAVER, TRICIA, MED HEMOVAC, JA CKSON PRO AXIS TABLE, NEW INSTRUMETATION: MEDTRONIC SOLERA 5.5 + SUGAR, @ 1127 VIA EMAIL/PACHECO R/S FROM 02/13 TO 04/03-02/12/20TW Special Needs EST 7 HRS, PRONE POSITION, S ICU, O-ARM, S7, NAVIGATED DRILL, SSEP W/ MOTORS, CELL SAVER, TRICIA, MED HEMOVAC, JA CKSON PRO AXIS TABLE, NEW INSTRUMENTATION: MEDTRONIC SOLERA 5.5 + SUGAR PREALBUMIN LEVEL Routine 03/31/2020 4:36 Preoperative testing Results for this PM CDT procedure are i n the results section. COVID-19 QUALITATIVE Routine 03/31/2020 3:35 Preoperative cameron ting Results for this PCR PM CDT procedure are i n the results section. ECG PRE/POST OP Routine 03/31/2020 3:06 Preoperative testing Results for this PM CDT procedure are i n the results section. CBC HEMOGRAM Routine 03/31/2020 3:00 Preoperative testing Res ults for this PM CDT procedure are i n the results section. PREPARE RBC Routine 03/31/2020 2:45 Results for this PM CDT procedure are i n the results section. ALBUMIN LEVEL Routine 03/31/2020 2:45 Preoperative testing Re sults for this PM CDT procedure are i n the results section. TYPE AND SCREEN Routine 03/31/2020 2:45 Preoperative testing Results for this PM CDT procedure are i n the results section. ESTIMATED GFR Routine 03/31/2020 2:42 Results fo r this PM CDT procedure are i n the results section. PROTHROMBIN TIME WITH Routine 03/31/2020 2:42 Preoperative te sting Results for this INR PM CDT procedure are i n the results section. PARTIAL THROMBOPLASTIN Routine 03/31/2020 2:42 Preoperative t esting Results for this TIME (PTT) PM CDT procedure are i n the results section. COMPREHENSIVE Routine 03/31/2020 2:42 Preoperative testing Re sults for this METABOLIC PANEL PM CDT procedure ar e in the results section. XR SPINE SCOLIOSIS 2-3 Routine 03/31/2020 12:52 Sagittal plane Results for this VIEWS PM CDT imbalance procedure are i n the results section. XR THORACOLUMBAR SPINE Routine 01/28/2020 12:51 Sagittal plane Results for this 2 VW PM CDT imbalance procedure are i n the results section. XR SPINE SCOLIOSIS 2-3 Routine 12/10/2019 1:04 Sagittal plane Results for this VIEWS PM CDT imbalance procedure are i n the results section. MONITOR SCREEN 13-DRUG Routine 10/03/2019 11:13 Controlled sub stance Results for this CLASS PROFILE ([facility] AM OPERATOR ASSISTANT I CEMENTING agreement signed p rocedure are in MEDWATCH) the results section. C-REACTIVE PROTEIN Routine 10/03/2019 11:13 Arthritis Resul ts for this AM OPERATOR ASSISTANT I CEMENTING procedure are i n the results section. SEDIMENTATION RATE Routine 10/03/2019 11:13 Arthritis Resul ts for this AM OPERATOR ASSISTANT I CEMENTING procedure are i n the results section. COMPREHENSIVE Routine 10/03/2019 11:13 Arthritis Results fo r this METABOLIC PANEL AM OPERATOR ASSISTANT I CEMENTING procedure ar e in the results section. CBC WITH PLATELET AND Routine 10/03/2019 11:13 Arthritis Re sults for this DIFFERENTIAL AM OPERATOR ASSISTANT I CEMENTING procedure are i n the results section. after 08/11/2019 Results XR Chest 1 Vw Portable (08/06/2020 4:44 PM OPERATOR ASSISTANT I CEMENTING)Only the most recent of5 results within the time period is included. Specimen Narrative Performed At EXAMINATION: XR CHEST 1 VW PORTABLE HM [facility] CLINICAL HISTORY: Acute shortness of lyndsey ath, COVID pneumonia COMPARISON: 04/06/2020 FINDINGS: There are mild/moderate bibasilar infiltrate s, consistent with acute pneumonia. These are somewhat worsened from prev ious, although only involve the bases. There is no appreciable effusi on. Mild background chronic lung disease may be p resent. Heart size is normal or borderline. Ther e is no acute failure. Extensive spinal hardware is again noted . IMPRESSION: Bibasilar pneumonia [facility]-[id number] Procedure Note Hm Interface, Radiology Results Incoming - 08/06/2020 4:50 PM OPERATOR ASSISTANT I CEMENTING EXAMINATION: XR CHEST 1 VW PORTABLE CLINICAL HISTORY: Acute shortness of lyndsey ath, COVID pneumonia COMPARISON: 04/06/2020 FINDINGS: There are mild/moderate bibasi lar infiltrates, consistent with acute pneumonia. These are somewhat worsened from previous, although only involve the bases. There is no appreciable effusion. Mild background chronic lung disease may be present. Heart size is normal or borderline. Ther e is no acute failure. Extensive spinal hardware is again noted . IMPRESSION: Bibasilar pneumonia [facility]-[id number] Performing Organization Address City/State/ZIP Code Phon e Number [facility] [address] [place] [address] Estimated GFR (08/06/2020 4:17 PM OPERATOR ASSISTANT I CEMENTING)Only the most recent of12 resultswithin the time period is included. Estimated GFR 66 mL/min/1.73 [place] CONFUCIANISM Comment: m2 [place] Catergory Units Interpretation HOS PITAL G1 >=90 Normal or high G2 60-89 Mildly decreased G3a 45-59 Mildly to moderately decreas ed G3b 30-44 Moderately to severely decre ased G4 15-29 Severely decreased G5 <15 Kidney failure The eGFR was calculated using the Chronic Kidney Disea se Epidemiology Collaboration (CKD-EPI) equation. Interpretation is based on recommendations of the National Kidney Foundation-Kidney Disease Outcomes [place] lity Initiative (NKF-KDOQI) published in 2014. Specimen Plasma Performing Organization Address City/State/ZIP Code Phon e Number [facility] DEPARTMENT OF PATHOLOGY [address] [place] [address] AND GENOMIC MEDICINE [facility] [address] [facility] [address] [facility] COVID-19 qualitative PCR (08/06/2020 4:17 PM OPERATOR ASSISTANT I CEMENTING)Only the most recent of3 resultswithin the time period is included. [facility] Interpretation Positive results [place] are indicative of CONFUCIANISM active infection HOSPITAL with 2019-nCoV but do not rule out bacterial infection or coinfection with other viruses. The agent detected may not be the definite cause of disease. COVID-19 qualitative Detected (A) Not-Detected [place] PCR result [facility] COVID-19 qualitative See link below for [place] PCR PDF Lab CONFUCIANISM ReportComment: HOSPITAL Specimen Nasopharyngeal swab Performing Organization Address City/State/ZIP Code Phon e Number [facility] DEPARTMENT OF PATHOLOGY AND [address] [place], [place] [address] [facility] [address] [place] [address] [facility] Troponin (08/06/2020 4:17 PM OPERATOR ASSISTANT I CEMENTING) [facility] Troponin 0.021 0.000 - 0.040 [facility] Comment: ng/mL [facility] In patients suspected of having a myocardial infarctio n, along with all other appropriate clinical measures and actions includ ing ECG and other diagnostics as appropriate, measure Ultra TnI at 0 hrs and at 3 hrs. Myocardial infarction VERY LIKELY The 0 hr TnI level is > 0.10 ng/mL Myocardial infarction LIKELY The 0 hr TnI level is > 0.04 ng/mL and 3 hr level is i ncreased or decreased by at least 0.020 ng/mL Myocardial infarction VERY UNLIKELY Both the 0 hr and 3 hr TnI levels <= 0.04 ng/mL(within normal limits) OR 0 hr is > 0.04 ng/mL and 3 hr is increased OR decreased by less than 0.020 ng/mL Specimen Plasma Performing Organization Address [facility] Phon e Number [facility] DEPARTMENT OF PATHOLOGY [address] [facility] [place] [address] AND GENOMIC MEDICINE [facility] [address] [facility] [place] [address] HOSPITAL CBC with platelet and differential (08/06/2020 4:17 PM OPERATOR ASSISTANT I CEMENTING)Only the most recent of11 resultswithin the time period is included. WBC 7.9 4.5 - 11.0 k/uL [facility] RBC 3.40 (L) 4.20 - 5.50 [facility] m/uL [facility] HGB 8.9 (L) 12.0 - 16.0 [facility] g/dL [facility] HCT 30.4 (L) 37.0 - 47.0 % [facility] MCV 89.4 82.0 - 100.0 fL [facility] MCH 26.2 (L) 27.0 - 34.0 pg [facility] MCHC 29.3 (L) 31.0 - 37.0 [facility] g/dL [facility] RDW - SD 48.2 37.0 - 55.0 fL [facility] MPV 11.1 (H) 6.9 - 11.0 fL [facility] Platelet count 201 150 - 400 K/uL [facility] Nucleated RBC 0.00 /100 WBC [facility] Neutrophils 95.6 (H) 39.0 - 69.0 % [facility] Lymphocytes 2.5 (L) 25.0 - 45.0 % [facility] Monocytes 1.4 0.0 - 10.0 % [facility] Eosinophils 0.0 0.0 - 5.0 % [facility] Basophils 0.1 0.0 - 1.0 % [facility] Immature granulocytes 0.4 0.0 - 1.0 % [facility] Specimen Plasma Performing Organization Address [facility] Phon e Number [facility] DEPARTMENT OF PATHOLOGY [address] [place] [address] B natriuretic peptide (08/06/2020 4:17 PM OPERATOR ASSISTANT I CEMENTING)Only the most recent of2 results within the time period is included. Pathologist Sig nature BNP 179 (H) 0 - 100 pg/mL [facility] Specimen Blood Performing Organization Address [facility] Phon e Number [facility] DEPARTMENT OF PATHOLOGY [address] [place] [address] Lipase level (08/06/2020 4:17 PM OPERATOR ASSISTANT I CEMENTING) Pathologist Sig nature Lipase 20 13 - 60 U/L [facility] Specimen Plasma Performing Organization Address [facility] Phon e Number [facility] DEPARTMENT OF PATHOLOGY [address] [place] [address] Comprehensive metabolic panel (08/06/2020 4:17 PM OPERATOR ASSISTANT I CEMENTING)Only the most recent of3 resultswithin the time period is included. Pathologist Sig nature Sodium 137 135 - 148 mEq/L [facility] Potassium 3.8 3.5 - 5.0 mEq/L [facility] Chloride 103 98 - 112 mEq/L [facility] CO2 25 24 - 31 mEq/L [facility] Anion gap 9@ANIO 7 - 15 mEq/L [facility] BUN 22 8 - 23 mg/dL [facility] Creatinine 0.88 0.50 - 0.90 [facility] mg/dL [facility] Glucose 177 (H) 65 - 99 mg/dL [facility] Calcium 8.4 (L) 8.8 - 10.2 mg/dL [facility] Protein 6.5 6.3 - 8.3 g/dL [facility] Albumin 3.5 3.5 - 5.0 g/dL [facility] A/G ratio 1.2 0.7 - 3.8 [facility] Alkaline phosphatase 85 35 - 104 U/L [facility] AST 63 (H) 10 - 35 U/L [facility] ALT 36 5 - 50 U/L [facility] Total bilirubin <0.2 0.2 - 1.2 mg/dL [facility] Specimen Plasma Performing Organization Address [facility] Phon e Number [facility] DEPARTMENT OF PATHOLOGY [address] [facility] [address] AND GENOMIC MEDICINE [facility] [address] [facility] [place] [address] HOSPITAL ECG 12 lead (08/06/2020 3:45 PM OPERATOR ASSISTANT I CEMENTING)Only the most recent of5 resultswithin the time period is included. Pathologist Sig nature Ventricular rate 69 [facility] Atrial rate 69 [facility] AR interval 154 [facility] QRSD interval 88 [facility] QT interval 400 [facility] QTC interval 428 [facility] P axis 1 64 [facility] QRS axis 1 58 [facility] T wave axis 52 [facility] EKG impression Normal sinus [facility] rhythm-Normal ECG-In automated comparison with ECG of 06-AUG-2020 15:39,-Sinus rhythm has replaced Junctional rhythm- Specimen Narrative Performed At This result has an attachment that is no t available. 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 Specimen Narrative Performed At This result has an attachment that is no t available. PA and lateral standing x-rays of the entire spine were done. It shows BRISA STUART that her instrumentation is in place from T4 to the sa mena and pelvis. PA x-ray shows good overall coronal balance. All of her instrumentation is in place. Her lateral x-ray shows that her sagittal balance is in vastly better position. She now has 50 degrees of lumbar lo rdosis and her sagittal plumbline is in much better position. Performing Organization Address City/[facility]/ZIP Code Phon e Number [facility] [address] [place] [address] Vitamin D 25 hydroxy level (05/21/2020 1:25 PM CDT)Only the most recent of2 resultswithin the time period is included. Vitamin D, 66.2 30.0 - 150.0 [facility] 25-hydroxy Comment: ng/mL HOSPITAL This assay reports the sum of 25-hydroxy vitamin D3 an d 25-hydroxy vitamin D2. Reference range: 0-17 years: Deficiency: less than 20ng/mL Optimum level: greater than or equal to 20 ng/mL. 18 years and older: Deficiency: less than 20ng/mL Insufficiency: 20-29 ng/mL Optimum Level: 30-80 ng/mL The assay reportable range is 3.4 155.9 ng/mL. Level s higher than 150 ng/mL may be associated with toxicity. If toxicity is clinically suspected and the reported r esult is >155.9 ng/mL,contact lab for alternative methods to obtain a definitive level. If separate quantitation of 25-hydroxy vitamin D3 and 25-hydroxy vitamin D2 is needed, please contact lab for alternative methods. Specimen Blood Performing Organization Address City/State/ZIP Code Phon e Number [facility] DEPARTMENT OF PATHOLOGY AND [address] [place], [place] [address] GENOMIC MEDICINE [facility] [address] [place] [address] Parathyroid hormone (05/21/2020 1:25 PM CDT) Pathologist Sig albina PTH 81 (H) 13 - 65 pg/mL [facility] Specimen Blood Performing Organization Address City/State/ZIP Code Phon e Number [facility] DEPARTMENT OF PATHOLOGY AND [address] [place], [place] [address] GENOMIC MEDICINE [facility] [address] [address] [place], [place] [address] Bone Density Peripheral (05/21/2020 11:06 AM CDT) Specimen Narrative Performed At EXAMINATION: BONE DENSITY PERIPHERAL [facility] CLINICAL HISTORY: M81.0 Age-related osteoporosis wit hout current pathological fracture, Osteoporosis COMPARISON: None. IMPRESSION: The results of this study expressed as bone mineral de nsity (BMD) were as follows: Dual Femur (Total Mean): BMD: 0.745 g/cm2 T-Score: -2.1 WHO Classification: Osteopenia Left Forearm (Radius 33%): BMD: 0.587 g/cm2 T-Score: -3.3 WHO Classification: Osteoporosis Dual femur FRAX: 10 year probability of fracture: 1. Major osteoporotic: 11.2% 2. Hip:2.7% A copy of this scans including a report detailing thes e results will follow. Note: The world health organization (WHO) has classifi ed the patient's T-score as follows: Above (-1) as normal (-1) to (-2.5) as low (osteopenia) Below (-2.5) as abnormally low (osteopor osis, increased fracture risk) [facility]-[id number] Procedure Note Hm Interface, Radiology Results Incoming - 05/21/2020 2:01 PM CDT EXAMINATION: BONE DENSITY PERIPHERAL CLINICAL HISTORY: M81.0 Age-related ost eoporosis without current pathological fracture, Osteoporosis COMPARISON: None. IMPRESSION: The results of this study expressed as b one mineral density (BMD) were as follows: Dual Femur (Total Mean): BMD: 0.745 g/cm2 T-Score: -2.1 WHO Classification: Osteopenia Left Forearm (Radius 33%): BMD: 0.587 g/cm2 T-Score: -3.3 WHO Classification: Osteoporosis Dual femur FRAX: 10 year probability of fracture: 1. Major osteoporotic: 11.2% 2. Hip:2.7% A copy of this scans including a report detailing these results will follow. Note: The world health organization (WHO ) has classified the patient's T-score as follows: Above (-1) as normal (-1) to (-2.5) as low (osteopenia) Below (-2.5) as abnormally low (osteopor osis, increased fracture risk) [facility]-[id number] Performing Organization Address City/State/ZIP Code Phon e Number [facility] [address] [place] [address] Bone Density (05/21/2020 11:06 AM CDT) Specimen Narrative Performed At EXAMINATION: BONE DENSITY [facility] CLINICAL HISTORY: M81.0 Age-related osteoporosis wit hout current pathological fracture, Osteoporosis COMPARISON: None. IMPRESSION: The results of this study expressed as bone mineral de nsity (BMD) were as follows: Dual Femur (Total Mean): BMD: 0.745 g/cm2 T-Score: -2.1 WHO Classification: Osteopenia Left Forearm (Radius 33%): BMD: 0.587 g/cm2 T-Score: -3.3 WHO Classification: Osteoporosis Dual femur FRAX: 10 year probability of fracture: 1. Major osteoporotic: 11.2% 2. Hip:2.7% A copy of this scans including a report detailing thes e results will follow. Note: The world health organization (WHO) has classifi ed the patient's T-score as follows: Above (-1) as normal (-1) to (-2.5) as low (osteopenia) Below (-2.5) as abnormally low (osteopor osis, increased fracture risk) [facility]-[id number] Procedure Note Hm Interface, Radiology Results Incoming - 05/21/2020 2:01 PM CDT EXAMINATION: BONE DENSITY CLINICAL HISTORY: M81.0 Age-related ost eoporosis without current pathological fracture, Osteoporosis COMPARISON: None. IMPRESSION: The results of this study expressed as b one mineral density (BMD) were as follows: Dual Femur (Total Mean): BMD: 0.745 g/cm2 T-Score: -2.1 WHO Classification: Osteopenia Left Forearm (Radius 33%): BMD: 0.587 g/cm2 T-Score: -3.3 WHO Classification: Osteoporosis Dual femur FRAX: 10 year probability of fracture: 1. Major osteoporotic: 11.2% 2. Hip:2.7% A copy of this scans including a report detailing these results will follow. Note: The world health organization (WHO ) has classified the patient's T-score as follows: Above (-1) as normal (-1) to (-2.5) as low (osteopenia) Below (-2.5) as abnormally low (osteopor osis, increased fracture risk) [facility]-[id number] Performing Organization Address City/[facility] Phon e Number [facility] [address] [place] [address] Basic metabolic panel (04/14/2020 4:32 AM CDT)Only the most recent of10 results within the time period is included. Pathologist Sig nature Sodium 141 135 - 148 mEq/L [facility] L Potassium 3.4 (L) 3.5 - 5.0 mEq/L [facility] Chloride 105 98 - 112 mEq/L [facility] CO2 25 24 - 31 mEq/L [facility] Anion gap 11@ANIO 7 - 15 mEq/L [facility] BUN 7 (L) 8 - 23 mg/dL [facility] Creatinine 0.65 0.50 - 0.90 mg/dL [facility] JOSE Glucose 79 65 - 99 mg/dL [facility] Calcium 8.0 (L) 8.8 - 10.2 mg/dL [facility] Specimen Blood Performing Organization Address [facility] Phon e Number [facility] DEPARTMENT OF PATHOLOGY AND [address] [place], [place] [address] GEN[address] [address] XR Abdomen 1 Vw Portable (04/13/2020 1:14 PM CDT)Only the most recent of2 resultswithin the time period is included. Specimen Narrative Performed At EXAMINATION: XR ABDOMEN 1 VW PORTABLE [facility] INDICATION: Abd pain unspecified COMPARISON: Most recent prior IMPRESSION: Mild gaseous distention small and large bowel without interval change compared to previous examination. No visible free air. Right upper quadrant surgical clips. Stable thoracolumbar spinal instrumentat ion hardware. Partially imaged small effusions in the lung bases are suspected. [id number] Procedure Note Interface, Radiology Results Incoming - 04/13/2020 1:29 PM CDT EXAMINATION: XR ABDOMEN 1 VW PORTABLE INDICATION: Abd pain unspecified COMPARISON: Most recent prior IMPRESSION: Mild gaseous distention small and large bowel without interval change compared to previous examination. No visible free air. Right upper quadrant surgical clips. Stable thoracolumbar spinal instrumentat ion hardware. Partially imaged small effusions in the lung bases are suspected. [id number] Performing Organization Address City/[facility] Phon e Number [facility] [address] [place] [address] Magnesium level (04/13/2020 4:15 AM CDT)Only the most recent of11 resultswithin the time period is included. Pathologist Sig [facility] Magnesium 1.6 1.6 - 2.4 mg/dL [facility] Specimen Blood Performing Organization Address [facility] Phon e Number [facility] DEPARTMENT OF PATHOLOGY AND [address] [place] [address] [phone] [address] Phosphorus level (04/11/2020 4:00 AM CDT)Only the most recent of8 resultswithin the time period is included. Pathologist Sig nature Phosphorus 2.5 2.4 - 4.5 mg/dL [facility] Specimen Blood Performing Organization Address [facility] Phon e Number [facility] DEPARTMENT OF PATHOLOGY AND [address] [place] [address] [phone] [address] CBC hemogram (04/10/2020 4:45 AM CDT)Only the most recent of4 resultswithin the time period is included. Pathologist Sig nature WBC 7.43 4.50 - 11.00 k/uL [facility] RBC 2.88 (L) 4.20 - 5.50 m/uL [facility] HGB 8.2 (L) 12.0 - 16.0 g/dL [facility] HCT 25.8 (L) 37.0 - 47.0 % [facility] MCV 89.6 82.0 - 100.0 fL [facility] MCH 28.5 27.0 - 34.0 pg [facility] MCHC 31.8 31.0 - 37.0 g/dL [facility] RDW - SD 51.4 37.0 - 55.0 fL [facility] MPV 11.1 8.8 - 13.2 fL [facility] Platelet count 180 150 - 400 k/uL [facility] Nucleated RBC 0.00 /100 WBC [facility] Specimen Blood Performing Organization Address City/[facility] Phon e Number [facility] DEPARTMENT OF PATHOLOGY AND [address] [place] [address] [place] [address] Hepatic function panel (04/10/2020 4:00 AM CDT)Only the most recent of2 results within the time period is included. Albumin 2.0 (L) 3.5 - 5.0 [facility] g/dL HOSPITAL Total bilirubin 0.3 0.0 - 1.2 [facility] mg/dL [facility] Bilirubin direct <0.2 0.0 - 0.3 [facility] mg/dL [facility] Alkaline phosphatase 162 (H) 35 - 104 U/L [facility] Protein 4.5 (L) 6.3 - 8.3 [facility] Comment: g/dL HOSPITAL - 4.6-7.0 g/dL 1 week 4.4-7.6 g/dL 7 months-1year 5.1-7.3 g/dL 1-2 years 5.6-7.5 g/dL >3 years 6.0-8.0 g/dL 18-150 6.3-8.3 g/dL ALT 16 5 - 50 U/L [facility] AST 28 10 - 35 U/L [facility] Specimen Blood Performing Organization Address City/[facility] Phon e Number [facility] DEPARTMENT OF PATHOLOGY AND [address] [place] [phone] POC glucose (04/09/2020 1:15 PM CDT)Only the most recent of24 resultswithin the time period is included. Pathologist Sig nature POC glucose 126 (H) 65 - 99 mg/dL [facility] Comment: HOSPITAL Radar Scientist Name: Keesha Dahle Device ID: [id number] Chartable: H Notified RN Specimen Blood Performing Organization Address City/[facility]/ZIP [facility] Phon e Number [facility] DEPARTMENT OF PATHOLOGY AND [address] [place] [address] Ionized calcium, arterial (04/09/2020 12:00 AM CDT)Only the most recent of5 resultswithin the time period is included. Pathologist Sig nature Ionized calcium, 1.01 (L) 1.11 - 1.32 [facility] arterial mmol/L [facility] Specimen Blood Performing Organization Address City/[facility] Phon e Number [facility] DEPARTMENT OF PATHOLOGY AND [address] [place] [address] [phone] [address] Partial thromboplastin time, activated (04/09/2020 12:00 AM CDT)Only the most recent of8 resultswithin the time period is included. PTT 31.6 23.0 - 36.0 [facility] Comment: [facility] PTT therapeutic range for unfractionated heparin is 61.0-112.0 seconds which corresponds to Anti-Xa 0.3-0.7 U/ml. Specimen Blood Performing Organization Address City/[facility] Phon e Number [facility] DEPARTMENT OF PATHOLOGY AND [address] [place] [address] [address] Prothrombin time with INR (04/09/2020 12:00 AM CDT)Only the most recent of8 resultswithin the time period is included. Prothrombin time 15.4 (H) 11.5 - 14.5 [facility] INR 1.2 [place] Comment: CONFUCIANISM The International Normalized Ratio (INR) is a therapeu [facility] monitoring tool for patients who are stable on oral anticoagulant therapy. An INR of 2.0-3.0 is suggested for deep vein thrombosis/pulmonary embolism. Specimen Blood Performing Organization Address City/[facility] Phon e Number [facility] DEPARTMENT OF PATHOLOGY AND [address] [place] [address] [phone] [address] Type and screen (04/09/2020 12:00 AM CDT)Only the most recent of3 resultswithin the time period is included. Pathologist Sig nature ABO grouping A [facility] Rh type POS [facility] Antibody screen (gel) NEG [facility] Specimen Blood Performing Organization Address City/[facility] Phon e Number [facility] DEPARTMENT OF PATHOLOGY AND [address] [place], [place] [phone] [address] [address] Lactic acid level (04/09/2020 12:00 AM CDT) Pathologist Sig nature Lactic acid 1.1 0.5 - 2.2 mmol/L [facility] [place] Specimen Blood Performing Organization Address City/[facility] Phon e Number [facility] DEPARTMENT OF PATHOLOGY AND [address] [place] [address] [phone] [address] Arterial blood gas (04/09/2020 12:00 AM CDT)Only the most recent of3 results within the time period is included. Pathologist Sig nature pH, arterial 7.43 7.35 - 7.45 [facility] pCO2, arterial 31 (L) 35 - 45 mmHg [facility] pO2, arterial 110 (H) 80 - 90 mmHg [facility] Bicarbonate, 20.3 (L) 21.0 - 28.0 [facility] mmol/L HOSPITAL Base excess, -3 (L) -2 - 2 mEq/L [facility] O2 saturation, 99 95 - 100 % [facility] Specimen Blood Performing Organization Address City/[facility] Phon e Number [facility] DEPARTMENT OF PATHOLOGY AND [address] [place] [address] [address] Urine culture (04/08/2020 5:39 PM CDT) Urine culture Proteus mirabilis [facility] isolate colony count undetermined, HOSPITAL probably due to inhibiting substance. The performance characteristics of this assay on this isolate were validated by the Microbiology Laboratory at [facility]. This source has not been approve d by the U.S. Food and Drug Administration. The results are n ot intended to be used as the sole means for clinical marisa gnosis or patient management. The Microbiology Laboratory i s authorized under the clinical Laboratory Improvement Amendments of 1988 (CLIA-88) to perform high complexit y testing. The performance characteristics of this assay on this isolate were validated by the Microbiology Laboratory at [facility]. This source has not been approve d by the U.S. Food and Drug Administration. The results are n ot intended to be used as the sole means for clinical marisa gnosis or patient management. The Microbiology Laboratory i s authorized under the clinical Laboratory Improvement Amendments of 1988 (CLIA-88) to perform high complexit y testing. (A) Comment: Specimen Information Specimen Source: Urine Specimen Site: [facility] Specimen Urine - [facility] Organism Antibiotic Method Susceptibility Proteus mirabilis Ampicillin JONATHON <=4 mcg/mL: Lopez sceptible Proteus mirabilis Amoxicillin/Clavulanate JONATHON <=4/2 mcg/mL: Susceptible Proteus [facility]is Amikacin JONATHON <=8 mcg/mL: Lopez sceptible Proteus mirabilis Aztreonam JONATHON <=2 mcg/mL: Lopez sceptible Proteus mirabilis Ceftazidime JONATHON <=2 mcg/mL: Lopez sceptible Proteus mirabilis Ciprofloxacin JONATHON <=0.25 mcg/mL: Susceptible [facility] Ceftriaxone JONATHON <=1 mcg/mL: Lopez sceptible Proteus mirabilis Cefuroxime Sodium JONATHON <=4 mcg/mL: Susceptible Prote[facility] Cefazolin JONATHON 4 mcg/mL: Resi stant Proteus mirabilis Cefepime JONATHON <=1 mcg/mL: Lopez sceptible Proteus mirabilis Nitrofurantoin JONATHON >64 mcg/mL: Re sistant Proteus mirabilis Cefoxitin JONATHON <=4 mcg/mL: Lopez sceptible Proteus mirabilis Gentamicin JONATHON 4 mcg/mL: Susc eptible Proteus mirabilis Levofloxacin JONATHON <=0.5 mcg/mL: Susceptible [facility] Tobramycin JONATHON <=2 mcg/mL: Lopez sceptible Proteus mirabilis Ampicillin/Sulbactam JONATHON <=1/0.5 m cg/mL: Susceptible Prote[facility]is Trimethoprim/Sulfamethoxazole JONATHON <=0.5/9.5 mcg/mL: Susceptible Proteus mirabilis Tetracycline JONATHON >8 mcg/mL: Res istant Proteus mirabilis Piperacillin/Tazobactam JONATHON <=2/4 mcg/mL: Susceptible Proteus [facility]is Ertapenem JONATHON <=0.25 mcg/mL: Susceptible Proteus mirabilis Tigecycline JONATHON mcg/mL: Resis tant Proteus mirabilis Minocycline JONATHON mcg/mL: Resis tant Performing Organization Address City/State/ZIP Code Phon e Number [facility] DEPARTMENT OF PATHOLOGY AND [address] [place], [place] [address] [facility] [address] [place] [address] Urinalysis screen and microscopy, with reflex to culture (04/08/2020 4:50 PM CDT) Specimen site [facility] Color, UA Dark Yellow [facility] Appearance, UA Hazy [facility] Specific gravity, UA 1.024 1.001 - 1.035 [facility] pH, UA 5.0 5.0 - 8.5 [facility] Protein, UA 1+ (A) Negative [facility] Glucose, UA Negative Negative [facility] Ketones, UA 1+ (A) Negative [facility] Bilirubin, UA Negative Negative [facility] Blood, UA Small (A) Negative [facility] Nitrite, UA Negative Negative [facility] Urobilinogen, UA 4.0 (A) <2.0 [facility] Leukocyte esterase, Large (A) Negative [facility] Epithelial cells, UA <1 /HPF [facility] WBC, UA >180 (H) 0 - 4 /HPF [facility] RBC, UA 21 (H) 0 - 5 /HPF [facility] Bacteria, UA Few None seen [facility] WBC clumps, UA Moderate (A) [facility] Yeast, UA None seen [facility] Yeast with None seen [facility] pseudohyphae, HOSPITAL Hyaline casts, UA 1 /LPF [facility] Specimen Urine Performing Organization Address City/State/ZIP Code Phon e Number [facility] DEPARTMENT OF PATHOLOGY AND [address] [place], [place] [address] [facility] [address] [place] [address] Intraoperative monitoring (04/08/2020 12:50 PM CDT) Narrative Performed At This result has an attachment that is no t available. INTRAOPERATIVE NEURO MONITORING Patient Name: eDborah Garcia Date of : 1950 Gender: female Surgical Procedure:completion of T3-sacrum fusion OR: (CHRIS) Room #: (19) Tech #1: (JS) Start Time: (0820) End Time: (1150) Total Time (in hours): (3) Date of Service: 04/08/2020 Physician IOM Time: 3 Hours Procedure(s) performed During IOM: 56166, 51470, 62065 ICD10: M419, M4716 Stimulation Parameters Ulnar nerves individually stimulated at the wrist. Rat e 4.7 Hz, Intensity 20-60 mA, Duration 0.3 ms, Filters 30-500 Hz, Notch Of f Posterior Tibial nerves individually stimulated at the ankle., Rate 4.7 Hz, Intensity 30 - 80 mA, Duration 0.3 ms, Filters 30- 500 Hz, Notch Off Motor strip stimulated anterior to C3 and C4 with alte rnating polarities, Intensity 500 V Train Rate 4-5 GELA 2-3 ms, Filter 30-2 KHz Notch off Technical Summary Intraoperative neurophysiological monitoring was perfo rmed using a combination of upper and lower extremity somatosensory evoked potentials (SEP), transcranial electrical motor potentials (TcMEP ) and running electromyography (EMG) of the innervated muscle groups . A real time connection was established by the monitoring technolog ist with the examining neurologist throughout the operative procedu re. Lower extremity somatosensory evoked potentials were recorded peripher ally at the popliteal fossa and centrally at the cervical and jean-pierre ical levels following posterior tibial nerve stimulation at the an kle. Upper extremity somatosensory evoked potentials were recorded centrall y at the cervical and cortical levels following ulnar nerve stimulation at the wrist. There were no significant surgically related changes in ampl itude or latency to the cervical and/or cortical SEP responses throughout the surgical procedure. TcMEPs were recorded peripherally from the upper and lower extremities following alternating polarity motor strip stimulation. Post-induction TcMEP responses to motor cortex stimula tion were clear and reproducible bilaterally. No significant surgically re lated changes in amplitude or latency of the TcMEPs were noted througho ut the surgical procedure. At closing responses were judged to be esse ntially unchanged from those of post positioning baselines. Free running EMG of the innervated muscle groups was monitored continuously th roughout the operative procedure with no sustained neurotonic disch arges noted. Conclusion These results suggest the absence of a significant del ay or reduction in amplitude of cervical and cortical SEP responses sugge st the absence of untoward, secondary changes to posterior spinal cord f unction as a result of this surgical procedure. The absence of sustained n eurotonic discharges on free-running EMG suggests that the monitored nerve roots remained undisturbed during this procedure. All values were rep orted to the surgeon in real time. . OR [place] > I Hour (04/08/2020 12:00 PM CDT)Only the most recent of2 results within the time period is included. Specimen Narrative Performed At EXAMINATION: OR [place] > 1 HOUR [facility] C-arm fluoroscopy was requested in OR. Location: [facility] 3 OR 19 Procedure: POSTERIOR SPINAL FUSION Start: 814 End: 1200pm Fluoro Time: 2secs mGy: 27.17 Tech: JV IMPRESSION: Intraoperative fluoroscopic images. Radiologist was no t present during the examination. Separate operative report will be issued by the physic todd performing the procedure. [id number] Procedure Note Interface, Radiology Results Incoming - 04/08/2020 2:40 PM CDT EXAMINATION: OR [place] > 1 HOUR C-arm fluoroscopy was requested in OR. Location: [facility] 3 OR 19 Procedure: POSTERIOR SPINAL FUSION Start: 814 End: 1200pm Fluoro Time: 2secs mGy: 27.17 Tech: JV IMPRESSION: Intraoperative fluoroscopic images. Radi ologist was not present during the examination. Separate operative report will be issued by the physician performing the procedure. [id number] Performing Organization Address City/State/[facility] Code Phon e Number [facility] [address] [place] [address] XR Lumbar Spine 2 Or 3 Vw (04/08/2020 11:39 AM CDT) Specimen Narrative Performed At EXAMINATION: XR LUMBAR SPINE 2 OR 3 VW [facility] CLINICAL HISTORY: Intraoperative COMPARISON: Scoliosis radiograph 020 IMPRESSION: Single lateral intraoperative radiograph of the lumbar spine was obtained. The most inferior fully form ed disc is presumed L5-S1. Retractors are present posteriorly at the levels of L3 -S1 and at the upper thoracic spine. Posterior spinal instrumentation with rods and screws from the upper thoracic spine through the iliac bones. Redemonstration of vertebral body height loss of L3. Lordosis centered at L3 measuring 59.3 d egrees. [facility]-[id number] Procedure Note Interface, Radiology Results Incoming - 04/08/2020 4:49 PM CDT EXAMINATION: XR LUMBAR SPINE 2 OR 3 VW CLINICAL HISTORY: Intraoperative COMPARISON: Scoliosis radiograph 04/07/20 20 IMPRESSION: Single lateral intraoperative radiograph of the lumbar spine was obtained. The most inferior fully formed disc is presumed L5-S1. Retractors are present posteriorly at th e levels of L3-S1 and at the upper thoracic spine. Posterior spinal instrumentation with rods and screws from the upper thoracic spine through the iliac bones. Redemonstration of vertebral body height loss of L3. Lordosis centered at L3 measuring 59.3 d egrees. [facility]-[id number] Performing Organization Address City/[facility] Phon e Number [address] [address] Sodium level, syringe (04/08/2020 11:10 AM CDT)Only the most recent of3 results within the time period is included. Pathologist Sig nature Sodium, syringe 142 135 - 148 mEq/L [facility] Specimen Blood Performing Organization Address City/[facility] Phon e Number [facility] DEPARTMENT OF PATHOLOGY AND [address] [place] [address] [phone] [address] Potassium, syringe (04/08/2020 11:10 AM CDT)Only the most recent of3 results within the time period is included. Pathologist Sig nature Potassium, syringe 3.5 3.5 - 5.0 mEq/L [facility] Specimen Blood Performing Organization Address [facility] Phon e Number [facility] DEPARTMENT OF PATHOLOGY AND [address] [place] [address] [phone] [address] Hemoglobin, syringe (04/08/2020 11:10 AM CDT)Only the most recent of3 results within the time period is included. Pathologist Sig nature Hemoglobin, syringe 9.7 (L) 12.0 - 16.0 g/dL [facility] Specimen Blood Performing Organization Address [facility] Phon e Number [facility] DEPARTMENT OF PATHOLOGY AND [address] [place] [address] [phone] [address] Glucose level, syringe (04/08/2020 11:10 AM CDT)Only the most recent of3 results within the time period is included. Pathologist Sig nature Glucose, syringe 103 (H) 65 - 99 mg/dL [facility] Specimen Blood Performing Organization Address City/[facility] Phon e Number [facility] DEPARTMENT OF PATHOLOGY AND [address] [place] [address] [phone] [address] Arterial blood gas, corrected (04/08/2020 11:10 AM CDT)Only the most recent of3 resultswithin the time period is included. Pathologist Sig nature pH, arterial 7.40 7.35 - 7.45 [facility] pCO2, arterial 38 35 - 45 mmHg [facility] pO2, arterial 101 (H) 80 - 90 mmHg [facility] Temperature, Celsius 37.0 Degrees C [facility] O2 saturation, 98 95 - 100 % [facility] arterial HOSPITAL pH, arterial 7.40 [facility] pCO2, arterial 38 mmHg [facility] pO2, arterial 101 mmHg [facility] Base excess, arterial -1 -2 - 2 mEq/L [facility] Specimen Blood Performing Organization Address City/State/[facility] Code Phon e Number [facility] DEPARTMENT OF PATHOLOGY AND [address] [place] [phone] GENOMIC MEDICINE [facility] [address] [place] [phone] Arterial line (04/08/2020 10:08 AM CDT) Narrative Performed At Lauren Abbasi MD 04/08/2020 10:09 AM Arterial line Performed by: Lauren Abbasi MD Authorized by: Lauren Abbasi MD Patient Location: OR Start Time: 04/08/2020 7:55 AM End Time: 04/08/2020 8:00 AM Staff: Anesthesiologist: Lauren Abbasi MD Performed by: Anesthesiologist Pre-procedure: patient identified, IV ch ecked, site and side verified, risks and benefits discussed, procedure verified, surgical consent complete, patient position confirmed, mo nitors and equipment checked, pre-op evaluation complete and timeout p erformed prior to procedure MSBT: antiseptic used, all elements of maximal sterile barrier technique followed, hand hygiene performed, cap/go wn used by other personnel and solutions labeled Indications: Indications: multiple ABGs and hemody namic monitoring Anesthesia: Anesthesia: General Procedure Details: Arterial Line placement: Placed pos t induction Line placement site: Radial Line placement side: Right Arterial line gauge: 20 G Number of attempts: 1 Ultrasound guidance used: No Post-procedure: Post-procedure: Sterile dressing ap plied Post procedure circulation, sensation , movement: Normal Patient tolerance: Patient tolerate d the procedure well with no immediate complications Lactic acid, syringe (04/08/2020 9:20 AM CDT)Only the most recent of2 results within the time period is included. Pathologist Sig nature Lactic acid, syringe 0.7 0.5 - 2.2 mmol/L [facility] Specimen Blood Performing Organization Address [facility] Phon e Number [facility] DEPARTMENT OF PATHOLOGY AND [address] [place] [address] [address] Platelet count (04/08/2020 9:20 AM CDT) Pathologist Sig nature Platelet count 104 (L) 150 - 400 k/uL [facility] Specimen Performing Organization Address [facility] Phon e Number [facility] DEPARTMENT OF PATHOLOGY AND [address] [place] [address] [address] Hematocrit (04/08/2020 9:20 AM CDT) Pathologist Sig nature HCT 28.3 (L) 37.0 - 47.0 % [facility] Specimen Performing Organization Address [facility] Phon e Number [facility] DEPARTMENT OF PATHOLOGY AND [address] [place] [address] [address] Airway (04/08/2020 8:44 AM CDT) Narrative Performed At Lauren Abbasi MD 04/08/2020 8:46 AM Airway Performed by: Lauren Abbasi MD Authorized by: Lauren Abbasi MD Location: OR Urgency: Elective Difficult Airway: No Anesthesiologist: Lauren Abbasi i, MD Performed by: anesthesiologist Preoxygenated with 100% O2: Yes C-spine Precautions Maintained Throughou t: Yes Mask Ventilation: Not attempted Final Airway Type: Endotracheal airway Final Endotracheal Airway: ETT Cuffed: Yes Technique Used: Direct laryngoscopy Blade Type: Arellano Laryngoscope Blade/Videolaryngoscope Lico de Size: 2 ETT Size (mm): 7.0 Cuff at minimum occlusion pressure: Yes Measured from: Lips ETT to Lips (cm): 21 Placement Verified by: CO2 detection Laryngoscopic view: Grade IIa - partia l view of glottis Rapid Sequence Induction (RSI): Yes Number of Attempts at Approach: 1 Ionized calcium (04/07/2020 12:00 AM CDT)Only the most recent of5 resultswithin the time period is included. Pathologist Sig nature pH 7.60 [facility] Ionized calcium 1.08 (L) 1.11 - 1.32 [facility] mmol/L HOSPITAL Specimen Blood Performing Organization Address [facility] Phon e Number [facility] DEPARTMENT OF PATHOLOGY AND [address] [place] [address] 0 [place] [address] Transfuse fresh frozen plasma (04/06/2020 7:25 PM CDT)Transfuse RBC (04/05/2020 1:05 PM CDT)Only the most recent of2 resultswithin the time period is included. Prepare platelet pheresis (04/05/2020 12:50 AM CDT) Product name Apheresis Platelet [place] [facility] LRIR[facility] #1 [facility] Unit number [id number] [facility] Product code [id number] [facility] Dispense status Returned to BB not [facility] Blood expiration date [facility] Blood type code 5100 [facility] Blood type O POSITIVE [facility] Compatibility Not required [facility] Specimen Performing Organization Address [facility] Phon e Number [facility] DEPARTMENT OF PATHOLOGY AND [address] [place] [address] 0 [place] [address] Prepare fresh frozen plasma (04/05/2020 12:50 AM CDT)Only the most recent of3 resultswithin the time period is included. Product name Thawed Plasma [facility] Unit number [id number] [facility] Product [facility] [id number] [facility] Dispense status Returned to BB not [facility] Blood expiration date [facility] Blood type code 0600 [facility] Blood type A NEGATIVE [facility] Compatibility Not required [facility] Product name Thawed Plasma [facility] Unit number [id number] [facility] Product code [id number] [facility] Dispense status Returned to BB not [facility] Blood expiration [facility] [facility] Blood type code 6200 [facility] Blood type A POSITIVE [facility] Compatibility Not required [facility] Specimen Performing Organization Address [facility] Phon e Number [facility] DEPARTMENT OF PATHOLOGY AND [address] [place] [address] [phone] [address] Prepare RBC (04/05/2020 12:50 AM CDT)Only the most recent of4 resultswithin the time period is included. Product name Red Cells [place]1 [place] Leukored [facility] Unit number [id number] [facility] Product code [id number] [facility] Dispense status Returned to BB not [facility] Blood expiration date [facility] Blood type code 6200 [facility] Blood type A POSITIVE [facility] Compatibility Compatible [facility] Product name Red Cells AS1 [place] Leukored [facility] Unit number [id number] [facility] Product code [id number] [facility] Dispense status Returned to BB not [facility] Blood expiration date [facility] Blood type code [facility]0 [facility] Blood [facility] A POSITIVE [facility] Compatibility Compatible [facility] Specimen Performing Organization Address [facility] Phon e Number [facility] DEPARTMENT OF PATHOLOGY AND [address] [place] [address] [phone] [address] Hemoglobin & hematocrit (04/04/2020 10:15 AM CDT) Pathologist Sig nature HGB 8.2 (L) 12.0 - 16.0 g/dL [facility] HCT 26.8 (L) 37.0 - 47.0 % [facility] Specimen Blood Performing Organization Address [facility] Phon e Number [facility] DEPARTMENT OF PATHOLOGY AND [address] [place] [address] [phone] [address] Potassium level (04/04/2020 10:15 AM CDT) Pathologist Sig nature Potassium 4.2 3.5 - 5.0 mEq/L [facility] Specimen Blood Performing Organization Address City/[facility] Phon e Number [facility] DEPARTMENT OF PATHOLOGY AND [address] [place] [address] [phone] [address] Fibrinogen (04/04/2020 1:25 AM CDT) Pathologist Sig nature Fibrinogen 245 200 - 450 mg/dL [facility] Specimen Blood Performing Organization Address City/[facility] Phon e Number [facility] DEPARTMENT OF PATHOLOGY AND [address] [place] [address] [address] Intraoperative monitoring (04/03/2020 1:37 PM CDT) Narrative Performed At This result has an attachment that is no t available. INTRAOPERATIVE NEURO MONITORING Patient Name: Deborah Garcia Date of : 1950 Gender: female Surgical Procedure: STAGE 2:COMPLETION OF T3-SACRUM W/ PELVIS POSTERIOR SPINAL INSTRUMENTATION AND FUSION, POSSIBLE LUMBAR P EDICLE SUBTRACTION OSTEOTOMY W/ SSEP W/ MOTORS (Posterior Spine Thoracic) OR:[facility] Room #: 12 Tech #1:YENY Isaacs Start Time:08:37 End Time: 13:29) Total Time (in hours): 5 hours Date of Service: 04/03/2020 Physician IOM Time: 5 Hours Procedure(s) performed During IOM: 75942, 13620, 16646 ICD10: M4716 Stimulation Parameters Ulnar nerves individually stimulated at the wrist. Rat e 4.7 Hz, Intensity 20-60 mA, Duration 0.3 ms, Filters 30-500 Hz, Notch Of f Posterior Tibial nerves individually stimulated at the ankle., Rate 4.7 Hz, Intensity 30 - 80 mA, Duration 0.3 ms, Filters 30- 500 Hz, Notch Off Motor strip stimulated anterior to C3 and C4 with alte rnating polarities, Intensity 500 V Train Rate 4-5 GELA 2-3 ms, Filter 30-2 KHz Notch off Technical Summary Intraoperative neurophysiological monitoring was perfo rmed using a combination of upper and lower extremity somatosensory evoked potentials (SEP), transcranial electrical motor potentials (TcMEP ) and running electromyography (EMG) of the innervated muscle groups . A real time connection was established by the monitoring technolog ist with the examining neurologist throughout the operative procedu re. Lower extremity somatosensory evoked potentials were recorded peripher ally at the popliteal fossa and centrally at the cervical and jean-pierre ical levels following posterior tibial nerve stimulation at the an kle. Upper extremity somatosensory evoked potentials were recorded centrall y at the cervical and cortical levels following ulnar nerve stimulation at the wrist. There were no significant surgically related changes in ampl itude or latency to the cervical and/or cortical SEP responses throughout the surgical procedure. TcMEPs were recorded peripherally from the upper and lower extremities following alternating polarity motor strip stimulation. Post-induction TcMEP responses to motor cortex stimula tion were clear and reproducible bilaterally. No significant surgically re lated changes in amplitude or latency of the TcMEPs were noted througho ut the surgical procedure. At closing responses were judged to be esse ntially unchanged from those of post positioning baselines. Free running EMG of the innervated muscle groups was monitored continuously th roughout the operative procedure with no sustained neurotonic disch arges noted. Conclusion These results suggest the absence of a significant del ay or reduction in amplitude of cervical and cortical SEP responses sugge st the absence of untoward, secondary changes to posterior spinal cord f unction as a result of this surgical procedure. The absence of sustained n eurotonic discharges on free-running EMG suggests that the monitored nerve roots remained undisturbed during this procedure. All values were rep orted to the surgeon in real time. . AFB culture (04/03/2020 12:37 PM CDT)Only the most recent of2 resultswithin the time period is included. AFB culture No growth after 6 weeks of incubation. [facility] CON[facility]AN[facility] isolate Comment: HOSPITAL Specimen Information Specimen Source: Bone Specimen Site: Spine, Thoracic: Swab from bone for chuy arora #2 Specimen Bone - Spine, Thoracic Performing Organization Address City/State/ZIP Code Phon e Number [facility] DEPARTMENT OF PATHOLOGY AND [address] [place], [place] [address] GENOM[address] [address] Aerobic culture (04/03/2020 12:37 PM CDT)Only the most recent of2 resultswithin the time period is included. Aerobic culture No growth after 3 days. [facility] IST isolate Comment: HOSPITAL Specimen Information Specimen Source: Bone Specimen Site: Spine, Thoracic: Swab from bone for ban ulysses #2 Specimen Bone - Spine, Thoracic Performing Organization Address City/[facility] Phon e Number [facility] DEPARTMENT OF PATHOLOGY AND [address] [place] [address] Fungus culture (04/03/2020 12:37 PM CDT)Only the most recent of2 resultswithin the time period is included. Fungus culture No growth after 4 weeks of incubation. VASQUEZ FOURNIER isolate Comment: HOSPITAL Specimen Information Specimen Source: Bone Specimen Site: Spine, Thoracic: Swab from bone for ban ulysses #2 Specimen Bone - Spine, Thoracic Performing Organization Address City/[facility] Phon e Number [facility] DEPARTMENT OF PATHOLOGY AND [address] [place] [address] Anaerobic culture (04/03/2020 12:37 PM CDT)Only the most recent of2 results within the time period is included. Anaerobic culture No anaerobic organisms isolated. FINESSE FOURNIER isolate Comment: HOSPITAL Specimen Information Specimen Source: Bone Specimen Site: Spine, Thoracic: Swab from bone for ban ulysses #2 Specimen Bone - Spine, Thoracic Performing Organization Address City/[facility] Phon e Number [facility] DEPARTMENT OF PATHOLOGY AND [address] [place] [address] [address] Central line (04/03/2020 11:19 AM CDT) Narrative Performed At Joanne Harvey MD 0 11:25 AM Central line Performed by: Joanne Harvey MD Authorized by: Joanne Harvey M D Patient Location: OR Start Time: 04/03/2020 7:55 AM End Time: 04/03/2020 8:01 AM Staff: Anesthesiologist: Joanne Harvey MD Performed by: Anesthesiologist Preprocedure:patient identified, IV checked, site and side verified, risks and benefits discussed, procedure verifi ed, surgical consent complete, patient position confirmed, monitors and equipment checked, pre-op evaluation complete and timeout performe d prior to procedure MSBT: antiseptic used during central hai ous catheter insertion, all elements of maximal sterile barrier tech nique followed, hand hygiene performed prior to central venous cathet er insertion, cap/gown used by other personnel during central venous ca theter insertion, solutions labeled and all ports not used during in sertion clamped Indications: Indications: Vascular access Anesthesia: Anesthesia: General Procedure details: Patient position: Trendelenburg Catheter Type: Double lumen Catheter Site: internal jugular vein Catheter site laterality: Right Pre-procedure: Landmarks identified Ultrasound guidance used: Yes Ultrasound image saved: No Pressure transduced: Pressure transdu roberto prior to dilator Number of attempts: 2 Successful placement: Yes Guidewire removal: Guidewire removal is confirmed Guidewire removal witnessed by: Pablo Merrill MD Post-procedure: Post-procedure: line sutured, sterile dressing appl ied per protocol and ports flushed with saline Post-procedure: Blood cleaned with CHG and sterile caps on all hubs Assessment: Blood return through al l ports and free fluid flow Patient tolerance: Patient tolerate d the procedure well with no immediate complications Arterial line (04/03/2020 11:15 AM CDT) Narrative Performed At Joanne Harvey MD 0 11:16 AM Arterial line Performed by: Joanne Harvey MD Authorized by: Joanne Harvey M D Patient Location: OR Start Time: 04/03/2020 7:50 AM End Time: 04/03/2020 7:52 AM Staff: Anesthesiologist: Pablo Yang MD Performed by: Anesthesiologist Pre-procedure: patient identified, IV ch ecked, site and side verified, risks and benefits discussed, procedure verified, surgical consent complete, patient position confirmed, mo nitors and equipment checked, pre-op evaluation complete and timeout p erformed prior to procedure MSBT: antiseptic used, all elements of maximal sterile barrier technique followed, hand hygiene performed and olya utions labeled Indications: Indications: multiple ABGs and hemody namic monitoring Anesthesia: Anesthesia: General Procedure Details: Arterial Line placement: Placed pos t induction Line placement site: Radial Line placement side: Right Arterial line gauge: 20 G Number of attempts: 1 Ultrasound guidance used: No Post-procedure: Post-procedure: Sterile dressing ap plied Post procedure circulation, sensation , movement: Normal Patient tolerance: Patient tolerate d the procedure well with no immediate complications Airway (04/03/2020 11:12 AM CDT) Narrative Performed At Joanne Harvey MD 0 11:14 AM Airway Date/Time: 04/03/2020 7:49 AM Performed by: Joanne Harvey MD Authorized by: Joanne Harvey M D Location: OR Urgency: Elective Difficult Airway: No Anesthesiologist: Joanne Harvey MD Performed by: anesthesiologist Preoxygenated with 100% O2: Yes C-spine Precautions Maintained Throughou t: Yes Mask Ventilation: Not attempted Final Airway Type: Endotracheal airway Final Endotracheal Airway: ETT Cuffed: Yes Technique Used: Video laryngoscopy (Gl idescope #3) Insertion Site: Oral Laryngoscope Blade/Videolaryngoscope Lico de Size: 3 ETT Size (mm): 7.0 Cuff at minimum occlusion pressure: Yes Measured from: Gums ETT to Gums (cm): 20 Placement Verified by: CO2 detection, di rect visualization and equal breath sounds Laryngoscopic view: Grade I - full vie w of glottis Rapid Sequence Induction (RSI): Yes Modified RSI: No Number of Attempts at Approach: 1 Patient has and cannot lie flat. She is bent over at the waist when she stands and sleeps sitting up. After induction, I w as able to lie her down enough for Glidescope intubation. Easy Glidescope with Grade 1 view. Atraumatic. BSEB. Surgical pathology request (04/03/2020 8:39 AM CDT) [facility] DEPARTMENT OF PATHOLOGY AND GENOMIC MEDICINE Surgical pathology See link below [facility] DEPARTMENT OF report for PDF Lab PATHOLOGY AND Report GENOMIC MEDICINE Result status This is Final [facility] DEPARTMENT OF Report for PATHOLOGY AND [id number] GENOMIC MEDICINE Specimen Performing Organization Address City/[facility] Phon e Number [facility] DEPARTMENT OF PATHOLOGY AND [address] [place] [phone] GENOMIC MEDICINE Prealbumin level (03/31/2020 4:36 PM CDT) Pathologist Sig nature Prealbumin 20 16 - 32 mg/dL [facility] Specimen Serum Performing Organization Address City/[facility] Phon e Number [facility] DEPARTMENT OF PATHOLOGY AND [address] [place] [phone] GENOMIC MEDICINE [address] [address] ECG Pre/Post Op (03/31/2020 3:06 PM CDT) Pathologist Sig nature Ventricular rate 66 [facility] Atrial rate 66 [facility] AR interval 184 [facility] QRSD interval 98 [facility] QT interval 430 [facility] QTC interval 450 [facility] P axis 1 -21 [facility] QRS axis 1 9 [facility] T wave axis 0 [facility] EKG impression Normal sinus [facility] MUSE rhythm-Normal ECG-In automated comparison with ECG of 03-AUG-2019 11:10,-T wave inversion now evident in Inferior leads- Specimen Narrative Performed At This result has an attachment that is no t available. Performing Organization Address City/[facility]/ZIP Code Phon e Number [facility] MUSE [address] [place] [address] Albumin level (03/31/2020 2:45 PM CDT) Pathologist Sig albina Albumin 3.7 3.5 - 5.0 g/dL [facility] Specimen Blood Performing Organization Address City/State/ZIP Code Phon e Number [facility] DEPARTMENT OF PATHOLOGY AND [address] [place] [phone] GENOMIC MEDICINE [address] [address] XR Thoracolumbar Spine 2 Vw (01/28/2020 12:51 PM CDT) Specimen Narrative Performed At This result has an attachment that is no t available. Supine crosstable lateral view of the thoracolumbar spine was reviewed SADE today. Her kyphosis decreases to 22 degrees with sup ine positioning. Marked compression deformity of the anterior aspect of the inferior vertebral body at T12. Performing Organization Address City/State/ZIP [facility] Phon e Number [facility] [address] [place] [address] Monitor Screen 13-Drug Class Profile (10/03/2019 11:13 AM OPERATOR ASSISTANT I CEMENTING) Amphetamines Negative Ommpzf=2104 [facility] ng/mL Barbiturates conf, Negative Npnype=259 [facility] urine ng/mL Benzodiazepines Negative Vlejky=597 [facility] ng/mL Cannabinoid screen, Negative Cutoff=20 [facility] urine ng/mL Cocaine (metab.) Negative Tagtdp=225 [facility] ng/mL Opiates screen, urine NegativeComment: Hgxuhi=398 [facility] Opiate test includes ng/mL Codeine, Morphine, Hydromorphone, Hydrocodone. Oxycodone/oxymorphone, NegativeComment: Test Ujtoqf=127 [facility] urine includes Oxycodone and ng/mL Oxymorphone Phencyclidine screen, Negative Cutoff=25 [facility] urine ng/mL Methadone screen, Negative Jyevxx=581 [facility] urine ng/mL Propoxyphene screen, Negative Dwdnhc=138 [facility] urine ng/mL Meperidine screen, Negative Wpwapv=346 [facility] urine Comment: ng/mL This test was developed and its performance characteri stics determined by [facility]. It has not been cleared or appr isela by the Food and Drug Administration. Fentanyl, urine Negative Tthbtd=6557 [facility] Comment: pg/mL Test includes Fentanyl and Norfentanyl This test was developed and its performance characteri stics determined by [facility]. It has not been cleared or appr isela by the Food and Drug Administration. TRAMADOL SCREEN, URINE Positive (A) Igkvfo=731 [facility] ng/mL Creatinine(Hedge Fund Principal),U 61.8 20.0 - [facility] 300.0 mg/dL pH, urine 7.0 4.5 - 8.9 [facility] Please note Comment [facility] Comment: This assay provides a preliminary unconfirmed analytic al test result that may be suitable for clinical management of patients in certain situations. Drug-test results should be int erpreted in the context of clinical information. Patient metabo lic variables, specific drug chemistry, and specimen characteristics can affect test outcome. Technical con sultation is available if a test result is inconsistent with an expected outcome. ([email or web address] or call [email or web address] [phone]) Specimen Urine Narrative Performed At Performed at: 01 - [facility] [address] [place] [address] [employer] Research Ecologist: Micaela Abad PhD, Phone: [phone] Performing Organization Address City/State/ZIP Code Phon e Number [facility] Sedimentation rate (10/03/2019 11:13 AM OPERATOR ASSISTANT I CEMENTING) Pathologist Sig nature Sedimentation rate 3 0 - 40 mm/hr [facility] Specimen Blood Narrative Performed At Performed at: 01 - [facility] [place] [facility] [address] [place], [place] [id number] [employer] Research Ecologist: Anson Land MD, Phone: [phone] Performing Organization Address City/[facility]/ZIP Code Phon e Number [facility] C-reactive protein (10/03/2019 11:13 AM OPERATOR ASSISTANT I CEMENTING) Pathologist Sig nature CRP <1 0 - 10 mg/L [facility] Specimen Blood Narrative Performed At Performed at: 01 - [facility] [place] [facility] [address] [place], [place] [id number] 143 [employer] Research Ecologist: Anson Land MD, Phone: [phone] Performing Organization Address [facility]/ZIP Code Phon e Number [facility] after 08/11/2019 Additional Health Concerns Infection Onset Date Last Indicated Resolved Time Coronavirus COVID-19 (Confirmed) 08/06/2020 08/06/2020 Insurance Payer Benefit Plan / Subscriber ID Effective Dates Phone Addre ss Type Group MEDICARE MEDICARE PART A [id number] 2013-Present [place], [place] Medicare AND B BCBS BCBS OUT OF STATE [id number] 2014-Present PPO (Work) [phone] Advance Directives For more information, please contact: [phone] Type Date Recorded 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
--- OUTSIDE RECORDS SUMMARY | 2020-08-11 18:27 | XMS REPORT | Clinical Summary ---
:1950 Author Organization [facility] Address [address] [place] [address] Care Team Providers Name Role Phone Unavailable Primary Care Provider Unavailable Allergies Active Allergy Reactions Severity Noted Date Comments Torres Swelling 11/18/2016 Warfarin Rash High 11/18/2016 Morphine Sulfate 11/18/2016 Makes me vo ne Medications Medication Sig Dispensed Refills Start Date End Date Status omeprazole (PRILOSEC) 20 Take 20 mg by 0 Active MG capsule mouth 3 (three) times daily. hydrocortisone (CORTEF) Take 30 mg by 0 Active 20 MG tablet mouth daily . famciclovir (FAMVIR) 500 Take 500 mg by 0 Active MG tablet mouth as needed . hydroxychloroquine Take 200 mg by 0 Active (PLAQUENIL) 200 mg tablet mouth 2 (two) times daily. pregabalin (LYRICA) 150 Take 150 mg by 0 Active MG capsule mouth 2 (two) times daily . topiramate (TOPAMAX) 100 Take 100 mg by 0 Active MG tablet mouth once at bedtime. zolpidem (AMBIEN) 10 mg Take 5 mg by 0 Active tablet mouth every night as needed for Insomnia . cycloSPORINE (RESTASIS) Place 1 drop 0 Active 0.05 % ophthalmic into the right emulsion eye 2 (two) times daily. calcium carbonate Take 600 mg by 0 Active (OS-LUIS CARLOS) 600 mg (1,500 mouth daily. mg) Tab ibuprofen (ADVIL,MOTRIN) Take 800 mg by 0 Active 800 MG tablet mouth 4 (four) times daily as needed for Pain. triamterene-hydroCHLOROth Take 1 tablet 0 Active iazide (MAXZIDE-25) by mouth daily. 37.5-25 mg per tablet fludrocortisone Take 0.1 mg by 0 Active (FLORINEF) 0.1 mg tablet mouth every other day . B-complex with vitamin C Take 1 tablet 0 Active tablet by mouth daily. linaclotide (LINZESS) 145 Take 145 mcg by 0 Active mcg Cap mouth every other day as needed. GLUCOSAMINE/D3/BOSWELLIA Take by mouth 0 Active CELMENTINA (OSTEO BI-FLEX, daily. 5-LOXIN, ORAL) azaTHIOprine (IMURAN) 50 Take 150 mg by 0 Active mg tablet mouth daily. torsemide (DEMADEX) 20 MG Take 40 mg by 0 Active tablet mouth daily. potassium chloride Take 10 mEq by 0 Active (KLOR-CON) 10 MEQ CR mouth daily. tablet bromfenac 0.07 % Drop Apply 1 drop to 0 Active eye(s) daily On both eyes . 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 Device Shelf Model / Serial Identifier Expiration / Lot Date Amniofix 4x4cm Aps-5440 - [id number] Cement/F N/A: [place] [employer] 05/01/2022 [id number] / Implanted: Qty: 1 on 07/27/2017 by Real Bejarano MD at [facility] iller/[employer] AS44- [id number] / hesive Scr Set X6 [id number] Spine N/A: ORTHOFIX / Implanted: Qty: 6 on 07/27/2017 by Real Bejarano MD at [facility] [employer] Back INTL:ORTHOFIX / Elpidio Pre Lordosed Ti 5.5x60mm 52-2460 - [id number] Spine N/A: ORTHOFIX [id number] / Implanted: Qty: 2 on 07/27/2017 by Real Bejarano MD at [facility] INTL:ORTHOFIX / Scr Multi-Axial St 5.5x45mm - [id number] Spine N/A: ORTHOFIX 44-3545 / Implanted: Qty: 4 on 07/27/2017 by Real Bejarano MD at [facility] INTL:ORTHOFIX / Scr Multi-Axial St 5.5x40mm - [id number] Spine N/A: ORTHOFIX 44-3540 / Implanted: Qty: 2 on 07/27/2017 by Real Bejarano MD at [facility] INTL:ORTHOFIX / Forza Spacer System 9mm W X 23mm L X 8mm H, 8degree Straight Imp lant N/A: ORTH[employer] INC 05/24/2021 [id number] / Implanted: Qty: 2 on 07/27/2017 by Real Bejarano MD at [facility] / R01C Actifuse Shape Bone Graft Substitute 15.8ml N/A: [employer] H 09/28/2021 [id number] / Implanted: Qty: 1 on 07/27/2017 by Real Bejarano MD at [facility] / [id number] S Description:SILICATE SUBSTITUTED CALCIUM PHOSPHATE Results Not on fileafter 08/11/2019 Insurance Payer Benefit Plan / Subscriber ID Effective Phone Address T ype Group Dates MEDICARE MEDICARE A B [id number] 2013-Jay LOPEZ [employer] INDEMNITY [id number] 2014-Pres [phone] [address] [place] [id number] [place] [phone] ([address]) [place] [id number] Advance Directives For more information, please contact: [phone] Code Status Date Activated Date Inactivated Comments Full Code 07/27/2017 7:12 PM 07/30/2017 7:19 PM This code status was determined by: Patient
--- OUTSIDE RECORDS SUMMARY | 2020-08-11 18:30 | XMS REPORT | Continuity of Care Document ---
:1950 Author Organization [facility] t Address [address] [place] [address] [address]. [address] [place] [address] Care Team Providers Name Role Phone Louie Malhotra MD Primary Care Physician Provider Attending Clinician Unavailable Carrington GUZMAN, Eliot Attending Clinician Pio GUZMAN Attending Clinician Radha Marinelli Attending Clinician Bebo DIAZ Attending Clinician Rosalva Alex MD Attending Clinician Marjorie OSPINA Attending Clinician Unavailable Glo Arora PA-C Attending Clinician ELENA Attending Clinician Unavailable Vasyl OSPINA Attending Clinician Unavailable Rubens OSPINA Attending Clinician Unavailable Sid DÍAZ Attending Clinician Unavailable Raymundo Abbasi MD Attending Clinician Jewel Attending Clinician Hayden Harvey MD Attending Clinician Dmitry Harman NP Attending Clinician Domenico GUZMAN, A. W. Attending Clinician Paco Seaman MD Attending Clinician Dmitry OSPINA Attending Clinician Unavailable David OSPINA Attending Clinician Unavailable CHAITANYA DRAKE Attending Clinician Unavailable DOMINGA CLARK Attending Clinician Unavailable ISIS Admitting Clinician Unavailable CHAITANYA DRAKE Admitting Clinician Unavailable DOMINGA CLARK Admitting Clinician Unavailable Payers Payer Name Policy Type Policy Effective Date Expiration Date Sour ce Number MEDICAREMEDICARE PART [id number] 2013 Sha becker A AND 00:00:00 Andi SappVuigxwkeRX25 2013- GRZEGORZ CuencaMedicare BCBSBCBS OUT OF [id number] 2014 [id number] Met blanka PPO Problems Condition Condition Condition Status Onset Resolution Last Treating Co mments Source Name Details Category Date Date Treatment Clinician Date Impaired Impaired Disease Active 2019-08 [place] gait and gait and 0-11 Method i mobility mobility 00:00: st 00 Debility Debility Disease Active 2019-08 [place] 0-11 Methodi 00:[facility]: st 00 Neuropathi Neuropathi Disease Active 2019-08 [place] c pain c pain 0-11 Methodi 00:[facility]: st 00 Acute pain Acute pain Disease Active [place] 9 Methodi 00:00: st 00 Delirium Delirium Disease Active [place] 04-09 [facility]i 00:00: st 00 Acute Acute Disease Active [place] blood loss blood loss 04-09 [facility] anemia anemia 00:00: st 00 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 2-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 Methodi imbalance imbalance 00:00: automatic s t 00 ally from request for surgery [id number] Unspecifie Unspecifie Disease Active Overview : [place] d d 2-07 Added Methodi kyphosis, kyphosis, 00:00: automatic s t site site 00 ally from unspecifie unspecifie request d d for surgery [id number] DISH DISH Disease Active [place] (diffuse (diffuse 8-08 Method i idiopathic idiopathic 00:00: st skeletal skeletal 00 hyperostos hyperostos is) is) Osteopenia Osteopenia Disease Active [place] of of 4-04 Methodi multiple multiple 00:00: st sites sites 00 Chronic Chronic Disease Active 2017-08 [place] midline midline 0-04 [facility] low back low back 00:00: st pain pain 00 without without sciatica sciatica Chronic Chronic Disease Active [place] pain of pain of 4-04 [facility] right knee right knee 00:00: st 00 Lumbago Lumbago Disease Active 2016-[address] [facility] 2[facility]27 [facility] Lumbar Lumbar Disease Active 2016-[address] [facility] [address] spinal spinal 09-27 [facility] stenosis stenosis 00:00: Medica l 00 Center Radiculopa Radiculopa Disease Active 2016-[address] thy of thy of 09-27 [facility] lumbar lumbar 00:00: Medical region region 00 Center Chronic Chronic Disease Active [place] midline midline 7-19 [facility] thoracic thoracic 00:00: st back pain back pain 00 Cervicalgi Cervicalgi Disease Active [place] a a 7-19 Methodi 00:00: st 00 Closed Closed Disease Active [facility] left hip left hip 4-20 [facility] fracture fracture 00:[facility]: Medica l 00 [place] Arthritis Arthritis Disease Active 2015-08 Stephanie ston 0-05 Methodi 00:00: st 00 Autoimmune Autoimmune Disease Active 2015-08 [place] disease disease 0-05 [facility]i 00:00: st 00 Blistering Blistering Disease Active 2015-08 H [facility] rash rash 0-05 Methodi 00:00: st 00 Essential Essential Disease Active 2015-08 Stephanie ston hypertensi hypertensi 0-04 Me thodi on on 00:00: st 00 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 00:00: st 00 Divide Mike Disease Active 2015-08 [place] disease disease 0-04 Methodi 00:00: st 00 Glaucoma Glaucoma Disease Active 2015-08 [place] 0-04 Methodi 00:[facility]: st 00 GERD GERD Disease Active 2015-08 [place] (gastroeso (gastroeso 0-04 Me thodi phageal phageal 00:00: st reflux reflux 00 disease) disease) Fibromyalg Fibromyalg Disease Active 2015-08 [place] ia ia 0-04 Methodi syndrome syndrome 00:00: st 00 Oral Oral Disease Active 2015-08 [place] herpes herpes 0-04 Methodi 00:00: st 00 Allergies, Adverse Reactions, Alerts Allergy Allergy Status Severity Reaction(s) Onset Inactive Treating Comm ents Source Name Type Date Date Clinician Melissa Cohen Active Other (See leisa Jaime gurwinderbrooke ty to Comments) 1- cherries- Meth tomasa adverse 00:00: anaphylax st reaction 00 is s to drug Torres Drug Active Swelling [facility] All[facility] Warfarin Drug Active Rash [facility] All[facility] Morphine Drug Active Makes me [facility] Sulfate Intolera 4-20 vomit [facility] nce [facility] Medical 00 Center Warfarin Propensi Active Other (See 2015-08 'look Ho eugenio ty to Comments) 0-05 like I Methodi adverse 00:00: have st reaction 00 chicken s to pox' drug Family History Family Member Diagnosis Comments Start Date Stop Date Source Natural father Cancer [facility] Natural father Vision loss [facility] Natural father Bone cancer [facility] ethodi Natural father Cancer [facility] Natural father Lung cancer [facility] Maternal grandfather Heart disease C [facility] Maternal uncle Alcohol abuse [facility] Natural mother Asthma [facility] Natural mother Vision loss [facility] Natural mother Diabetes [facility] Natural mother Thyroid disease [place] Paternal grandmother Diabetes [facility] Natural son Depression [facility] Social History Social Habit Start Date Stop Date Quantity Comments Source Sex Assigned At [facility] ethodist Exposure to Not sure [place] Metho dist SARS-CoV-2 (event) Tobacco use and 2020-05-21 2020-05-21 Never used [facility] ethodist exposure 00:00:00 00:00:00 Alcohol intake 2020-05-21 2020-05-[address] [facility] thodist 00:00:00 00:00:00 non-drinker of alcohol (finding) Smoking Status Start Date Stop Date Source Never smoker [place] Methodis t Medications Ordered Filled Start Stop Current Ordering Indication Dosage Frequency Signature Comments Components Source Medication Medication Date Date Medication? Clinician (SIG) Name Name barbara Yes 250mg QD Take 1 Stephanie ston n 1-06 tablet Methodi (Zithromax 00:00: ([address] Z-Aren) 250 00 total) by MG tablet mouth daily. Take 2 tablets the first day, then 1 tablet daily for 4 days. albuterol 2020- Yes 1{puff} Q6H Inhale 1-2 [place] (PROAIR 1-06 02-05 puffs Methodi HFA) 90 00:00: 23:[address] mcg/actuati 00 :00 (six) on inhaler hours as needed for wheezing or shortness of breath for up to 30 days. traMADoL 2019-08- Yes chronic 100mg Q6H Take 2 [place] (ULTRAM) 50 1-23 11-23 pain tablets Meth tomasa mg tablet 00:00: 23:59 ([address] 00 :00 total) by mouth every 6 (six) hours as needed for moderate pain .chronic pain. traMADoL 2019-08- No TAKE 2 [place] (ULTRAM) 50 1-23 11-23 TABLETS BY M ethodi mg tablet 00:00: 00:[address] 00 :00 EVERY 6 HOURS NEEDED FOR PAIN traMADoL 2019-08- No TAKE 2 [place] (ULTRAM) 50 0-27 11-23 TABLETS BY M ethodi mg tablet 00:00: 00:[address] 00 :00 EVERY 6 HOURS NEEDED FOR PAIN traMADoL 2019-08- No chronic chronic [place] (ULTRAM) 50 0-14 10-14 pain pain. TAKE M ethodi mg tablet 00:00: 00:[address] 00 :00 BY MOUTH EVERY 6 HOURS NEEDED FOR PAIN methocarbam 2019-08 Yes 500mg Q.[id number] Take 1 [place] oL 0-12 [id number] tablet Methodi (ROBAXIN) 00:00: 3D ([address] 500 MG 00 total) by tablet mouth 3 (three) times a day. adalimumab 2019- Yes Ankylosing 40mg Q14D Inject 40 [place] 40 mg/0.4 9-28 spondylitis mg under Methodi mL pen 00:00: of multiple the skin st injector 00 sites in every 14 kit spine (HCC) (fourteen) days. topiramate Yes 100mg QD Take 1 [place] (TOPAMAX) 9-28 tablet Methodi 100 MG 00:00: ([address] tablet 00 total) by mouth nightly. traMADoL 2020- No chronic chronic [place] (ULTRAM) 50 04-22 10-12 pain pain. TAKE M ethodi mg tablet 00:00: 00:[address] 00 :00 BY MOUTH EVERY 6 HOURS NEEDED FOR PAIN acetaminoph 2020-0 2020- No chronic 1{tbl} Q6H Take 1 [place] en-codeine 04-21 10-01 pain tablet by Met chacon (TYLENOL 00:00: 23:[address] WITH 00 :00 every 6 CODEINE #3) (six) 300-30 mg hours as per tablet needed for moderate pain for up to 10 days .acute pain, chronic pain. pregabalin 2020-0 2020- No Q.5D Take by Stephanie cox (LYRICA) 04-1414 mouth 2 Methodi 150 MG 13:29: 00:00 (two) st capsule 34 :00 times a day. Per pt takes 1 tab AM; 2 tabs PM eszopiclone 2020-0 Yes 2mg QD Take 2 mg [place] (LUNESTA) 2 04-14 by mouth Meth tomasa MG tablet 13:29: nightly as st 31 needed for sleep. cycloSPORIN 2020-0 Yes 1[drp] Administer [place] E 04-14 1 drop to Methodi (RESTASIS) 13:29: both eyes st 0.05 % 30 as needed. ophthalmic emulsion multivitami 2020-0 Yes 1{tbl} QD Take 1 Sha becker n with 04-14 tablet by Caty minerals 13:29: mouth st tablet 30 daily. cholecalcif 2020-0 Yes [id number] Q1W Take Angie ton gianfranco, 04-14 10,000 Methodi vitamin D3, 13:29: Units by st 10,000 unit 30 mouth tablet every 7 days. cyanocobala 2020-0 Yes 1000ug Q30D Inject Sha becker min 1,000 04-14 1,000 mcg Metho di mcg/mL 13:29: into the st injection 30 shoulder, thigh, or buttocks every 30 (thirty) days. calcium 2020-0 Yes 1{tbl} QD Take 1 [place] n carbonate/v 04-14 tablet by Met chacon itamin D3 13:29: mouth st (CALCIUM 30 daily. MD 500 WITH D prescribed ORAL) B 2020-0 Yes 1{tbl} QD Take 1 [place] complex-vit 04-14 tablet by Met carmeli ochoa 13:29: mouth st C-folic 30 daily. MD acid prescribed (FOLBEE PLUS 5 MG) 5 mg tablet per tablet iron fm,ps 2019-0 Yes QD Take by [place] no.1/folic/ 04-14 mouth Methodi mv no.18 13:29: daily. st (TANDEM 30 PLUS ORAL) linaCLOtide 2020-0 Yes 145ug Take 145 [place] (LINZESS) 9-14 mcg by Methodi 145 mcg 13:29: mouth as st capsule 30 needed. naloxone 4 2019-0 Yes 1{spray 1 spray [place] mg/actuatio 04-14 } into each Met hodi n 00:00: nostril st spray,non-a 00 once as erosol needed (less than 8 breaths per minute or inability to arouse) for up to 2 doses. bisacodyL 2019-0 2020- No 5mg Q24H Take 1 [place] (DULCOLAX) 04-14 tablet (5 Met hodi 5 mg EC 00:00: 23:59 mg total) st tablet 00 :00 by mouth daily as needed for constipati on for up to 30 days. gabapentin 2019-0 2020- No 300mg Q.[id number] Take 1 [place] (NEURONTIN) 04-14 [id number] capsule Methodi 300 mg 00:00: 23:59 3D ([address] capsule 00 :00 total) by mouth 3 (three) times a day for 30 days. methocarbam 2019-0 2020- No 500mg Q.[id number] Take 1 [place] oL 04-14 [id number] tablet Method i (ROBAXIN) 00:00: 00:00 3D ([address] 500 MG 00 :00 total) by tablet mouth every 8 (eight) hours for 30 days. HYDROcodone 2019-0 2020- No acute pain 1{tbl} Q.[id number] Take 1 [place] -acetaminop 04-14 [id number] tablet by Methodstefan velasquez ([place]) 00:00: 23:[address] 10-325 mg 00 :00 (three) per tablet times a day as needed for severe pain for up to 4 days .acute pain. Max Daily Amount: 3 tablets traMADoL 2019-0 2020- No chronic chronic [place] (ULTRAM) 50 04-01 pain pain. TAKE M ethodi mg tablet 00:00: 00:[address] 00 :00 BY MOUTH EVERY 6 HOURS NEEDED FOR PAIN traMADoL 2019- No chronic chronic Sha becker (ULTRAM) 50 04-01 pain pain. TAKE M ethodi mg tablet 00:00: 00:[address] 00 :00 BY MOUTH EVERY 6 HOURS NEEDED FOR PAIN teriparatid Senile 20ug QD Inject H angel[place] e (FORTEO) 01-27 osteoporosi 0.08 mL Methodi 20 mcg/dose 00:00: 23:59 s ([address] - 600 00 :00 total) mcg/2.4 mL under the injection skin daily. TiZANidine 2019- No 2mg Q.[id number] Take 1 [place] (Zanaflex) 11-28 [id number] capsule (2 Methodi 2 MG 00:00: 00:00 3D mg total) st capsule 00 :00 by mouth 3 (three) times a day. glucosamine 2019-2019- No QD Take by Sha becker /chondr blanco 10-16-18 mouth Methodi A sod 13:31: 00:[address] (OSTEO 57 :00 BI-FLEX ORAL) topiramate No 100mg QD Take 1 Stephanie grimesn (TOPAMAX) 10-14 tablet Methodi 100 MG 00:00: 00:00 ([address] tablet 00 :00 total) by mouth nightly. hydroxychlo 2019- No 400mg QD Take 2 Sha becker roquine 10-14 tablets Methodi (PLAQUENIL) 00:00: 23:59 ([address] 200 mg 00 :00 total) by tablet mouth daily for 90 days. traMADoL 2019-2019- No chronic chronic Sha becker (ULTRAM) 50 304-01 pain pain. TAKE M ethodi mg tablet 00:00: 00:[address] 00 :00 BY MOUTH EVERY 6 HOURS NEEDED FOR PAIN traMADol 2019-2019- No chronic chronic Sha becker (ULTRAM) 50 2-04 pain pain. TAKE M ethodi mg tablet 00:00: 00:[address] 00 :00 BY MOUTH EVERY 6 HOURS NEEDED FOR PAIN adalimumab Ankylosing INJECT 40 [place] 40 mg/0.4 2-04 09-27 spondylitis MG (0.4 Methodi mL pen 00:00: 00:00 of multiple ML) UNDER st injector 00 :00 sites in THE SKIN kit spine (HCC) EVERY 14 DAYS traMADol 2019- No chronic chronic [place] (ULTRAM) 50 1-15 02-07 pain pain. TAKE M ethodi mg tablet 00:00: 00:[address] 00 :00 MOUTH EVERY 6 HOURS NEEDED FOR PAIN traMADol 2018-08- No TAKE 2 [place] (ULTRAM) 50 2-03 01-15 TABS BY Meth tomasa mg tablet 00:00: 00:[address] 00 :00 EVERY 6 HOURS NEEDED FOR PAIN hydroxychlo 2019- No 300mg QD Take 1.5 [place] roquine 03-16 03-16 tablets Methodi (PLAQUENIL) 00:00: 00:00 ([address] 200 mg 00 :00 total) by tablet mouth daily. adalimumab Ankylosing 40mg Q14D Inject 40 [place] (HUMIRA,CF, 8 02- spondylitis mg under Methodi PEN) 40 00:00: 00:[address] of [address] skin [address] mg/0.4 mL 00 :00 sites in every 14 pen spine (HCC) (fourteen) injector days. kit tiZANidine 2019- No 4mg Q.[id number] Take 2 [place] (ZANAFLEX) 02-28 06-29 [id number] tablets (4 Methodi 2 MG tablet 00:00: 00:00 3D mg total) st 00 :00 by mouth 3 (three) times a day. predniSONE 2019- No TAKE 1 [place] (DELTASONE) 02-19 03-18 TABLET Metho di 5 mg tablet 00:00: 00:[address] 00 :00 pen needle, Yes Use new Stephanie ston diabetic 02-13 needle Methodi (UNIFINE 00:00: with st PENTIPS) 31 00 Forteo gauge x injection. /" needle teriparatid 2019- No 20ug QD Inject Stephanie ston e (FORTEO) 01-15 06-16 0.08 mL Metho di 20 mcg/dose 00:00: 23:59 ([address] - 600 00 :00 total) mcg/2.4 mL under the injection skin daily. triamterene Yes 1{tbl} QD Take 1 [place] -hydrochlor 6-12 tablet by Met ines lareshiazehsan 00:00: mouth st (MAXZIDE-25 00 every ) 37.5-25 morning. mg per tablet omeprazole 2016-08 Yes 20mg Q.[id number] Take [address] [facility] (PRILOSEC) 2-30 [id number] by mouth 3 [facility] - 20 MG 17:19: 3D (three) Medical capsule 07 times Center daily. hydrocortis 2016-08 Yes 30mg QD Take [address] one 2-30 by mouth [facility] - (CORTEF) 20 17:19: daily . Med ical MG tablet 07 Center famciclovir 2016-08 Yes 500mg Take [address] (FAMVIR) 2-30 mg by [facility] - 500 MG 17:19: mouth as Medical tablet 07 needed . [place] hydroxychlo 2016-08 Yes 200mg Q.5D Take [address] roquine 2-30 mg by [facility] - (PLAQUENIL) 17:19: mouth 2 Med ical 200 mg 07 (two) Center tablet times daily. pregabalin 2016-08 Yes 150mg Q.5D Take [address] (LYRICA) 2-30 mg by [facility] - 150 MG 17:19: mouth 2 Medical capsule 07 (two) Center times daily . topiramate 2016-08 Yes 100mg Take [address] (TOPAMAX) 2-30 mg by [facility] - 100 MG 17:19: mouth once Medic al tablet 07 at Center bedtime. zolpidem 2016-08 Yes 5mg Take [address] (AMBIEN) 10 2-30 by mouth Luke s - mg tablet 17:19: every Medical 07 night as Center needed for Insomnia . cycloSPORIN 2016-08 Yes 1[drp] Q.5D Place [address] E 2-30 drop into [facility] - (RESTASIS) 17:19: the right Me dical 0.05 % 07 eye 2 Center ophthalmic (two) emulsion times daily. calcium 2016-08 Yes 600mg QD Take 600 [facility] carbonate 2-30 mg by [facility] - (OS-LUIS CARLOS) 17:19: mouth Medical 600 mg 07 daily. Center (1,500 mg) Tab ibuprofen 2016-08 Yes 800mg Take [address] (ADVIL,MOTR 2-30 mg by [facility] - IN) 800 MG 17:19: mouth 4 Medi luis carlos tablet 07 (four) Center times daily as needed for Pain. triamterene 2016-08 Yes 1{tbl} QD Take [address] -hydroCHLOR 2-30 tablet by Sharon es - Othiazide 17:19: mouth Medical (MAXZIDE-25 07 daily. [place] ) 37.5-25 mg per tablet fludrocorti 2016-08 Yes .1mg Take 0.[address] sone 2-30 mg by Lugalina - (FLORINEF) 17:19: mouth Medica l 0.1 mg 07 every Center tablet other day . B-complex 2016-08 Yes 1{tbl} QD Take [address] with 2-30 tablet by Kurt - vitamin C 17:19: mouth Medical tablet 07 daily. [place] linaclotide 2016-08 Yes 145ug Take [address] (LINZESS) 2-30 mcg by [facility] - 145 mcg Cap 17:19: mouth Medic al 07 every Center other day as needed. GLUCOSAMINE 2016-08 Yes QD Take by [facility] /D3/NETTA 2-30 mouth [facility] - IA CLEMENTINA 17:19: daily. Medical (OSTEO 07 Center BI-FLEX, 5-LOXIN, ORAL) azaTHIOprin 2016-08 Yes 150mg QD Take [address] e (IMURAN) 2-30 mg by [facility] - 50 mg 17:19: mouth Medical tablet 07 daily. [place] torsemide 2016-08 Yes 40mg QD Take [address] (DEMADEX) 2-30 by mouth [facility] - 20 MG 17:19: daily. Medical tablet 07 [place] potassium 2016-08 Yes 10meq QD Take [address] chloride 2-30 mEq by [facility] - (KLOR-CON) 17:19: mouth Medica l 10 MEQ CR 07 daily. Center tablet bromfenac 2016-08 Yes 1[drp] QD Apply [address] 0.07 % Drop 2-30 drop to [facility] - 17:19: eye(s) Medical 07 daily On Center both eyes . fludrocorti Yes .1mg Q2D Take 0.1 Ho eugenio sone 0.1 mg 9-22 mg by Methodi tablet 00:00: mouth st 00 every other day. famciclovir Yes 500mg QD Take 500 [place] (FAMVIR) 9-05 mg by Methodi 500 MG 00:00: mouth st tablet 00 every morning. PRN for lupus blisters hydrocortis Yes 10mg Q.5D Take 10 mg [place] one 9-05 by mouth 2 Methodi (CORTEF) 10 00:00: (two) st MG tablet 00 times a day. 20mg in AM; 10 mg in afternoon lidocaine Yes Place on Angie de leon (LIDODERM) 905 the skin Metho di 5 % 00:00: as needed. st 00 omeprazole Yes 40mg QD Take 40 mg [place] (PriLOSEC) 7-20 by mouth Metho di 20 MG 00:00: nightly. st capsule 00 zolpidem 2020- No 10mg QD Take 10 mg Ho eugenio (AMBIEN) 10 7-20 09-03 by mouth Met hodi mg tablet 00:00: 00:00 nightly as s t 00 :00 needed. topiramate 2020- No 100mg QD Take 100 [place] (TOPAMAX) 7-20 03-16 mg by Methodi 100 MG 00:00: 00:[address] tablet 00 :00 nightly. Vital Signs Vital Name Observation Time Observation Value Comments Source Systolic blood 2020-08-06 18:32:00 124 mm[Hg] Kurtis n Christian pressure Diastolic blood 2020-08-06 18:32:00 63 mm[Hg] Hayde on Christian pressure Heart rate 2020-08-06 18:32:00 69 /min Leonard Escamilla Body temperature 2020-08-06 18:32:00 36.78 Ellie Angie Escamilla Respiratory rate 2020-08-06 18:32:00 18 /min Angie Escamilla Oxygen saturation in 2020-08-06 18:32:00 94 /min Leonard Escamilla Arterial blood by Pulse oximetry Body height 2020-08-06 14:25:00 165.1 cm Leonard Escamilla Body weight 2020-08-06 14:25:00 54.432 kg Leonard Escamilla BMI 2020-08-06 14:25:00 19.97 kg/m2 Leonard Escamilla Procedures Procedure Date / Time Performing Clinician Source Performed XR CHEST 1 VW PORTABLE 2020-08-06 16:44:22 Nick Dominguez COVID-19 QUALITATIVE PCR 2020-08-06 16:17:00 Nick Dominguez HC COMPLETE BLD COUNT 2020-08-06 16:17:00 Nick Dominguez W/AUTO DIFF COMPREHENSIVE METABOLIC 2020-08-06 16:17:00 Nick Dominguez PANEL TROPONIN 2020-08-06 16:17:00 Nick Dominguez LIPASE LEVEL 2020-08-06 16:17:00 Nick Dominguez B NATRIURETIC PEPTIDE 2020-08-06 16:17:00 Nick Dominguez ESTIMATED GFR 2020-08-06 16:17:00 Nick Dominguez ECG 12-LEAD 2020-08-06 15:45:56 Nick Dominguez ECG ED PRELIMINARY 2020-08-06 15:05:01 Nick Dominguez INTERPRETATION XR SPINE SCOLIOSIS 2-3 2020-06-09 13:36:06 Enrique Marinelli VIEWS PARATHYROID HORMONE 2020-05-21 13:25:00 Irasema Arora VITAMIN D 25 HYDROXY LEVEL 2020-05-21 13:25:00 Irasema Arorane BONE DENSITY 2020-05-21 11:06:45 Irasema Arora Glo BONE DENSITY PERIPHERAL 2020-05-21 11:06:45 Irasema Arora Glo XR SPINE SCOLIOSIS 2-3 2020-04-28 12:47:33 Enrique Marinelli VIEWS HC COMPLETE BLD COUNT 2020-04-14 04:32:00 Kurtis Booth W/AUTO DIFF Yusef BASIC METABOLIC PANEL 2020-04-14 04:32:00 Kurtis Booth ESTIMATED GFR 2020-04-14 04:32:00 Leonard Booth odrush [place] XR ABDOMEN 1 VW PORTABLE 2020-04-13 13:14:24 EmmyStephanie Christian Yusef HC COMPLETE BLD COUNT 2020-04-13 04:15:00 James Oneill Christian W/AUTO DIFF BASIC METABOLIC PANEL 2020-04-13 04:15:00 James Oneill Christian MAGNESIUM LEVEL 2020-04-13 04:15:00 James Oneill n Christian ESTIMATED GFR 2020-04-13 04:15:00 James Oenill n Christian HC COMPLETE BLD COUNT 2020-04-12 06:30:00 James Oneill Christian W/AUTO DIFF BASIC METABOLIC PANEL 2020-04-12 04:00:00 James Oneill Christian MAGNESIUM LEVEL 2020-04-12 04:00:00 James Oneill n Christian ESTIMATED GFR 2020-04-12 04:00:00 James Oneill Christian HC COMPLETE BLD COUNT 2020-04-11 06:00:00 James Oneill Christian W/AUTO DIFF B NATRIURETIC PEPTIDE 2020-04-11 06:00:00 James Oneill Christian BASIC METABOLIC PANEL 2020-04-11 04:00:00 James Oneill Christian MAGNESIUM LEVEL 2020-04-11 04:00:00 James Oneill Christian PHOSPHORUS LEVEL 2020-04-11 04:00:00 James Oneill on Christian ESTIMATED GFR 2020-04-11 04:00:00 James Oneill n Christian CBC HEMOGRAM 2020-04-10 04:45:00 Gloria Roberts Meth odist HEPATIC FUNCTION PANEL 2020-04-10 04:00:00 Susan Plascencia Christian POC GLUCOSE 2020-04-09 13:15:00 Enrique Marinelli ethodist POC GLUCOSE 2020-04-09 09:08:00 Enrique Marinelli ethodist POC GLUCOSE 2020-04-09 04:49:00 Enrique Marinelli ethodist POC GLUCOSE 2020-04-09 00:30:00 Enrique Marinelli ethodist CBC HEMOGRAM 2020-04-09 00:00:00 Gloria Roberts odist ARTERIAL BLOOD GAS 2020-04-09 00:00:00 Frandy Bowen ethodist PARTIAL THROMBOPLASTIN 2020-04-09 00:00:00 Frandy Bowen on Christian TIME (PTT) PHOSPHORUS LEVEL 2020-04-09 00:00:00 Frandy Bowen hodist MAGNESIUM LEVEL 2020-04-09 00:00:00 Frandy Bowen PROTHROMBIN TIME WITH INR 2020-04-09 00:00:00 Frandy Bowen BASIC METABOLIC PANEL 2020-04-09 00:00:00 Frandy Bowen LACTIC ACID LEVEL 2020-04-09 00:00:00 Frandy Bowen thodist ESTIMATED GFR 2020-04-09 00:00:00 Gloria Roberts IONIZED CALCIUM, ARTERIAL 2020-04-09 00:00:00 Gloria Roberts TYPE AND SCREEN 2020-04-09 00:00:00 Danelle Wells XR ABDOMEN 1 VW PORTABLE 2020-04-08 21:42:11 Darian Sanchez POC GLUCOSE 2020-04-08 20:45:00 Enrique Marinelli ethodi HC COMPLETE BLD COUNT 2020-04-08 17:41:00 Frandy Bowen W/AUTO DIFF URINE CULTURE 2020-04-08 17:39:00 Enrique Marinelli ethjuanito URINALYSIS SCREEN AND 2020-04-08 16:50:00 Enrique Marinelli MICROSCOPY, WITH REFLEX TO CULTURE POC GLUCOSE 2020-04-08 16:25:00 Enrique Marinelli ethodist PROTHROMBIN TIME WITH INR 2020-04-08 16:20:00 Enrique Marinelli PARTIAL THROMBOPLASTIN 2020-04-08 16:20:00 Enrique Marinelli Christian TIME (PTT) ARTERIAL BLOOD GAS 2020-04-08 16:20:00 Enrique Marinelli IONIZED CALCIUM, ARTERIAL 2020-04-08 16:20:00 Enrique Marinelli COVID-19 QUALITATIVE PCR 2020-04-08 14:00:00 Enrique Marinelli INTRAOPERATIVE MONITORING 2020-04-08 12:50:13 Enrique Marinelli OR FL > 1 HOUR 2020-04-08 12:00:00 Enrique Marinelli M ethodist XR LUMBAR SPINE 2 OR 3 VW 2020-04-08 11:39:56 Enrique Marinelli ARTERIAL BLOOD GAS, 2020-04-08 11:10:00 Enrique Marinelli on Christian CORRECTED SODIUM LEVEL, SYRINGE 2020-04-08 11:10:00 Enrique Marinelli Christian POTASSIUM, SYRINGE 2020-04-08 11:10:00 Enrique Marinelli Christian HEMOGLOBIN, SYRINGE 2020-04-08 11:10:00 Enrique Marinelli on Christian GLUCOSE LEVEL, SYRINGE 2020-04-08 11:10:00 Enrique Marinelli Christian IONIZED CALCIUM, ARTERIAL 2020-04-08 11:10:00 Enrique Marinelli ARTERIAL LINE 2020-04-08 10:08:41 Lauren Abbasi Christian ARTERIAL BLOOD GAS, 2020-04-08 09:20:00 Enrique Marinelli on Christian CORRECTED SODIUM LEVEL, SYRINGE 2020-04-08 09:20:00 Enrique Marinelli Christian POTASSIUM, SYRINGE 2020-04-08 09:20:00 Enrique Marinelli Christian HEMOGLOBIN, SYRINGE 2020-04-08 09:20:00 Enrique Marinelli on Christian PLATELET COUNT 2020-04-08 09:20:00 Enrique Marinelli ethodist GLUCOSE LEVEL, SYRINGE 2020-04-08 09:20:00 Enrique Marinelli IONIZED CALCIUM, ARTERIAL 2020-04-08 09:20:00 Enrique Marinelli LACTIC ACID, SYRINGE 2020-04-08 09:20:00 Enrique Marinelli HEMATOCRIT 2020-04-08 09:20:00 Enrique Marinelli ethodist NM AN ELECTIVE 2020-04-08 08:44:45 Lauren Abbasi ENDOTRACHEAL AIRWAY FUSION, SPINE, THORACIC, 2020-04-08 07:34:00 Enrique Marinelli USING POSTERIOR TECHNIQUE BASIC METABOLIC PANEL 2020-04-08 02:58:00 Jose Clayton MAGNESIUM LEVEL 2020-04-08 02:58:00 Jose Clayton Meth odist PHOSPHORUS LEVEL 2020-04-08 02:58:00 Jose Clayton Met hodist ESTIMATED GFR 2020-04-08 02:58:00 Jose Clayton Meth odist HC COMPLETE BLD COUNT 2020-04-08 02:50:00 Jose Clayton W/AUTO DIFF PROTHROMBIN TIME WITH INR 2020-04-08 02:50:00 Tyrone Fairchild PARTIAL THROMBOPLASTIN 2020-04-08 02:50:00 Tyrone Fairchild TIME (PTT) XR SPINE SCOLIOSIS 2-3 2020-04-07 12:34:35 Amelie Sanz VIEWS PROTHROMBIN TIME WITH INR 2020-04-07 09:50:00 Tyrone Fairchild PARTIAL THROMBOPLASTIN 2020-04-07 09:50:00 Tyrone Fairchild TIME (PTT) ECG 12-LEAD 2020-04-07 08:04:24 Amelie Sanz CBC HEMOGRAM 2020-04-07 04:35:00 Amelie Sanz BASIC METABOLIC PANEL 2020-04-07 00:00:00 Amelie Sanz MAGNESIUM LEVEL 2020-04-07 00:00:00 Amelie Sanz IONIZED CALCIUM 2020-04-07 00:00:00 Amelie Sanz PHOSPHORUS LEVEL 2020-04-07 00:00:00 Sanz Amelie britt Christian ESTIMATED GFR 2020-04-07 00:00:00 Sanz, Amelie Valle Christian POC GLUCOSE 2020-04-06 11:56:00 Enrique Marinelli ethodist POC GLUCOSE 2020-04-06 07:53:00 Enrique Marinelli ethodist XR CHEST 1 VW PORTABLE 2020-04-06 06:31:29 Cee Pina Christian POC GLUCOSE 2020-04-06 05:25:00 Enrique Marinelli ethodist POC GLUCOSE 2020-04-06 04:13:00 Enrique Marinelli ethodist ECG 12-LEAD 2020-04-06 03:07:32 Cee Pina Met hodist BASIC METABOLIC PANEL 2020-04-06 01:15:00 Cee Pina on Christian IONIZED CALCIUM 2020-04-06 01:15:00 Cee Pina Met hodist MAGNESIUM LEVEL 2020-04-06 01:15:00 Cee Pina Met hodist PHOSPHORUS LEVEL 2020-04-06 01:15:00 Cee Pina Me thodist ESTIMATED GFR 2020-04-06 01:15:00 Cee Pina Met hodist POC GLUCOSE 2020-04-06 00:13:00 Enrique Marinelli ethodist PROTHROMBIN TIME WITH INR 2020-04-06 00:10:00 Elaine Dong PARTIAL THROMBOPLASTIN 2020-04-06 00:10:00 Elaine Dong Christian TIME (PTT) Javid HC COMPLETE BLD COUNT 2020-04-06 00:10:00 Cee Pina on Christian W/AUTO DIFF POC GLUCOSE 2020-04-05 20:01:00 Enrique Marinelli ethodist POC GLUCOSE 2020-04-05 15:32:00 Enrique Marinelli ethodist TRANSFUSE RED BLOOD CELLS 2020-04-05 13:05:18 Elaine Dong TRANSFUSE RED BLOOD CELLS 2020-04-05 11:38:14 Elaine Donglivan POC GLUCOSE 2020-04-05 11:18:00 Enrique Marinelli ethodi PROTHROMBIN TIME WITH INR 2020-04-05 09:38:00 Elaine Dong PARTIAL THROMBOPLASTIN 2020-04-05 09:38:00 Elaine Dong Christian TIME (PTT) Hua POC GLUCOSE 2020-04-05 07:24:00 Enrique Marinelli ethodist ECG 12-LEAD 2020-04-05 04:16:19 Cee Pina hodist XR CHEST 1 VW PORTABLE 2020-04-05 04:05:00 Cee Pina Christian POC GLUCOSE 2020-04-05 03:38:00 Enrique Marinelli ethodist TYPE AND SCREEN 2020-04-05 00:50:00 Enrique Marinelli ethodist PREPARE RBC 2020-04-05 00:50:00 Enrique Marinelli ethodist PREPARE FRESH FROZEN 2020-04-05 00:50:00 Enrique Marinelli Christian PLASMA PREPARE PLATELET PHERESIS 2020-04-05 00:50:00 Enrique Marinelli VITAMIN D 25 HYDROXY LEVEL 2020-04-05 00:45:00 Susan Plascencia BASIC METABOLIC PANEL 2020-04-05 00:45:00 Cee Pina on Christian HC COMPLETE BLD COUNT 2020-04-05 00:45:00 Cee Pina on Christian W/AUTO DIFF IONIZED CALCIUM 2020-04-05 00:45:00 Cee Pina Met hodist MAGNESIUM LEVEL 2020-04-05 00:45:00 Cee Pina Met hodist PHOSPHORUS LEVEL 2020-04-05 00:45:00 Cee Pina Me thodist ESTIMATED GFR 2020-04-05 00:45:00 Cee Pina Met hodist HEPATIC FUNCTION PANEL 2020-04-05 00:45:00 Cee Pina Christian POC GLUCOSE 2020-04-04 23:46:00 Enrique Marinelli ethodist POC GLUCOSE 2020-04-04 19:34:00 Enrique Marinelli ethodist POC GLUCOSE 2020-04-04 15:33:00 Enrique Marinelli ethodist ARTERIAL BLOOD GAS 2020-04-04 12:30:00 PingBridgette villanueva ethodist POC GLUCOSE 2020-04-04 11:25:00 Enrique Marinelli ethodist HEMOGLOBIN & HEMATOCRIT 2020-04-04 10:15:00 Enrique Marinelli Christian POTASSIUM LEVEL 2020-04-04 10:15:00 Enrique Marinelli ethodist IONIZED CALCIUM 2020-04-04 10:15:00 Enrique Marinelli ethodist MAGNESIUM LEVEL 2020-04-04 10:15:00 Enrique Marinelli ethodist PHOSPHORUS LEVEL 2020-04-04 10:15:00 Enrique aMrinelliist POC GLUCOSE 2020-04-04 07:42:00 Enrique Marinelli ethodist POC GLUCOSE 2020-04-04 04:02:00 Enrique Marinelli ethodist XR CHEST 1 VW PORTABLE 2020-04-04 03:42:00 Alida Arceist Elane ECG 12-LEAD 2020-04-04 02:47:10 Alida Arce Met hodist [place] MAGNESIUM LEVEL 2020-04-04 01:25:00 Alida Arce Met hodist [place] PHOSPHORUS LEVEL 2020-04-04 01:25:00 Alida Arce Wi thodist [place] IONIZED CALCIUM 2020-04-04 01:25:00 Alida Arce Met hodist [place] PROTHROMBIN TIME WITH INR 2020-04-04 01:25:00 Alida Arce [place] PARTIAL THROMBOPLASTIN 2020-04-04 01:25:00 Alida Arce Christian TIME (PTT) [place]ane FIBRINOGEN 2020-04-04 01:25:00 Alida Arce Met hodist [place] BASIC METABOLIC PANEL 2020-04-04 00:05:00 Alida Arce on Christian Elane HC COMPLETE BLD COUNT 2020-04-04 00:05:00 Alida Arce on Christian W/AUTO DIFF Elane ESTIMATED GFR 2020-04-04 00:05:00 Alida Arce Met hodist [place] POC GLUCOSE 2020-04-03 23:47:00 Enrique Marinelli ethodist POC GLUCOSE 2020-04-03 21:36:00 Enrique Marinelli ethodist XR CHEST 1 VW PORTABLE 2020-04-03 15:46:55 Mahnaz Walls Christian OR [place] > 1 HOUR 2020-04-03 14:00:00 Amelie Sanz INTRAOPERATIVE MONITORING 2020-04-03 13:37:38 Amelie Sanz ARTERIAL BLOOD GAS, 2020-04-03 12:40:00 Enrique Marinelli on Christian CORRECTED POTASSIUM, SYRINGE 2020-04-03 12:40:00 Enrique Marinelli n Christian SODIUM LEVEL, SYRINGE 2020-04-03 12:40:00 Enrique Marinelli Christian HEMOGLOBIN, SYRINGE 2020-04-03 12:40:00 Enrique Marinelli on Christian IONIZED CALCIUM, ARTERIAL 2020-04-03 12:40:00 Enrique Marinelli Christian MAGNESIUM LEVEL 2020-04-03 12:40:00 Enrique Marinelli ethodist GLUCOSE LEVEL, SYRINGE 2020-04-03 12:40:00 Enrique Marinelli Christian LACTIC ACID, SYRINGE 2020-04-03 12:40:00 Enrique Marinelli Christian ANAEROBIC CULTURE 2020-04-03 12:37:00 Enrique Marinelli FUNGUS CULTURE 2020-04-03 12:37:00 Enrique Marinelli ethodist AEROBIC CULTURE 2020-04-03 12:37:00 Enrique Marinelli ethodist AFB CULTURE 2020-04-03 12:37:00 Enrique Marinelli ethodist CENTRAL LINE 2020-04-03 11:19:22 Marita Harveyra Valle Me thodist [place] ARTERIAL LINE 2020-04-03 11:15:26 Wes Joanne Valle Me thodist [place] NM AN ELECTIVE 2020-04-03 11:12:13 Wes Joanne Valle Me thodist ENDOTRACHEAL AIRWAY [place] ANAEROBIC CULTURE 2020-04-03 10:30:00 Enrique Marinelli FUNGUS CULTURE 2020-04-03 10:30:00 Enrique Marinelli ethodist AEROBIC CULTURE 2020-04-03 10:30:00 Enrique Marinelli ethodist AFB CULTURE 2020-04-03 10:30:00 Enrique Marinelli ethodist SURGICAL PATHOLOGY REQUEST 2020-04-03 08:39:00 Enrique Marinelli REMOVAL POSTERIOR 2020-04-03 07:42:00 Enrique Marinelli SEGMENTAL INSTRUMENTATION FUSION, SPINE, THORACIC, 2020-04-03 07:42:00 Enrique Marinelli USING POSTERIOR TECHNIQUE PREALBUMIN LEVEL 2020-03-31 16:36:00 Enrique Marinelli COVID-19 QUALITATIVE PCR 2020-03-31 15:35:00 Enrique Marinelli ECG PRE/POST OP 2020-03-31 15:06:29 Dee Blank CBC HEMOGRAM 2020-03-31 15:00:00 Enrique Marinelli ethodist TYPE AND SCREEN 2020-03-31 14:45:00 Enrique Marinelli ethodist ALBUMIN LEVEL 2020-03-31 14:45:00 Enrique Marinelli ethtomsaast PREPARE RBC 2020-03-31 14:45:00 Enrique Marinelli ethodist COMPREHENSIVE METABOLIC 2020-03-31 14:42:00 Enrique Marinelli PANEL PARTIAL THROMBOPLASTIN 2020-03-31 14:42:00 Enrique Marinelli TIME (PTT) PROTHROMBIN TIME WITH INR 2020-03-31 14:42:00 Enrique Marinelli ESTIMATED GFR 2020-03-31 14:42:00 Enrique Marinelli ethodist XR SPINE SCOLIOSIS 2-3 2020-03-31 12:52:08 Gloria Roberts on Christian VIEWS XR THORACOLUMBAR SPINE 2 2020-01-28 12:51:42 Enrique Marinelliist VW XR SPINE SCOLIOSIS 2-3 2019-12-10 13:04:23 Enrique Marinelli Christian VIEWS CBC WITH PLATELET AND 2019-10-03 11:13:00 Amanda Suero Christian DIFFERENTIAL COMPREHENSIVE METABOLIC 2019-10-03 11:13:00 Amanda Suero Christian PANEL SEDIMENTATION RATE 2019-10-03 11:13:00 Amanda Suero ethodist C-REACTIVE PROTEIN 2019-10-03 11:13:00 Amanda Suero ethodist MONITOR SCREEN 13-DRUG 2019-10-03 11:13:00 Amanda Suero Christian CLASS PROFILE ([facility]) Plan of Care Planned Activity Planned Date Details Comments Source Future Scheduled 2020-03-01 INFLUENZA VACCINE Kurtis britt Christian Test 00:00:00 [code = INFLUENZA VACCINE] Future Scheduled 2014 65+ PNEUMOCOCCAL Leonard Christian Test 00:00:00 VACCINE (1 of 1 - PPSV23) [code = 65+ PNEUMOCOCCAL VACCINE (1 of 1 - PPSV23)] Future Scheduled 1999 BREAST CANCER Valle Wi thodist Test 00:00:00 SCREENING [code = BREAST CANCER SCREENING] Future Scheduled 1999 COLONOSCOPY SCREENING Sha becker Christian Test 00:00:00 [code = COLONOSCOPY SCREENING] Future Scheduled 1999 SHINGLES VACCINES (#1) H angelic Christian Test 00:00:00 [code = SHINGLES VACCINES (#1)] Future Scheduled 1965 COVID-19 VACCINE (#1) Ho ton Christian Test 00:00:00 [code = COVID-19 VACCINE (#1)] Encounters Start End Encounter Admission Attending Care Care Encounter Source Date/Time Date/Time Type Type Clinicians Facility Department ID 2020-08-06 2020-08-06 Emergency [facility] [id number] [place] 00:00:00 00:00:00 PIEDAD [address] 2020-06-09 2020-06-09 Outpatient MARINELLI, [facility] [id number] [place] 00:00:00 00:00:00 ENRIQUE [address] 2020-06-09 2020-06-09 Outpatient MARINELLI, [facility] [id number] [place] 00:00:00 00:00:00 ENRIQUE [address] 2020-06-05 2020-06-05 Outpatient FRANDO, [facility] [id number] [place] 00:00:00 00:00:00 SHADY [address] 2020-05-21 2020-05-21 Outpatient PARKER, [facility] [id number] [place] 00:00:00 00:00:00 DM 724 [facility] 2020-05-21 2020-05-21 Outpatient ROSALBA, [facility] [id number] [place] 00:00:00 00:00:00 IRASEMA 914 Method i 2020-05-21 2020-05-21 Outpatient ROSALBA, [facility] [id number] [place] 00:00:00 00:00:00 IRASEMA [address] 2020-05-13 2020-05-13 Outpatient PIO, [facility] [id number] [place] 00:00:00 00:00:00 AMANDA [address] 2020-05-08 2020-05-08 Outpatient MARINELLI, [facility] [id number] [place] 00:00:00 00:00:00 ENRIQUE [address] 2020-05-08 2020-05-08 Outpatient FRANDO, [facility] [id number] [place] 00:00:00 00:00:00 SHADY [address] 2020-05-01 2020-05-01 Outpatient FRANDO, [facility] [id number] [place] 00:00:00 00:00:00 SHADY [address] 2020-04-28 2020-04-28 Outpatient MARINELLI, [facility] [id number] [place] 00:00:00 00:00:00 ENRIQUE [address] 2020-04-28 2020-04-28 Outpatient MARINELLI, [facility] [id number] [place] 00:00:00 00:00:00 ENRIQUE [address] 2020-04-03 2020-04-14 Inpatient MARINELLI, [facility] [id number] [place] 00:00:00 00:00:00 ENRIQUE [address] 2020-03-31 2020-03-31 Outpatient MARINELLI, [facility] [id number] [place] 00:00:00 00:00:00 ENRIQUE [address] 2020-03-31 2020-03-31 Outpatient BEBO, [facility] [id number] [place] 00:00:00 00:00:00 GLORIA [address] 2020-03-31 2020-03-31 Outpatient MARINELLI, [facility] [id number] [place] 00:00:00 00:00:00 ENRIQUE [address] 2020-02-06 2020-02-06 Outpatient MARINELLI, [facility] [id number] [place] 00:00:00 00:00:00 ENRIQUE [address] 2020-01-28 2020-01-28 Outpatient MARINELLI, [facility] [id number] [place] 00:00:00 00:00:00 ENRIQUE [address] 2020-01-28 2020-01-28 Outpatient MARINELLI, [facility] [id number] [place] 00:00:00 00:00:00 ENRIQUE [address] 2020-01-28 2020-01-28 Outpatient MARINELLI, [facility] [id number] [place] 00:00:00 00:00:00 ENRIQUE [address] 2019-12-10 2019-12-10 Outpatient MARINELLI, [facility] [id number] [place] 00:00:00 00:00:00 ENRIQUE [address] 2019-12-10 2019-12-10 Outpatient MARINELLI, [facility] [id number] [place] 00:00:00 00:00:00 ENRIQUE [address] 2019-10-03 2019-10-03 Outpatient PIO, [facility] [id number] [place] 00:00:00 00:00:00 AMANDA [address] 2019-08-07 2019-08-07 Outpatient MARINELLI, [facility] [id number] [place] 00:00:00 00:00:00 ENRIQUE [address] 2019-06-25 2019-06-25 Outpatient MARINELLI, [facility] [id number] [place] 00:00:00 00:00:00 ENRIQUE [address] 2019-06-05 2019-06-05 Outpatient PIO, [facility] [id number] [place] 00:00:00 00:00:00 AMANDA [address] Results Test Description Test Time Test Comments Results Result Comments Source COVID-19 qualitative PCR 2020-08-07 04:38:23 Test Item Value Reference Range Interpretation Comme nts Interpretation (test code = Positive results are 2449208) indicative of active infection with 2019-nCoV but do not rule out bacterial infection or coinfection with other viruses. The agent detected may not be the definite cause of disease. COVID-19 qualitative PCR Detected Not-Detected A result (test code = 65523-0) COVID-19 qualitative PCR See link below for PDF Case Number: (test code = 7070) Lab Report [id number] Lab Interpretation (test Abnormal code = 62368-2) Leonard EscamillaECG 12 [id number] 19:21:10 Test Item Value Reference Range Interpretation Comments Ventricular rate (test 69 code = 253) Atrial rate (test code 69 = 255) NM interval (test code 154 = 266) QRSD interval (test 88 code = 260) QT interval (test code 400 = 264) QTC interval (test code 428 = 265) P axis 1 (test code = 64 267) QRS axis 1 (test code = 58 268) T wave axis (test code 52 = 270) EKG impression (test Normal sinus code = 273) rhythm-Normal ECG-In automated comparison with ECG of 06-AUG-2020 15:39,-Sinus rhythm has replaced Junctional rhythm- Leonard EscamillaB natriuretic [id number] 17:25:02 Test Item Value Reference Range Interpretation Comments BNP (test code = 60551-9) 179 pg/mL 0-100 H Lab Interpretation (test code = Abnormal 96615-3) Leonard EscamillaNpgptiqbdRvtqcvce7523-03-67 17:18:00 Test Item Value Reference Range Interpretation Comments Troponin (test code 0.021 ng/mL 0-0.04 In patie nts suspected = 43388-3) of having a pushpa cardial infarction, vanessachristoph valdovinos with all other appro priate clinical measur es and actions includi ng ECG and other diagn ostics as appropriate, measure Ultra TnI at 0 hrs and at 3 hrs.Myocar dial infarction VERY LIKELYThe 0 hr TnI level is > 0.10 ng/mL -------- -------- -------- --------Myocard ial infarction LIKE LYThe 0 hr TnI level is > 0.04 ng/mL and 3 hr level is increased or de creased by at least 0.0 20 ng/mL -------- -------- -------- ---Myocardial infarction VERY UNLIKELYBoth th e 0 hr and 3 hr TnI le vels <= 0.04 ng/mL(with in normal limits) OR 0 hr is > 0.04 ng/mL and 3 hr is increased OR decreased by le ss than 0.020 ng/mL Leonard MethodistComprehensive metabolic [id number] 17:15:32 Test Item Value Reference Range Interpretation Comments Sodium (test code = 2951-2) 137 135- 148 mEq/L Potassium (test code = 2823-3) 3.8 3.5- 5.0 mEq/L Chloride (test code = 2074-0) 103 98- 112 mEq/L CO2 (test code = 2027-) 25 24- 31 mEq/L Anion gap (test code = 69954-0) 9@ANIO 7- 15 mEq/L BUN (test code = 3094-0) 22 mg/dL 8-23 Creatinine (test code = 2160-0) 0.88 mg/dL 0.5-0.9 Glucose (test code = 2345-7) 177 mg/dL 65-99 H Calcium (test code = 58120-3) 8.4 mg/dL 8.8-10.2 L Protein (test code = 2885-2) 6.5 g/dL 6.3-8.3 Albumin (test code = 1751-7) 3.5 g/dL 3.5-5 A/G ratio (test code = 1759-0) 1.2 0.7-3.8 Alkaline phosphatase (test code = 85 U/L 35-104 6768-6) AST (test code = 1920-8) 63 U/L 10-35 H ALT (test code = 1742-6) 36 U/L 5-50 Total bilirubin (test code = <0.2 0.2-1.2 1974-) Lab Interpretation (test code = Abnormal 71062-6) [place] MethodistLipase [id number] 17:15:32 Test Item Value Reference Range Interpretation Comments Lipase (test code = 3040-3) 20 U/L 13-60 [place] MethodistEstimated [id number] 17:15:32 Test Item Value Reference Range Interpretation Comments Estimated GFR (test 66 mL/min/1.73 m2 Caterg ory Units code = 5488) InterpretationG 1 >=90 Normal or highG2 60-89 Mildly ltixceoctM7l 45-59 Mildly to mode rately bknclaedxU9g 30-44 Moderately to severely decreasedG4 15-29 Severely decre asedG5 <15 Kidn ey failureThe eGFR was calculated usin g the Chronic Kidney Disease Epidemiology Co llaboration (CKD-EPI) equat ion. Interpretation is based on recommendations of the National Kidney Foundation-Kidn ey Disease Outcomes Qualit y Initiative (NKF-KDOQI) pub lished in 2014. [place] MethodistXR Chest 1 Vw [id number] 16:47:45Hm Interface, Radiology Results 08/06/2020 4:50 PM CSTEXAMINATION: XR CHEST 1 VW PORTABLECLINICAL HISTORY: Acute shortness of breath, COVID pneumoniaCOMPARISON: 04/06/2020FINDINGS: There aremild/moderate bibasilar infiltrates, consistent with acute pneumonia. These are somewhat worsened from previous, although only involve the bases. There is no appreciable effusion. Mild background chronic lung disease may be present.Heart size is normal or borderline. There is no acute failure.Extensive spinal hardware is again noted.IMPRESSION: Bibasilar pneumoniaMER[facility]-[id number] MethodistCBC with platelet and differential 2020-08-06 16:43:08 Test Item Value Reference Range Interpretation Comments WBC (test code = 75372-0) 7.9 4.5- 11.0 k/uL RBC (test code = 27190-5) 3.40 m/uL 4.2-5.5 L HGB (test code = 718-7) 8.9 g/dL 12-16 L HCT (test code = 4544-3) 30.4 % 37-47 L MCV (test code = 787-2) 89.4 fL 82-100 MCH (test code = 785-6) 26.2 pg 27-34 L MCHC (test code = 786-4) 29.3 g/dL 31-37 L RDW - SD (test code = 80010-0) 48.2 fL 37-55 MPV (test code = 63724-4) 11.1 fL 6.9-11 H Platelet count (test code = 201 K/uL 150-400 28529-1) Nucleated RBC (test code = 75104-8) 0.00 /100 WBC Neutrophils (test code = 75894-5) 95.6 % 39-69 H Lymphocytes (test code = 38818-7) 2.5 % 25-45 L Monocytes (test code = 07938-1) 1.4 % 0-10 Eosinophils (test code = 53837-3) 0.0 % 0-5 Basophils (test code = 13293-4) 0.1 % 0-1 Immature granulocytes (test code = 0.4 % 0-1 89863-0) Lab Interpretation (test code = Abnormal 59888-3) [place] [facility] Preliminary Interpretation - Not an [id number] 15:05:01Nick Dominguez NP 08/06/2020 11:18 [facility] ED Preliminary Interpretation - Not an OrderPerformed by: Nick Dominguez NPAuthorized by: Piedad Shultz MD ECG reviewed by ED Physician inthe absence of a tunnel drier operator: yes Interpretation: Interpretation: normal Rate: ECG rate: 69ECG rate assessment: normal Rhythm: Rhythm: sinus rhythm Ectopy: Ectopy: none QRS: QRS axis: Normal QRS intervals: NormalST segments: ST segments: NormalT waves: T waves: normalHouston MethodistBone Density [id number] 13:58:14Hm Interface, Radiology Results 05/21/2020 2:01 PM CDTEXAMINATION: BONE DENSITY PERIPHERALCLINICAL HISTORY: M81.0 Age-related osteoporosis without current pathological fracture, Osteoporos isCOMPARISON: None.IMPRESSION:The results of this study expressed as bone mineral density (BMD) were as follows:Dual Femur (Total Mean):BMD: 0.745 g/cm2T- Score: -2.1WHO Classification: OsteopeniaLeft Forearm (Radius 33%):BMD: 0.587 g/bc0V-Zzzkl: -3.3WHO Classification: OsteoporosisDual femur FRAX:10 year probability of fracture:1. Major osteoporotic: 11.2%2. Hip:2.7%A copy of this scans including a report detailing these results will follow.Note: The world health organization (WHO) has classifiedthe patient's T-score as follows:Above (-1) as normal(-1) to (-2.5) as low (osteopenia)Below (-2.5) as abnormally low (osteoporosis, increased fracture risk)[facility]-[id number] MethodistBone [id number] 13:57:55Hm Interface, Radiology Results 05/21/2020 2:01 PM CDTEXAMINATION: BONE DENSITYCLINICALHISTORY: M81.0 Age-related osteoporosis without current pathological fracture, OsteoporosisCOMPARISON: None.IMPRESSION:The results of this study expressed as bone mineral density (BMD) were as follows:Dual Femur (Total Mean):BMD: 0.745 g/la0O-Saqyi: -2.1WHO Classification: OsteopeniaLeft Forearm (Radius 33%):BMD: 0.587 g/fx5M-Yrgmh: - 3.3WHO Classification: OsteoporosisDual femur FRAX:10 year probability of fracture:1. Major osteoporotic: 11.2%2. Hip:2.7%A copy of this scans including a report detailing these results will follow.Note: The world health organization (WHO) has classified the patient's T-score as follows:Above (-1) as normal(-1) to (-2.5) as low (osteopenia)Below (-2.5) as abnormally low (osteoporosis, increased fracture risk)[facility]-[id number] MethodistAFB [id number] 00:13:46 Test Item Value Reference Range Interpretation Comments AFB culture No growth Specimen isolate (test after 6 weeks InformationSp ecimen code = 543-9) of Source: BoneSp ecimen Site: incubation. Spine, Thoracic : Swab from bone for bankin g #2 Leonard MethodistFungus [id number] 00:15:36 Test Item Value Reference Range Interpretation Comments Fungus culture No growth Specimen isolate (test after 4 weeks InformationSp ecimen code = 1441) of Source: BoneSpe cimen Site: incubation. Spine, Thoracic : Swab from bone for bankin g #2 Leonard MethodistIntraoperative [id number] 21:06:22 INTRAOPERATIVE NEURO MONITORING Patient Name: Deborah Garcia Date of : 1950 Gender: female Surgical Procedure: STAGE 2:COMPLETION OF T3-SACRUM W/ PELVIS POSTERIOR SPINAL INSTRUMENTATION AND FUSION, POSSIBLE LUMBAR PEDICLE SUBTRACTION OSTEOTOMY W/ SSEP W/ MOTORS (Posterior Spine Thoracic) OR:CHRIS Room #: 12 Tech #1:YENY IsaacsStart Time:08:37End Time: 13:29)Total Time (in hours): 5 hours Date of Service: 04/03/2020Physician IOM Time: 5 HoursProcedure(s) performed During IOM: 04000, 17070, 68390ZBP27: M4716 Stimulation ParametersUlnar nerves individually stimulated at the wrist. Rate 4.7 Hz, Intensity 20-60 mA, Duration 0.3 ms, Filters 30-500 Hz, Notch Off Post erior Tibial nerves individually stimulated at the ankle., Rate 4.7 Hz, Intensity 30 - 80 mA, Duration 0.3 ms, Filters 30-500 Hz, Notch Off Motor strip stimulated anterior to C3 and C4 with alternatingpolarities, Intensity 500 V Train Rate 4-5 GELA 2-3 ms, Filter 30-2KHz Notch off Technical SummaryIntr aoperative neurophysiological monitoring was performed using a combination of upper and lower extremity somatosensory evoked potentials (SEP), transcranial electrical motor potentials (TcMEP) and running electromyography (EMG) of the innervated muscle groups. A real time connection was established by the monitoring technologist with the examining neurologist throughout the operative procedure. Lower extremity somatosensory evoked potentials were recorded peripherally at the popliteal fossa and centrally at the cervical and cortical levels following posterior tibial nerve stimulation at the ankle. Upper extremity somatosensory evoked potentials were recorded centrally at the cervical and cortical levels following ulnar nerve stimulation at the wrist. There were no significant surgically related changes in amplitude or latency to the cervical and/or cortical SEP responses throughout the surgical procedure. TcMEPs were recorded peripherally from the upper and lower extremities following alternating polarity motor strip stimulation. Post-induction TcMEP responses to motor cortex stimulation were clear and reproducible bilaterally. No significant surgically related changes in amplitude or latency of the TcMEPs were noted throughout the surgical procedure. At closing responses were judged to be ess entially unchanged from those of post positioning baselines. Free running EMG of the innervated muscle groups was monitored continuously throughout the operative procedure with no sustained neurotonic discharges noted. ConclusionThese results suggest the absence of a significant delay or reduction in amplitude of cervical and cortical SEP responses suggest the absence of untoward, secondary changes to posterior spinal cord function as a result of this surgical procedure. The absence of sustained neurotonic discharges on free-running EMG suggests that the monitored nerve roots remained undisturbed during this procedure. All values were reported to the surgeon in real time. .[facility] MethodistIntraoperative sbooboatxq8601-60-32 21:05:36 INTRAOPERATIVE NEURO MONITORING Patient Name: Deborah Garcia Date of : 1950 Gender: female Surgical Procedure:completion of T3-sacrum fusion OR: (CHRIS) Room #: (19)Tech #1: (JS)Start Time: (0820)End Time: (1150)Total Time (in hours): (3) Date of S ervice: 04/08/2020Physician IOM Time: 3 HoursProcedure(s) performed During IOM: 15415, 53339, 58392ATQ91: M419, M4716 Stimulation ParametersUlnar nerves individually stimulated at the wrist. Rate 4.7 Hz,Intensity 20-60 mA, Duration 0.3 ms, Filters 30-500 Hz, Notch Off Posterior Tibial nerves individually stimulated at the ankle., Rate 4.7 Hz, Intensity 30 - 80 mA, Duration 0.3 ms, Filters 30-500 Hz, Notch Off Motor strip stimulated anterior to C3 and C4 with alternating polarities, Intensity 500 V Train Rate 4-5 GELA 2-3 ms, Filter 30- 2KHz Notch off Technical SummaryIntraoperative neurophysiological monitoring was performed using a combination of upper and lower extremity somatosensory evoked potentials (SEP), transcranial electrical motor potentials (TcMEP) and running electromyography (EMG) of the innervated muscle groups. A real time connection was established by the monitoring technologist with the examining neurologist throughout the operative procedure. Lower extremity somatosensory evoked p otentials were recorded peripherally at the popliteal fossa and centrally at the cervical and cortical levels following posterior tibial nerve stimulation at the ankle. Upper extremity somatosensory evoked potentials were recorded centrally at the cervical and cortical levels following ulnar nerve stimulation at the wrist. There were no significant surgically related changes in amplitude or latency to the cervical and/or cortical SEP responses throughout the surgical procedure. TcMEPs were recorded peripherally from the upper and lower extremities following alternating polarity motor strip stimulation. Post- induction TcMEP responses to motor cortex stimulation were clear and reproducible bilaterally. No significant surgically related changes in amplitude or latency of the TcMEPs were noted throughout the surgical procedure. At closing responses were judged to be essentially unchanged from those of post positioning baselines. Free running EMG of the innervated muscle groups was monitored continuously throughout the operative procedure with no sustained neurotonic discharges noted. ConclusionThese results suggest the absence of a significant delay or reduction in amplitude of cervical and cortical SEP responses suggest the absence of untoward, secondary changes to posterior spinal cord function as a result of this surgical procedure. The absence of sustained neurotonic discharges on free-running EMG suggests that the monitored nerve roots remained undisturbed during this procedure. All values were reported to the surgeon in real time. .[place] Methodnew [facility]xico rehabilitation centerBasic metabolic qaseg0214-17-98 06:54:18 Test Item Value Reference Range Interpretation Comments Sodium (test code = 2951-2) 141 135- 148 mEq/L Potassium (test code = 2823-3) 3.4 3.5- 5.0 mEq/L L Chloride (test code = 2075-0) 105 98- 112 mEq/L CO2 (test code = 2027-9) 25 24- 31 mEq/L Anion gap (test code = 22964-1) 11@ANIO 7- 15 mEq/L BUN (test code = 3094-0) 7 mg/dL 8-23 L Creatinine (test code = 2160-0) 0.65 mg/dL 0.5-0.9 Glucose (test code = 2345-7) 79 mg/dL 65-99 Calcium (test code = 58692-0) 8.0 mg/dL 8.8-10.2 L Lab Interpretation (test code = Abnormal 24847-0) [facility] MethodistXR Abdomen 1 Vw [id number] 13:26:24Hm Interface, Radiology Results 04/13/2020 1:29 PM CDTEXAMINATION: XR ABDOMEN 1 VW PORTABLEINDICATION: Abd pain unspecifiedCOMPARISON: Most recent priorIMPRESSION:Mild gaseous distention small and large bowel without interval change compared to previous examination.No visible free air.Right upper quadrant surgical clips.Stable thoracolumbar spinal instrumentation hardware.Partially imaged small effusions in the lung bases are suspected.HMRM-MPHYMATHouston MethodistMagnesium sdsen3103-84-46 07:58:40 Test Item Value Reference Range Interpretation Comments Magnesium (test code = 03889-0) 1.6 mg/dL 1.6-2.4 [place] MethodistPhosphorus mtnrj6362-05-24 06:57:58 Test Item Value Reference Range Interpretation Comments Phosphorus (test code = 2777-1) 2.5 mg/dL 2.4-4.5 [place] MethodistHepatic function [id number] 06:20:57 Test Item Value Reference Range Interpretation Comments Albumin (test code = 2.0 g/dL 3.5-5 L 1750-7) Total bilirubin (test 0.3 mg/dL 0-1.2 code = 1974-) Bilirubin direct (test <0.2 0-0.3 code = 1968-01) Alkaline phosphatase 162 U/L 35-104 H (test code = 6768-6) Protein (test code = 4.5 g/dL 6.3-8.3 L -[place] n 2885-2) 4.6-7.0 g /dL1 week 4.4-7.6 g/dL 7 months-1year 5.1-7.3 g/dL 1-2 years 5.6-7.5 g/dL>3 years 6.0-8.0 g/hH35-305 6.3-8. 3 g/dL ALT (test code = 1742-6) 16 U/L 5-50 AST (test code = 1920-8) 28 U/L 10-35 Lab Interpretation (test Abnormal code = 43927-7) [facility] hdjzbiuk9336-72-44 05:42:36 Test Item Value Reference Range Interpretation Comments WBC (test code = 68331-7) 7.43 4.50- 11.00 k/uL RBC (test code = 28144-4) 2.88 m/uL 4.2-5.5 L HGB (test code = 718-7) 8.2 g/dL 12-16 L HCT (test code = 4544-3) 25.8 % 37-47 L MCV (test code = 787-2) 89.6 fL 82-100 MCH (test code = 785-6) 28.5 pg 27-34 MCHC (test code = 786-4) 31.8 g/dL 31-37 RDW - SD (test code = 27127-2) 51.4 fL 37-55 MPV (test code = 35334-3) 11.1 fL 8.8-13.2 Platelet count (test code = 180 150- 400 k/uL 31256-3) Nucleated RBC (test code = 0.00 /100 WBC 51296-2) Lab Interpretation (test code = Abnormal 48560-5) [facility] rzlssld6114-58-40 13:23:02 Test Item Value Reference Range Interpretation Comments POC glucose (test code = 126 mg/dL 65-99 H Ope rator Name: 28552-5) Keesha Higgins ID: [id number] able: [facility] Notified sericulturist Interpretation (test Abnormal code = 52383-2) [place] MethodistType and sfrwjb5801-02-08 02:00:00 Test Item Value Reference Range Interpretation Comments ABO grouping (test code = 883-9) A Rh type (test code = 45082-8) POS Antibody screen (gel) (test code = NEG 890-4) [facility] lhwjb2249-20-62 01:22:07 Test Item Value Reference Range Interpretation Comments Lactic acid (test code = 69174-0) 1.1 mmol/L 0.5-2.2 [facility] HospitalPartial thromboplastin time, qpxugnkns0838-08-93 01:07:07 Test Item Value Reference Range Interpretation Comments PTT (test code = 31.6 23.0- 36.0 [place] [address]-5) unfractionated heparin is61.0-112.0 se conds which corresponds to Anti-Xa0.3-0.7 U/ml. [place] MethodistProthrombin time with HPH5806-32-20 01:06:58 Test Item Value Reference Range Interpretation Comments Prothrombin time (test 15.4 11.5- 14.5 sec H code = 5902-2) INR (test code = 1.2 [facility] 07246[facility] Normalized Rati o (INR) is a therapeuti c monitoring tool for patients who ar e stable on oral anticoagulant t herapy. An INR of 2.0-3 .0 is suggested for d eep vein thrombosis/pulm onary embolism. Lab Interpretation Abnormal (test code = 97486-7) [place] MethodistArterial blood emz9167-43-00 00:50:46 Test Item Value Reference Range Interpretation Comments pH, arterial (test code = 2744-1) 7.43 7.35-7.45 pCO2, arterial (test code = 31 35- 45 mmHg L 2019-8) pO2, arterial (test code = 110 80- 90 mmHg H 2703-7) Bicarbonate, arterial (test code 20.3 mmol/L 21-28 L = 1960-4) Base excess, arterial (test code -3 -2 - 2 mEq-L L = 1925-7) O2 saturation, arterial (test 99 % 95-100 code = 2708-6) Lab Interpretation (test code = Abnormal 99490-9) [place] MethodistIonized calcium, ojediyvl4309-13-93 00:50:46 Test Item Value Reference Range Interpretation Comments Ionized calcium, arterial (test 1.01 mmol/L 1.11-1.32 L code = 99600-7) Lab Interpretation (test code = Abnormal 69853-9) [place] MethodistUrinalysis screen and microscopy, with reflex to culture 2020-04-08 18:55:26 Test Item Value Reference Range Interpretation Comments Specimen site (test code = [place] 3313443) Color, UA (test code = 5778-6) Dark Yellow Appearance, UA (test code = Hazy 5767-9) Specific gravity, UA (test code = 1.024 1.001-1.035 5811-5) pH, UA (test code = 5803-2) 5.0 5.0-8.5 Protein, UA (test code = 02372-9) 1+ Negative A Glucose, UA (test code = 27186-0) Negative Negative Ketones, UA (test code = 2514-8) 1+ Negative A Bilirubin, UA (test code = Negative Negative 5770-3) Blood, UA (test code = 5794-3) Small Negative A Nitrite, UA (test code = 5802-4) Negative Negative Urobilinogen, UA (test code = 4.0 <2.0 A 24258-2) Leukocyte esterase, UA (test code Large Negative A = 5799-2) Epithelial cells, UA (test code = <1 /HPF 5787-7) WBC, UA (test code = 5821-4) >180 0- 4 /HPF H RBC, UA (test code = 29171-6) 21 0- 5 /HPF H Bacteria, UA (test code = Few None seen 28583-2) WBC clumps, UA (test code = Moderate A 17463-2) Yeast, UA (test code = 21748-2) None seen Yeast with pseudohyphae, UA (test None seen code = 49973-5) Hyaline casts, UA (test code = 1 /LPF 5796-8) Lab Interpretation (test code = Abnormal 97071-5) [place] ChristianXR Lumbar Spine 2 Or 3 [id number] 16:46:20Hm Interface, Radiology Results - 04/08/2020 4:49 PM CDTEXAMINATION: XR LUMBAR SPINE 2 OR 3 VWCLINICAL HISTORY: IntraoperativeCOMPARISON: Scoliosis radiograph 04/07/2020IMPRESSION:Single lateral intraoperative radiograph of the lumbar spine was obtained. The most inferior fully formed disc is presumed L5-S1.Retractors are present posteriorly at the levels of L3-S1 and at the upper thoracic spine. Posterior spinal instrumentation with rods and screws from the upper thoracic spine through the iliac bones. Redemonstration of vertebral body height loss of L3. Lordosis centered at L3 dtmydzxfr67.3 degrees.[facility]-[id number] MethodistOR [place] > I Czma5708-57-77 14:37:10Hm Interface, Radiology Results Incoming - 04/08/2020 2:40 PM CDTEXAMINATION: OR [place] > 1 HOURC-arm fluoroscopy was requested in OR. Location: NUNES 3 OR 19Procedure: POSTERIOR SPINAL FUSIONStart: 814End: 1200pmFluoro Time: 2secsmGy: 27.17Tech: OSCAR IMPRESSION:Intraoperative fluoroscopic images. Radiologist was not present during the examination.Separate operative report will be issued by the physician performing the procedure.[id number] MethodistPrepare [id number] 13:33:00 Test Item Value Reference Range Interpretation Comments Product name (test code Red Cells AS1 Leukored = 25) Irrad Unit number (test code [id number] = [id number]) Product code (test code W0396V47 = 3092) Dispense status (test Returned to BB not code = 24) transfused Blood expiration date (test code = 302) Blood type code (test 6200 code = 308) Blood type (test code = A POSITIVE 1314) Compatibility (test Compatible code = 6400) [place] MethodistPrepare fresh frozen hwowfz4382-57-31 13:33:00 Test Item Value Reference Range Interpretation Comments Product name (test code Thawed Plasma = 25) Unit number (test code [id number] = [id number]) Product code (test code F3055W66 = 3092) Dispense status (test Returned to BB not code = 24) transfused Blood expiration date (test code = 302) Blood type code (test 6200 code = 308) Blood type (test code = A POSITIVE 1314) Compatibility (test Not required code = 6400) [place] MethodistPrepare platelet mmsiylfh2138-70-57 13:08:00 Test Item Value Reference Range Interpretation Comments Product name (test code Apheresis Platelet = 25) ACDA LRIRR #1 Unit number (test code [id number] = [id number]) Product code (test code C7555I60 = 3092) Dispense status (test Returned to BB not code = 24) transfused Blood expiration date (test code = 302) Blood type code (test 5100 code = 308) Blood type (test code = O POSITIVE 1314) Compatibility (test Not required code = 6400) [place] MethodistArterial blood gas, vipzldmkw3226-18-07 11:19:40 Test Item Value Reference Range Interpretation Comments pH, arterial (test code = 2744-1) 7.40 7.35-7.45 pCO2, arterial (test code = 2019-8) 38 35- 45 mmHg pO2, arterial (test code = 2703-7) 101 80- 90 mmHg H Temperature, Celsius (test code = 37.0 Degrees C 8310-5) O2 saturation, arterial (test code = 98 % 95-100 2708-6) pH, arterial corrected (test code = 7.40 80856-3) pCO2, arterial corrected (test code 38 mmHg = 96017-8) pO2, arterial corrected (test code = 101 mmHg 23246-3) Base excess, arterial (test code = -1 -2 - 2 mEq-L 1925-7) Lab Interpretation (test code = Abnormal 14276-5) [facility] MethodistGlucose level, imlaiub7634-89-11 11:19:40 Test Item Value Reference Range Interpretation Comments Glucose, syringe (test code = 103 mg/dL 65-99 H 2345-7) Lab Interpretation (test code = Abnormal 47699-4) [place] MethodistHemoglobin, oyncbpn5593-33-33 11:19:40 Test Item Value Reference Range Interpretation Comments Hemoglobin, syringe (test code = 9.7 g/dL 12-16 L 718-7) Lab Interpretation (test code = Abnormal 82743-1) [place] MethodistPotassium, xyfwppm5428-62-38 11:19:40 Test Item Value Reference Range Interpretation Comments Potassium, syringe (test code = 2007) 3.5 3.5- 5.0 mEq/L [place] MethodistSodium level, luccsmx2088-15-25 11:19:40 Test Item Value Reference Range Interpretation Comments Sodium, syringe (test code = 2947-0) 142 135- 148 mEq/L [place] MethodistArterial muud6127-95-83 10:08:41Lauren Abbasi MD 04/08/2020 10:09 AMArterial linePerformed by: Lauren Abbasi MDAuthorized by: Lauren Abbasi MD Patient Location: ORStart Time: 04/08/2020 7:55 AMEnd Time:04/08/2020 8:00 AMStaff: Anesthesiologist: Lauren Abbasi MD Performed by: AnesthesiologistPre-procedure: patient identified, IV checked, site and side verified, risks and benefits discussed, procedure verified, surgical consent complete, patient position confirmed, monitors and equipment ch ecked, pre-op evaluation complete and timeout performed prior to procedure MSBT: antiseptic used, all elements of maximal sterile barrier technique followed, hand hygiene performed, cap/gown used by other personnel and solutions labeled Indications: Indications: multiple ABGs and hemodynamic monitoring Anesthesia: Anesthesia: GeneralProcedure Details: Arterial Line placement: Placed post induction Line placement site: RadialLine placement side: Right Arterial line gauge: 20 GNumber of attempts: 1Ultrasound guidance used: No Post-procedure: Post-procedure: Sterile dressing applied Post procedure circulation, sensation, movement: Normal Patient tolerance: Patient tolerated the procedure well with no immediate complicationsO[place] MethodistHematocrit 2020-04-08 09:47:13 Test Item Value Reference Range Interpretation Comments HCT (test code = 4544-3) 28.3 % 37-47 L Lab Interpretation (test code = Abnormal 62548-1) [place] MethodistPlatelet [id number] 09:47:13 Test Item Value Reference Range Interpretation Comments Platelet count (test code = 09598-4) 104 150- 400 k/uL L Lab Interpretation (test code = Abnormal 30720-8) [place] MethodistLactic acid, sgwfwjs1590-74-51 09:34:44 Test Item Value Reference Range Interpretation Comments Lactic acid, syringe (test code = 0.7 mmol/L 0.5-2.2 26671-5) [facility] FwjgoernbPytebb2938-18-64 08:44:45Lauren Abbasi MD 04/08/2020 8:46 AMAirwayPerformed by: Lauren Abbasi MDAuthorized by: Lauren Abbasi MD Location: ORUrgency: ElectiveDifficult Airway: No Anesthesiologist: Lauren Abbasi, MDPerformed by: anesthesiologistPreoxygenated with 100% O2: Yes C-spine Precautions Maintained Throughout: Yes Mask Ventilation: Not attemptedFinal Airway Type: Endotra cheal airwayFinal Endotracheal Airway: ETTCuffed: Yes Technique Used: Direct laryngoscopyBlade Type: MillerLaryngoscope Blade/Videolaryngoscope Blade Size: 2ETT Size (mm): 7.0Cuff at minimum occlusion pressure: Yes Measured from: LipsETT to Lips (cm): 21Placement Verified by: CO2 detection Laryngoscopic view: Grade IIa - partial view of glottisRapid Sequence Induction (RSI): Yes Number ofAttempts at Approach: 1[place] MethodistAnaerobic pitjfda9421-09-74 09:14:15 Test Item Value Reference Range Interpretation Comments Anaerobic No anaerobic Specimen culture isolate organisms InformationS pecimen (test code = isolated. Source: Remote Assistant 552) Site: Spine, Th oracic: Swab from bone for banking #2 [place] MethodistIonized ozbnqzm5284-33-45 05:30:57 Test Item Value Reference Range Interpretation Comments pH (test code = 2753-2) 7.60 Ionized calcium (test code = 1.08 mmol/L 1.11-1.32 L ) Lab Interpretation (test code = Abnormal 05666-6) [place] MethodistAerobic gbttsor1666-91-78 09:28:03 Test Item Value Reference Range Interpretation Comments Aerobic culture No growth Specimen isolate (test after 3 days. InformationSp ecimen code = 498) Source: Remote Assistant Site: Spine, Thoracic : Swab from bone for bankin g #2 [place] MethodistSurgical pathology uqxfrwb1346-11-83 14:18:21 Test Item Value Reference Range Interpretation Comments Case number (test code = [id number]) Surgical pathology See link below for report (test code = PDF Lab Report 2255) Result status (test code This is Final Report = [id number]) for [id number] [place] MethodistPotassium dkbdb7380-24-72 11:09:43 Test Item Value Reference Range Interpretation Comments Potassium (test code = 2823-3) 4.2 3.5- 5.0 mEq/L [place] MethodistHemoglobin & dznexnwkxq5584-75-25 10:42:13 Test Item Value Reference Range Interpretation Comments HGB (test code = 718-7) 8.2 g/dL 12-16 L HCT (test code = 4544-3) 26.8 % 37-47 L Lab Interpretation (test code = Abnormal 41952-4) [facility] EscamillaHhinwqvucOkzpccjrxq6840-76-67 02:00:53 Test Item Value Reference Range Interpretation Comments Fibrinogen (test code = 25408-7) 245 mg/dL 200-450 [place] MethodistCentral jjlg9889-88-41 11:19:22Joanne Harvey MD 04/03/2020 11:25 AMCentral linePerformed by: Joanne Harvey MDAuthorized by: Joanne Harvey MD Patient Location: ORStart Time: 04/03/2020 7:55 AMEnd Time: 04/03/2020 8:01 AMStaff: Anesthesiologist: Joanne Harvey MD Performed by: AnesthesiologistPreprocedure:patient identified, IV checked, site and side verified, risks and benefits discussed, procedure verified, surgical consent complete, patient position confirmed, monitors and equipment c hecked, pre-op evaluation complete and timeout performed prior to procedure MSBT: antiseptic used during central venous catheter insertion, all elements of maximal sterile barrier technique followed, hand hygiene performed prior to central venous catheter insertion, cap/gown used by other personnel during central venous catheter insertion, solutions labeled and all ports not used during insertion clamped Indications: Indications: Vascular accessAnesthesia: Anesthesia: GeneralProcedure details: Patient position: Trendelenburg Catheter Type: Double lumen Catheter Site: internal jugular v ein Catheter site laterality: Right Pre-procedure: Landmarks identified Ultrasound guidance used: Yes Ultrasound image saved: No Pressure transduced: Pressure transduced prior to dilatorNumber of attempts: 2 Successful placement: Yes Guidewire removal: Guidewire removal is confirmed Guidewire removal witnessed by: Pablo Yang MDPost-procedure: Post-procedure: line sutured, sterile dressing applied per protocol and ports flushed with saline Post-procedure: Blood cleaned with CHG and sterile caps on all hubs Assessment: Blood return through all ports and free fluid flow Patient tolerance: Patient tolerated the procedure well with no immediate complicationsO[place] MethodistArterial bcib4789-27-47 11:15:26Joanne Harvey MD 04/03/2020 11:16 AMArterial linePerformed by: Joanne Harvey MDAuthorized by: Joanne Harvey MD Patient Location: ORStart Time: 04/03/2020 7:50 AMEnd Time: 04/03/2020 7:52 AMStaff: Anesthesiologist: Pablo Yang MD Performed by: AnesthesiologistPre-procedure: patient identified, IV checked, site and side verified, risks and benefits discussed, procedure verified, surgical consent complete, patient position confirmed, monitors and equipment checked, pre-op evaluation complete and timeout performed prior to procedure MSBT: antiseptic used, all elements of maximal sterile barrier technique followed, hand hygiene performed and solutions labeled Indications: Indications: multiple ABGs and hemodynamic monitoring Anesthesia: Anesthesia: GeneralProcedure Details: Arterial Line placement: Placed post induction Line placement site:RadialLine placement side: Right Arterial line gauge: 20 GNumber of attempts: 1Ultrasound guidance used: No Post-procedure: Post-procedure: Sterile dressing applied Post procedure circulation,sensation, movement: Normal Patient tolerance: Patient tolerated the procedure well with no immediate complicationsTexas [facility] 2020-04-03 11:12:13Joanne Harvey MD 04/03/2020 11:14 AMAirwayDate/Time: 04/03/2020 7:49 AMPerformed by: Joanne Harvey MDAuthorized by: Joanne Harvey MD Location: ORUrgency: ElectiveDifficult Airway: No Anesthesiologist: Joanne Harvey MDPerformed by: anesthesiologistPreoxygenated with 100% O2: Yes C-spine Precautions Maintained Throughout: Yes Mask Ventilation: Not attemptedFinal Airway Type: Endotracheal airwayFinal Endotracheal Airway: ETTCuffed: Yes Technique Used: Video laryngoscopy (Glidescope #3)Insertion Site: OralLaryngoscope Blade/Videolaryngoscope BladeSize: 3ETT Size (mm): 7.0Cuff at minimum occlusion pressure: Yes Measured from: GumsETT to Gums (cm): 20Placement Verified by: CO2 detection, direct visualization and equal breath sounds Laryngoscopic view: Grade I - full view of glottisRapid Sequence Induction (RSI): Yes Modified RSI: No Number of Attempts at Approach: 1 Patient has and cannot lie flat. She is bent over at the waist when she stands and sleeps sitting up. After induction, I was able to lie her down enough for Glidescopeintubation. Easy Glidescope with Grade 1 view. Atraumatic. BSEB. [place] MethodistECG Pre/Post [id number] 18:37:47 Test Item Value Reference Range Interpretation Comments Ventricular rate (test 66 code = 253) Atrial rate (test code 66 = 255) NM interval (test code 184 = 266) QRSD interval (test 98 code = 260) QT interval (test code 430 = 264) QTC interval (test code 450 = 265) P axis 1 (test code = -21 267) QRS axis 1 (test code = 9 268) T wave axis (test code 0 = 270) EKG impression (test Normal sinus code = 273) rhythm-Normal ECG-In automated comparison with ECG of 03-AUG-2019 11:10,-T wave inversion now evident in Inferior leads- [place] MethodistPrealbumin [id number] 17:09:33 Test Item Value Reference Range Interpretation Comments Prealbumin (test code = 6793-4) 20 mg/dL 16-32 [place] MethodistAlbumin wrvir7749-06-81 17:02:54 Test Item Value Reference Range Interpretation Comments Albumin (test code = 1751-7) 3.7 g/dL 3.5-5 [place] MethodistMonitor Screen 13-Drug Class [id number] 10:10:00 Test Item Value Reference Interpretation Comments Range Amphetamines (test Negative Epqved=2729 code = 07859-4) ng/mL Barbiturates conf, Negative Vpujkh=936 urine (test code = ng/mL 61795-4) Benzodiazepines Negative Phmksk=378 (test code = ng/mL 00812-0) Cannabinoid Negative Cutoff=20 screen, urine ng/mL (test code = 20314-7) Cocaine (metab.) Negative Ztpmfg=067 (test code = ng/mL 51197-4) Opiates screen, Negative Iuybwc=992 Opiate test includes urine (test code = ng/mL Codeine, Morphine, 07775-9) Hydromorphone, Hydrocodone. Oxycodone/oxymorph Negative Xsyixw=645 Test incl udes Oxycodone and one, urine (test ng/mL Oxymorphone code = 04400-8) Phencyclidine Negative Cutoff=25 screen, urine ng/mL (test code = 3936-2) Methadone screen, Negative Ecjlvr=418 urine (test code = ng/mL 98306-3) Propoxyphene Negative Avcfzb=396 screen, urine ng/mL (test code = 83827-6) Meperidine screen, Negative Eixtye=357 This test was developed and urine (test code = ng/mL its perfo rmance 3746-5) characteristics determined by [facility]. It has not been cleared or appr ovedby the Food and Drug Administration. Fentanyl, urine Negative Nnjajm=3378 Test include s Fentanyl and (test code = pg/mL NorfentanylThis test was 70091-7) developed and i ts performance characteristics determined by [facility]. It has not been cleared or appr ovedby the Food and Drug Administration. TRAMADOL SCREEN, Positive Kcmybu=205 A URINE (test code = ng/mL 96421-8) Creatinine(Board Setter),U 61.8 mg/dL 20-300 (test code = 2161-8) pH, urine (test 7.0 4.5-8.9 code = 2756-5) Please note (test Comment This assay provides a code = 3146356) preliminary unconfirmed analytical test result that may be suitable for clinical manage ment of patientsin cert ain situations. Ronald g-test results should be interpretedin t he context of clinical inf ormation. Patient metabol icvariables, specific drug c hemistry, and specimencha racteristics can affect test outcome. Technical consu ltationis available if a test result is inconsistent with an expectedoutcome . ([email or web address] or call [phone]) JUDY (test code = Performed at: JUDY) - [facility] [id number] [facility], [place], [place] [id number] Director: Micaela Abad PhD, Phone: [phone] Lab Interpretation Abnormal (test code = 62529-2) Leonard EscamillaC-reactive [id number] 10:10:00 Test Item Value Reference Range Interpretation Comments CRP (test code = <1 0-10 1987-) JUDY (test code = Performed at: - JUDY) [facility] [address] [id number] Director: Anson Land MD, Phone: [phone] [place] [facility] [id number] 06:09:00 Test Item Value Reference Range Interpretation Comments Sedimentation rate (test 3 0- 40 mm/hr code = 4537-7) JUDY (test code = JUDY) Performed at: - [facility] [address] [id number] Director: Anson Land MD, Phone: [phone] [facility] [id number] 05:01:00 Test Item Value Reference Range Interpretation Comments SODIUM (BEAKER) 143 meq/L 135-148 (test code = 381) POTASSIUM (BEAKER) 3.2 meq/L 3.6-5.5 L (test code = 379) CHLORIDE (BEAKER) 103 meq/L 98-106 (test code = 382) CO2 (BEAKER) (test 28 meq/L 20-29 code = 355) BLOOD UREA NITROGEN 26 mg/dL 10-26 (BEAKER) (test code = 354) CREATININE (BEAKER) 1.30 mg/dL 0.50-1.20 H (test code = 358) GLUCOSE RANDOM 80 mg/dL 70-110 (BEAKER) (test code = 652) CALCIUM (BEAKER) 8.1 mg/dL 8.5-10.5 L (test code = 697) EGFR (BEAKER) (test 41 mL/min/1.73 ESTIMA DULCE MARIA GFR IS code = 1092) sq m NOT ACCURATE CREATININE CLEARANCE IN PREDICTING GLOMERULAR FILTRATION RATE . ESTIMATED GFR I S NOT APPLICABLE FOR DIALYSIS PATIEN TS. CBC W/PLT COUNT & AUTO [id number] 04:46:00 Test Item Value Reference Range Interpretation Comments WHITE BLOOD CELL COUNT (BEAKER) 12.8 K/ L 4.0-10.0 H (test code = 775) RED BLOOD CELL COUNT (BEAKER) 3.07 M/ L 4.00-5.00 L (test code = 761) HEMOGLOBIN (BEAKER) (test code = 9.5 GM/DL 12.0-15.0 L 410) HEMATOCRIT (BEAKER) (test code = 28.7 % 36.0-45.0 L 411) MEAN CORPUSCULAR VOLUME (BEAKER) 93.5 fL 82.0-99.0 (test code = 753) MEAN CORPUSCULAR HEMOGLOBIN 30.9 pg 27.0-33.0 (BEAKER) (test code = 751) MEAN CORPUSCULAR HEMOGLOBIN CONC 33.1 GM/DL 32.0-36.0 (BEAKER) (test code = 752) RED CELL DISTRIBUTION WIDTH 14.6 % 10.3-14.2 H (BEAKER) (test code = 412) PLATELET COUNT (BEAKER) (test 305 K/CU MM 150-430 code = 756) MEAN PLATELET VOLUME (BEAKER) 8.4 fL 6.5-10.5 (test code = 754) NUCLEATED RED BLOOD CELLS 0 /100 WBC 0-0 (BEAKER) (test code = 413) NEUTROPHILS RELATIVE PERCENT 79 % (BEAKER) (test code = 429) LYMPHOCYTES RELATIVE PERCENT 13 % (BEAKER) (test code = 430) MONOCYTES RELATIVE PERCENT 7 % (BEAKER) (test code = 431) EOSINOPHILS RELATIVE PERCENT 1 % (BEAKER) (test code = 432) BASOPHILS RELATIVE PERCENT 0 % (BEAKER) (test code = 437) NEUTROPHILS ABSOLUTE COUNT 10.10 K/ L 1.80-8.00 H (BEAKER) (test code = 670) LYMPHOCYTES ABSOLUTE COUNT 1.60 K/ L 1.48-4.50 (BEAKER) (test code = 414) MONOCYTES ABSOLUTE COUNT (BEAKER) 0.90 K/ L 0.00-1.30 (test code = 415) EOSINOPHILS ABSOLUTE COUNT 0.10 K/ L 0.00-0.50 (BEAKER) (test code = 416) BASOPHILS ABSOLUTE COUNT (BEAKER) 0.00 K/ L 0.00-0.20 (test code = 417) TISSUE [id number] 10:51:00Surgical Pathology Report Case: [id number] Authorizing Provider: Real Drake, Collected: 07/27/2017 Jitendra GUZMAN Ordering Location: [facility] PERIOPERATIVE Received: 07/28/2017 1207 SERVICES Pathologist: Priyanka Lynne MD Specimens: A) - Disc L3-4, L3-L4 B) - Disc L4-5, L4-L5 A. LUMBAR DISC, L3-L4, DISCECTOMY: - FIBROCARTILAGENOUS TISSUE WITH CALCIFICATION, CRYSTAL DEPOSITION AND DEGENERATIVE CHANGESB. LUMBAR DISC, L4-L5, DISCECTOMY: - FIBROCARTILAGENOUS TISSUE WITH CALCIFICATION AND DEGENERATIVE CHANGES [address] [id number] A. Lumbar L3-L4; B. Lumbar L4-Z7Vpswbejg A is received in fixative and designated [...] isentirely submitted into B1. MG/pl A-B: Performed [facility], Department of Pathology, [address] [place] [address], Vfccdb [facility] Department of Pathology, [address] [place] [address], [facility] of [facility], [address] [place] [address], IVE W/PLT COUNT & AUTO [id number] 05:42:00 Test Item Value Reference Range Interpretation Comments WHITE BLOOD CELL COUNT (BEAKER) 14.2 K/ L 4.0-10.0 H (test code = 775) RED BLOOD CELL COUNT (BEAKER) 3.16 M/ L 4.00-5.00 L (test code = 761) HEMOGLOBIN (BEAKER) (test code = 9.7 GM/DL 12.0-15.0 L 410) HEMATOCRIT (BEAKER) (test code = 29.5 % 36.0-45.0 L 411) MEAN CORPUSCULAR VOLUME (BEAKER) 93.2 fL 82.0-99.0 (test code = 753) MEAN CORPUSCULAR HEMOGLOBIN 30.7 pg 27.0-33.0 (BEAKER) (test code = 751) MEAN CORPUSCULAR HEMOGLOBIN CONC 32.9 GM/DL 32.0-36.0 (BEAKER) (test code = 752) RED CELL DISTRIBUTION WIDTH 14.9 % 10.3-14.2 H (BEAKER) (test code = 412) PLATELET COUNT (BEAKER) (test 280 K/CU MM 150-430 code = 756) MEAN PLATELET VOLUME (BEAKER) 8.0 fL 6.5-10.5 (test code = 754) NUCLEATED RED BLOOD CELLS 0 /100 WBC 0-0 (BEAKER) (test code = 413) NEUTROPHILS RELATIVE PERCENT 86 % (BEAKER) (test code = 429) LYMPHOCYTES RELATIVE PERCENT 9 % (BEAKER) (test code = 430) MONOCYTES RELATIVE PERCENT 5 % (BEAKER) (test code = 431) EOSINOPHILS RELATIVE PERCENT 0 % (BEAKER) (test code = 432) BASOPHILS RELATIVE PERCENT 0 % (BEAKER) (test code = 437) NEUTROPHILS ABSOLUTE COUNT 12.20 K/ L 1.80-8.00 H (BEAKER) (test code = 670) LYMPHOCYTES ABSOLUTE COUNT 1.20 K/ L 1.48-4.50 L (BEAKER) (test code = 414) MONOCYTES ABSOLUTE COUNT (BEAKER) 0.70 K/ L 0.00-1.30 (test code = 415) EOSINOPHILS ABSOLUTE COUNT 0.10 K/ L 0.00-0.50 (BEAKER) (test code = 416) BASOPHILS ABSOLUTE COUNT (BEAKER) 0.00 K/ L 0.00-0.20 (test code = 417) BASIC METABOLIC [id number] 05:40:00 Test Item Value Reference Range Interpretation Comments SODIUM (BEAKER) 143 meq/L 135-148 (test code = 381) POTASSIUM (BEAKER) 3.8 meq/L 3.6-5.5 (test code = 379) CHLORIDE (BEAKER) 107 meq/L 98-106 H (test code = 382) CO2 (BEAKER) (test 26 meq/L 20-29 code = 355) BLOOD UREA NITROGEN 22 mg/dL 10-26 (BEAKER) (test code = 354) CREATININE (BEAKER) 1.20 mg/dL 0.50-1.20 (test code = 358) GLUCOSE RANDOM 96 mg/dL 70-110 (BEAKER) (test code = 652) CALCIUM (BEAKER) 8.3 mg/dL 8.5-10.5 L (test code = 697) EGFR (BEAKER) (test 45 mL/min/1.73 ESTIMA DULCE MARIA GFR IS code = 1092) sq m NOT ACCURATE CREATININE CLEARANCE IN PREDICTING GLOMERULAR FILTRATION RATE . ESTIMATED GFR I S NOT APPLICABLE FOR DIALYSIS PATIEN TS. CBC W/PLT COUNT & AUTO [id number] 05:15:00 Test Item Value Reference Range Interpretation Comments WHITE BLOOD CELL COUNT (BEAKER) 9.4 K/ L 4.0-10.0 (test code = 775) RED BLOOD CELL COUNT (BEAKER) 3.64 M/ L 4.00-5.00 L (test code = 761) HEMOGLOBIN (BEAKER) (test code = 11.3 GM/DL 12.0-15.0 L 410) HEMATOCRIT (BEAKER) (test code = 33.9 % 36.0-45.0 L 411) MEAN CORPUSCULAR VOLUME (BEAKER) 93.2 fL 82.0-99.0 (test code = 753) MEAN CORPUSCULAR HEMOGLOBIN 31.1 pg 27.0-33.0 (BEAKER) (test code = 751) MEAN CORPUSCULAR HEMOGLOBIN CONC 33.3 GM/DL 32.0-36.0 (BEAKER) (test code = 752) RED CELL DISTRIBUTION WIDTH 14.5 % 10.3-14.2 H (BEAKER) (test code = 412) PLATELET COUNT (BEAKER) (test 265 K/CU MM 150-430 code = 756) MEAN PLATELET VOLUME (BEAKER) 8.4 fL 6.5-10.5 (test code = 754) NUCLEATED RED BLOOD CELLS 0 /100 WBC 0-0 (BEAKER) (test code = 413) NEUTROPHILS RELATIVE PERCENT 97 % (BEAKER) (test code = 429) LYMPHOCYTES RELATIVE PERCENT 3 % (BEAKER) (test code = 430) MONOCYTES RELATIVE PERCENT 1 % (BEAKER) (test code = 431) EOSINOPHILS RELATIVE PERCENT 0 % (BEAKER) (test code = 432) BASOPHILS RELATIVE PERCENT 0 % (BEAKER) (test code = 437) NEUTROPHILS ABSOLUTE COUNT 9.10 K/ L 1.80-8.00 H (BEAKER) (test code = 670) LYMPHOCYTES ABSOLUTE COUNT 0.20 K/ L 1.48-4.50 L (BEAKER) (test code = 414) MONOCYTES ABSOLUTE COUNT (BEAKER) 0.10 K/ L 0.00-1.30 (test code = 415) EOSINOPHILS ABSOLUTE COUNT 0.00 K/ L 0.00-0.50 (BEAKER) (test code = 416) BASOPHILS ABSOLUTE COUNT (BEAKER) 0.00 K/ L 0.00-0.20 (test code = 417) BASIC METABOLIC [id number] 05:05:00 Test Item Value Reference Range Interpretation Comments SODIUM (BEAKER) 142 meq/L 135-148 (test code = 381) POTASSIUM (BEAKER) 4.2 meq/L 3.6-5.5 (test code = 379) CHLORIDE (BEAKER) 111 meq/L 98-106 H (test code = 382) CO2 (BEAKER) (test 17 meq/L 20-29 L code = 355) BLOOD UREA NITROGEN 15 mg/dL 10-26 (BEAKER) (test code = 354) CREATININE (BEAKER) 0.80 mg/dL 0.50-1.20 (test code = 358) GLUCOSE RANDOM 211 mg/dL 70-110 H (BEAKER) (test code = 652) CALCIUM (BEAKER) 8.3 mg/dL 8.5-10.5 L (test code = 697) EGFR (BEAKER) (test 71 mL/min/1.73 ESTIMA DULCE MARIA GFR IS code = 1092) sq m NOT ACCURATE CREATININE CLEARANCE IN PREDICTING GLOMERULAR FILTRATION RATE . ESTIMATED GFR I S NOT APPLICABLE FOR DIALYSIS PATIEN TS. FL, PARTNER IN OR/30 MINUTE [id number] 20:23:00Reason for exam:- >intra opFINAL REPORT Examination: Intraoperative evaluation 9 fluoroscopic spot views were obtained during the procedure by the ordering service. Images are nondiagnostic as no radiologist was present at the time of imaging. Fluoroscopic time was 145.5 seconds. Please see the procedure report for details. Signed: Mg May MDReport Verified Date/Time: 07/27/2017 20:23:41 Reading Location: [address] Reading Room Electronically signed by: MG MAY M.D.on 07/27/2017 08:23 PMHEMOGLOBIN AND [id number] 17:50:00 Test Item Value Reference Range Interpretation Comments HEMOGLOBIN (BEAKER) (test code = 12.6 GM/DL 12.0-15.0 410) HEMATOCRIT (BEAKER) (test code = 38.4 % 36.0-45.0 411) RAD, CHEST, 2 [id number] 13:59:00Reason for exam:->preopFINAL REPORT INDICATION: preop COMPARISON: [...] acute pulmonary or cardiac abnormality. Signed: Arabella Bess MDReport Verified Date/Time: 07/12/2017 13:59:12 Reading Location: [facility] Diagnostic Imaging Reading Room - [place] [address] COMPREHENSIVE METABOLIC [id number] 13:14:00 Test Item Value Reference Range Interpretation Comments TOTAL PROTEIN 6.6 gm/dL 6.0-8.5 (BEAKER) (test code = 770) ALBUMIN (BEAKER) 4.1 g/dL 3.5-5.0 (test code = 1145) ALKALINE PHOSPHATASE 122 U/L 30-115 H (BEAKER) (test code = 346) BILIRUBIN TOTAL 0.5 mg/dL 0.1-1.2 (BEAKER) (test code = 377) SODIUM (BEAKER) (test 145 meq/L 135-148 code = 381) POTASSIUM (BEAKER) 4.1 meq/L 3.6-5.5 (test code = 379) CHLORIDE (BEAKER) 109 meq/L 98-106 H (test code = 382) CO2 (BEAKER) (test 25 meq/L 20-29 code = 355) BLOOD UREA NITROGEN 21 mg/dL 10-26 (BEAKER) (test code = 354) CREATININE (BEAKER) 0.80 mg/dL 0.50-1.20 (test code = 358) GLUCOSE RANDOM 95 mg/dL 70-110 (BEAKER) (test code = 652) CALCIUM (BEAKER) 9.4 mg/dL 8.5-10.5 (test code = 697) AST (SGOT) (BEAKER) 32 U/L 5-40 (test code = 353) ALT (SGPT) (BEAKER) 40 U/L 5-50 (test code = 347) EGFR (BEAKER) (test 71 mL/min/1.73 ESTIMA DULCE MARIA GFR IS code = 1092) sq m NOT ACCURATE CREATININE CLEARANCE IN PREDICTING GLOMERULAR FILTRATION RATE . ESTIMATED GFR I S NOT APPLICABLE FOR DIALYSIS PATIEN TS. [id number] 13:01:00 Test Item Value Reference Range Interpretation Comments PROTIME (BEAKER) (test code = 10.7 seconds 9.3-12.0 759) INR (BEAKER) (test code = 370) 1.0 <=5.9 PARTIAL THROMBOPLASTIN TIME 23.5 seconds 23.0-35.0 (BEAKER) (test code = 760) RECOMMENDED COUMADIN/WARFARIN INR THERAPY RANGESSTANDARD DOSE: 2.0 - 3.0 Includes: PROPHYLAXIS forvenous thrombosis, systemic embolization; TREATMENT for venous thrombosis and/or pulmonary embolus.HIGH RISK: Target INR is 2.5-3.5 for patients with mechanical heart valves.CBC W/PLT COUNT & AUTO DIFFERENTIAL 2017-07-12 12:51:00 Test Item Value Reference Range Interpretation Comments WHITE BLOOD CELL COUNT (BEAKER) 15.5 K/ L 4.0-10.0 H (test code = 775) RED BLOOD CELL COUNT (BEAKER) 4.25 M/ L 4.00-5.00 (test code = 761) HEMOGLOBIN (BEAKER) (test code = 13.3 GM/DL 12.0-15.0 410) HEMATOCRIT (BEAKER) (test code = 40.3 % 36.0-45.0 411) MEAN CORPUSCULAR VOLUME (BEAKER) 94.9 fL 82.0-99.0 (test code = 753) MEAN CORPUSCULAR HEMOGLOBIN 31.2 pg 27.0-33.0 (BEAKER) (test code = 751) MEAN CORPUSCULAR HEMOGLOBIN CONC 32.9 GM/DL 32.0-36.0 (BEAKER) (test code = 752) RED CELL DISTRIBUTION WIDTH 15.5 % 10.3-14.2 H (BEAKER) (test code = 412) PLATELET COUNT (BEAKER) (test 294 K/CU MM 150-430 code = 756) MEAN PLATELET VOLUME (BEAKER) 8.9 fL 6.5-10.5 (test code = 754) NUCLEATED RED BLOOD CELLS 0 /100 WBC 0-0 (BEAKER) (test code = 413) NEUTROPHILS RELATIVE PERCENT 93 % (BEAKER) (test code = 429) LYMPHOCYTES RELATIVE PERCENT 4 % (BEAKER) (test code = 430) MONOCYTES RELATIVE PERCENT 3 % (BEAKER) (test code = 431) EOSINOPHILS RELATIVE PERCENT 0 % (BEAKER) (test code = 432) BASOPHILS RELATIVE PERCENT 0 % (BEAKER) (test code = 437) NEUTROPHILS ABSOLUTE COUNT 14.40 K/ L 1.80-8.00 H (BEAKER) (test code = 670) LYMPHOCYTES ABSOLUTE COUNT 0.60 K/ L 1.48-4.50 L (BEAKER) (test code = 414) MONOCYTES ABSOLUTE COUNT (BEAKER) 0.50 K/ L 0.00-1.30 (test code = 415) EOSINOPHILS ABSOLUTE COUNT 0.00 K/ L 0.00-0.50 (BEAKER) (test code = 416) BASOPHILS ABSOLUTE COUNT (BEAKER) 0.00 K/ L 0.00-0.20 (test code = 417) URINALYSIS W/ [id number] 12:12:00 Test Item Value Reference Range Interpretation Comments COLOR (BEAKER) (test code = Yellow 470) CLARITY (BEAKER) (test code = Slightly Cloudy 469) SPECIFIC GRAVITY UA (BEAKER) 1.020 1.001-1.035 (test code = 468) PH UA (BEAKER) (test code = 6.5 5.0-8.0 467) PROTEIN UA (BEAKER) (test Negative Negative code = 464) GLUCOSE UA (BEAKER) (test Negative Negative code = 365) KETONES UA (BEAKER) (test Trace Negative A code = 371) BILIRUBIN UA (BEAKER) (test Negative Negative code = 462) BLOOD UA (BEAKER) (test code Negative Negative = 461) NITRITE UA (BEAKER) (test Negative Negative code = 465) LEUKOCYTE ESTERASE UA Small Negative A (BEAKER) (test code = 466) UROBILINOGEN UA (BEAKER) 4.0 mg/dL 0.2-1.0 H (test code = 463) BACTERIA (BEAKER) (test code Moderate = 517) RBC UA-MANUAL (BEAKER) (test 5-10 /HPF code = 1659) WBC UA-MANUAL (BEAKER) (test 10-20 /HPF code = 1661) SQUAMOUS EPITHELIAL MANUAL 10-20 /HPF (BEAKER) (test code = 1663) SOURCE(BEAKER) (test code = 2795) BASIC METABOLIC [id number] 00:55:00 Test Item Value Reference Range Interpretation Comments SODIUM (BEAKER) 145 meq/L 135-148 (test code = 381) POTASSIUM (BEAKER) 3.3 meq/L 3.6-5.5 L (test code = 379) CHLORIDE (BEAKER) 112 meq/L 98-106 H (test code = 382) CO2 (BEAKER) (test 18 meq/L 20-29 L code = 355) BLOOD UREA NITROGEN 21 mg/dL 10-26 (BEAKER) (test code = 354) CREATININE (BEAKER) 1.10 mg/dL 0.50-1.20 (test code = 358) GLUCOSE RANDOM 80 mg/dL 70-110 (BEAKER) (test code = 652) CALCIUM (BEAKER) 9.2 mg/dL 8.5-10.5 (test code = 697) EGFR (BEAKER) (test 50 mL/min/1.73 ESTIMA DULCE MARIA GFR IS code = 1092) sq m NOT ACCURATE CREATININE CLEARANCE IN PREDICTING GLOMERULAR FILTRATION RATE . ESTIMATED GFR I S NOT APPLICABLE FOR DIALYSIS PATIEN TS. [id number] 00:49:00 Test Item Value Reference Range Interpretation Comments PHOSPHORUS (BEAKER) (test code = 3.6 mg/dL 2.5-4.5 604) CBC W/PLT COUNT & AUTO [id number] 00:46:00 Test Item Value Reference Range Interpretation Comments WHITE BLOOD CELL COUNT (BEAKER) 8.5 K/ L 4.0-10.0 (test code = 775) RED BLOOD CELL COUNT (BEAKER) 3.97 M/ L 4.00-5.00 L (test code = 761) HEMOGLOBIN (BEAKER) (test code = 11.2 GM/DL 12.0-15.0 L 410) HEMATOCRIT (BEAKER) (test code = 35.6 % 36.0-45.0 L 411) MEAN CORPUSCULAR VOLUME (BEAKER) 89.5 fL 82.0-99.0 (test code = 753) MEAN CORPUSCULAR HEMOGLOBIN 28.3 pg 27.0-33.0 (BEAKER) (test code = 751) MEAN CORPUSCULAR HEMOGLOBIN CONC 31.6 GM/DL 32.0-36.0 L (BEAKER) (test code = 752) RED CELL DISTRIBUTION WIDTH 16.0 % 10.3-14.2 H (BEAKER) (test code = 412) PLATELET COUNT (BEAKER) (test 258 K/CU MM 150-430 code = 756) MEAN PLATELET VOLUME (BEAKER) 9.4 fL 6.5-10.5 (test code = 754) NUCLEATED RED BLOOD CELLS 0 /100 WBC 0-0 (BEAKER) (test code = 413) NEUTROPHILS RELATIVE PERCENT 84 % (BEAKER) (test code = 429) LYMPHOCYTES RELATIVE PERCENT 10 % (BEAKER) (test code = 430) MONOCYTES RELATIVE PERCENT 5 % (BEAKER) (test code = 431) EOSINOPHILS RELATIVE PERCENT 1 % (BEAKER) (test code = 432) BASOPHILS RELATIVE PERCENT 0 % (BEAKER) (test code = 437) NEUTROPHILS ABSOLUTE COUNT 7.10 K/ L 1.80-8.00 (BEAKER) (test code = 670) LYMPHOCYTES ABSOLUTE COUNT 0.80 K/ L 1.48-4.50 L (BEAKER) (test code = 414) MONOCYTES ABSOLUTE COUNT (BEAKER) 0.40 K/ L 0.00-1.30 (test code = 415) EOSINOPHILS ABSOLUTE COUNT 0.10 K/ L 0.00-0.50 (BEAKER) (test code = 416) BASOPHILS ABSOLUTE COUNT (BEAKER) 0.00 K/ L 0.00-0.20 (test code = 417) [id number] 00:44:00 Test Item Value Reference Range Interpretation Comments MAGNESIUM (BEAKER) (test code = 2.0 mg/dL 1.5-3.0 627) PROTHROMBIN [id number] 00:44:00 Test Item Value Reference Range Interpretation Comments PROTIME (BEAKER) (test code = 10.6 seconds 9.3-12.0 759) INR ([place]) (test code = 370) 1.0 <=5.9 RECOMMENDED COUMADIN/WARFARIN INR THERAPY RANGESSTANDARD DOSE: 2.0 - 3.0 Includes: PROPHYLAXIS forvenous thrombosis, systemic embolization; TREATMENT for venous thrombosis and/or pulmonary embolus.HIGH RISK: Target INR is 2.5-3.5 for patients with mechanical heart valves.
[2020-08-11] MEDS ORDERED: ONDANSETRON 4 MG/2 ML VIAL ONE (19:31)
[2020-08-11] MEDS ORDERED: MORPHINE 4 MG/ML SYR ONE (19:31)
[2020-08-11 19:41] LABS: Albumin 2.9 g/dL (3.4-5.0); Bilirubin Total 1.3 mg/dL (0.2-1.0); Potassium 3.4 mmol/L (3.5-5.1); Protein, Total 6.9 g/dL (6.4-8.2)
[2020-08-11] MEDS ORDERED: NA CHLORIDE 0.9% 1,000 ML ONE (20:09)
[2020-08-11 20:13] LABS: Absolute Lymphocytes (CBC) 0.3 K/uL (0.7-4.9); Basophils % 0.4 % (0-1.3)
[2020-08-11 21:08] LABS: Blood Morphology Comment NOT SEEN (NOT SEEN); Platelet Estimate DECR
[2020-08-11] MEDS ORDERED: CEFTRIAXONE/SWI 1gm 0 GM/0 ML SYR ONE (23:10)
[2020-08-11] MEDS ORDERED: NA CHLORIDE 0.9% 250 ML ONE (23:10)
[2020-08-11] MEDS ORDERED: AZITHROMYCIN 500 MG INJ IVPB ONE (23:10)
--- NOTE | 2020-08-11 23:15 | ER ---
Nurse's Notes [facility] Name: Deborah Garcia Age: 70 yrs Sex: Female : 1950 Arrival Date: 08/11/2020 Time: 18:24 Bed 2 Private MD: Diagnosis: Multiple fractures of ribs, left side;Fall on same level from slipping, tripping and stumbling;Pneumonia, unspecified organism Presentation: 08/11 18:33 Chief complaint: Patient states: Shortness of breath after a fall a week ago. Pt c/o ss pain to L side of ribs. Coronavirus screen: Client presents with at least one sign or symptom that may indicate coronavirus-19. Standard/surgical mask placed on the client. Provider contacted for isolation considerations. Ebola Screen: Patient denies exposure to infectious person. Patient denies travel to an Ebola-affected area in the 21 days before illness onset. Initial Sepsis Screen: Does the patient meet any 2 criteria? No. Patient's initial sepsis screen is negative. Does the patient have a suspected source of infection? No. Patient's initial sepsis screen is negative. Risk Assessment: Do you want to hurt yourself or someone else? Patient reports no desire to harm self or others. Onset of symptoms was August 04, 2020. 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 - Social history:: Smoking status: Patient denies any tobacco usage or history of. Screenin:43 Abuse screen: Denies threats or abuse. Nutritional screening: No deficits noted. tw2 Tuberculosis screening: No symptoms or risk factors identified. Fall Risk Secondary diagnosis (15 points) impaired mobility. Assessment: 18:42 Reassessment: provider at bedside at this time. tw2 20:49 Reassessment: Patient appears in no apparent distress at this time. pt requesting PO sg water, pt encouraged to please wait until CT scan per provider order, pt to continue to use the lemon glycerin mouth swabs at bedside. 21:11 Reassessment: Patient appears in no apparent distress at this time. Patient and/or sg family updated on plan of care and expected duration. Pain level reassessed. Patient is alert, oriented x 3, equal unlabored respirations, skin warm/dry/pink. Fercho bacteriology technician informed pt has finished IVF at this time, awaiting CT scan, will continue to monitor. 22:18 Reassessment: pt room air sat noted to be 88 percent, while ambulating from wheelchair sg to restroom, pt states having shortness of breath, placed to o2 via NC on 2 lpm, pt reports feeling better, o2 saturation noted to be 97 percent with NC. Vital Signs: 18:33 Pulse 81; Resp 29; Temp 98.1(TE); Pulse Ox 95% on R/A; Weight 54.43 kg; ss 18:38 BP 165 / 87; ss 19:18 BP 183 / 89; Pulse 85; Resp 22; Pulse Ox 99% ; Pain 10/10; rr5 20:45 BP 163 / 71; Pulse 87; Resp 20; Pulse Ox 99% on R/A; sg 08/12 00:04 BP 158 / 86; Pulse 90; Resp 16; Temp 98.1; Pulse Ox 97% on R/A; sg ED Course: 08/11 18:24 Patient arrived in ED. ds1 18:36 Triage completed. ss 18:36 Arm band placed on right wrist. ss 18:39 Bed in low position. Call light in reach. Pulse ox on. NIBP on. tw2 18:40 Zhen Dominguez NP is PHCP. pm1 18:40 Antonio Astudillo MD is Attending Physician. pm1 18:55 Report given to BRE Freeman and AlexxRN. tw2 19:16 Alexx Rivera, RN is Primary Nurse. sg 19:17 Inserted saline lock: 20 gauge in right antecubital area, using aseptic technique. oe Blood collected. 21:50 Chest Abdomen Pelvis W Con CT In Process Unspecified. EDMS 22:18 COVID swab sent to lab. Flu and/or RSV swab sent to lab. sg 23:15 Katie Shukla MD is Hospitalizing Provider. pm1 23:20 patient's [phone]. mw2 23:25 Inserted saline lock: 20 gauge in right hand, using aseptic technique. Blood collected. rr5 23:25 First set of blood cultures drawn by me. rr5 Administered Medications: 19:20 Drug: Zofran (Ondansetron) 4 mg Route: IVP; Site: right antecubital; rr5 20:00 Follow up: Response: No adverse reaction sg 19:22 Drug: morphine 4 mg {Note: rass 0.} Route: IVP; Site: right antecubital; rr5 20:00 Follow up: Response: No adverse reaction; Pain is decreased sg 20:00 Drug: NS 0.9% 1000 ml Route: IV; Rate: 1000 ml; Site: right antecubital; sg 21:10 Follow up: Response: No adverse reaction; IV Status: Completed infusion; IV Intake: sg 1000ml 23:12 Not Given (Physician Discretion): Rocephin 1 grams IV at calculated rate once; Given pm1 slow IV push per pharmacy instructions 23:12 Not Given (Physician Discretion): AZITHromycin 500 mg IVPB once over 1 hrs; (mix in 250 pm1 mL NS) 23:33 Drug: LevaQUIN 500 mg Volume: 100 ml; Route: IVPB; Infused Over: 60 mins; Site: right rr5 hand; 12 00:16 Drug: HydroCORTISONE 100 mg Route: IVP; Site: right antecubital; sg 00:22 Follow up: Response: No adverse reaction sg 00:16 Drug: morphine 4 mg Route: IVP; Site: right antecubital; sg 00:22 Follow up: Response: No adverse reaction sg Intake: 08/11 21:10 IV: 1000ml; Total: 1000ml. sg Outcome: 23:15 Decision to Hospitalize by Provider. pm1 08/12 00:21 Admitted to Med/surg accompanied by tech, via stretcher, room 404, with chart, Report sg called to Naima DÍAZ Condition: stable Instructed on the need for admit, safety practices. 00:30 Patient left the ED. sg Signatures: Dispatcher [employer] EDMS Alexx Rivera RN RN sg Helena Gr ds1 Rocio Petty RN RN ss Zhen Dominguez, [employer] STE[employer]ILER FIREMAN pm1 Amelie Jenkins RN RN 2 Anthony Gonzalez MyKena mw2 Pete Laurent, RN RN rr5 Corrections: (The following items were deleted from the chart) 08/11 20:46 20:45 BP 136 / 71; Pulse 87bpm; Resp 20bpm; Pulse Ox 99% RA; sg sg
--- NOTE | 2020-08-11 23:15 | EDPHYS ---
Physician Documentation [facility] Name: Deborah Garcia Age: 70 yrs Sex: Female : 1950 Arrival Date: 08/11/2020 Time: 18:24 Bed 2 Private MD: ED Physician Antonio Astudillo HPI: 08/11 18:59 This 70 yrs old Female presents to ER via Wheelchair with complaints of pm1 Breathing Difficulty. 18:59 The patient has shortness of breath with light activity. Onset: The symptoms/episode pm1 began/occurred 1 week(s) ago. Duration: The symptoms are continuous. The patient's shortness of breath is aggravated by exertion, is alleviated by nothing. Associated signs and symptoms: Pertinent positives: Left sided rib pain. Severity of symptoms: in the emergency department the symptoms are worse. The patient has not experienced similar symptoms in the past. Patient with fall injury 1 week ago. Patient possibly fell on her left arm against her left side of her chest. No headache, neck pain, LOC. 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 - Social history:: Smoking status: Patient denies any tobacco usage or history of. ROS: 18:47 Constitutional: Negative for fever, chills, and weight loss, Eyes: Negative for injury, pm1 pain, redness, and discharge, ENT: Negative for injury, pain, and discharge, Neck: Negative for injury, pain, and swelling, Abdomen/GI: Negative for abdominal pain, nausea, vomiting, diarrhea, and constipation. 18:47 Cardiovascular: Negative for chest pain, palpitations, and edema. 18:47 Back: Negative for injury and pain, MS/Extremity: Negative for injury and deformity, Skin: Negative for injury, rash, and discoloration. 18:47 Neuro: Negative for headache, weakness, numbness, tingling, and seizure. 18:47 Respiratory: Positive for shortness of breath, Pain to left lower rib area with palpation, cough, and deep breathing. Exam: 18:47 Head/Face: Normocephalic, atraumatic. Eyes: Pupils equal round and reactive to light, pm1 extra-ocular motions intact. Lids and lashes normal. Conjunctiva and sclera are non-icteric and not injected. Cornea within normal limits. Periorbital areas with no swelling, redness, or edema. ENT: Nares patent. No nasal discharge, no septal abnormalities noted. Tympanic membranes are normal and external auditory canals are clear. Oropharynx with no redness, swelling, or masses, exudates, or evidence of obstruction, uvula midline. Mucous membranes moist. Neck: Trachea midline, no thyromegaly or masses palpated, and no cervical lymphadenopathy. Supple, full range of motion without nuchal rigidity, or vertebral point tenderness. No Meningismus. 18:47 Back: No spinal tenderness. No costovertebral tenderness. Full range of motion. MS/ Extremity: Pulses equal, no cyanosis. Neurovascular intact. Full, normal range of motion. 18:47 Constitutional: The patient appears alert, awake, non-diaphoretic, non-toxic, well developed, well hydrated, well groomed, well nourished, in obvious pain. 18:47 Chest/axilla: Inspection: normal, Palpation: crepitus, is not appreciated, tenderness, of the anterior aspect of chest below left breast and lateral aspect. 18:47 Cardiovascular: Exam negative for acute changes, Rate: normal, Rhythm: regular, Pulses: no pulse deficits are appreciated. 18:47 Respiratory: Exam negative for acute changes, the patient does not display signs of respiratory distress, Breath sounds: are clear throughout. 18:47 Abdomen/GI: Inspection: abdomen appears normal, Palpation: abdomen is soft and non-tender, in all quadrants. 18:47 Skin: Appearance: normal except for affected area, ecchymosis, that are mild, of the left antecubital area. 18:47 Neuro: Exam negative for acute changes, Orientation: is normal, Mentation: is normal, Motor: is normal, moves all fours. Vital Signs: 18:33 Pulse 81; Resp 29; Temp 98.1(TE); Pulse Ox 95% on R/A; Weight 54.43 kg; ss 18:38 BP 165 / 87; ss 19:18 BP 183 / 89; Pulse 85; Resp 22; Pulse Ox 99% ; Pain 10/10; rr5 20:45 BP 163 / 71; Pulse 87; Resp 20; Pulse Ox 99% on R/A; sg 08/12 00:04 BP 158 / 86; Pulse 90; Resp 16; Temp 98.1; Pulse Ox 97% on R/A; sg MDM: 08/11 18:46 Patient medically screened. pm1 23:11 Data reviewed: vital signs. pm1 23:12 Physician consultation: Katie Shukla MD was contacted at 23:13, regarding admission, pm1 patient's condition, would like medications started, Levaquin, stop Rocephin and azithromycin, in the emergency department to see patient at 23:13. 23:12 Counseling: I had a detailed discussion with the patient and/or guardian regarding: the pm1 historical points, exam findings, and any diagnostic results supporting the discharge/admit diagnosis, lab results, radiology results, the need for further work-up and treatment in the hospital. 08/11 18:46 Order name: CBC with Diff; Complete Time: 21:10 pm1 08/11 18:46 Order name: CMP; Complete Time: 19:47 pm1 08/11 20:22 Order name: Manual Differential; Complete Time: 21:10 EDSC 08/11 22:10 Order name: Strep; Complete Time: 23:10 pm1 08/11 22:40 Order name: Procalcitonin pm1 08/11 22:40 Order name: Lactate; Complete Time: 00:04 pm1 08/11 22:40 Order name: Blood Culture Adult (2) pm1 08/11 22:40 Order name: Ferritin; Complete Time: 00:04 pm1 08/11 22:40 Order name: CRP; Complete Time: 00:04 pm1 08/11 23:06 Order name: Throat Culture EDSC 08/11 23:45 Order name: COVID-19/FLU A+B; Complete Time: 23:49 EDMS 08/12 00:18 Order name: CBC with Automated Diff EDSC 08/11 18:46 Order name: Chest Abdomen Pelvis W Con CT pm1 08/12 00:17 Order name: CONS Pharmacy Consult EDSC 08/12 00:17 Order name: CONS Physician Consult EDSC 08/12 00:18 Order name: CBC with Automated Diff EDSC 08/12 00:18 Order name: Comprehensive Metabolic Panel EDSC 08/12 00:18 Order name: Comprehensive Metabolic Panel EDSC 08/12 00:18 Order name: Sputum Culture EDSC 08/12 00:18 Order name: Sputum Gram Stain EDSC 08/11 18:46 Order name: IV Saline Lock; Complete Time: 19:16 pm1 08/12 00:18 Order name: Regular EDMS Administered Medications: 19:20 Drug: Zofran (Ondansetron) 4 mg Route: IVP; Site: right antecubital; rr5 20:00 Follow up: Response: No adverse reaction sg 19:22 Drug: morphine 4 mg {Note: rass 0.} Route: IVP; Site: right antecubital; rr5 20:00 Follow up: Response: No adverse reaction; Pain is decreased sg 20:00 Drug: NS 0.9% 1000 ml Route: IV; Rate: 1000 ml; Site: right antecubital; sg 21:10 Follow up: Response: No adverse reaction; IV Status: Completed infusion; IV Intake: sg 1000ml 23:12 Not Given (Physician Discretion): Rocephin 1 grams IV at calculated rate once; Given pm1 slow IV push per pharmacy instructions 23:12 Not Given (Physician Discretion): AZITHromycin 500 mg IVPB once over 1 hrs; (mix in 250 pm1 mL NS) 23:33 Drug: LevaQUIN 500 mg Volume: 100 ml; Route: IVPB; Infused Over: 60 mins; Site: right rr5 hand; 08/12 00:16 Drug: HydroCORTISONE 100 mg Route: IVP; Site: right antecubital; sg 00:22 Follow up: Response: No adverse reaction sg 00:16 Drug: morphine 4 mg Route: IVP; Site: right antecubital; sg 00:22 Follow up: Response: No adverse reaction sg Disposition: 07:26 Co-signature as Attending Physician, Antonio Astudillo MD I agree with the assessment and kdr plan of care. Disposition: 08/11/20 23:15 Hospitalization ordered by Katie Shukla for Inpatient Admission. Preliminary diagnosis are Pneumonia, unspecified organism, Multiple fractures of ribs, left side, Fall on same level from slipping, tripping and stumbling. - Bed requested for Telemetry/MedSurg (Inpatient). - Status is Inpatient Admission. sg - Condition is Stable. - Problem is new. - Symptoms have improved. Signatures: Dispatcher [employer] EDSC Alexx Rivera, BRE DÍAZ sg Antonio Astudillo MD MD [facility] Rocio Petty RN RN Adelita Harman RN RN cg Zhen Dominguez, CRIMINAL JUSTICE PROFESSOR CRIMINAL JUSTICE PROFESSOR pm1 Pete Laurent, RN RN rr5 Corrections: (The following items were deleted from the chart) 08/11 22:35 22:11 Influenza Screen (A \T\ B)+BA.LAB.BRZ ordered. EDMS EDMS 22:11 CORONAVIRUS+MR.LAB.BRZ ordered. EDSC EDMS 08/12 00:08/11 23:15 Hospitalization Ordered by Katie Shukla MD for Inpatient Admission. cg Preliminary diagnosis is Pneumonia, unspecified organismMultiple fractures of ribs, left side; Fall on same level from slipping, tripping and stumbling. Bed requested for Telemetry/MedSurg (Inpatient). Status is Inpatient Admission. Condition is Stable. Problem is new. Symptoms have improved. pm1 08/12 00:30 00:10 08/11/2020 23:15 Hospitalization Ordered by Katie Shukla MD for Inpatient sg Admission. Preliminary diagnosis is Pneumonia, unspecified organismMultiple fractures of ribs, left side; Fall on same level from slipping, tripping and stumbling. Bed requested for Telemetry/MedSurg (Inpatient). Status is Inpatient Admission. Condition is Stable. Problem is new. Symptoms have improved. cg
[2020-08-11 23:44] LABS: SARS-COV-2 RT PCR POSITIVE (NEGATIVE)
[2020-08-11] MEDS ORDERED: Levofloxacin500mg IV 500 MG/100 ML BAG IV ONE (23:45)
[2020-08-11] MEDS ORDERED: NA CHLORIDE 0.9% 1,000 ML IV SCH (23:45)
--- NOTE | 2020-08-11 23:47 | P.HP ---
Certification for Inpatient With expected LOS: >2 Midnights Patient will require the following post-hospital care: None Practitioner: I am a practitioner with admitting privileges, knowledge of patient current condition, hospital course, and medical plan of care. Services: Services provided to patient in accordance with Admission requirements found in Title 42 Section 412.3 of the Code of Federal Regulations Patient History Date of Service: 08/11/20 Reason for admission: SOB , left rib margin pain History of Present Illness: 70-year-old female with past medical history of SLE, gastric bypass, Mike's disease , who sustained an accidental fall 1 week ago with progressive left rib margin pain which became associated with worsening shortness of breath. She admits to cough but scanty sputum. She admits to fever and chills. She admits to decreased p.o. intake and nausea but denies any vomiting. She denies any diarrhea. She is complaining of generalized body pain and aches. She denies any dysuria flank pain or hematuria. On presentation in the ED she is complain of persistent intense pain. She rates pain at 9/10. She denies any Covid -19 exposure. Allergies warfarin [From Coumadin] Allergy (Unverified 10/31/16 17:03) Unknown Home Medications: Cyclosporine [Restasis] 2 drops EACH EYE PRN 08/22/18 Fludrocortisone [Florinef *] 1 tab PO DAILY 08/22/18 Hydrocortisone [Cortef*] 1 tab PO DAILY 08/22/18 Hydroxychloroquine Sulfate 1 tab PO BID 08/22/18 Iron Fm,Ps No.1/Folic/Mv No.18 [Tandem Plus Capsule] 1 tab PO DAILY 08/22/18 Methotrexate [Methotrexate*] 8 tab PO 08/22/18 Topiramate [Topamax*] 1 tab PO BEDTIME 08/22/18 Zolpidem Tartrate 1 tab PO BEDTIME 08/22/18 - Past Medical/Surgical History Has patient received pneumonia vaccine in the past: No Diabetic: No -: SLE -: Addisons disease -: Gastric bypass, hysterectomy, corneal transplants - Social History Smoking Status: Never smoker Smoking therapy provided: No Alcohol use: No CD- Drugs: No Place of Residence: Home Review of Systems General: Fever, Chills, Weakness, Malaise Eyes: Unremarkable ENT: Unremarkable Respiratory: Cough, Shortness of Breath, SOB with Excertion Cardiovascular: Unremarkable Gastrointestinal: Nausea, Abdominal Pain Genitourinary: Unremarkable Musculoskeletal: Unremarkable Neurological: Weakness, Unremarkable Physical Examination - Vital Signs Blood Pressure: 165/78 - Physical Exam General: In no apparent distress, Oriented x3, Cooperative HEENT: Atraumatic, Normocephalic, PERRLA Neck: Supple, 2+ carotid pulse no bruit, JVD not distended Respiratory: Clear to auscultation bilaterally, Normal air movement Cardiovascular: No edema, Normal pulses, Regular rate/rhythm, Normal S1 S2 Gastrointestinal: Normal bowel sounds, Soft and benign, Non-distended Musculoskeletal: No clubbing, No swelling, No contractures - Studies Laboratory Data (last 24 hrs) 08/11/20 19:55: WBC 13.7 H, Hgb 9.4 L, Hct 30.0 L, Plt Count 39 L* 08/11/20 19:08: Sodium 146 H, Potassium 3.4 L, BUN 51 H, Creatinine 1.52 H, Glucose 123 H, Total Bilirubin 1.3 H, AST 114 H, ALT 59, Alkaline Phosphatase 122 H Microbiology Data (last 24 hrs): 08/11/20 22:14 Throat Group A Streptococcus Rapid Screen - Final Imagings Data: CT of the chest-left lateral ribs sees to tent fractures, air bronchograms and infiltrate on the left lower lobe base Assessment and Plan - Problems (Diagnosis) (1) Ribs, multiple fractures Current Visit: Yes Status: Acute (2) Left lower lobe pneumonia Current Visit: Yes Status: Acute (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 as needed Likely etiology of pneumonia # left community-acquired pneumonia-exacerbated by the rib fractures -start empirical antibiotics with Levaquin Obtain sputum for culture and sensitivity. Starts guaifenesin for cough symptoms Do incentive spirometry Follow WBC trend exertional O2 desaturation to 88% noted in the ER, start nasal cannula oxygen now # Ashe's disease-with hypokalemia, will reduced dose of Florinef Obtain patient home med list # DVT Prophylaxis - sc heparin # Hx of SLE -continue methotrexate #Advanced directive-discussed with patient, she wishes to be full code Time Spent Managing Pts Care (In Minutes): 70
[2020-08-11] MEDS ORDERED: ONDANSETRON 4 MG/2 ML VIAL IV PRN (23:57)
[2020-08-11] MEDS ORDERED: MORPHINE 2 MG/ML SYR IV PRN (23:57)
[2020-08-11] MEDS ORDERED: ACETAMINOPHEN 500 MG TAB PO PRN (23:57)
[2020-08-11 23:58] LABS: C-Reactive Protein 94.4 mg/L (<3.00)
[2020-08-12] MEDS ORDERED: guaiFENesin 100 MG/5 ML UCUP PO PRN (00:01)
[2020-08-12] MEDS ORDERED: ALBUTEROL 2.5 MG/3 ML NEB SOL NEB PRN (00:01)
[2020-08-12] MEDS ORDERED: POTASSIUM 25 MEQ EFFERV TAB PO ONE ×2 (00:01→05:40)
[2020-08-12] MEDS ORDERED: HOME MED 1 EA UNK (Cyclosporine [Restasis] Droperette) EACH EYE SCH (00:15)
[2020-08-12] MEDS ORDERED: HYDROCORTISONE SUC 100 MG INJ ONE (00:24)
[2020-08-12] MEDS ORDERED: MORPHINE 4 MG/ML SYR ONE (00:25)
[2020-08-12] MEDS ORDERED: HOME MED 1 EA UNK (Cyclosporine [Restasis] Droperette) OPTH SCH (00:45)
[2020-08-12] MEDS: LIDOCAINE 4% PATCH TOP SCH ×2 (00:50→09:06)
[2020-08-12] MEDS: Levofloxacin500mg IV 500 MG/100 ML BAG IV SCH (00:50)
[2020-08-12 01:28] VITALS: BMI 21.9
[2020-08-12 04:14] LABS: Absolute Lymphocytes (CBC) 0.2 K/uL (0.7-4.9); Albumin 2.5 g/dL (3.4-5.0); Basophils % 0.1 % (0-1.3); Bilirubin Total 0.9 mg/dL (0.2-1.0); Lymphocytes % 1.4 % (15.3-44.8); MPV 8.7 fL (7.6-11.3); Potassium 3.4 mmol/L (3.5-5.1); Protein, Total 6.1 g/dL (6.4-8.2); RBC Red Blood Cell Count 3.45 M/uL (3.86-4.86)
[2020-08-12] MEDS: Oxycodone HCl/Acetaminophen 1 TAB TAB PO PRN ×3 (04:54→21:04)
[2020-08-12] MEDS ORDERED: NS KCL 20MEQ 20 MEQ/1,000 ML BAG IV SCH (06:00)
[2020-08-12] MEDS ORDERED: POTASSIUM CL SA 10 MEQ TAB PO ONE (06:00)
[2020-08-12 06:12] LABS: C-Reactive Protein 78.9 mg/L (<3.00); Ferritin 325.4 ng/mL (8-388)
[2020-08-12] MEDS ORDERED: METHOTREXATE 2.5 MG TAB PO SCH (09:00)
[2020-08-12] MEDS ORDERED: HYDROCORTISONE 10 MG TAB PO SCH (09:00)
[2020-08-12] MEDS ORDERED: HEPARIN 5000 UNIT/ML 1 ML VIAL SQ SCH (09:00)
[2020-08-12] MEDS: ZINC SULFATE 220 MG CAP PO SCH (09:06)
[2020-08-12] MEDS: HYDROXYCHLOROQUINE 200MG TAB PO SCH ×2 (09:06→21:03)
[2020-08-12] MEDS: HYDROCORTISONE 10 MG TAB PO SCH (09:07)
--- NOTE | 2020-08-12 10:03 | P.PN ---
Subjective Date of Service: 08/12/20 Subjective: No new changes, No C/O voiced, Improving Patient still has some pain on deep inspiration. Review of Systems 10-point ROS is otherwise unremarkable Physical Examination - Vital Signs Temperature: 99.5 F Blood Pressure: 179/78 Pulse: 79 Respirations: 21 Pulse Ox (%): 97 - Physical Exam General: Alert, In no apparent distress, Oriented x3 Respiratory: Diminished, Crackles/rales, Expiratory wheezes Cardiovascular: Regular rate/rhythm, Normal S1 S2, No murmurs Gastrointestinal: Normal bowel sounds, Soft and benign, Non-distended, No tenderness Musculoskeletal: No clubbing, No swelling, No tenderness Integumentary: No rashes Neurological: Normal speech, Normal tone, Normal affect Lymphatics: No axilla or inguinal lymphadenopathy - Studies Laboratory Data (last 24 hrs) 08/11/20 19:55: WBC 13.7 H, Hgb 9.4 L, Hct 30.0 L, Plt Count 39 L* 08/11/20 19:08: Sodium 146 H, Potassium 3.4 L, BUN 51 H, Creatinine 1.52 H, Glucose 123 H, Total Bilirubin 1.3 H, AST 114 H, ALT 59, Alkaline Phosphatase 122 H Microbiology Data (last 24 hrs): 08/11/20 22:14 Throat Group A Streptococcus Rapid Screen - Final Medications List Reviewed: Yes Assessment & Plan - Problems (Diagnosis) (1) Kane disease Status: Acute (2) Hypernatremia Status: Acute (3) Hypokalemia Status: Acute (4) Left lower lobe pneumonia Status: Acute (5) Ribs, multiple fractures Status: Acute - Plan Plan: 1. Continue with pain control 2. Continue with IV hydration 3. Continue with nebulizer therapy 4. Incentive spirometer 5. Out of bed and ambulate Discharge Plan: Home Plan to discharge in: Greater than 2 days - Advance Directives Does patient have a Living Will: Yes Does patient have a Durable POA for Healthcare: Yes - Code Status/Comfort Care Code Status Assessed: Yes Code Status: Full Code Physician Review: Patient Assessed, Agree with Above Assessment and Plan Critical Care: No Time Spent Managing PTS Care (In Minutes): 35
--- NOTE | 2020-08-12 10:48 | RAD REPORT ---
EXAM DESCRIPTION: CT - Chest Abdomen Pelvis W Cont - 08/12/2020 6:24 am CLINICAL HISTORY: The patient is 70 years old and is Female; RIB PAIN - LEFT TECHNIQUE: Axial computed tomography images of the chest, abdomen and pelvis with intravenous contra st. Sagittal and coronal reformatted images were created and reviewed. This CT exam was performed using one or more of the following dose reduction techniques: automated exposure control, adjustme nt of the mA and/or kV according to patient size, and/or use of iterative reconstruction technique. COMPARISON: No relevant prior studies available. FINDINGS: ARTIFACTS: The exam is suboptimal secondary to motion artifact. CHEST: LUNGS: Dense consolidation is within the lower lobes with air bronchograms are present. Scattere d areas of groundglass opacity peripherally within the bilateral upper lobes, lingula, and right midd le lobe are present. PLEURAL SPACE: Unremarkable. No significant effusion. No pneumothorax. HEART: No cardiomegaly. No pericardial effusion. ABDOMEN: LIVER: Mild intra and extrahepatic biliary dilatation is present. GALLBLADDER AND BILE DUCTS: Surgical clips are present in the right upper quadrant, consistent w ith previous cholecystectomy. PANCREAS: No ductal dilation. No mass. SPLEEN: Several splenic granuloma are present. ADRENALS: Unremarkable. No mass. KIDNEYS AND URETERS: Unremarkable. The kidneys enhance symmetrically. No obstructing renal or ur eteral calculus is seen. No hydronephrosis or hydroureter. No perinephric fluid or stranding. STOMACH AND BOWEL: Evidence of a gastric bypass is noted. The small bowel is relatively normal i n caliber. Stool is scattered throughout the colon. There is no obvious mucosal thickening or evidenc e of obstruction. PELVIS: APPENDIX: No findings to suggest acute appendicitis. BLADDER: The bladder is well distended. REPRODUCTIVE: The patient is status post hysterectomy. CHEST, ABDOMEN and PELVIS: INTRAPERITONEAL SPACE: Unremarkable. No significant fluid collection. No free air. BONES/JOINTS: Fractures of the left lateral sixth through 10th ribs are present. Extensive posts urgical change of the thoracolumbar spine is present. Spinal rods and pedicle screws with associated iliac structs are noted extending from approximately T4 through the sacrum is present. SOFT TISSUES: Evidence of a prior right ventral wall hernia repair is noted. VASCULATURE: Atherosclerosis of the vasculature is present. The vessels are normal in caliber. No aortic aneurysm. LYMPH NODES: Unremarkable. No enlarged lymph nodes. IMPRESSION: 1. Acute left-sided rib fractures, left lateral sixth through 10th ribs. 2. Areas of consolidation within bronchograms within lung bases with associated superimposed ground glass opacity throughout the lungs. Imaging features can be seen with (COVID-19 or viral) pneumonia , though are nonspecific and can occur with a variety of infectious and noninfectious processes. Cov19 Ind 3. No evidence of solid organ injury on this contrasted CT of the chest, abdomen, and pelvis. [place] is limited secondary to motion artifact. 4. Chronic findings as detailed above. Electronically signed by: Justa Patel MD 08/11/2020 10:26 PM [place] [employer] Due to temporary technical issues with the PACS/Fluency reporting system, reports are being signed by the in house radiologist without review as a courtesy to ensure prompt reporting. The interpreting r adiologist is fully responsible for the content of the report.
[2020-08-12] MEDS ORDERED: NA CHLORIDE 0.9% 1,000 ML IV SCH (15:00)
[2020-08-12] MEDS ORDERED: POTASSIUM CL 40 MEQ in NA CHLORIDE 0.9% 500 ML IV SCH (15:00)
[2020-08-12 15:20] LABS: Urine Appearance CLEAR; Urine Blood 2+ (NEG); Urine Color YELLOW; Urine Glucose NEGATIVE (NEG); Urine Protein 3+ (NEG); Urine Specific Gravity >=1.030 (1.005-1.030); Urine Urobilinogen 0.2 mg/dL (0.2-1.0)
[2020-08-12 15:24] LABS: Urine Bilirubin NEGATIVE (NEG); Urine Microscopic Reflex ORDER UMIC
[2020-08-12 15:29] LABS: Urine Protein/Creatinine Ratio 8.67 ratio (<0.15)
[2020-08-12 15:48] LABS: Urine Amorphous Sediment 1+ /HPF (NONE SEEN)
[2020-08-12 15:50] LABS: Urine Bacteria <20 /HPF (<20); Urine RBC <5 /HPF (NONE SEEN)
--- NOTE | 2020-08-12 18:07 | CON ---
Date of Consultation: 08/12/2020 Reason For Consultation: Elevated BUN and creatinine. History Of Present Illness: This is a 70-year-old lady with significant past medical history of lupus, gastric bypass, [place] disease. The patient came to the hospital complaining from left rib pain, nausea without any vomiting with decreased intake. No fever or chills. The patient found to have COVID positive. Primary workup showed elevation in BUN and creatinine. Creatinine 1.5 with low GFR 34. For that reason, we have been consulted. The patient denied taking any nonsteroidal. The patient had history of SLE. Past Medical History: Includes; 1. SLE. 2. Hypertension. 3. [place]. Home Medications: Include; 1. Cyclosporine. 2. Florinef. 3. Hydrocortisone. 4. Methotrexate. 5. Ambien. Past Surgical History: Gastric bypass. Social History: Denied smoking. Denied drinking. Denied drugs abuse. Review of Systems: Head and Neck: No red eye. No ear pain. GI: Decreased intake. : No polyuria. No dysuria. No hematuria. REGULATORY MANAGER: No vaginal discharge. Respiratory: Has shortness of breath. Cardiovascular: No chest pain. Endocrine: No polydipsia. Skin: No rash. Neuro: Has neuropathy. Musculoskeletal: Generalized fatigue. Physical Examination: Vital Signs: When I saw the patient, blood pressure 162/69, pulse of 77, afebrile. Chest: Clear to auscultation. Heart: S1, S2. Systolic murmur. Abdomen: Soft, nontender. Extremities: No edema. Neurologic: Alert. No focal. Laboratory Data: Sodium 147, potassium 3.4, bicarb 23, BUN 55, creatinine 1.7, GFR 28, calcium 8.3, albumin 2.5. WBC 16.1, H and H 8.7/28, platelets 38. Urinalysis is still pending. COVID positive. Current Medications: The patient on include Plaquenil, Levaquin, hydrocortisone, KCl. Assessment And Plan: 1. Acute kidney injury with thrombocytopenia/ histpry of SLE s/p Contrast , which looked to me chronic with anemia. I am going to send the marker to measure the activity of the lupus. We will send for LDH and haptoglobin. We will follow up the patient. The patient had CT. Obstructive uropathy has been ruled out. The patient received contrast. We will start the patient on hydration to avoid further contrast-induced nephropathy/ SLE nephritis : we will monitor the patient. start the patient on IV hydration hold all NSAID / ACEI / ARB will send for serology for SLE hapto / LDH / to R/o intravascular hemolysis 2. Hypertension, not controlled. I agree with holding the Florinef for the time being. We will start the patient on Norvasc. 3. COVID pneumonia. Follow up with the primary. 4. [place] disease. Blood pressure has been stable. I do not see the need for stress dose of the steroid. We will continue current treatment. 5. Hypokalemia. We will supplement. Thank you Dr. Shukla for allowing us to participate in the care of your patient. Time spent discussing with the patient, [id number], using the translation, discussing with the staff and placing an order, discussing with over subspecialty and hospitalist 75 minutes. JOVANA Voice ID: [id number] Report ID: [id number] TIM
[2020-08-12] MEDS ORDERED: VANCOMYCIN 1.25 GM in NA CHLORIDE 0.9% 250 ML IVPB SCH (19:00)
[2020-08-12] MEDS ORDERED: VANCOMYCIN 1.25 GM in NA CHLORIDE 0.9% 250 ML IVPB ONE (21:00)
[2020-08-12] MEDS: HYDRALAZINE HCL 20 MG/ML VIAL IV PRN (21:03)
[2020-08-12] MEDS: TOPIRAMATE 100 MG TAB PO SCH (21:03)
[2020-08-13] MEDS: Levofloxacin500mg IV 500 MG/100 ML BAG IV SCH (00:58)
[2020-08-13 05:19] LABS: Absolute Lymphocytes (CBC) 0.3 K/uL (0.7-4.9); Basophils % 0.3 % (0-1.3); Hematocrit 25.5 % (36.0-45.0); Lymphocytes % 1.6 % (15.3-44.8); MPV 9.3 fL (7.6-11.3); RBC Red Blood Cell Count 3.12 M/uL (3.86-4.86)
[2020-08-13 05:46] LABS: Albumin 2.6 g/dL (3.4-5.0); Bilirubin Total 0.8 mg/dL (0.2-1.0); C-Reactive Protein 35.9 mg/L (<3.00); Ferritin 284.2 ng/mL (8-388); Magnesium 2.5 mg/dL (1.8-2.4); Phosphorus 1.8 mg/dL (2.5-4.9); Protein, Total 5.9 g/dL (6.4-8.2)
[2020-08-13] MEDS: Oxycodone HCl/Acetaminophen 1 TAB TAB PO PRN (05:46)
[2020-08-13] MEDS: HYDRALAZINE HCL 20 MG/ML VIAL IV PRN ×3 (05:46→23:41)
[2020-08-13 05:54] LABS: Thyroid Stimulating Hormone 5.94 uIU/mL (0.360-3.740)
[2020-08-13] MEDS: ZINC SULFATE 220 MG CAP PO SCH (07:48)
[2020-08-13] MEDS: LIDOCAINE 4% PATCH TOP SCH (07:48)
[2020-08-13] MEDS: HYDROXYCHLOROQUINE 200MG TAB PO SCH ×2 (07:48→20:05)
[2020-08-13] MEDS: HYDROCORTISONE 10 MG TAB PO SCH ×4 (07:49→20:05)
[2020-08-13] MEDS: AMLODIPINE 5 MG TAB PO SCH (07:51)
[2020-08-13] MEDS ORDERED: HYDROCORTISONE SUC 100 MG INJ IV SCH ×2 (09:00→18:00)
[2020-08-13] MEDS ORDERED: D5 0.45 NS 1,000 ML IV SCH (10:00)
[2020-08-13] MEDS: D5W 1,000 ML IV SCH ×2 (11:20→21:53)
[2020-08-13] MEDS ORDERED: ENOXAPARIN 60 MG/0.6 ML SQ ONE (13:47)
--- NOTE | 2020-08-13 14:05 | RAD REPORT ---
EXAM DESCRIPTION: RAD - Chest Single View - 08/13/2020 1:55 pm CLINICAL HISTORY: Covid PNA COMPARISON: CT study August 11 TECHNIQUE: AP portable chest image was obtained 08/13/2020 1:55 pm . FINDINGS: Lung volumes are low. Lung parenchymal opacification pattern has not changed substantially in right lung field. Left lung field does appear to be improved no comparison to CT is difficult. He art and vasculature are normal. No pneumothorax or measurable pleural effusion. The acute left sixth- tenth rib fractures again noted. No additional bone abnormality seen. Scoliosis rods are in place. No acute aortic findings suspected. IMPRESSION: Left lung field appears to have partially cleared since August 11. Comparison this CT i maging is limited. No significant change to the right lung field.
[2020-08-13 18:04] LABS: Absolute Lymphocytes (CBC) 0.1 K/uL (0.7-4.9); Basophils % 0.3 % (0-1.3); Hematocrit 25.6 % (36.0-45.0); Lymphocytes % 0.8 % (15.3-44.8); MPV 9.4 fL (7.6-11.3); RBC Red Blood Cell Count 3.14 M/uL (3.86-4.86)
[2020-08-13 18:36] LABS: Platelet Estimate DECR; Platelets, Giant PRESENT
[2020-08-13 18:37] LABS: Blood Morphology Comment NOTED (NOT SEEN); Hypochromasia 1+
[2020-08-13] MEDS: TOPIRAMATE 100 MG TAB PO SCH (20:05)
[2020-08-13] MEDS ORDERED: NA CHLORIDE 0.9% 250 ML ONE (23:01)
--- NOTE | 2020-08-13 23:14 | PN ---
Date of Progress Note: 08/13/2020 Subjective: The patient was admitted with acute kidney injury multifactorial secondary to poor perfusion ATN and found to also to have contrast-induced nephropathy. The patient's kidney function continues to decline. The patient was maintained on IV fluid. Objective: Vital Signs: When I saw the patient, blood pressure 157/65, pulse of 93. The patient had good urine output. Lungs: Clear to auscultation. Heart: S1, S2. Regular. Abdomen: Soft. Nontender. Extremities: No edema. Neuro: Alert. No focality. Laboratory Data: Sodium 152, potassium 4, bicarb 21, BUN 66, creatinine 2.3, calcium of 8.1, uric acid of 9, phosphorus 1.8, magnesium 2.5. BNP 12,599. Albumin 2.6, corrected calcium is 9.3. PC ratio of the 8. Serology still pending. Current Medications: The patient on include, 1. Plaquenil. 2. Levaquin. 3. Vancomycin. 4. Lovenox. 5. Amlodipine 5. 6. Tylenol. 7. Zinc sulfate. 8. Zofran. 9. D5 normal statin. 10. KCl. Assessment And Plan: 1. Acute kidney injury, nephrotic range proteinuria on chronic kidney disease, possible secondary to contrast-induced nephropathy giving the presence of the anemia, presence of history of lupus and nephrotic range proteinuria. Lupus nephritis also need to be ruled out. We will follow up the serology. We will consider kidney biopsy if kidney function did not improve further. 2. Hypertension, currently controlled, optimal, continue to monitor. 3. Mike disease. Blood pressure being stable. We will continue to monitor. 4. Hypokalemia. We will supplement. 5. Anemia with the presence of acute kidney injury and proteinuria. Light chain disease needs to be ruled out. We will send for serum protein electrophoresis. 6. hyperNa I am going to go ahead and change IV fluid to D5 and we will order repeated chest x-ray to evaluate for the fluid status for the patient. 7. COVID pneumonia. Continue current treatment. Follow up with the primary. Time spent discussing with the patient, [id number], using the translation, discussing with the staff and placing an order, discussing with over subspecialty and hospitalist 45 minutes. JOVANA Voice ID: [id number] Report ID: [id number] MTDD
[2020-08-14] MEDS ORDERED: FUROSEMIDE 20 MG/ 2ML VIAL ONE (01:59)
[2020-08-14] MEDS: FUROSEMIDE 40 MG/4 ML VIAL ONE ×2 (02:00→02:53)
[2020-08-14 04:06] LABS: Absolute Lymphocytes (CBC) 0.1 K/uL (0.7-4.9); Basophils % 0.5 % (0-1.3); Hematocrit 32.7 % (36.0-45.0); Lymphocytes % 0.5 % (15.3-44.8); MPV 9.1 fL (7.6-11.3); RBC Red Blood Cell Count 3.95 M/uL (3.86-4.86)
[2020-08-14 04:29] LABS: ALT/SGPT 35 U/L (12-78); AST/SGOT 70 U/L (15-37); Albumin 2.6 g/dL (3.4-5.0); Alkaline Phosphatase 159 U/L (45-117); BUN Blood Urea Nitrogen 66 mg/dL (7-18); Bicarbonate 20 mmol/L (21-32); Bilirubin Total 0.7 mg/dL (0.2-1.0); Ferritin 377.3 ng/mL (8-388); Glucose Level 149 mg/dL (74-106); Magnesium 2.3 mg/dL (1.8-2.4); NT PRO-BNP 27678 pg/mL (<125); Potassium 3.7 mmol/L (3.5-5.1); Protein, Total 6.5 g/dL (6.4-8.2); Sodium Level 147 mmol/L (136-145)
[2020-08-14 04:50] LABS: Blood Morphology Comment NOTED (NOT SEEN); Ovalocytes 2+; Platelet Estimate DECR
[2020-08-14] MEDS: Levofloxacin500mg IV 500 MG/100 ML BAG IV SCH (05:01)
--- NOTE | 2020-08-14 08:32 | ECHO ---
HEIGHT: 5 ft 2 in WEIGHT: 114 lb 4.8 oz DATE OF STUDY: 08/13/[address]: Laurence Pastor MD 2-DIMENSIONAL: YES M.MODE: YES DOPPLER: YES COLOR FLOW: YES TDS: PORTABLE: DEFINITY: BUBBLE STUDY: DIAGNOSIS: CONGESTIVE HEART FAILURE/ RIGHT VENTRICULAR PRESSURE CARDIAC HISTORY: CATHERIZATION: NO SURGERY: NO PROSTHETIC VALVE: NO PACEMAKER: NO MEASUREMENTS (cm) DIASTOLIC (NORMALS) SYSTOLIC (NORMALS) IVSd 0.8 (0.6-1.2) LA Diam 2.7 (1.9-4.0) LVEF 88% LVIDd 3.2 (3.5-5.7) LVIDs 1.4 (2.0-3.5) %FS 56% LVPWd 1.0 (0.6-1.2) Ao Diam 2.4 (2.0-3.7) 2 DIMENSIONAL ASSESSMENT: RIGHT ATRIUM: NORMAL LEFT ATRIUM: NORMAL RIGHT VENTRICLE: NORMAL LEFT VENTRICLE: NORMAL TRICUSPID VALVE: NORMAL MITRAL VALVE: MITRAL ANNULAR CALCIFICATION PULMONIC VALVE: NORMAL AORTIC VALVE: STENOTIC PERICARDIAL EFFUSION: NONE AORTIC ROOT: NORMAL LEFT VENTRICULAR WALL MOTION: NORMAL DOPPLER/COLOR FLOW: MILD TRICUSPID REGURGITATION. MILD AORTIC STENOSIS COMMENTS: MILD TRICUSPID REGURGITATION - MODERATE PULMONARY HYPERTENSION. MILD AORTIC STENOSIS - 1.5 CENTIMETERS SQUARED. NORMAL LEFT VENTRICULAR SIZE AND FUNCTION. MITRAL ANNULAR CALCIFICATION. NORMAL RIGHT VENTRICULAR FUNCTION AND SIZE. TECHNOLOGIST: MICHAEL ORR
--- NOTE | 2020-08-14 08:44 | RAD REPORT ---
EXAM DESCRIPTION: RAD - Chest Single View - 08/14/2020 6:11 am CLINICAL HISTORY: volume overload Chest pain. COMPARISON: Chest Single View dated 08/13/2020; CHEST PA AND LAT 2 VIEW dated 08/08/2012; Chest Abdomen Pelvis W Cont dated 08/11/2020 FINDINGS: Portable technique limits examination quality. Significant worsening lung aeration is seen since 08/13/2020. The heart is upper limit normal size. H ardware is present in the spine. IMPRESSION: Moderate worsening of lung aeration is seen, worse on the right.
[2020-08-14 08:49] LABS: Folic Acid, (Folate) > 20.0 ng/mL (3.1-17.5)
[2020-08-14] MEDS: ZINC SULFATE 220 MG CAP PO SCH ×2 (08:55→09:00)
[2020-08-14] MEDS: HYDROXYCHLOROQUINE 200MG TAB PO SCH ×4 (08:55→23:06)
[2020-08-14] MEDS: LIDOCAINE 4% PATCH TOP SCH (08:56)
[2020-08-14] MEDS: AMLODIPINE 5 MG TAB PO SCH ×2 (08:57→09:00)
[2020-08-14] MEDS: HYDROCORTISONE 10 MG TAB PO SCH ×4 (09:00→23:05)
[2020-08-14] MEDS ORDERED: VANCOMYCIN/NS 1 gm 1 GM/250 ML BAG IVPB SCH (09:00)
[2020-08-14] MEDS ORDERED: LORazepam 2 MG/ML VIAL IV ONE (09:47)
[2020-08-14] MEDS ORDERED: FUROSEMIDE 40 MG/4 ML VIAL IV ONE (11:52)
[2020-08-14] MEDS ORDERED: MORPHINE 2 MG/ML SYR IV PRN (15:01)
[2020-08-14 15:06] LABS: Protime INR 2.14
--- NOTE | 2020-08-14 15:24 | PN ---
Date of Progress Note: 08/14/2020 Subjective: The patient was admitted with acute kidney injury. The patient had history of [place] and lupus. The patient exposed to contrast upon admission. The patient started being oliguric overnight. We started diuresing the patient. The patient still oliguric. Physical Examination: Vital Signs: When I saw the patient, blood pressure 125/58, pulse of 107, afebrile. The patient had on 200 in the last 24 hours and today after the Lasix, she made 250 in the last 5 hours. Chest: Crackles bilateral. Heart: S1, S2. Systolic murmur. The patient on BiPAP. Neuro: The patient is sleepy. No tremor. Laboratory Data: WBC 21.5, H and H 10.4/32.7, platelet of 50. Sodium 147, potassium 3.7, bicarb 20, BUN 66, creatinine 2.8, GFR of 17, calcium 8.3, phosphorus of 3, magnesium 2.3, ferritin 377, LDH above 1000, C-reactive protein 97, albumin 2.6, folate more than 2000, TSH 5.9. PTH 84, PC ratio 8.6 g. No hematuria. Chest x-ray, cardiomegaly with congestion. Assessment And Plan: Acute kidney injury, questionable of contrast induced nephropathy. Given the nephrotic range of proteinuria, the possibility of systemic lupus erythematosus, nephritis also valid and COVID nephropathy another possibility. The patient oliguric over volume. I had long discussion with the patient's , Mr. Davey over the phone at phone #[phone] regarding the condition of the patient and the need to initiate renal replacement therapy. Explained risks, benefits, alternative for hemodialysis and placing catheter. The patient's on agreement to start. I am going to go ahead and consult Surgery for placement of hemodialysis catheter and we will initiate dialysis daily to establish better volume control and we will monitor the patient. Plan: 1. After stabilization of the patient's condition and respiratory status, the patient may need to have kidney biopsy to evaluate if there is any lupus nephritis involved, especially with the presence of severe elevation on LDH and the anemia to see if there is any flare for her lupus, especially with thrombocytopenia. hadd long dissussion with the nate over the phone tregarding his explain the sever decelin inthe GFR and the need to start dialysis on agreement with understand risk benifit and alternative will call surgery for cath placement then HD 2. I am going to go ahead and follow up the serology that we sent yesterday and we will send for haptoglobin and we will monitor the patient. 3. Hypertension, currently blood pressure controlled. Avoid AUDELIA inhibitor or ARB for the time being. We will utilize the blood pressure for more fluid status. We will give Lasix 40 mg right now and we will dialyze the patient challenge fluid status. 4. Anemia with the presence of lupus and acute kidney injury. Light chain disease needs to be ruled out. Serum protein electrophoresis is still pending. We will follow up an anemia workup. 5. Respiratory failure secondary to COVID pneumonia/over volume. We will start diuresis. Continue current antibiotic. We will follow up with Pulmonary. Time spent discussing with the patient, [id number], using the translation, discussing with the staff and placing an order, discussing with over subspecialty and hospitalist 45 minutes. JOVANA Voice ID: [id number] Report ID: [id number] TIM
[2020-08-14] MEDS ORDERED: MORPHINE 2 MG/ML SYR IV ONE (16:00)
--- NOTE | 2020-08-14 16:30 | CON ---
Date of Consultation: 08/14/2020 Reason For Service: Placement of hemodialysis catheter Diagnoses: Acute renal failure, coagulopathy, COVID pneumonia. History Of Present Illness: This is the case of a 70-year-old patient with multiple medical problems , who came to the hospital and admitted with a working diagnosis of COVID pneumonia. Her stay has be en also loaded with all other medical problems and that came also thrombocytopenia, increased D-dimer , COVID pneumonia symptomatic, she cannot even take the BiPAP out of her without dropping immediately her saturation, confused, found to have renal insufficiency and a surgical consult was obtained for emergent hemodialysis catheter. We cannot get any information from the patient. I got information f rom Dr. Landin, from Dr. Pastor, and from the patient's family too. Past Medical History: As above. Medications: Reviewed. Past Surgical History: History of gastric bypass. Allergies: WARFARIN. Social History: Apparently, she does not smoke. She does not drink alcohol. Review of Systems: Unable to obtain. Physical Examination: General: The patient is on BiPAP machine, confused, cannot express herself. HEENT: Pupils anicteric. Abdomen: Soft and depressible. Chest: Diminished sounds in the right area of the upper chest. Neck: Intact. Laboratory Data: Blood work shows a WBC count of 21, hemoglobin of 10.4, and platelets of 50 coming up from 39. INR is not done, but D-dimer is 100,416 from a normal or less than 500. INR is not avai lable. Potassium is 3.7, creatinine is 2.8, BUN is 66. Chest x-ray shows significant worsening of l lizet aeration from 24 hours ago, positive for COVID pneumonia. Assessment: It is an unfortunate 70-year-old patient with COVID pneumonia, thrombocytopenia, multipl e medical problems including renal insufficiency. They asked for emergent hemodialysis catheter due to the condition, so I discussed the case with Dr. Pastor who is the primary doctor, who has been seein g this patient also with her . different options that we have of emergent HemoSpli t dialysis catheter at bedside that also has some risk, which included infection and bleeding, specif ically bleeding with a history of high thrombocytopenia and probably DIC. Through more controlled se ttings, we can also do the factor of mechanical ventilation. Dr. Benson from Anesthesia is present here, trying to see the pros and cons of this intervention, and once again based on his in itial findings, he believed the patient will have to remain on mechanical ventilation after the proce dure if we are trying to do a tunneled catheter. This represent a challenge since thrombocytopenia m ay be an increased risk of bleeding in this patient and may have to do another procedure just to cont rol that bleeding. When we discussed all the pros and cons with the patient, then we will allow the patient and the primary doctor to once again talk to each other about the pros and cons and what they have to do with this kind lady, we doubt may get worse. I had a word from Dr. Pastor right now that s ays the patient's only want comfort, they did not want the procedure or the hemodialysis catheter dina roberto and I understand their situation. With the best for the family and the person and the patient an d if they need me in the future, feel free to reconsult. OR was notified and ICU notified. Case was postponed. HM/MODL Voice ID: [id number] Report ID: [id number]
[2020-08-14] MEDS: TOPIRAMATE 100 MG TAB PO SCH ×2 (21:00→23:05)
[2020-08-14 23:24] VITALS: O2SAT 98
[2020-08-15] MEDS: Levofloxacin500mg IV 500 MG/100 ML BAG IV SCH (00:59)
[2020-08-18 05:41] LABS: Albumin, (SPE) 3.1 g/dL (3.8-4.8); Alpha-1-Globulins 0.5 g/dL (0.2-0.3); Alpha-2-Globulins 0.8 g/dL (0.5-0.9); Gamma Globulins 0.9 g/dL (0.8-1.7); INTERPRETATION REPORT
[2020-08-20 04:03] VITALS: BP 179/78; TEMP 99.5
--- NOTE | 2020-08-20 04:05 | P.PN ---
Date of Service: 08/13/20 Subjective Subjective: Patient is still tachypneic. Pain on deep inspiration. Appears to be in more distress today. Will speak with family regarding plan of care. Review of Systems 10-point ROS is otherwise unremarkable Physical Examination - Vital Signs Reviewed - Physical Exam General: Alert, In no apparent distress, Oriented x3 Respiratory: Diminished, Crackles/rales, Expiratory wheezes Cardiovascular: Regular rate/rhythm, Normal S1 S2, No murmurs Gastrointestinal: Normal bowel sounds, Soft and benign, Non-distended, No tenderness Musculoskeletal: No clubbing, No swelling, No tenderness Neurological: Normal speech, Normal tone, Normal affect Assessment & Plan - Problems (Diagnosis) (1) [place] disease Status: Acute (2) Hypernatremia Status: Acute (3) Hypokalemia Status: Acute (4) Left lower lobe pneumonia Status: Acute (5) Ribs, multiple fractures Status: Acute - Plan Plan: Continue with plan of care as mentioned below 1. Continue with pain control 2. Continue with IV hydration 3. Continue with nebulizer therapy 4. Incentive spirometer 5. Out of bed and ambulate Discharge Plan: Home Plan to discharge in: Greater than 2 days - Advance Directives Does patient have a Living Will: Yes Does patient have a Durable POA for Healthcare: Yes - Code Status/Comfort Care Code Status Assessed: Yes Code Status: Full Code Physician Review: Patient Assessed, Agree with Above Assessment and Plan Critical Care: No Time Spent Managing PTS Care (In Minutes): 35
--- NOTE | 2020-08-20 04:12 | P.PN ---
Date of Service: 08/14/20 Subjective Subjective: Patient continues to decline. Having some pain on the left side of ribs. Patient is clinically not doing well. Spoke with family and make patient a DNR. Review of Systems 10-point ROS is otherwise unremarkable Physical Examination - Vital Signs Reviewed - Physical Exam General: Alert, In no apparent distress, Oriented x3 Respiratory: Diminished, Crackles/rales, Expiratory wheezes Cardiovascular: Regular rate/rhythm, Normal S1 S2, No murmurs Gastrointestinal: Normal bowel sounds, Soft and benign, Non-distended, No tenderness Musculoskeletal: No clubbing, No swelling, No tenderness Neurological: Normal speech, Normal tone, Normal affect Assessment & Plan - Problems (Diagnosis) (1) [place] disease Status: Acute (2) Hypernatremia Status: Acute (3) Hypokalemia Status: Acute (4) Left lower lobe pneumonia Status: Acute (5) Ribs, multiple fractures Status: Acute - Plan Plan: Continue with plan of care as mentioned below 1. Continue with pain control 2. Continue with IV hydration 3. Continue with nebulizer therapy 4. Incentive spirometer 5. Anxiolytics Discharge Plan: Home Plan to discharge in: Greater than 2 days - Advance Directives Does patient have a Living Will: Yes Does patient have a Durable POA for Healthcare: Yes - Code Status/Comfort Care Code Status Assessed: Yes Code Status: Full Code Physician Review: Patient Assessed, Agree with Above Assessment and Plan Critical Care: No Time Spent Managing PTS Care (In Minutes): 35
--- NOTE | 2020-08-20 04:14 | P.DS ---
Discharge Date: 08/15/20 Disposition: Discharge Condition: Reason for Admission: SOB , left rib margin pain - Problems (1) Drasco disease Status: Acute (2) Hypernatremia Status: Acute (3) Hypokalemia Status: Acute (4) Left lower lobe pneumonia Status: Acute (5) Ribs, multiple fractures Status: Acute Brief History of Present Illness: Patient is a 70-year-old female who came into the lab draw after falling and suffered her rib fractures. She did develop pneumonia. She also as a history of COVID-19 Pneumonia. She was admitted for evaluation. Hospital Course: Patient started decline throughout her hospital stay. Her clinical condition continued to worsen. told us she was a do not resuscitate. As she declined we made her comfortable. Patient was comfort measures only. Patient p assed away on the morning of August 15, 2020. Laboratory Data at Discharge: WBC 21.5 K/uL (4.3-10.9) H* 08/14/20 03:29 Hgb 10.4 g/dL (12.0-15.0) L D 08/14/20 03:29 Hct 32.7 % (36.0-45.0) L D 08/14/20 03:29 Plt Count 50 K/uL (152-406) L 08/14/20 03:29 PT 24.9 SECONDS (9.5-12.5) H 08/14/20 14:48 INR 2.14 08/14/20 14:48 APTT 32.1 SECONDS (24.3-36.9) 08/14/20 14:48 Sodium Cancelled 08/15/20 05:00 Potassium Cancelled 08/15/20 05:00 BUN Cancelled 08/15/20 05:00 Creatinine Cancelled 08/15/20 05:00 Glucose Cancelled 08/15/20 05:00 Uric Acid Cancelled 08/13/20 05:00 Phosphorus Cancelled 08/15/20 05:00 Magnesium Cancelled 08/15/20 05:00 Total Bilirubin 0.7 mg/dL (0.2-1.0) 08/14/20 03:29 AST 70 U/L (15-37) H 08/14/20 03:29 ALT 35 U/L (12-78) 08/14/20 03:29 Alkaline Phosphatase 159 U/L (45-117) H 08/14/20 03:29 Home Medications: Fludrocortisone [Florinef *] 1 tab PO DAILY 08/22/18 Hydrocortisone [Cortef*] 1 tab PO DIRECTED 08/22/18 Hydroxychloroquine Sulfate 1 tab PO BID 08/22/18 Iron Fm,Ps No.1/Folic/Mv No.18 [Tandem Plus Capsule] 1 tab PO DAILY 08/22/18 Methotrexate [Methotrexate*] 8 tab PO DIRECTED 08/22/18 Zolpidem Tartrate 1 tab PO BEDTIME 08/22/18 Bisacodyl [Laxative] 5 mg PO DAILY PRN 08/13/20 Calcium Carbonate/Vitamin D3 [Oscal 500 + Vit D 200 Iu Tab*] 1 tab PO DAILY 08/13/20 Cyanocobalamin (Vitamin B-12) [Cyanocobalamin Injection] 1 ml SQ DIRECTED 08/13/20 Eszopiclone [Lunesta] 1 mg PO BEDTIME PRN 08/13/20 Folic Acid 1 tab PO DAILY 08/13/20 Hydrocodone/Acetaminophen [[place] 10-325 Tablet] 1 tab PO TID PRN 08/13/20 Ibuprofen [Motrin Ib] 4 cap PO Q6H PRN 08/13/20 Linaclotide [Linzess] 145 mcg PO DAILY PRN 08/13/20 Naloxone HCl [Narcan] 1 spray IN PRN PRN 08/13/20 Nitrofuran Macro [Macrobid*] 1 cap PO BID 08/13/20 Omeprazole Magnesium [Prilosec Otc] 1 tab PO DAILY PRN 08/13/20 Ondansetron [Zuplenz] 1 tab PO Q4H PRN 08/13/20 Potassium Chloride [Klor-Con M10] 1 tab PO DAILY 08/13/20 Teriparatide 20 mcg SQ DAILY 08/13/20 Tramadol HCl [Ultram] 2 tab PO Q6H 08/13/20 Triamterene/Hydrochlorothiazid [Triamterene-Hctz 37.5-25 mg Cp] 1 tab PO DAILY 08/13/20 Patient Discharge Instructions: Patient August 15, 2020 Time spent managing pt's care (in minutes): 35
== END 2020-08-15 03:30 | disposition expired | DRG 177 ==
LOC: ER 18:22 → ERHOLD 08-12 00:11 → 4TH 08-12 00:22
PROVIDERS: ADMIT Internal Medicine; ATTEND Hospitalist
PROC: 8E0ZXY6 Isolation (ICD-10-PCS; principal; 2020-08-12)
PROC: 30233N1 Transfusion of Nonautologous Red Blood Cells into Peripheral Vein, Percutaneous Approach (ICD-10-PCS; 2020-08-13)
DX: U07.1 COVID-19 (principal); J12.82 Pneumonia due to coronavirus disease 2019; N17.0 Acute kidney failure with tubular necrosis; J96.01 Acute respiratory failure with hypoxia; S22.42XA Multiple fractures of ribs, left side, initial encounter for closed fracture; E27.1 Primary adrenocortical insufficiency; E87.0 Hyperosmolality and hypernatremia; L89.151 Pressure ulcer of sacral region, stage 1; D64.9 Anemia, unspecified; E87.6 Hypokalemia; I12.9 Hypertensive chronic kidney disease with stage 1 through stage 4 chronic kidney disease, or unspecified chronic kidney disease; N18.9 Chronic kidney disease, unspecified; D69.6 Thrombocytopenia, unspecified; N14.1 Nephropathy induced by other drugs, medicaments and biological substances; T50.8X5A Adverse effect of diagnostic agents, initial encounter; W01.0XXA Fall on same level from slipping, tripping and stumbling without subsequent striking against object, initial encounter; Z88.8 Allergy status to other drugs, medicaments and biological substances; Z79.899 Other long term (current) drug therapy; Z94.7 Corneal transplant status; Z90.710 Acquired absence of both cervix and uterus; Z98.84 Bariatric surgery status; Z66 Do not resuscitate
CPT/HCPCS: 0240U; 36415; 36430; 71045; 71260; 74177; 80053; 80202; 81003; 81015; 82570; 82607; 82728; 82746; 82947; 83010; 83540; 83605; 83615; 83735; 83880; 83970; 84100; 84145; 84156; 84165; 84439; 84443; 84550; 85025; 85044; 85379; 85610; 85730; 86038; 86140; 86160; 86225; 86850; 86900; 86901; 87040; 87070; 87081; 93306; 94660; 94760; 99285; J0360; J0456; J0696; J1650; J1720; J1940; J2270; J2405; J3370; J3480; J7030; J7040; J7050; J7799; J8610; P9016; Q9967